=== PATIENT | female | born 1935 | race Caucasian/White ===

== ENCOUNTER 2021-03-14 15:36 | Inpatient (IN) | payer MEDICARE, OTHER, SELFPAY ==
[2021-03-14] VITALS (28 sets, daily range): BP systolic 99–114; BP diastolic 51–64; PULSE 58–72; RESP 9–19; TEMP 36–36.1; O2SAT 92–100; BMI 30.9
--- NOTE | ~2021-03-14 | XR_ITS ---
XR chest 2V DATE: 03/14/2021 16:44 INDICATION: Weakness. Cold sweats. Hyperglycemia. Abdominal pain. Nausea, diarrhea. TECHNIQUE: 2 views, AP and lateral projections COMPARISON: 01/25/2018 two-view chest FINDINGS: There is chronic mild elevation right leaf of the diaphragm. Surgical clips overlie both axillary regions and right upper quadrant of the abdomen.. No pulmonary infiltrate or consolidation, pleural effusion or pulmonary vascular congestion or pneumo thorax. Diffuse osteopenia. Degenerative spurring of the thoracic and lumbar spine. IMPRESSION: No active disease Reviewed, dictated and finalized at location A. IMPRESSION: No active disease
--- NOTE | ~2021-03-14 | CT_ITS ---
EXAMINATION: CT abdomen pelvis wo con DATE: 03/14/2021 17:25 INDICATION: Generalized abdominal pain, nausea TECHNIQUE: Computed tomography (CT) of the abdomen and pelvis was performed without intravenous contr ast. Automated exposure control and iterative reconstruction technique were employed. Exam dose: 791 .91 mGy-cm total exam DLP. COMPARISON: 01/26/2018 CT abdomen pelvis FINDINGS: Minimal discoid atelectasis or scarring at the lung bases. Normal heart size. There is coronary artery atherosclerosis. No pericardial or pleural effusion. Small sliding hiatal hernia. Status post left mastectomy. No hepatic space-occupying mass lesion. Status post cholecystectomy. The common bile duct is prominent but tapers distally, likely secondary to cholecystectomy. Normal splenic size. No pancreatic mass lesion, calcification or ductal dilatation. There is a small fatty lesion of the left adrenal gland, likely a small adrenal myelolipoma. The adre nal glands are otherwise unremarkable. There is very prominent bilateral renal cortical atrophy, greater on the left. There are bilateral re nal cysts, measuring up to 2.8 cm on the left, 4.4 cm on the right. The urinary bladder is unremarkable. There are mildly distended fluid containing small bowel segments with occasional air fluid levels; di fferential diagnosis includes enteritis, mild adynamic ileus or partial small bowel obstruction. There are numerous diverticula of the left and right colon; no CT evidence of diverticulitis. No evid ence of appendicitis. No intraperitoneal free air. There is diffuse osteopenia. There is moderate anterior wedge compression fracture of L2. There is severe biconcave burst fracture of L5. IMPRESSION: Mild small bowel dilatation and air fluid levels; differential diagnosis includes enteri tis, mild adynamic ileus, partial small bowel obstruction Small sliding hiatal hernia Diverticulosis of the colon; no evidence of diverticulitis No evidence of appendicitis Very small left adrenal myelolipoma Bilateral renal cysts Compression fracture or L2, severe burst fracture of L5 Reviewed, dictated and finalized at Location [facility]. Reviewed, dictated and finalized at location A. IMPRESSION: Mild small bowel dilatation and air fluid levels; differential amy gnosis includes enteritis, mild adynamic ileus, partial small bowel obstruction Small sliding hiatal hernia Diverticulosis of the colon; no evidence of diverticulitis No evidence of appendicitis Very small left adrenal myelolipoma Bilateral renal cysts Compression fracture or L2, severe burst fracture of L5
--- NOTE | ~2021-03-14 | US_ITS ---
EXAMINATION: US abdomen limited EXAM DATE: 03/15/2021 11:10 INDICATION: Elevated liver function tests. TECHNIQUE: Multiple grayscale and Doppler images of the abdomen right upper quadrant were obtained (b y a technologist who performed the scan) and subsequently reviewed. Comparison is made to prior exami nation from 01/22/2018. FINDINGS: The pancreatic head and body are normal in appearance. The pancreatic tail is not visualized. The l iver has normal echogenicity and contour. There are no focal liver lesions identified. There is no evidence of intrahepatic biliary duct dilation. Portal venous flow was seen in the hepatopedal, nor mal direction and has normal Doppler waveform. Common bile duct measures 5 mm, which is normal. The gallbladder fossa is unremarkable. IMPRESSION: 1. Unremarkable abdominal ultrasound exam. Reviewed, dictated and finalized at location B.
[2021-03-14 16:23] LABS: Glucose Point of Care 149 mg/dl (65-105)
--- NOTE | 2021-03-14 16:33 | ECG_ITS ---
Measurements Intervals [place] Rate: 61 P: 0 VT: 194 QRS: -72 QRSD: 174 T: 48 QT: 500 QTc: 505 Interpretive Statements SINUS RHYTHM RIGHT BUNDLE BRANCH BLOCK LEFT ANTERIOR FASCICULAR BLOCK BASELINE ARTIFACT- I, II, III, AVR, AVL, AVF, V2, V5-V6 ABNORMAL ECG Electronically Signed On 03-14-2021 19:21:34 CDT by Kunal Sierra D.O.
--- NOTE | 2021-03-14 16:33 | ED.GENADULT ---
HPI - General Adult General Chief complaint: Unspecified Stated complaint: diarrhea, blood sugar problems Time Seen by Provider: 03/14/21 16:17 Source: patient and RN notes reviewed Mode of arrival: ambulatory Limitations: no limitations History of Present Illness HPI narrative: This is an 85 year old female with history of DM, atrial fibrillation who presents for evaluation weakness with cold sweats and elevated blood sugar. Patient states starting at 1 am last night she developed feeling of coldness with diaphoresis. She reports her diaphoresis was constant for several hours. She reports having multiple episodes of diarrhea today as well. She has associated nausea and intermittent left abdominal pain pain. She denies chest pain but she reports mild sob. She denies fever. Related Data Home Medications Medication Instructions Recorded Confirmed allopurinol 100 mg PO DAILY 03/14/21 03/14/21 amiodarone 100 mg DAILY 03/14/21 03/14/21 calcitriol 0.25 mcg PO QMWF 03/14/21 03/14/21 fexofenadine 180 mg PO DAILY PRN 03/14/21 03/14/21 [id number] 1 inh INHALATION QAM 03/14/21 03/14/21 [Trelegy Ellipta] furosemide 40 mg PO DAILY PRN 03/14/21 03/14/21 insulin glargine [Lantus Solostar 15 unit SUBCUT HS 03/14/21 03/14/21 U-100 Insulin] loperamide 2 mg PO TID PRN 03/14/21 03/14/21 metoprolol succinate 25 mg PO QAM 03/14/21 03/14/21 mirabegron [Myrbetriq] 25 mg PO HS 03/14/21 03/14/21 oxycodone-acetaminophen 1 tablet PO TID PRN 03/14/21 03/14/21 pantoprazole 40 mg PO 1700 03/14/21 03/14/21 potassium chloride 10 meq PO BIDWMEAL 03/14/21 03/14/21 teriparatide [Forteo] 20 mcg SUBCUT HS 03/14/21 03/14/21 thyroid (pork) [[place] Thyroid] 120 mg PO QAM 03/14/21 03/14/21 warfarin 1.25 mg PO [id number] 03/14/21 03/14/21 warfarin 2.5 mg PO QMWF 03/14/21 03/14/21 zolpidem 6.25 mg PO HS 03/14/21 03/14/21 Allergies Allergy/AdvReac Type Severity Reaction Status Date / Time chlorhexidine Allergy Mild Unknown Verified 03/14/21 18:30 lidocaine Allergy Mild Unknown Verified 03/14/21 18:30 lisinopril Allergy Mild Unknown Verified 03/14/21 18:30 procaine Allergy Mild Unknown Verified 03/14/21 18:30 metoclopramide Allergy Unknown facial tics Verified 03/14/21 18:30 Review of Systems Review of Systems: All systems reviewed & are unremarkable except as noted in HPI and below Constitutional: Constitutional: Reports chills and Denies headache(s) PMFSH Past Medical History Medical History (Updated 03/14/21 @ 23:17 by Shena Flor MD) Anemia Bilateral breast cancer (1994) Status post left mastectomy and right lumpectomy with chemotherapy. Chronic anticoagulation On warfarin for stroke prophylaxis given atrial fibrillation. Clostridium difficile infection Congestive heart failure Insulin dependent type 2 diabetes mellitus Paroxysmal atrial fibrillation Status post cardioversion. Uterine cancer Status post total hysterectomy and brachytherapy. Surgical History Surgical History (Updated 03/14/21 @ 23:12 by Vernell Benavides PA-C) History of cataract extraction with lens replacement History of cholecystectomy History of hysterectomy for malignancy (2004) History of left mastectomy History of lumpectomy of right breast History of ventral hernia repair Family History Family History Mother Diabetes mellitus Cerebrovascular accident Grandparent Diabetes mellitus Heart disease Father Malignant neoplasm of prostate Sibling Bladder cancer Other Multiple sclerosis Stomach cancer Social History Social History (Updated 03/14/21 @ 23:13 by Vernell Benavides PA-C) Social History: Surrogate decision maker: Jonathan Valencia, son ([phone]). Code status: Full code. Smoking status: Never smoker Alcohol intake: never Substance use: never Living arrangements: alone Additional living arrangements comments: The noe
[2021-03-14 16:45] LABS: Basophils Absolute Auto 0.1 K/mm3 (0.0-0.1); Basophils Percent Auto 0.7 % (0.2-1.2); Eosinophils Absolute Auto 0.1 K/mm3 (0-0.3); Eosinophils Percent Auto 1.7 % (0-4.4); Hematocrit 37.6 % (37.0-47.0); Hemoglobin 11.8 g/dL (12.0-15.0); Immature Granulocyte Absolute 0.02 K/mm3 (0.00-0.031); Immature Granulocyte Percent A 0.3 % (0-0.5); Lymphocytes Percent Auto 16.6 % (18.3-44.2); Mean Corpuscular HGB Conc 31.4 g/dl (32-36); Mean Corpuscular Hemoglobin 27.8 pg (26-34); Mean Corpuscular Volume 88.5 fl (80-100); Mean Platelet Volume 9.7 fl (7.4-10.4); Monocytes Absolute Auto 0.6 K/mm3 (0.1-0.6); Monocytes Percent Auto 7.6 % (2.6-8.5); Neutrophils Absolute Auto 5.3 K/mm3 (1.3-6.7); Neutrophils Percent Auto 73.1 % (45.5-73.1); Platelet Count Result 248 k/mm3 (150-375); Red Blood Count 4.25 M/mm3 (4.2-5.4); Red Cell Distribution Width 14.9 % (11.5-14.5); White Blood Count 7.2 K/mm3 (4.5-10.0)
[2021-03-14 16:55] LABS: Prothrombin Time 47.8 Seconds (11.1-14.7)
[2021-03-14 17:01] LABS: Alanine Aminotransferase 65 U/L (4-35); Alkaline Phosphatase 138 U/L (38-126); Anion Gap 10 mmol/L (8-16); Aspartate Amino Transferase 183 U/L (14-36); Blood Urea Nitrogen 53 mg/dL (7-17); Calcium 8.9 mg/dL (8.4-10.2); Carbon Dioxide 23 mmol/L (22-30); Chloride 111 mmol/L (98-107); Estimated CRCL calculation 10 ml/min; Estimated Glomerular Filt Rate 13; Glucose 156 mg/dL (65-110); Lipase 588 U/L (23-300); Magnesium 1.9 mg/dL (1.6-2.3); Potassium 3.7 mmol/L (3.4-5.0); Sodium 144 mmol/L (137-145)
[2021-03-14 17:08] LABS: Troponin I < 0.012 ng/mL (0.000-0.034)
[2021-03-14 17:14] LABS: CRP 1.7 mg/dL (<1.0)
[2021-03-14 17:15] LABS: Lactic Acid Reflex 1.4 mmol/L (0.7-2.1)
[2021-03-14] MEDS: SODIUM CHLORIDE 0.9% IV 1,000 ML 999 ML IV CONT ×2 (17:26→20:16)
[2021-03-14 17:37] LABS: INR 5.5
[2021-03-14 18:49] LABS: Add Urine Microscopic? YES; Appearance Urine Cloudy (Clear); Bacteria Urine 2+ /hpf; Bilirubin Urine Negative (Negative); Blood Urine 3+ (Negative); Budding Yeast Urine Present /hpf; Color Urine Yellow (Yellow); Glucose Urine UA Negative (Negative); Ketones Urine Negative (Negative); Leukocyte Esterase Ur 3+ LEU/UL (Negative); Nitrate Urine Negative (Negative); Protein Urine 1+ mg/dL (Negative); RBC Urine >75 /hpf (0-2); Specific Grav Ur 1.013 (1.001-1.035); Squamous Epithelial Cell Urine Few /hpf (Few); WBC Urine 51-75 /hpf
--- NOTE | 2021-03-14 20:30 | PM.IMHP ---
H&P: HPI History of Present Illness Date/Time: 03/14/21 20:30 Chief Complaint: Nausea and cold sweats. Narrative: This is a very pleasant 85-year-old female with history of atrial fibrillation on long-term anticoagulation, hypothyroidism, chronic kidney disease, congestive heart failure, insulin-dependent diabetes, breast cancer, uterine cancer, and history of recurrent C diff who presented to the emergency department earlier today via private vehicle for evaluation of nausea and cold sweats. Last Monday she had an upset stomach and had 24 hours of nausea, vomiting, and diarrhea. Sounds like last night she started to feel bad again and around 01:00 she developed cold sweats and what sounds like rigors which lasted for nearly 8 hours. She took naproxen and that seemed to help her symptoms somewhat. Additionally she has had some mild left-sided abdominal discomfort as well as urinary urgency. In the emergency department today she was found to have a urinary tract infection with a CT of the abdomen and pelvis showing findings of enteritis or adynamic ileus. She is being admitted in this setting. At the time my evaluation she feels perhaps a little bit better after receiving IV fluids. She is worried about being started on antibiotics given history of C diff on 3 prior occasions. She has not had a documented fever to her knowledge. No vomiting today that she continues to have some nausea. She denies sick contacts and recent antibiotic use. No significant dysuria. She has not had cold or flu symptoms. No exposure to those positive for COVID 19. Review of Systems Review of Systems: Twelve systems were reviewed with pertinent positives and negatives as per HPI. No documented fever. She denies sinus congestion but has had some rhinorrhea and watery eyes. She has a history of gastroparesis and she shows her symptoms are similar though ?I have not had problem in years.? She has had some loose stools as above. No cough or shortness of breath. No blurry vision, polydipsia, or polyuria. Reports lymphedema in her left arm and left leg. No history of hepatitis or cirrhosis. She denies back pain, paresthesias of the legs, and saddle anesthesia. No recent falls. She has not injured her back. Except as documented, all other systems were reviewed and are negative. [facility] Past Medical History Medical History (Updated 03/14/21 @ 23:27 by Vernell Benavides PA-C) Anemia Bilateral breast cancer (1994) Status post left mastectomy and right lumpectomy with chemotherapy. Chronic anticoagulation On warfarin for stroke prophylaxis given atrial fibrillation. Chronic kidney disease, stage 3 Baseline creatinine is 2.30 per patient report. Followed by Dr. Murillo. Clostridium difficile infection Congestive heart failure Hypothyroidism Insulin dependent type 2 diabetes mellitus Osteoporosis Paroxysmal atrial fibrillation Status post cardioversion. Uterine cancer Status post total hysterectomy and brachytherapy. Surgical History Surgical History (Updated 03/14/21 @ 23:12 by Vernell Benavides PA-C) History of cataract extraction with lens replacement History of cholecystectomy History of hysterectomy for malignancy (2004) History of left mastectomy History of lumpectomy of right breast History of ventral hernia repair Family History Family History Mother Diabetes mellitus Cerebrovascular accident Grandparent Diabetes mellitus Heart disease Father Malignant neoplasm of prostate Sibling Bladder cancer Other Multiple sclerosis Stomach cancer Social History Social History (Updated 03/14/21 @ 23:13 by Vernell Benavides PA-C) Social History: Surrogate decision maker: Jonathan Valencia, son ([phone]). Code status: Full code. Smoking status: Never smoker Alcohol intake: never Substance use: never Living arrangements: alone Additional living arrangements comments: The patient jose
[2021-03-14 23:16] LABS: Glucose Point of Care 79 mg/dl (65-105)
[2021-03-14 23:45] LABS: Hemoglobin A1C 7.5 % (<5.7)
[2021-03-14] MEDS: INSULIN GLARGINE (*BKC) 100 UNITS/ML 15 UNITS SUB-Q (23:49)
[2021-03-15] VITALS (13 sets, daily range): BP systolic 105–124; BP diastolic 47–62; PULSE 51–74; RESP 15–17; TEMP 36.1–36.6; O2SAT 93–97; BMI 30.9
[2021-03-15] MEDS: VANCOMYCIN ORAL 125 MG/2.5 ML SYRUP PO ×2 (00:10→08:25)
[2021-03-15] MEDS: ZOLPIDEM TARTRATE (*CRX) 5 MG TABLET PO ×2 (00:24→23:23)
[2021-03-15] MEDS: SODIUM CHLORIDE 0.9% IV 1,000 ML 75 ML IV CONT (00:30)
[2021-03-15] MEDS: FLUTICASONE/UMECLIDIN/VILANTER 100-62.5-25 MCG ELLIPTA 1 PUFF INHALATION ×2 (00:39→21:30)
[2021-03-15 00:52] LABS: Hepatitis B Surface Antigen Negative (Negative)
[2021-03-15 00:58] LABS: HAV RESULT Negative (Negative); Hepatitis B Core IgM Result Negative (Negative)
[2021-03-15 01:10] LABS: Hepatitis C Virus Antibody Negative (Negative)
[2021-03-15 06:07] LABS: Hematocrit 32.1 % (37.0-47.0); Hemoglobin 10.4 g/dL (12.0-15.0); Mean Corpuscular HGB Conc 32.4 g/dl (32-36); Mean Corpuscular Hemoglobin 28.7 pg (26-34); Mean Corpuscular Volume 88.4 fl (80-100); Mean Platelet Volume 9.4 fl (7.4-10.4); Platelet Count Result 232 k/mm3 (150-375); Red Blood Count 3.63 M/mm3 (4.2-5.4); Red Cell Distribution Width 14.7 % (11.5-14.5); White Blood Count 5.1 K/mm3 (4.5-10.0)
[2021-03-15 06:18] LABS: Prothrombin Time 57.1 Seconds (11.1-14.7)
[2021-03-15 06:22] LABS: INR 6.9
[2021-03-15 06:27] LABS: Alanine Aminotransferase 107 U/L (4-35); Albumin Level 3.3 g/dL (3.5-5.1); Alkaline Phosphatase 178 U/L (38-126); Anion Gap 11 mmol/L (8-16); Aspartate Amino Transferase 213 U/L (14-36); Bilirubin,Total 1.3 mg/dL (0.2-1.3); Blood Urea Nitrogen 46 mg/dL (7-17); Calcium 8.1 mg/dL (8.4-10.2); Carbon Dioxide 21 mmol/L (22-30); Chloride 117 mmol/L (98-107); Creatine Kinase 54 U/L (30-135); Estimated CRCL calculation 11 ml/min; Estimated Glomerular Filt Rate 14; Glucose 75 mg/dL (65-110); Lactate Dehydrogenase 717 U/L (313-618); Lipase 1213 U/L (23-300); Magnesium 1.8 mg/dL (1.6-2.3); Potassium 3.5 mmol/L (3.4-5.0); Sodium 149 mmol/L (137-145)
[2021-03-15 07:32] LABS: Glucose Point of Care 65 mg/dl (65-105)
[2021-03-15] MEDS: POTASSIUM CHLORIDE 10 MEQ TABLET.ER PO ×2 (08:24→17:01)
[2021-03-15] MEDS: calcitrioL 0.25 MCG CAPSULE PO (08:24)
[2021-03-15] MEDS: allopurinoL 100 MG TABLET PO (08:24)
[2021-03-15] MEDS: AMIODARONE HCL 100 MG TABLET PO (08:24)
[2021-03-15] MEDS: THYROID 60 MG TABLET 120 MG PO (08:25)
[2021-03-15] MEDS: METOPROLOL SUCCINATE EXT REL 25 MG TABCR PO (08:25)
[2021-03-15] MEDS: LACTATED RINGERS 1,000 ML 75 ML IV CONT (10:40)
--- NOTE | 2021-03-15 10:47 | PC.NURSE ---
Pt off floor to ultrasound
[2021-03-15 12:03] LABS: Glucose Point of Care 79 mg/dl (65-105)
[2021-03-15 13:32] LABS: Sodium 146 mmol/L (137-145)
[2021-03-15] MEDS: PANTOPRAZOLE 40 MG TABLET PO (17:01)
[2021-03-15 17:03] LABS: Glucose Point of Care 85 mg/dl (65-105)
--- NOTE | 2021-03-15 17:14 | PC.NURSE ---
UI UX DEVELOPER in to see patient, notified UI UX DEVELOPER of patient low urine output, order noted for bladder scan.
--- NOTE | 2021-03-15 17:18 | PM.IMPN ---
Progress Note: A&P Assessment and Plan (1) Urinary tract infection: Code(s): N39.0 - Urinary tract infection, site not specified Status: Acute Assessment and Plan: UA consistent with UTI -continue ceftriaxone, await urine culture -patient has a history of C diff and prophylactic vancomycin was started (2) Acute on chronic renal failure: Code(s): N17.9 - Acute kidney failure, unspecified; N18.9 - Chronic kidney disease, unspecified Status: Acute Assessment and Plan: Improving with IV fluids -creatinine was 3.4 on admission and now 3.1. -no records here with her past medical history but it is stated that she follows Dr. Murillo in her last creatinine was 2.3 -will do postvoid bladder scan -could be due to dehydration, monitor daily labs (3) Dehydration: Code(s): E86.0 - Dehydration Status: Acute Assessment and Plan: As above (4) Supratherapeutic INR: Code(s): R79.1 - Abnormal coagulation profile Status: Acute Assessment and Plan: INR 6.9 - Warfarin has been placed on hold -no signs of bleeding, No need to reverse at this time. -continue daily INRs (5) Elevated LFTs: Code(s): R79.89 - Other specified abnormal findings of blood chemistry Status: Acute Assessment and Plan: Patient states she has no history liver disease that she knows of -AST worsening 183 on admission and 213 today. ALT 65 yesterday and 107 today -hepatitis screen negative -abdominal ultrasound shows a normal liver -patient is on amiodarone, may consider Cardiology consult if liver enzymes do not improve -lipase is also elevated but bilirubin is normal with a slightly elevated alk-phos of 178. No signs of stone on imaging. -could be due to infection -will ask GIs recommendations (6) Gastroenteritis: Code(s): K52.9 - Noninfective gastroenteritis and colitis, unspecified Status: Acute Assessment and Plan: Patient had a history of diarrhea and abdominal pain but is improving -monitor (7) Lumbar compression fracture: Code(s): S32.000A - Wedge compression fracture of unspecified lumbar vertebra, initial encounter for closed fracture Status: Acute Assessment and Plan: Compression fractures noted L2 and a severe burst fracture of L5 without symptoms -I spoke with Radiology who states the L5 burst fracture is worse. The patient states that she has seen 3 different spinal doctors and has a brace at home. I advised her to wear that and follow up with the spinal doctor as she will likely need follow-up imaging to ensure this heals correctly. 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 She takes her heart rate every morning and takes her pill about 3/7 days (10) Elevated lipase: Code(s): R74.8 - Abnormal levels of other serum enzymes Status: Acute Assessment and Plan: No pain to palpation today but lipase is a bit worse -no imaging abnormalities to support pancreatic abnormalities (11) Hypothyroidism: Code(s): E03.9 - Hypothyroidism, unspecified Status: Acute Assessment and Plan: TSH normal (12) Hypernatremia: Code(s): E87.0 - Hyperosmolality and hypernatremia Status: Acute Assessment and Plan: Her sodium was normal on admission but did incr
[2021-03-15 19:19] LABS: Sodium 144 mmol/L (137-145)
[2021-03-15 21:20] LABS: Glucose Point of Care 87 mg/dl (65-105)
[2021-03-15] MEDS: INSULIN GLARGINE (*BKC) 100 UNITS/ML 10 UNITS SUB-Q (21:30)
[2021-03-16] VITALS (11 sets, daily range): BP systolic 92–120; BP diastolic 47–84; PULSE 54–84; RESP 10–20; TEMP 36.4–36.9; O2SAT 93–97
[2021-03-16] MEDS: LACTATED RINGERS 1,000 ML 75 ML IV CONT
[2021-03-16 05:13] LABS: Hematocrit 28.8 % (37.0-47.0); Mean Corpuscular HGB Conc 31.3 g/dl (32-36); Mean Corpuscular Hemoglobin 28.5 pg (26-34); Mean Corpuscular Volume 91.1 fl (80-100); Mean Platelet Volume 9.6 fl (7.4-10.4); Platelet Count Result 204 k/mm3 (150-375); Red Blood Count 3.16 M/mm3 (4.2-5.4); Red Cell Distribution Width 15.4 % (11.5-14.5); White Blood Count 7.7 K/mm3 (4.5-10.0)
[2021-03-16 05:36] LABS: Alanine Aminotransferase 59 U/L (4-35); Albumin Level 2.7 g/dL (3.5-5.1); Alkaline Phosphatase 133 U/L (38-126); Anion Gap 8 mmol/L (8-16); Aspartate Amino Transferase 67 U/L (14-36); Bilirubin,Total 0.4 mg/dL (0.2-1.3); Blood Urea Nitrogen 42 mg/dL (7-17); Calcium 7.8 mg/dL (8.4-10.2); Carbon Dioxide 20 mmol/L (22-30); Chloride 115 mmol/L (98-107); Estimated CRCL calculation 14 ml/min; Estimated Glomerular Filt Rate 19; Glucose 53 mg/dL (65-110); Lipase 487 U/L (23-300); Magnesium 1.6 mg/dL (1.6-2.3); Potassium 3.8 mmol/L (3.4-5.0); Sodium 143 mmol/L (137-145)
[2021-03-16] MEDS: GLUCOSE ORAL GEL 15 GM OF GLUCSE IN 37.5 GM TUBE PO (05:40)
[2021-03-16 06:02] LABS: Glucose Point of Care 60 mg/dl (65-105)
[2021-03-16 06:02] LABS: Glucose Point of Care 43 mg/dl (65-105)
--- NOTE | 2021-03-16 06:05 | PC.NURSE ---
Addendum entered by Aldo Baxter RN 03/16/21 06:28: 0536- CRITICAL GLUCOSE LAB RESULT CALLED 56. PT A&OX3, SOME DIAPHORESIS NOTED, PT FEELS CLAMMY. BEDSIDE GLUCOSE CHECKED. Original Note: 0540- GLUCOSE GEL ADMINISTERED FOR GLUCOSE LEVEL OF 43. 0555- 4OZ. APPLE JUICE GIVEN TO PT FOR GLUCOSE LEVEL OF 60. 0615- BEDSIDE GLUCOSE 74, PT REQUESTS SOME SURAJ CRACKERS. WILL RECHECK IN ONE HOUR.
[2021-03-16 06:16] LABS: Glucose Point of Care 74 mg/dl (65-105)
[2021-03-16 07:57] LABS: Glucose Point of Care 126 mg/dl (65-105)
[2021-03-16] MEDS: allopurinoL 100 MG TABLET PO (08:33)
[2021-03-16] MEDS: POTASSIUM CHLORIDE 10 MEQ TABLET.ER PO ×2 (08:33→17:11)
[2021-03-16] MEDS: AMIODARONE HCL 100 MG TABLET PO (08:33)
[2021-03-16] MEDS: THYROID 60 MG TABLET 120 MG PO (08:33)
[2021-03-16] MEDS: VANCOMYCIN ORAL 125 MG/2.5 ML SYRUP PO (08:35)
[2021-03-16 08:47] LABS: Prothrombin Time 44.7 Seconds (11.1-14.7)
--- NOTE | 2021-03-16 11:00 | PM.IMPN ---
Progress Note: A&P Assessment and Plan (1) Urinary tract infection: Code(s): N39.0 - Urinary tract infection, site not specified Status: Acute Assessment and Plan: Urine culture growing greater than 100,000 Klebsiella pneumonia -continue ceftriaxone, await urine sensitivities -patient has a history of C diff and prophylactic vancomycin will be continued (2) Acute on chronic renal failure: Code(s): N17.9 - Acute kidney failure, unspecified; N18.9 - Chronic kidney disease, unspecified Status: Acute Assessment and Plan: Improving with IV fluids -creatinine was 3.4 on admission and now 2.4 -records indicate she creatinine earlier that she was 2.3 -could be due to dehydration with her diarrhea or UTI (3) Dehydration: Code(s): E86.0 - Dehydration Status: Acute Assessment and Plan: As above (4) Supratherapeutic INR: Code(s): R79.1 - Abnormal coagulation profile Status: Acute Assessment and Plan: INR 5.0 - Warfarin has been placed on hold -no signs of bleeding, No need to reverse at this time. -continue daily INRs (5) Elevated LFTs: Code(s): R79.89 - Other specified abnormal findings of blood chemistry Status: Acute Assessment and Plan: Patient states she has no history liver disease that she knows of -AST and ALT better today -hepatitis screen negative -abdominal ultrasound shows a normal liver -patient is on amiodarone, may consider Cardiology consult if liver enzymes do not improve -lipase and alk-phos also improving -could be due to infection -GI consulted (6) Gastroenteritis: Code(s): K52.9 - Noninfective gastroenteritis and colitis, unspecified Status: Acute Assessment and Plan: Patient had a history of diarrhea and abdominal pain but is improving -no signs of C diff such as leukocytosis or megacolon (7) Lumbar compression fracture: Code(s): S32.000A - Wedge compression fracture of unspecified lumbar vertebra, initial encounter for closed fracture Status: Acute Assessment and Plan: Compression fractures noted L2 and a severe burst fracture of L5 without symptoms -I spoke with Radiology who states the L5 burst fracture is worse. The patient states that she has seen 3 different spinal doctors and has a brace at home. I advised her to wear that and follow up with the spinal doctor as she will likely need follow-up imaging to ensure this heals correctly. She has no neurological deficits at this time (8) Insulin dependent type 2 diabetes mellitus: Code(s): E11.9 - Type 2 diabetes mellitus without complications; Z79.4 - shelter (current) use of insulin Status: Acute Assessment and Plan: Last glucose 126 but was much lower this morning -patient states she usually eats a snack before bed and I have asked her to do so tonight -will hold off on basal insulin at this time -A1c 7.5 (9) Paroxysmal atrial fibrillation: Code(s): I48.0 - Paroxysmal atrial fibrillation Status: Acute Assessment and Plan: She is currently in sinus rhythm -continue amiodarone for now -patient states that she takes her metoprolol on days where her heart rate is greater than 70. She takes her heart rate every morning and takes her pill about 3/7 days (10) Elevated lipase: Code(s): R74.8 - Abnormal levels of other serum enzymes Status: Acute Assessment and Plan: Lipase improved -no imaging abnormalities to support pancreatic abnormalities (11) Hypothyroidism: Code(s): E03.9 - Hypothyroidism, unspecified Status: Acute Assessment and Plan: TSH normal (12) Hypernatremia: Code(s): E87.0 - Hyperosmolality and hypernatremia Status: Acute Assessment and Plan: Resolved, will stop fluids Subjective Date/time seen: 03/16/21 11:00 Interval history: Pt is
[2021-03-16 11:58] LABS: Glucose Point of Care 139 mg/dl (65-105)
--- NOTE | 2021-03-16 13:43 | WPDGICN ---
Assessment and Plan Assessment and plan (1) Elevated lipase: Code(s): R74.8 - Abnormal levels of other serum enzymes Status: Acute Assessment and Plan: Patient has quite elevated lipase at the time of admission suggesting she may have had acute pancreatitis. The tail of the pancreas appears to correlate with the location of her pain suggesting this could be where the pancreatitis was located. If so it could easily irritate the kidney causing pyuria. There is no evidence of gallstones. LFTs briefly elevated have now begun to improve. Would recommend following this conservatively at this time. Follow-up LFTs and lipase are encourage. It is also possible elevated lipase could be related to decreased kidney function. Observation encouraged initially but MRCP may be a benefit if pain persists. We will follow with you. Agree with advancing diet as tolerated monitoring labs at this point. (2) Elevated LFTs: Code(s): R79.89 - Other specified abnormal findings of blood chemistry Status: Acute Assessment and Plan: Elevated LFTs noted at the time of admission have begun to resolve. This could be related to infection but also possibly related to what appears to have been a brief episode of pancreatitis. We will follow with you. Hepatitis ABC serologies are noted to be negative at this time. (3) Acute UTI: Code(s): N39.0 - Urinary tract infection, site not specified Status: Acute Assessment and Plan: Patient with pyuria on urinalysis suggests urinary tract infection. This may also be related to irritation of the left kidney and proximity to the tail of the pancreas. (4) Acute on chronic renal failure: Code(s): N17.9 - Acute kidney failure, unspecified; N18.9 - Chronic kidney disease, unspecified Status: Acute Assessment and Plan: Patient has baseline renal insufficiency. Her creatinine which was elevated on admission has begun to improve with rehydration. Renal insufficiency may contribute to elevation of her lipase. Which has now begun to resolve. (5) Insulin dependent type 2 diabetes mellitus: Code(s): E11.9 - Type 2 diabetes mellitus without complications; Z79.4 - detention (current) use of insulin Status: Acute (6) Paroxysmal atrial fibrillation: Code(s): I48.0 - Paroxysmal atrial fibrillation Status: Acute (7) Chronic anticoagulation: Code(s): Z79.01 - detention (current) use of 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s Status: Acute GI Consult Note Consult date/time: 03/16/21 13:43 HPI: Jhon Valencia is a 85 year old female I am asked to see because of elevated LFTs. Patient has an underlying history of diabetes mellitus. Has been treated for uterine cancer,CHF, atrial fibrillation,chronic anticoagulatiobn, chronic kidney disease, known to me from previous treatment for relapsing C difficile infection. Patient states she was in her usual state of health until Monday morning about 1:00 a.m. when she began to have some nausea vomiting and diarrhea. She developed rather diffuse cold sweats. She denies a fever. And presented to the emergency room. She developed pain predominantly on the left side of her abdomen. That has gradually improved since admission to the hospital. The nausea vomiting likewise his gradually improved. She denies a fever. She denies any jaundice. Since hospitalization she has been noted to have a gradual increase in then decline in her serum transaminases. Her serum lipase was quite elevated but he has begun to improve. Review of Systems Review of Systems: All systems reviewed & are unremarkable except as noted in HPI and below [facility] Past Medical History Medical History (Updated 03/15/21 @ 17:30 by Ellen Olmstead PA-C) Anemia Bilateral breast cancer (1994) Status post left mastectomy and right lumpectomy with chemotherapy. Chronic anticoagulation On warfarin for stroke prophylaxis given atrial fibrillation. Chr
[2021-03-16 16:38] LABS: Glucose Point of Care 146 mg/dl (65-105)
[2021-03-16] MEDS: PANTOPRAZOLE 40 MG TABLET PO (17:11)
[2021-03-16 20:54] LABS: Glucose Point of Care 142 mg/dl (65-105)
[2021-03-16] MEDS: ZOLPIDEM TARTRATE (*CRX) 5 MG TABLET PO (21:01)
[2021-03-16] MEDS: FLUTICASONE/UMECLIDIN/VILANTER 100-62.5-25 MCG ELLIPTA 1 PUFF INHALATION (21:02)
[2021-03-17] VITALS (14 sets, daily range): BP systolic 126–130; BP diastolic 47–51; PULSE 52–74; RESP 13–18; TEMP 36.7–36.9; O2SAT 95–98
[2021-03-17 06:04] LABS: Hematocrit 26.5 % (37.0-47.0); Hemoglobin 8.5 g/dL (12.0-15.0); Mean Corpuscular HGB Conc 32.1 g/dl (32-36); Mean Corpuscular Hemoglobin 28.5 pg (26-34); Mean Corpuscular Volume 88.9 fl (80-100); Mean Platelet Volume 9.4 fl (7.4-10.4); Platelet Count Result 184 k/mm3 (150-375); Red Blood Count 2.98 M/mm3 (4.2-5.4); Red Cell Distribution Width 14.9 % (11.5-14.5); White Blood Count 6.4 K/mm3 (4.5-10.0)
[2021-03-17 06:15] LABS: INR 3.5; Prothrombin Time 33.8 Seconds (11.1-14.7)
[2021-03-17 07:35] LABS: Glucose Point of Care 88 mg/dl (65-105)
[2021-03-17] MEDS: calcitrioL 0.25 MCG CAPSULE PO (08:23)
[2021-03-17] MEDS: THYROID 60 MG TABLET 120 MG PO (08:23)
[2021-03-17] MEDS: AMIODARONE HCL 100 MG TABLET PO (08:23)
[2021-03-17] MEDS: METOPROLOL SUCCINATE EXT REL 25 MG TABCR PO (08:24)
[2021-03-17] MEDS: allopurinoL 100 MG TABLET PO (08:24)
[2021-03-17] MEDS: POTASSIUM CHLORIDE 10 MEQ TABLET.ER PO ×2 (08:24→17:00)
[2021-03-17] MEDS: VANCOMYCIN ORAL 125 MG/2.5 ML SYRUP PO (08:24)
[2021-03-17 09:31] LABS: Iron 32 ug/dL (37-170)
[2021-03-17 09:32] LABS: Alanine Aminotransferase 39 U/L (4-35); Albumin Level 2.6 g/dL (3.5-5.1); Alkaline Phosphatase 119 U/L (38-126); Anion Gap 7 mmol/L (8-16); Aspartate Amino Transferase 29 U/L (14-36); Bilirubin,Total 0.4 mg/dL (0.2-1.3); Blood Urea Nitrogen 31 mg/dL (7-17); Calcium 7.8 mg/dL (8.4-10.2); Carbon Dioxide 19 mmol/L (22-30); Chloride 115 mmol/L (98-107); Estimated CRCL calculation 18 ml/min; Estimated Glomerular Filt Rate 24; Glucose 103 mg/dL (65-110); Potassium 3.9 mmol/L (3.4-5.0); Sodium 141 mmol/L (137-145)
[2021-03-17 09:41] LABS: Transferrin 124 mg/dL (206-381)
[2021-03-17 09:44] LABS: Percent Iron Saturation 15 % (20-50)
--- NOTE | 2021-03-17 10:34 | WPDGIPROGNO ---
Progress Note: A&P Assessment and Plan (1) Acute pancreatitis: Code(s): K85.90 - Acute pancreatitis without necrosis or infection, unspecified Status: Acute Assessment and Plan: Patient appeared to have a chemical pancreatitis with markedly elevated lipase. This is now improved. Suspect this likely contributes to her abdominal pain and perhaps the pyuria. Currently resolving would advance diet to low-fat diet. LFTs are improving along with clinical resolution. (2) Elevated lipase: Code(s): R74.8 - Abnormal levels of other serum enzymes Status: Acute (3) Elevated LFTs: Code(s): R79.89 - Other specified abnormal findings of blood chemistry Status: Acute Assessment and Plan: LFTs continue to improve. Likely related to either pancreatitis now resolving, or infection. Now on antibiotics for UTI. (4) Supratherapeutic INR: Code(s): R79.1 - Abnormal coagulation profile Status: Acute Assessment and Plan: INR gradually returning to her normal therapeutic value. Continue to monitor. (5) Anemia: Code(s): D64.9 - Anemia, unspecified Status: Acute Assessment and Plan: Decline on hemoglobin since admission may be related to hemodilution. But given her elevated INR I am concerned about GI blood loss. Stool Hemoccult pending. Plan to continue to monitor hemoglobin. No obvious bleeding described by patient. (6) Acute UTI: Code(s): N39.0 - Urinary tract infection, site not specified Status: Acute Assessment and Plan: Patient with significant pyuria. Appears to have had UTI. Cultures pending. Agree with antibiotics. Also possibly related to pancreatitis if it was in the tail of her pancreas. Subjective Date/time seen: 03/17/21 10:34 Patient feels much better today. Notes only mild left-sided abdominal discomfort. Tolerated diet with no incident. Bowel habits have returned to normal. No evidence for bleeding. Review of Systems Review of Systems: All systems reviewed & are unremarkable except as noted in HPI and below Exam Narrative: Physical exam reveals patient to be alert. Vital signs stable. She is anicteric. Lungs are clear. Heart without murmur. Abdomen bowel sounds present soft minimal left-sided abdominal tenderness no masses evident. Objective Data Vital Signs Vital Signs: Vital Signs - 24 hr 03/16/21 12:00 03/16/21 14:00 03/16/21 16:00 Temperature 98.5 F Pulse Rate 66 84 67 Respiratory Rate 17 Blood Pressure 114/47 L Pulse Oximetry 93 03/16/21 20:00 03/16/21 20:51 03/16/21 22:02 Temperature 98.5 F Pulse Rate 62 64 Respiratory Rate 10 L Blood Pressure 120/58 L Pulse Oximetry 95 97 03/17/21 00:00 03/17/21 04:00 03/17/21 05:58 Temperature 98.1 F Pulse Rate 57 L 54 L 60 Respiratory Rate 16 Blood Pressure 126/51 L Pulse Oximetry 97 03/17/21 06:03 03/17/21 08:00 03/17/21 08:23 Temperature Pulse Rate 59 L 72 Respiratory Rate 16 Blood Pressure Pulse Oximetry 96 98 03/17/21 08:24 Temperature Pulse Rate 74 Respiratory Rate Blood Pressure Pulse Oximetry Intake/Output Intake/Output: Intake & Output 03/14/21 03/15/21 03/16/21 03/17/21 23:59 23:59 23:59 23:59 Intake Total 2050 1000 3170 400 Output Total 400 700 200 Balance 2050 600 2470 200 Meds/Results Medications: Active Medications Generic Name Dose Route Start Last Admin Trade Name Freq PRN Reason Stop Dose Admin Allopurinol 100 mg 03/15/21 08:00 03/17/21 08:24 Allopurinol 100 Mg Tablet PO 100 mg DAILY@0800 [facility] Administration Amiodarone HCl 100 mg 03/15/21 08:00 03/17/21 08:23 Amiodarone Hcl 100 Mg Tablet PO 100 mg DAILY@0800 [facility] Administration Calcitriol 0.25 mcg 03/15/21 09:00 03/17/21 08:23 Calcitriol 0.25 Mcg Capsule PO 0.25 mcg MoWeFr@0900 [facility] Administration Dextrose 12.5 gm 03/14/21 23:26 Dextrose 50% 25 Gm/
[2021-03-17 10:35] LABS: Folic Acid 13.9 ng/mL (2.76->20); Vitamin B12 > 1000.0 pg/mL (239-931)
[2021-03-17 12:03] LABS: Glucose Point of Care 194 mg/dl (65-105)
[2021-03-17 12:08] LABS: Hematocrit 28.8 % (37.0-47.0); Hemoglobin 9.1 g/dL (12.0-15.0)
--- NOTE | 2021-03-17 16:30 | PM.IMPN ---
Progress Note: A&P Assessment and Plan (1) Anemia: Code(s): D64.9 - Anemia, unspecified Status: Acute Assessment and Plan: Hemoglobin 9.1 today but has been slowly dropping since admission when she was 11.8 -anemia studies show iron deficiency anemia -last colonoscopy was 2 years ago but she does not remember the last EGD she had -she has no symptoms of anemia -this is concerning since her INR was elevated 6.9 earlier, this has improved to 3.5 -will obtain stool occult test -no signs of bleeding (2) Urinary tract infection: Code(s): N39.0 - Urinary tract infection, site not specified Status: Acute Assessment and Plan: Urine culture growing greater than 100,000 Klebsiella pneumonia -continue ceftriaxone, sensitive to ceftriaxone -patient has a history of C diff and prophylactic vancomycin will be continued (3) Acute on chronic renal failure: Code(s): N17.9 - Acute kidney failure, unspecified; N18.9 - Chronic kidney disease, unspecified Status: Acute Assessment and Plan: Resolved. -Creatinine was 3.4 on admission and creatinine is 2.0 currently -records indicate she creatinine earlier this year that she was 2.3 (4) Dehydration: Code(s): E86.0 - Dehydration Status: Acute Assessment and Plan: As above (5) Supratherapeutic INR: Code(s): R79.1 - Abnormal coagulation profile Status: Acute Assessment and Plan: INR 3.5 - Warfarin has been placed on hold -no signs of bleeding, No need to reverse at this time. -continue daily INRs (6) Elevated LFTs: Code(s): R79.89 - Other specified abnormal findings of blood chemistry Status: Acute Assessment and Plan: Patient states she has no history liver disease that she knows of -AST and ALT essentially normal today, much improved from admission -hepatitis screen negative -abdominal ultrasound shows a normal liver -patient is on amiodarone, I do not suspect this is the cause -lipase improving -could have been due to infection -GI consulted (7) Gastroenteritis: Code(s): K52.9 - Noninfective gastroenteritis and colitis, unspecified Status: Acute Assessment and Plan: Patient had a history of diarrhea and abdominal pain but is improving -no signs of C diff such as leukocytosis or megacolon (8) Lumbar compression fracture: Code(s): S32.000A - Wedge compression fracture of unspecified lumbar vertebra, initial encounter for closed fracture Status: Acute Assessment and Plan: Compression fractures noted L2 and a severe burst fracture of L5 without symptoms -I spoke with Radiology who states the L5 burst fracture is worse. The patient states that she has seen 3 different spinal doctors and has a brace at home. I advised her to wear that and follow up with the spinal doctor as she will likely need follow-up imaging to ensure this heals correctly. She has no neurological deficits at this time (9) Insulin dependent type 2 diabetes mellitus: Code(s): E11.9 - Type 2 diabetes mellitus without complications; Z79.4 - [facility] (current) use of insulin Status: Acute Assessment and Plan: Last glucose 214 but was much lower this morning -patient states she usually eats a snack before bed and I have asked her to do so tonight -continue to hold off on basal insulin at this time -A1c 7.5 (10) Paroxysmal atrial fibrillation: Code(s): I48.0 - Paroxysmal atrial fibrillation Status: Acute Assessment and Plan: She is currently in sinus rhythm -continue amiodarone -patient states that she takes her metoprolol on days where her heart rate is greater than 70. She takes her heart rate every morning and takes her pill about 3/7 days (11) Elevated lipase: Code(s): R74.8 - Abnormal levels of other serum enzymes Status: Acute Assessment and Plan: Lip
[2021-03-17 16:46] LABS: Glucose Point of Care 214 mg/dl (65-105)
[2021-03-17] MEDS: PANTOPRAZOLE 40 MG TABLET PO (16:59)
[2021-03-17] MEDS: FLUTICASONE/UMECLIDIN/VILANTER 100-62.5-25 MCG ELLIPTA 1 PUFF INHALATION (21:26)
[2021-03-17] MEDS: ZOLPIDEM TARTRATE (*CRX) 5 MG TABLET PO (21:26)
[2021-03-17 21:31] LABS: Glucose Point of Care 213 mg/dl (65-105)
[2021-03-18] VITALS (7 sets, daily range): BP systolic 110–134; BP diastolic 43–88; PULSE 47–70; RESP 13–18; TEMP 36.7–36.8; O2SAT 97–98
[2021-03-18] MEDS: oxyCODONE/ACETAMINOPHEN (*CRX) 5-325 MG TABLET 1 TABLET PO ×2 (03:15→11:44)
[2021-03-18 06:46] LABS: Hematocrit 27.1 % (37.0-47.0); Hemoglobin 8.7 g/dL (12.0-15.0)
[2021-03-18 06:59] LABS: Anion Gap 6 mmol/L (8-16); Blood Urea Nitrogen 24 mg/dL (7-17); Calcium 8.2 mg/dL (8.4-10.2); Carbon Dioxide 19 mmol/L (22-30); Chloride 112 mmol/L (98-107); Estimated CRCL calculation 21 ml/min; Estimated Glomerular Filt Rate 29; Glucose 137 mg/dL (65-110); Potassium 4.2 mmol/L (3.4-5.0); Sodium 137 mmol/L (137-145)
[2021-03-18] MEDS: THYROID 60 MG TABLET 120 MG PO (07:39)
[2021-03-18] MEDS: POTASSIUM CHLORIDE 10 MEQ TABLET.ER PO (07:39)
[2021-03-18] MEDS: allopurinoL 100 MG TABLET PO (07:39)
[2021-03-18] MEDS: VANCOMYCIN ORAL 125 MG/2.5 ML SYRUP PO (07:39)
[2021-03-18] MEDS: AMIODARONE HCL 100 MG TABLET PO (07:39)
--- NOTE | 2021-03-18 07:55 | WPDGIPROGNO ---
Progress Note: A&P Assessment and Plan (1) Acute pancreatitis: Code(s): K85.90 - Acute pancreatitis without necrosis or infection, unspecified Status: Acute Assessment and Plan: Pancreatitis resolved clinically. Appears to be idiopathic in nature. Low-fat diet encourage long-term. (2) Anemia: Code(s): D64.9 - Anemia, unspecified Status: Acute Assessment and Plan: Anemia noted since admission the hospital. Hemoglobin 9.1 was higher yesterday afternoon. Hemoglobin 8.7 today is stable. Stool Hemoccult pending but no active bleeding noted. Anticipate discharge with follow-up CBC in a week or 2. Anemia likely related to chronic kidney disease. (3) Elevated LFTs: Code(s): R79.89 - Other specified abnormal findings of blood chemistry Status: Acute Assessment and Plan: LFTs have returned towards normal. Likely related to brief episode of pancreatitis. (4) Supratherapeutic INR: Code(s): R79.1 - Abnormal coagulation profile Status: Acute Assessment and Plan: INR quite elevated on admission. Close monitoring after discharge encourage. (5) Acute on chronic renal failure: Code(s): N17.9 - Acute kidney failure, unspecified; N18.9 - Chronic kidney disease, unspecified Status: Acute Assessment and Plan: Chronic kidney disease could contribute to elevated lipase. Now back to baseline. Follow-up electively by primary care service. (6) Urinary tract infection: Code(s): N39.0 - Urinary tract infection, site not specified Status: Acute Assessment and Plan: UTI improving on antibiotics. Infection could also have contributed elevated LFTs. This appears improving. Anticipate discharge today. Subjective Date/time seen: 03/18/21 07:55 Patient feels much better today. Abdominal pain has abated. Tolerating regular diet without difficulty. No evidence for GI bleeding. No stools for the last 24hours. Hemoglobin stable. Review of Systems Review of Systems: All systems reviewed & are unremarkable except as noted in HPI and below Exam Narrative: On physical exam patient is alert comfortable at rest. HEENT exam unremarkable. Lungs are clear. Heart without murmur. Abdomen bowel sounds present soft nontender no organomegaly. Objective Data Vital Signs Vital Signs: Vital Signs - 24 hr 03/17/21 08:00 03/17/21 08:23 03/17/21 08:24 Temperature Pulse Rate 59 L 72 74 Respiratory Rate 16 Blood Pressure Pulse Oximetry 98 03/17/21 11:11 03/17/21 13:19 03/17/21 15:57 Temperature 98.4 F Pulse Rate 52 L 52 L 52 L Respiratory Rate 18 Blood Pressure 126/51 L Pulse Oximetry 95 03/17/21 19:59 03/17/21 20:00 03/17/21 21:22 Temperature 98.1 F Pulse Rate 60 60 52 L Respiratory Rate 13 Blood Pressure 130/47 L Pulse Oximetry 96 03/17/21 23:59 03/18/21 00:00 03/18/21 04:00 Temperature Pulse Rate 52 L 55 L 47 L Respiratory Rate Blood Pressure Pulse Oximetry 96 03/18/21 06:00 03/18/21 07:24 03/18/21 07:39 Temperature 98.1 F Pulse Rate 47 L 47 L 70 Respiratory Rate 13 13 Blood Pressure 110/43 L Pulse Oximetry 97 97 Intake/Output Intake/Output: Intake & Output 03/15/21 03/16/21 03/17/21 03/18/21 23:59 23:59 23:59 23:59 Intake Total 1000 3170 800 300 Output Total 400 700 700 250 Balance 600 2470 100 50 Meds/Results Medications: Active Medications Generic Name Dose Route Start Last Admin Trade Name Tania PRN Reason Stop Dose Admin Allopurinol 100 mg 03/15/21 08:00 03/18/21 07:39 Allopurinol 100 Mg Tablet PO 100 mg DAILY@0800 [facility] Administration Amiodarone HCl 100 mg 03/15/21 08:00 03/18/21 07:39 Amiodarone Hcl 100 Mg Tablet PO 100 mg DAILY@0800 [facility] Administration Calcitriol 0.25 mcg 03/15/21 09:00 03/17/21 08:23 Calcitriol 0.25 Mcg Capsule PO 0.25 mcg MoWeFr@0900 [facility] Administration Dextrose 12.5
[2021-03-18 08:02] LABS: INR 2.3; Prothrombin Time 24.9 Seconds (11.1-14.7)
[2021-03-18 11:17] LABS: Glucose Point of Care 228 mg/dl (65-105)
--- NOTE | 2021-03-18 13:15 | PM.DS ---
DS: Admitting Diagnosis Discharge Date 03/18/21 Admitting Diagnosis enteritis, uti DS: Discharge Diagnosis Discharge Diagnosis (1) Anemia: Code(s): D64.9 - Anemia, unspecified Status: Acute Assessment and Plan: Hemoglobin 8.7 today but has been slowly dropping since admission when she was 11.8 -anemia studies show iron deficiency anemia -last colonoscopy was 2 years ago but she does not remember the last EGD she had -she has no symptoms of anemia -this is concerning since her INR was elevated 6.9 earlier, this has improved to 2.3 -pt could not produce stool sample -no signs of bleeding -GI onboard, okay for d/c. repeat h and h next week and f/u with pcp (2) Urinary tract infection: Code(s): N39.0 - Urinary tract infection, site not specified Status: Acute Assessment and Plan: Urine culture growing greater than 100,000 Klebsiella pneumonia -pt received ceftriaxone while hospitalized and sent home on augmentin. -patient has a history of C diff and prophylactic vancomycin will be continued. She has a supply at home but I did give her a Rx incase she needs more (3) Acute on chronic renal failure: Code(s): N17.9 - Acute kidney failure, unspecified; N18.9 - Chronic kidney disease, unspecified Status: Acute Assessment and Plan: Resolved. -Creatinine was 3.4 on admission and creatinine is 1.7 currently -records indicate she creatinine earlier this year that she was 2.3 (4) Dehydration: Code(s): E86.0 - Dehydration Status: Acute Assessment and Plan: As above (5) Supratherapeutic INR: Code(s): R79.1 - Abnormal coagulation profile Status: Acute Assessment and Plan: INR 2.3 but was up to 6.7 -no signs of bleeding, No need to reverse at this time. -patient has an INR machine and is very educated about this process. She plans to check her INR at home on Monday and hold her warfarin if it is high. She is also going to check in on Monday and call her doctor with results (6) Elevated LFTs: Code(s): R79.89 - Other specified abnormal findings of blood chemistry Status: Acute Assessment and Plan: Patient states she has no history liver disease that she knows of -AST and ALT essentially normal at d/c, much improved from admission -hepatitis screen negative -abdominal ultrasound shows a normal liver -patient is on amiodarone, I do not suspect this is the cause -lipase improving -could have been due to infection (7) Gastroenteritis: Code(s): K52.9 - Noninfective gastroenteritis and colitis, unspecified Status: Acute Assessment and Plan: Patient had a history of diarrhea and abdominal pain but is improving -no signs of C diff such as leukocytosis or megacolon (8) Lumbar compression fracture: Code(s): S32.000A - Wedge compression fracture of unspecified lumbar vertebra, initial encounter for closed fracture Status: Acute Assessment and Plan: Compression fractures noted L2 and a severe burst fracture of L5 without symptoms -I spoke with Radiology who states the L5 burst fracture is worse. The patient states that she has seen 3 different spinal doctors and has a brace at home. I advised her to wear that and follow up with the spinal doctor as she will likely need follow-up imaging to ensure this heals correctly. She has no neurological deficits at this time (9) Insulin dependent type 2 diabetes mellitus: Code(s): E11.9 - Type 2 diabetes mellitus without complications; Z79.4 - [employer] (current) use of insulin Status: Acute Assessment and Plan: Last glucose 228 -A1c 7.5 -continue home regimen (10) Paroxysmal atrial fibrillation: Code(s): I48.0 - Paroxysmal atrial fibrillation Status: Acute Assessment and Plan: She is currently in sinus rhythm -continue amiodarone -patient states that she takes
== END 2021-03-18 14:55 | disposition home or self-care (01) | DRG 689 ==
LOC: ANHED 21:09 → ANHCPC 21:09
PROVIDERS: Physician Assistant; Admitting Provider Internal Medicine; Emergency Provider General Practice; PCP Family Medicine; Visit Provider Internal Medicine
DX: N39.0 Urinary tract infection, site not specified (principal); K85.90 Acute pancreatitis without necrosis or infection, unspecified; S32.020A Wedge compression fracture of second lumbar vertebra, initial encounter for closed fracture; S32.051A Stable burst fracture of fifth lumbar vertebra, initial encounter for closed fracture; N17.9 Acute kidney failure, unspecified; E87.0 Hyperosmolality and hypernatremia; B96.1 Klebsiella pneumoniae [K. pneumoniae] as the cause of diseases classified elsewhere; D50.9 Iron deficiency anemia, unspecified; E86.0 Dehydration; R79.1 Abnormal coagulation profile; R79.89 Other specified abnormal findings of blood chemistry; K52.9 Noninfective gastroenteritis and colitis, unspecified; E11.22 Type 2 diabetes mellitus with diabetic chronic kidney disease; N18.30 Chronic kidney disease, stage 3 unspecified; I48.0 Paroxysmal atrial fibrillation; R74.8 Abnormal levels of other serum enzymes; E03.9 Hypothyroidism, unspecified; E11.43 Type 2 diabetes mellitus with diabetic autonomic (poly)neuropathy; K31.84 Gastroparesis; Z79.01 Long term (current) use of 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s; Z79.4 Long term (current) use of insulin; Z79.899 Other long term (current) drug therapy; Z85.3 Personal history of malignant neoplasm of breast; Z98.49 Cataract extraction status, unspecified eye; Z96.1 Presence of intraocular lens; Z86.19 Personal history of other infectious and parasitic diseases
CPT/HCPCS: 36415; 71046; 74176; 76705; 80048; 80053; 80074; 80076; 81001; 82550; 82607; 82728; 82746; 82948; 83036; 83540; 83550; 83605; 83615; 83690; 83735; 84295; 84443; 84466; 84484; 85014; 85018; 85025; 85027; 85610; 85730; 86140; 87040; 87077; 87086; 87088; 87186; 93005; 96361; 96365; 97165; 99285; A9270; G0378; J0696; J1815; J7030; J7120

== ENCOUNTER 2022-01-29 11:50 | Emergency (ER) | payer MEDICARE, OTHER, SELFPAY ==
--- NOTE | ~2022-01-29 | CT_ITS ---
EXAMINATION: CT facial & cervical spine wo DATE: 01/29/2022 13:00 INDICATION: Trauma. Swelling of left orbit and cheek TECHNIQUE: Computed tomography (CT) of the facial bones and maxillofacial region was performed withou t intravenous contrast. Automated exposure control and iterative reconstruction technique were employ ed. Exam dose: 266.16 mGy-cm total exam DLP. COMPARISON: None. FINDINGS: Trauma. Swelling of left orbit and cheek The left condyle is an open mouth position while the right mandibular condyle is in more closed mouth position. No mandibular fracture is evident. No nasal plate fracture is noted. No facial fracture is evident. The frontozygomatic sutures and zygo matic arches are intact. There is dextroscoliosis of the spine C1 and C2 are normally aligned and the odontoid process is intact. There are fractures of uncertain age involving the lateral masses of C3 and C4. No other cervical spine fracture or dislocation or locked facet is evident. There is prevertebral sof t tissue swelling of uncertain significance. There is multilevel degenerative disc disease, most prominent at C5-6. There is minimal anterolisthes is at C6-7. There is degenerative change at the apophyseal joints. There is uncovertebral joint spurring of the mid and lower cervical spine IMPRESSION: The left mandibular condyle is in open mouth position while the right mandibular condyle is in more closed mouth position. No mandibular fracture is evident. No facial fracture is detected Fractures of undetermined age involving the lateral masses of C3 and C4 Nonspecific upper cervical prevertebral soft tissue swelling Reviewed, dictated and finalized at [facility]. Reviewed, dictated and finalized at location [facility]. IMPRESSION: The left mandibular condyle is in open mouth position while the ri ght mandibular condyle is in more closed mouth position. No mandibular fracture is evident. No facial fracture is detected Fractures of undetermined age involving the lateral masses of C3 and C4 Nonspecific upper cervical prevertebral soft tissue swelling
--- NOTE | ~2022-01-29 | CT_ITS ---
EXAMINATION: CT brain wo con DATE: 01/29/2022 12:59 INDICATION: Trauma. Bruising and swelling of left orbit and cheek. Transient alteration of awareness. TECHNIQUE: Computed tomography (CT) of the head was performed without intravenous contrast. The mA wa s adjusted according to patient size. Iterative reconstruction technique was employed. Exam dose: 83 2.33 mGy-cm total exam DLP. 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 No intracranial mass lesion or hemorrhage or recent cerebrovascular accident is evident. No midline s hift or mass effect effect. No subdural or epidural hematoma. There is prominent cerebral and cerebellar volume loss. No subdural or epidural hematoma is detected. No fracture or bone destruction of the cranial vault. Included paranasal sinuses and mastoid air cell s are normally developed and aerated. IMPRESSION: No skull fracture or acute intracranial finding Old right parietal infarct Reviewed, dictated and finalized at [facility]. Reviewed, dictated and finalized at [facility].
--- NOTE | ~2022-01-29 | XR_ITS ---
XR chest 1V portable DATE: 01/29/2022 12:29 INDICATION: Trauma TECHNIQUE: Portable supine AP chest on 01/29/2022 at 1225 hours COMPARISON: 03/14/2021 AP and lateral chest FINDINGS: Moderate chronic elevation right diaphragm. Heart size is within normal range. No pulmonary infiltrate or consolidation, pleural effusion or pneu mothorax. There is mild pulmonary vascular congestion, possible minor fissure suggesting subpleural e julia. Osteopenia. Multiple surgical clips are noted overlying the right axilla, left axilla, left breast and right uppe r quadrant of the abdomen. Degenerative spurring of the thoracic spine. IMPRESSION: Mild congestive changes Reviewed, dictated and finalized at [facility]. IMPRESSION: Mild congestive changes
--- NOTE | ~2022-01-29 | CT_ITS ---
Patient Name: Patient Name MR#: Patient MRN Accession#: Accession Numbers EXAMINATION: CTA brain carotid DATE: 01/29/2022 16:19 INDICATION: slurring TECHNIQUE: Computed tomographic angiography (CTA) of the head was performed without and with 100 mL O mnipaque-350 intravenous contrast. CTA of the neck was performed with intravenous contrast. The dose- length product was 1060.09 mGy-cm. Maximum intensity projection and volume rendered 3D-reconstruction s were created by the technologist on a separate workstation. COMPARISON: CT brain, same date. FINDINGS: CTA NECK: Severely motion limited exam. Aortic arch and proximal great vessels: Atherosclerotic calcifications at the visualized aortic arch and proximal great vessels. Right common carotid, carotid bifurcation, and internal carotid artery: No significant plaque.There i s 0% stenosis of the proximal right internal carotid artery relative to normal distal artery lumen di ameter (NASCET criteria). Left common carotid, carotid bifurcation, and internal carotid artery: Calcified plaque at the bifurc ation.There is 0% stenosis of the proximal left internal carotid artery relative to normal distal art danielle lumen diameter (NASCET criteria). Vertebral arteries: No significant plaque or stenosis. Left vertebral artery is dominant. Persistent origin of the right MICROARRAY SPECIALIST. Other findings: Left maxillary mucosal thickening. Senescent changes in the lungs. Pulmonary arterial hypertension. CTA HEAD: No large vessel occlusion, aneurysm, high flow vascular malformation, nidus or extravasation. IMPRESSION: Severely motion limited examination. There are areas of the cavernous carotids, proximal left MCA, an d distal vertebral arteries where the examination is nondiagnostic. Short segment dissection or sever e stenosis cannot be excluded in these areas. Within these constraints: No large vessel occlusion. No definite severe stenosis or long segment dissection in the carotid or vertebral arteries. Reviewed, dictated and finalized at [facility]. IMPRESSION: Severely motion limited examination. There are areas of the cavernous carotids, proximal left MCA, and distal vertebral arteries where the examination is nond iagnostic. Short segment dissection or severe stenosis cannot be excluded in th micky areas. Within these constraints: No large vessel occlusion. No definite sev ere stenosis or long segment dissection in the carotid or vertebral arteries.
[2022-01-29 11:52] VITALS: BP 183/82; PULSE 115; RESP 30; O2SAT 98
[2022-01-29 11:58] LABS: Glucose Point of Care 207 mg/dl (65-105)
--- NOTE | 2022-01-29 12:15 | ECG_ITS ---
Measurements Intervals [place]ien Rate: 108 P: LA: 0 QRS: 246 QRSD: 126 T: 171 QT: 377 QTc: 506 Interpretive Statements Baseline artifact/poor ECG quality Suspect atrial fibrillation with rapid ventricular response RIGHT AXIS DEVIATION [QRS AXIS > 100] RIGHT BUNDLE BRANCH BLOCK [120+ ms QRS DURATION, UPRIGHT V1, 40+ ms S IN I/aVL/V4/V5/V6] LEFT ANTERIOR SUPERIOR HEMIBLOCK COMPARED TO ECG 03/14/2021 16:29:05 ATRIAL FIBRILLATION REPLACES SINUS RHYTHM Electronically Signed On 01-30-2022 8:16:13 CDT by Abe Brock M.D.
--- NOTE | 2022-01-29 12:21 | ED.GENADULT ---
HPI - General Adult General Chief complaint: Altered Mental Status Stated complaint: on floor, change in speech. low BG Time Seen by Provider: 01/29/22 12:14 History of Present Illness HPI narrative: 86-year-old female with past medical history of DM2, CHF, hypothyroidism, anemia, CKD and atrial fibrillation presents for evaluation after having a fall from bed in the middle of the night. Patient states that she rolled out of bed and landed on the floor. She laid on the floor for what she thinks are 3 to 4 hours until she was found by a caregiver this morning. Unknown LOC. There is evidence of facial trauma on arrival. Patient states pain in the right shoulder and the face and also complains of being very thirsty. Related Data Home Medications Medication Instructions Recorded Confirmed allopurinol 100 mg tablet 100 mg PO DAILY 03/14/21 02/22/22 amiodarone 200 mg tablet 100 mg DAILY 03/14/21 02/22/22 calcitriol 0.25 mcg capsule 0.25 mcg PO QMWF 03/14/21 02/22/22 fexofenadine 180 mg tablet 180 mg PO DAILY 03/14/21 02/22/22 fluticasone fur. 100 mcg-umeclid 1 inh inhalation QAM 03/14/21 02/22/22 62.5 mcg-vilant 25 mcg inhalat.powder (Trelegy Ellipta) loperamide 2 mg capsule 2 mg PO Q6H PRN Diarrhea 03/14/21 02/22/22 mirabegron 25 mg tablet,extended 50 mg PO HS 03/14/21 02/22/22 release 24 hr (Myrbetriq) pantoprazole 40 mg tablet,delayed 40 mg PO DAILY 03/14/21 02/23/22 release teriparatide 20 mcg/dose (620 20 mcg subcut HS 03/14/21 02/22/22 mcg/2.48 mL) subcutaneous pen injector (Forteo) thyroid (pork) 120 mg tablet 180 mg PO QAM 03/14/21 02/22/22 ([place] Thyroid) Lactobacillus acidophilus 10 mg PO DAILY 02/22/22 02/22/22 albuterol sulfate 90 mcg/actuation 2 puff inhalation Q4H PRN Wheezing 02/22/22 02/22/22 aerosol inhaler (Ventolin HFA) apixaban 2.5 mg tablet (Eliquis) 2.5 mg PO BID 02/22/22 02/22/22 ascorbic acid (vitamin C) 1,000 mg 1 g PO DAILY 02/22/22 02/22/22 tablet aspirin 81 mg tablet,delayed 81 mg PO DAILY 02/22/22 02/22/22 release (Adult Low Dose Aspirin) atorvastatin 20 mg tablet 20 mg PO DAILY 02/22/22 02/22/22 calcium carbonate 500 mg calcium 500 mg PO DAILY 02/22/22 02/22/22 (1,250 mg) tablet cholecalciferol (vitamin D3) 25 25 mcg PO DAILY 02/22/22 02/22/22 mcg (1,000 unit) tablet (Vitamin D3) cyanocobalamin (vitamin B-12) 500 500 mcg PO DAILY 02/22/22 02/22/22 mcg tablet diclofenac sodium 1 % topical gel 1 g topical DAILY PRN Pain 02/22/22 02/22/22 ergocalciferol (vitamin D2) 1,250 1,250 mcg PO WEEKLY 02/22/22 02/22/22 mcg (50,000 unit) capsule fluticasone propionate 50 2 spray intranasal DAILY 02/22/22 02/23/22 mcg/actuation nasal spray,suspension glucagon HCl 1 mg/mL solution for 1 mg IM Q30M PRN Hypoglycemia 02/22/22 02/22/22 injection magnesium oxide 400 mg PO DAILY 02/22/22 02/22/22 metoprolol succinate 25 mg 12.5 mg PO DAILY 02/22/22 02/22/22 tablet,extended release 24 hr ondansetron 8 mg disintegrating 8 mg PO Q8H PRN Nausea And Vomiting 02/22/22 02/22/22 tablet zinc sulfate 50 mg zinc (220 mg) 100 mg PO BID 02/22/22 02/22/22 capsule (Zinc-220) Allergies Allergy/AdvReac Type Severity Reaction Status Date / Time chlorhexidine Allergy Mild Unknown Verified 03/14/21 18:30 lidocaine Allergy Mild Unknown Verified 03/14/21 18:30 lisinopril Allergy Mild Unknown Verified 03/14/21 18:30 procaine Allergy Mild Unknown Verified 03/14/21 18:30 metoclopramide Allergy Unknown facial tics Verified 03/14/21 18:30 Review of Systems Review of Systems: CONSTITUTIONAL: Denies fever, chills, or sweats. EYES: Denies visual changes, redness, or discharge. ENT: Denies rhinorrhea, congestion, sore throat, or otalgia. CARDIOVASCULAR: Denies chest pain, palpitations, or edema. RESPIRATORY: Denies cough or dyspnea. GASTROINTESTINAL: Denies abdominal pain, nausea, vomiting, or diarrhea. GENITOURINARY: Denies dysuria or hematuria. SKIN: Denies rash or itching. MUSCULOSKELE
[2022-01-29] MEDS: LACTATED RINGERS 500 ML IV CONT (12:34)
[2022-01-29 12:49] LABS: Basophils Percent Auto 0.5 % (0.2-1.2); Eosinophils Percent Auto 0.1 % (0-4.4); Hemoglobin 9.9 g/dL (12.0-15.0); Immature Granulocyte Absolute 0.03 K/mm3 (0.00-0.031); Immature Granulocyte Percent A 0.3 % (0-0.5); Lymphocytes Absolute Auto 0.69 K/mm3 (0.9-3.2); Lymphocytes Percent Auto 7.8 % (18.3-44.2); Mean Corpuscular Hemoglobin 25.4 pg (26-34); Mean Corpuscular Volume 84.8 fl (80-100); Mean Platelet Volume 9.2 fl (7.4-10.4); Monocytes Absolute Auto 0.3 K/mm3 (0.1-0.6); Neutrophils Absolute Auto 7.8 K/mm3 (1.3-6.7); Neutrophils Percent Auto 88.3 % (45.5-73.1); Platelet Count Result 244 k/mm3 (150-375); Red Blood Count 3.89 M/mm3 (4.2-5.4); Red Cell Distribution Width 15.7 % (11.5-14.5); White Blood Count 8.8 K/mm3 (4.5-10.0)
[2022-01-29 13:01] LABS: INR 1.2; Prothrombin Time 14.7 Seconds (11.1-14.7)
[2022-01-29 13:02] LABS: Anion Gap 12 mmol/L (8-16); Blood Urea Nitrogen 18 mg/dL (7-17); Carbon Dioxide 21 mmol/L (22-30); Chloride 106 mmol/L (98-107); Partial Thromboplastin Time 28.2 SECONDS (22.3-36.8); Potassium 4.2 mmol/L (3.4-5.0); Sodium 139 mmol/L (137-145)
[2022-01-29 13:03] LABS: Calcium 8.4 mg/dL (8.4-10.2); Creatine Kinase 73 U/L (30-135); Estimated Glomerular Filt Rate 29; Glucose 134 mg/dL (65-110)
[2022-01-29 13:13] LABS: Free T4 Free Thyroxine 0.84 ng/mL (0.78-2.19)
[2022-01-29] MEDS: MORPHINE SULFATE (*CRX) 2 MG/ML INJ IV PUSH (13:13)
[2022-01-29 13:15] LABS: NT Pro B Type Natriuretic Pept 2320 pg/mL (5-100); Troponin I 0.019 ng/mL (0.000-0.034)
[2022-01-29 14:36] LABS: Appearance Urine Slightly Cloudy (Clear); Bilirubin Urine Negative (Negative); Blood Urine 2+ (Negative); Glucose Urine UA Trace mg/dL (Negative); Ketones Urine Negative (Negative); Leukocyte Esterase Ur 2+ LEU/UL (Negative); Nitrate Urine Positive (Negative); Protein Urine 1+ mg/dL (Negative); Urobilinogen Urine 0.2 mg/dL (<2.0); pH Urine 5.5 (5.0-9.0)
[2022-01-29 14:42] LABS: Mucus Urine Rare /lpf; RBC Urine 21-50 /hpf (0-2); WBC Clumps Urine Present /HPF; WBC Urine >75 /hpf
[2022-01-29 14:44] LABS: Add Urine Microscopic? YES; Color Urine Light Yellow (Yellow)
[2022-01-29 14:55] LABS: Amphetamine Screen Urine Negative (Negative); Barbiturate Screen Urine Negative (Negative); Benzodiazepines Screen Urine Negative (Negative); Cannabinoid Screen Urine Negative (Negative); Cocaine Screen Urine Negative (Negative); Methadone Screen Urine Negative (Negative); Opiate Screen Urine Positive (Negative); Phencyclidine Screen Urine Negative (Negative)
[2022-01-29 15:34] LABS: SARS-CoV-2 RNA PCR Negative
[2022-01-29 15:54] VITALS: BP 147/70; PULSE 107; RESP 22; O2SAT 97
--- NOTE | 2022-01-29 18:03 | PC.NURSE ---
updated patient and family about CT and labs. No new orders received at this time. awaiting Neuro consult
[2022-01-29 18:32] VITALS: BP 150/70; PULSE 108; RESP 20
[2022-01-29 19:02] LABS: Glucose Point of Care 51 mg/dl (65-105)
--- NOTE | 2022-01-29 19:03 | PC.NURSE ---
Accucheck for EMS 51. 25g of dextrose given IVP per MD orders. EMS aware and will recheck blood sugar.
== END 2022-01-29 19:05 | disposition short-term general hospital (02) ==
PROVIDERS: Emergency Provider Emergency Medicine; PCP Family Medicine
DX: S12.200A Unspecified displaced fracture of third cervical vertebra, initial encounter for closed fracture (principal); S12.300A Unspecified displaced fracture of fourth cervical vertebra, initial encounter for closed fracture; I48.0 Paroxysmal atrial fibrillation; I50.9 Heart failure, unspecified; R47.1 Dysarthria and anarthria; Z20.822 Contact with and (suspected) exposure to COVID-19; E11.22 Type 2 diabetes mellitus with diabetic chronic kidney disease; N18.30 Chronic kidney disease, stage 3 unspecified; E03.9 Hypothyroidism, unspecified; M81.0 Age-related osteoporosis without current pathological fracture; Z85.42 Personal history of malignant neoplasm of other parts of uterus; Z85.3 Personal history of malignant neoplasm of breast; Z98.49 Cataract extraction status, unspecified eye; Z96.1 Presence of intraocular lens; Z90.710 Acquired absence of both cervix and uterus; Z90.12 Acquired absence of left breast and nipple; Z79.01 Long term (current) use of 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s; Z79.82 Long term (current) use of aspirin; Z79.899 Other long term (current) drug therapy; Z79.84 Long term (current) use of oral hypoglycemic drugs; I45.10 Unspecified right bundle-branch block; W06.XXXA Fall from bed, initial encounter
CPT/HCPCS: 36415; 70450; 70486; 70496; 70498; 71045; 72125; 80048; 80307; 81001; 82550; 82948; 83880; 84439; 84443; 84484; 85025; 85610; 85730; 87077; 87086; 87186; 93005; 96361; 96374; 96375; 99285; C9803; J0696; J2270; J7120; L0140; Q9967; U0003; U0005

== ENCOUNTER 2022-02-18 14:30 | Outpatient (RCR) | payer MEDICARE, OTHER, SELFPAY ==
--- NOTE | 2022-01-07 09:26 | PTOPEVAL ---
Thank you for referring Jhon Valencia to [facility].? She is scheduled to be seen for therapy? 3 x/week for 6 weeks. Please review, sign, date and return this plan of care GRACIELA. I agree with and certify that the following plan of care is medically necessary. Referring Physician Date Attending Provider: Abe Alonso APRN Outpatient Past Medical History Past Medical History Source of Past Medical History Patient Neurological History Hx Other Neurological Disorders Yes: neuropathy in hands and feet Cardiovascular History Hx Other Cardiac Disorders Yes: on blood thinner Respiratory History Hx Chronic Obstructive Pulmonary Disease Yes (COPD) Gastrointestinal History Hx Gastroesophageal Reflux Disease Yes Genitourinary History Hx Other Genitourinary Disorders Yes: stage 3 renal disease Musculoskeletal History Hx Back Pain Yes Hx Orthopedic Surgery Yes: L tibial ORIF Hx Other Musculoskeletal Disorders Yes: L rotator cuff tear; Endocrine History Hx Diabetes Yes Hx Hypothyroidism Yes Other History Hx Other Medical Conditions Yes: c-diff Evaluation Information Problem Diagnosis B LE lymphedema Onset 2 yr ago Prior Level of Function Home Setting Home Type Apartment Living Situation Alone Support Available Hired Assistance,Local Family Support Mobility Assistive Devices (Used Last 3 None,Cane,Walker, Rollator Months) Comments Additional Prior Level of Function family assist with shopping, Comments laundry, transportation; [place]; no falls in the past year; use cane, wheeled walker or no device Pain Assessment Pain Scale Used Numeric (1 - 10) Self Report Pain Assessment Bilateral Leg(s) Reported Pain Level 4 Pain Description Aching Pain Frequency Chronic,Continuous Other Pain Description deep ache when do too much Lowest Pain Intensity 3 Greatest Pain Intensity 7 Other Pain Aggravating Factors increased activity level Interventions Used Interventions Used By Clinicians Education Bed Mobility Assessment Bed Mobility Bed Type Mat Overall Bed Mobility Ability Independent Gait Assessment Gait Assessment Ambulation Assistive Devices Walker, Rollator Ambulation Distance 150 Query Text:(Feet) Ambulation Ability Independent Cues Needed For Ambulation None Lymphedema Evaluation Lymphedema Evaluation Lymphedema History
--- NOTE | 2022-01-07 11:04 | PCPTNOTE ---
delay in start of treatment, due to not having availability of therapist schedule.
--- NOTE | 2022-01-31 08:33 | PCPTNOTE ---
Patient called & cancelled scheduled appointment this date due to falling and being in hospital.
--- NOTE | 2022-02-01 14:28 | PCPTNOTE ---
Returned Pt's Son's call. Instructed Pt's Son on wear schedule of compression garment. Instructed Pt's son to remove garment and put wrap in bag to bring when Pt returns for lymphedema therapy. Due to Pt still being in hospital they are cancelling tomorrow's appointment on 02/02/22 @ 11:00am.
--- NOTE | 2022-02-14 16:07 | PCPTNOTE ---
pt called and canceled today's appt due to issues with her port and appt for it.
--- NOTE | 2022-02-18 15:39 | PTOPEVAL ---
PHYSICAL THERAPY DISCHARGE REPORT 02-18-22 Refer to the clinical summary below, for her status today, compared to the initial evaluation. The goals were achieved. Discharge PT services. Thank you for referring Jhon Valencia to [facility].? Please review, sign, date and return this Discharge report GRACIELA. I agree with and certify that the following plan of care is medically necessary. Referring Physician Date Attending Provider: Abe Alonso APRN Pain Assessment Pain Scale Pain Scale Used Numeric (1 - 10) Self Report Pain Assessment Bilateral Leg(s) Reported Pain Level 5 Pain Description Sharp Pain Frequency Continuous Other Pain Description worse pain in feet and ankles with standing/walking 8/10 Pain Score Pain Score 5: Self Report Additional Pain Score Comments having more pain in legs and feet--walking is not as good as it was; Skin Inspection Location Left Lower Extremity Palpation Findings Non-Pitting Edema Lymphedema Stage I Skin Inspection Comment L LE: good skin color/ normal over thigh, knee, lower leg and foot; only area of minimal fibrotic tissue over medial-distal thigh to dept with velcro lower leg garment--Medi Juxtafit essential; she did not have the Solaris foot piece on due to discomfort; garment was on incorrect- velcro was adherent to the bag liner; removed garments, measured leg and reapplied with reinstructions to pt; Solaris foot piece trimmed at anterior ankle due to too tight, pt reported more comfort with trimmed garment; also discussed liner sock that does not have compression in foot/ankle; the PAC band came with the lower leg piece--instructed pt on it and trimmed it to fit her ankle/foot; the Solaris fits her better, but she has it as an option for foot;
== END 2022-02-21 08:39 | disposition home or self-care (01) ==
LOC: ANHPT 14:30
PROVIDERS: PCP Family Medicine; Referring Provider Nurse Practitioner Adult Health; Visit Provider Nurse Practitioner Adult Health
DX: I89.0 Lymphedema, not elsewhere classified (principal)
CPT/HCPCS: 29581; 97140; 97162; 97530

== ENCOUNTER 2022-02-21 21:29 | Inpatient (IN) | payer MEDICARE, OTHER, SELFPAY ==
--- NOTE | ~2022-02-21 | XR_ITS ---
EXAMINATION: XR chest 1V Exam Date/Time: 02/21/2022 22:40 CDT HISTORY: sob, COVID + Comparison: 01/19/2018 and 01/29/2022. RESULT: Exam limited by rotation Lines, tubes, and devices: Left axillary and right upper quadrant surgical clips. Lungs and pleura: Irregular right hilar and right medial basilar opacities. Right costophrenic angle blunting. Cardiomediastinal silhouette: Stable. Other: No acute osseous or upper abdominal finding. IMPRESSION: Right perihilar and medial basal atelectasis versus consolidation. Small right pleural effusion. Reviewed, dictated and finalized at [facility].
--- NOTE | ~2022-02-21 | CT_ITS ---
EXAMINATION: CT brain wo con DATE: 02/21/2022 22:48 INDICATION: AMS . TECHNIQUE: Computed tomography (CT) of the head was performed without intravenous contrast. The mA wa s adjusted according to patient size. Iterative reconstruction technique was employed. The dose-lengt h product was 832.33 mGy-cm. COMPARISON: 01/29/2022 FINDINGS: No acute intracranial hemorrhage or extra-axial fluid collection. No hydrocephalus, mass, or herniation. No acute ischemic infarct. Unremarkable dural venous sinus attenuation. No acute osseous abnormality. The aerated spaces are clear. Moderate atrophy. Atherosclerotic intracranial calcification. Bilateral lens replacements. Right kang etal encephalomalacia. IMPRESSION: No acute intracranial process. Reviewed, dictated and finalized at location [facility].
--- NOTE | ~2022-02-21 | XR_ITS ---
EXAMINATION: XR chest 1V portable DATE: 02/24/2022 06:06 INDICATION: COVID-19 pneumonia. TECHNIQUE: A single frontal view of the chest was obtained. COMPARISON: Chest single view 02/21/2022, CT abdomen and pelvis 03/14/2021, chest 2 views 03/14/2021 FINDINGS: There are airspace opacities in the lower lung zones, right worse than left. There is a sma ll right pleural effusion. No pneumothorax. The heart size is normal. There are surgical clips overly ing the lateral aspects of the chest and the right upper quadrant. IMPRESSION: 1. Stable airspace opacities in the lower lung zones, right worse than left, consistent with atelecta sis versus pneumonia. 2. Stable small right pleural effusion. Reviewed, dictated and finalized at location A. IMPRESSION: 1. Stable airspace opacities in the lower lung zones, right worse than left, co nsistent with atelectasis versus pneumonia. 2. Stable small right pleural effusion.
[2022-02-21 21:37] VITALS: BP 144/70; PULSE 98; RESP 18; TEMP 37.7; O2SAT 93
[2022-02-21 21:57] VITALS: O2SAT 96
[2022-02-21 22:00] VITALS: PULSE 100
--- NOTE | 2022-02-21 22:21 | PC.NURSE ---
this RN tried to contact the facility with no response.
--- NOTE | 2022-02-21 22:27 | ED.SOB ---
HPI - SOB/Dyspnea General Chief Complaint: Shortness of Breath/Dyspnea Stated Complaint: COVID +, SOB Time Seen by Provider: 02/21/22 22:09 Source: patient Mode of arrival: EMS Limitations: altered mental status History of Present Illness HPI Narrative: This is a 86-year-old female that presents to the ER for generalized weakness and AMS. Reportedly is currently COVID positive. Patient is not able to provide any further history due to altered mentation. Related Data Home Medications Medication Instructions Recorded Confirmed allopurinol 100 mg tablet 100 mg PO DAILY 03/14/21 03/14/21 amiodarone 200 mg tablet 100 mg DAILY 03/14/21 03/14/21 calcitriol 0.25 mcg capsule 0.25 mcg PO QMWF 03/14/21 03/14/21 fexofenadine 180 mg tablet 180 mg PO DAILY PRN Allergy 03/14/21 03/14/21 Symptoms fluticasone fur. 100 mcg-umeclid 1 inh inhalation QAM 03/14/21 03/14/21 62.5 mcg-vilant 25 mcg inhalat.powder (Trelegy Ellipta) furosemide 40 mg tablet 40 mg PO DAILY PRN Edema 03/14/21 03/14/21 insulin glargine 100 unit/mL (3 15 unit subcut HS 03/14/21 03/14/21 mL) subcutaneous pen (Lantus Solostar U-100 Insulin) loperamide 2 mg capsule 2 mg PO TID PRN Diarrhea 03/14/21 03/14/21 metoprolol succinate 25 mg 25 mg PO QAM 03/14/21 03/14/21 tablet,extended release 24 hr mirabegron 25 mg tablet,extended 25 mg PO HS 03/14/21 03/14/21 release 24 hr (Myrbetriq) oxycodone-acetaminophen 5 mg-325 1 tablet PO TID PRN Pain 03/14/21 03/14/21 mg tablet pantoprazole 40 mg tablet,delayed 40 mg PO 1700 03/14/21 03/14/21 release potassium chloride 10 mEq 10 meq PO BIDWMEAL 03/14/21 03/14/21 tablet,extended release teriparatide 20 mcg/dose (620 20 mcg subcut HS 03/14/21 03/14/21 mcg/2.48 mL) subcutaneous pen injector (Forteo) thyroid (pork) 120 mg tablet 120 mg PO QAM 03/14/21 03/14/21 ([place] Thyroid) warfarin 2.5 mg tablet 1.25 mg PO [id number] 03/14/21 03/14/21 warfarin 2.5 mg tablet 2.5 mg PO QMWF 03/14/21 03/14/21 zolpidem 6.25 mg tablet,extended 6.25 mg PO HS 03/14/21 03/14/21 release,multiphase Allergies Allergy/AdvReac Type Severity Reaction Status Date / Time chlorhexidine Allergy Mild Unknown Verified 03/14/21 18:30 lidocaine Allergy Mild Unknown Verified 03/14/21 18:30 lisinopril Allergy Mild Unknown Verified 03/14/21 18:30 procaine Allergy Mild Unknown Verified 03/14/21 18:30 metoclopramide Allergy Unknown facial tics Verified 03/14/21 18:30 Review of Systems Review of Systems: ROS unobtainable: Yes unobtainable due to mental status [facility] Past Medical History Medical History (Updated 02/22/22 @ 02:12 by Ivelisse Magdaleno PA-C) Anemia Bilateral breast cancer (1994) Status post left mastectomy and right lumpectomy with chemotherapy. Chronic anticoagulation On warfarin for stroke prophylaxis given atrial fibrillation. Chronic kidney disease, stage 3 Baseline creatinine is 2.30 per patient report. Followed by Dr. Murillo. Clostridium difficile infection Congestive heart failure Hypothyroidism Insulin dependent type 2 diabetes mellitus Osteoporosis Paroxysmal atrial fibrillation Status post cardioversion. Uterine cancer Status post total hysterectomy and brachytherapy. Surgical History Surgical History (Updated 03/14/21 @ 23:12 by Vernell Benavides PA-C) History of cataract extraction with lens replacement History of cholecystectomy History of hysterectomy for malignancy (2004) History of left mastectomy History of lumpectomy of right breast History of ventral hernia repair Family History Family History Mother Diabetes mellitus Cerebrovascular accident Grandparent Diabetes mellitus Heart disease Father Malignant neoplasm of prostate Sibling Bladder cancer Other Multiple sclerosis Stomach cancer Social History Social History (Updated 03/14/21 @ 23:13 by Vernell Benavides PA-C) Social History: Surrogate decision make
[2022-02-21 22:40] LABS: Basophils Percent Auto 0.5 % (0.2-1.2); Eosinophils Absolute Auto 0.1 K/mm3 (0-0.3); Hematocrit 28.3 % (37.0-47.0); Hemoglobin 8.7 g/dL (12.0-15.0); Immature Granulocyte Absolute 0.04 K/mm3 (0.00-0.031); Immature Granulocyte Percent A 0.7 % (0-0.5); Lymphocytes Absolute Auto 1.66 K/mm3 (0.9-3.2); Lymphocytes Percent Auto 29.6 % (18.3-44.2); Mean Corpuscular HGB Conc 30.7 g/dl (32-36); Mean Corpuscular Hemoglobin 25.1 pg (26-34); Mean Corpuscular Volume 81.8 fl (80-100); Mean Platelet Volume 9.1 fl (7.4-10.4); Monocytes Absolute Auto 0.7 K/mm3 (0.1-0.6); Neutrophils Absolute Auto 3.1 K/mm3 (1.3-6.7); Neutrophils Percent Auto 55.2 % (45.5-73.1); Platelet Count Result 233 k/mm3 (150-375); Red Blood Count 3.46 M/mm3 (4.2-5.4); Red Cell Distribution Width 15.6 % (11.5-14.5); White Blood Count 5.6 K/mm3 (4.5-10.0)
[2022-02-21 22:54] LABS: Prothrombin Time 21.6 Seconds (11.1-14.7)
[2022-02-21 22:55] LABS: Partial Thromboplastin Time 36.7 SECONDS (22.3-36.8)
[2022-02-21 22:56] LABS: Lactic Acid Reflex 0.7 mmol/L (0.7-2.0)
[2022-02-21 23:02] LABS: Alanine Aminotransferase 10 U/L (6-35); Albumin Level 3.4 g/dL (3.5-5.1); Alkaline Phosphatase 88 U/L (38-126); Anion Gap 12 mmol/L (8-16); Aspartate Amino Transferase 33 U/L (14-36); Bilirubin,Total 0.3 mg/dL (0.2-1.3); Blood Urea Nitrogen 25 mg/dL (7-17); CRP 2.3 mg/dL (<1.0); Calcium 8.5 mg/dL (8.4-10.2); Carbon Dioxide 19 mmol/L (22-30); Chloride 101 mmol/L (98-107); Estimated Glomerular Filt Rate 27; Glucose 33 mg/dL (65-110); Lactate Dehydrogenase 130 U/L (120-246); Potassium 4.5 mmol/L (3.4-5.0); Sodium 132 mmol/L (137-145)
[2022-02-21] MEDS: DEXTROSE 50% 25 GM/50 ML SYRINGE IV PUSH (23:04)
[2022-02-21 23:20] LABS: SARS-CoV-2 RNA PCR Positive
[2022-02-21 23:30] VITALS: PULSE 88; RESP 24
[2022-02-21 23:44] LABS: Glucose Point of Care 106 mg/dl (65-105)
[2022-02-21 23:45] VITALS: PULSE 93; RESP 24
[2022-02-22] VITALS (19 sets, daily range): BP systolic 91–141; BP diastolic 44–78; PULSE 75–95; RESP 16–24; TEMP 36.9–38.1; O2SAT 92–100; BMI 35.2
--- NOTE | 2022-02-22 00:18 | ECG_ITS ---
Measurements Intervals [place] Rate: 90 P: 71 ID: [id number] QRS: -71 QRSD: 133 T: -14 QT: 374 QTc: 459 Interpretive Statements SINUS RHYTHM WITH FIRST DEGREE AV BLOCK RIGHT BUNDLE BRANCH BLOCK ANTERIOR MYOCARDIAL INFARCTION , OF INDETERMINATE AGE INFERIOR MYOCARDIAL INFARCTION , OF INDETERMINATE AGE Electronically Signed On 02-22-2022 8:52:43 CDT by Luis Felipe Boyce M.D.
[2022-02-22 00:27] LABS: Appearance Urine Clear (Clear); Bilirubin Urine Negative (Negative); Color Urine Yellow (Yellow); Glucose Urine UA Trace mg/dL (Negative); Ketones Urine Negative (Negative); Leukocyte Esterase Ur Negative LEU/UL (Negative); Nitrate Urine Negative (Negative); Protein Urine 2+ mg/dL (Negative); Urobilinogen Urine 0.2 mg/dL (<2.0)
[2022-02-22 00:29] LABS: Add Urine Microscopic? YES; Blood Urine Trace (Negative)
[2022-02-22 00:30] LABS: Bacteria Urine 2+ /hpf; Mucus Urine Rare /lpf; Squamous Epithelial Cell Urine Rare /hpf (Few); WBC Urine 0-3 /hpf
[2022-02-22 02:04] LABS: Glucose Point of Care 63 mg/dl (65-105)
[2022-02-22] MEDS: GLUCAGON FOR INJ 1 MG VIAL IM (02:12)
--- NOTE | 2022-02-22 03:04 | PC.NURSE ---
This RN called the pharmacy for D10 from pharmacy. They stated they will be sending it soon
[2022-02-22 03:39] LABS: Glucose Point of Care 129 mg/dl (65-105)
[2022-02-22] MEDS: DEXTROSE 10% 1,000 ML 50 ML IV CONT (03:47)
--- NOTE | 2022-02-22 04:16 | ADMGEN ---
This patient, Jhon Valencia, was admitted to IMU Room 200-01. Patient/family oriented to hospital policies and general routines including ID bracelet, bed and alarms, visiting hours, pain management, procedures, bathroom and other care routines, personal items, smoking policy, room service/diet, and visiting hours. Information on how to activate the Rapid Response Team has been discussed. Patient/Family are encouraged to report perceived risks to care and to ask questions if they do not understand what they are told or what they should do.
[2022-02-22 04:41] LABS: Glucose Point of Care 178 mg/dl (65-105)
[2022-02-22 06:16] LABS: Glucose Point of Care 147 mg/dl (65-105)
--- NOTE | 2022-02-22 07:56 | PC.NURSE ---
Spoke with Dr. Moreno regarding patient's blood glucose in the 100's (129, 178, 147) since arrival to floor with D10 infusing at 50ml/hr. New order to decrease rate of D10 to 25ml/hr and to change accu-check frequency to q2hr from q1hr.
[2022-02-22 08:42] LABS: Glucose Point of Care 129 mg/dl (65-105)
[2022-02-22] MEDS: THYROID 60 MG TABLET 180 MG PO (09:26)
[2022-02-22] MEDS: ATORVASTATIN 20 MG TABLET PO (09:26)
[2022-02-22] MEDS: CYANOCOBALAMIN 500 MCG TABLET PO (09:26)
[2022-02-22] MEDS: LORATADINE 10 MG TABLET PO (09:26)
[2022-02-22] MEDS: CALCIUM CARBONATE (OSCAL) 500 MG TABLET PO (09:26)
[2022-02-22] MEDS: carvediloL 3.125 MG TABLET PO ×2 (09:27→17:06)
[2022-02-22] MEDS: allopurinoL 100 MG TABLET PO (09:27)
[2022-02-22] MEDS: ASPIRIN 81 MG ENTERIC TABLET PO (09:27)
[2022-02-22] MEDS: FLUTICASONE PROPIONATE 0.05% NA SPR 16 GM BTL (*BKC) 1 SPRAY NASAL (09:27)
[2022-02-22] MEDS: AMIODARONE HCL 100 MG TABLET BY MOUTH (09:27)
[2022-02-22] MEDS: LOPERAMIDE HCL 2 MG CAPSULE PO ×2 (09:32→21:32)
[2022-02-22] MEDS: FLUTICASONE/UMECLIDIN/VILANTER 100-62.5-25 MCG ELLIPTA 1 PUFF INHALATION (10:11)
[2022-02-22 10:22] LABS: Glucose Point of Care 95 mg/dl (65-105)
--- NOTE | 2022-02-22 12:16 | PM.IMHP ---
H&P: HPI History of Present Illness Date/Time: 02/22/22 12:16 Chief Complaint: This is a 86-year-old female that presents to the ER for generalized weakness and AMS. Reportedly is currently COVID positive. Patient is not able to provide any further history due to altered mentation. To note patient also had some hypoglycemia. COUNT INCLUDES THE [facility] Past Medical History Medical History Anemia Bilateral breast cancer (1994) Status post left mastectomy and right lumpectomy with chemotherapy. Chronic anticoagulation On warfarin for stroke prophylaxis given atrial fibrillation. Chronic kidney disease, stage 3 Baseline creatinine is 2.30 per patient report. Followed by Dr. Murillo. Clostridium difficile infection Congestive heart failure Hypothyroidism Insulin dependent type 2 diabetes mellitus Osteoporosis Paroxysmal atrial fibrillation Status post cardioversion. Uterine cancer Status post total hysterectomy and brachytherapy. Surgical History Surgical History History of cataract extraction with lens replacement History of cholecystectomy History of hysterectomy for malignancy (2004) History of left mastectomy History of lumpectomy of right breast History of ventral hernia repair Family History Family History Mother Diabetes mellitus Cerebrovascular accident Grandparent Diabetes mellitus Heart disease Father Malignant neoplasm of prostate Sibling Bladder cancer Other Multiple sclerosis Stomach cancer Social History Social History Social History: Surrogate decision maker: Jonathan Valencia, son ([phone]). Code status: Full code. Smoking status: Never smoker Second hand tobacco smoke exposure: No Alcohol intake: never Substance use: never Substance use type: does not use Additional living arrangements comments: The patient lives in independent living at [place]. Her of nearly 65 years in August 2020. They have 2 sons. 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 Spiritual care concerns: No Meds Home Medications and Allergies Home Medications Medication Instructions Recorded Confirmed Type allopurinol 100 mg tablet 100 mg PO DAILY 03/14/21 02/22/22 History amiodarone 200 mg tablet 100 mg DAILY 03/14/21 02/22/22 History calcitriol 0.25 mcg capsule 0.25 mcg PO QMWF 03/14/21 02/22/22 History fexofenadine 180 mg tablet 180 mg PO DAILY 03/14/21 02/22/22 History fluticasone fur. 100 mcg-umeclid 1 inh inhalation QAM 03/14/21 02/22/22 History 62.5 mcg-vilant 25 mcg inhalat.powder (Trelegy Ellipta) insulin glargine 100 unit/mL (3 5 unit subcut QAM 03/14/21 02/22/22 History mL) subcutaneous pen (Lantus Solostar U-100 Insulin) loperamide 2 mg capsule 2 mg PO Q6H PRN Diarrhea 03/14/21 02/22/22 History mirabegron 25 mg tablet,extended 50 mg PO HS 03/14/21 02/22/22 History release 24 hr (Myrbetriq) oxycodone-acetaminophen 5 mg-325 1 tablet PO Q6H PRN Pain, moderate 03/14/21 02/22/22 History mg tablet to severe pantoprazole 40 mg tablet,delayed 40 mg PO 1700 03/14/21 02/22/22 History release teriparatide 20 mcg/dose (620 20 mcg subcut HS 03/14/21 02/22/22 History mcg/2.48 mL) subcutaneous pen injector (Forteo) thyroid (pork) 120 mg tablet 180 mg PO QAM 03/14/21 02/22/22 History ([place] Thyroid) zolpidem 6.25 mg tablet,extended 6.25 mg PO HS PRN Insomnia 03/14/21 02/22/22 History release,multiphase Lactobacillus acidophilus 10 mg PO DAILY 02/22/22 02/22/22 History albuterol sulfate 90 mcg/actuation 2 puff inhalation Q4H PRN Wheezing 02/22/22 02/22/22 History aerosol inhaler (Ventolin HFA) apixaban 2.5 mg tablet (Eliquis) 2.5 mg PO BID 02/22/2201/26
[2022-02-22 12:45] LABS: Glucose Point of Care 171 mg/dl (65-105)
--- NOTE | 2022-02-22 12:50 | PC.NURSE ---
Spoke with Dr. Moreno regarding patient's BP of 94/59. Pt is to receive 12.5 MG Po of Metoprolol. MD agrees with patient receiving home dose of metoprolol.
[2022-02-22] MEDS: METOPROLOL SUCCINATE EXT REL 12.5 MG TABCR PO (13:11)
[2022-02-22] MEDS: ZINC SULFATE 220 MG CAPSULE 440 MG PO ×2 (13:11→21:13)
[2022-02-22 14:14] LABS: Glucose Point of Care 149 mg/dl (65-105)
--- NOTE | 2022-02-22 14:14 | PC.NURSE ---
SPoke with Dr. Moreno regarding patient's blood glucose. Pt has been maintaining normal blood sugars and is now eating at least half of her meals. New order to pause D10 and change accu-checks to q4hr.
[2022-02-22] MEDS: ONDANSETRON HCL ODT 4 MG TABLET 8 MG PO (14:26)
[2022-02-22] MEDS: PANTOPRAZOLE 40 MG TABLET PO (17:06)
[2022-02-22 17:23] LABS: Glucose Point of Care 117 mg/dl (65-105)
[2022-02-22 20:00] LABS: Glucose Point of Care 158 mg/dl (65-105)
[2022-02-22] MEDS: APIXABAN 2.5 MG TABLET PO (21:12)
[2022-02-22] MEDS: MIRABEGRON 50 MG ER TABLET PO (21:12)
[2022-02-22] MEDS: oxyCODONE/ACETAMINOPHEN (*CRX) 5-325 MG TABLET 1 TABLET PO (21:32)
[2022-02-22] MEDS: ZOLPIDEM TARTRATE (*CRX) 5 MG TABLET PO (21:33)
[2022-02-23] VITALS (12 sets, daily range): BP systolic 91–109; BP diastolic 40–47; PULSE 66–86; RESP 18–20; TEMP 36.7–37.7; O2SAT 92–98
[2022-02-23 00:10] LABS: Glucose Point of Care 167 mg/dl (65-105)
[2022-02-23 05:07] LABS: INR 1.7; Prothrombin Time 19.6 Seconds (11.1-14.7)
[2022-02-23 05:16] LABS: Anion Gap 4 mmol/L (8-16); Blood Urea Nitrogen 33 mg/dL (7-17); Calcium 7.2 mg/dL (8.4-10.2); Carbon Dioxide 21 mmol/L (22-30); Chloride 103 mmol/L (98-107); Estimated CRCL calculation 15 ml/min; Estimated Glomerular Filt Rate 19; Glucose 99 mg/dL (65-110); Potassium 4.3 mmol/L (3.4-5.0); Sodium 128 mmol/L (137-145)
[2022-02-23] MEDS: THYROID 60 MG TABLET 180 MG PO (06:07)
[2022-02-23 07:51] LABS: Glucose Point of Care 92 mg/dl (65-105)
[2022-02-23] MEDS: FLUTICASONE/UMECLIDIN/VILANTER 100-62.5-25 MCG ELLIPTA 1 PUFF INHALATION (08:22)
--- NOTE | 2022-02-23 08:32 | PC.NURSE ---
Notified Dr. Knott of patient's decreased BP of 93/44. Pt is to receive 100mg PO Amiodarone, 12.5mg PO Metoprolol and 3.125mg PO Carvedilol. New orders to hold Metoprolol and Carvedilol at this time. Only administer the 100mg PO Amiodarone. Continue to monitor BP
[2022-02-23] MEDS: CALCIUM CARBONATE (OSCAL) 500 MG TABLET PO (08:44)
[2022-02-23] MEDS: ASCORBIC ACID 500 MG TABLET 1000 MG PO (08:44)
[2022-02-23] MEDS: FLUTICASONE PROPIONATE 0.05% NA SPR 16 GM BTL (*BKC) 1 SPRAY NASAL (08:44)
[2022-02-23] MEDS: CHOLECALCIFEROL 1,000 UNITS TABLET 1000 UNITS PO (08:44)
[2022-02-23] MEDS: allopurinoL 100 MG TABLET PO (08:44)
[2022-02-23] MEDS: ASPIRIN 81 MG ENTERIC TABLET PO (08:44)
[2022-02-23] MEDS: AMIODARONE HCL 100 MG TABLET BY MOUTH (08:44)
[2022-02-23] MEDS: ZINC SULFATE 220 MG CAPSULE 440 MG PO ×2 (08:45→20:13)
[2022-02-23] MEDS: ATORVASTATIN 20 MG TABLET PO (08:45)
[2022-02-23] MEDS: CYANOCOBALAMIN 500 MCG TABLET PO (08:45)
[2022-02-23] MEDS: calcitrioL 0.25 MCG CAPSULE PO (08:45)
[2022-02-23] MEDS: APIXABAN 2.5 MG TABLET PO ×2 (08:45→20:13)
--- NOTE | 2022-02-23 11:43 | PM.IMPN ---
Progress Note: A&P Assessment and Plan (1) Hypoglycemia: Code(s): E16.2 - Hypoglycemia, unspecified Status: Acute Assessment and Plan: Patient's glucose was registered at 33. She is on Lantus and glimepiride at home. His medications were stopped. She was started on dextrose. Last A1c was about 1 year ago at 7.5. Dextrose weaned off. Continue sliding scale protocol. Check A1c. (2) Altered mental status: Code(s): R41.82 - Altered mental status, unspecified Status: Acute Assessment and Plan: Patient was confused on admission. CT of the brain showing no acute findings. Most likely related to the hypoglycemia. Mental status has returned to normal with correction of her glucose. Continue to follow. (3) COVID-19: Code(s): U07.1 - COVID-19 Status: Acute Assessment and Plan: Patient was COVID positive prior to admission. She did test positive for COVID here. She is up-to-date on her vaccines with her last booster in October. She remains asymptomatic. Not requiring oxygen. Continue to monitor. Repeat chest x-ray in the morning. Start PT and OT. Increase activity. (4) Hypothyroidism: Code(s): E03.9 - Hypothyroidism, unspecified Status: Acute Assessment and Plan: TSH normal. Continue thyroid medication. (5) Chronic kidney disease, stage 3: Code(s): N18.30 - Chronic kidney disease, stage 3 unspecified Status: Acute Assessment and Plan: Creatinine was 1.8 on admission but climbed to 2.4 today. Unclear this is still within her baseline on chart review or she has acute findings. She has Parker catheter in place so unlikely to be retention. No recent contrast exposure. No new medications to suggest acute interstitial nephritis. UA not suspicious for infection. Will start IV fluids. Follow. (6) Weakness: Code(s): R53.1 - Weakness Status: Acute Assessment and Plan: Patient with mild diffuse weakness most likely related to COVID. Will start PT and OT. Increase activity. Remove Parker. (7) Paroxysmal atrial fibrillation: Code(s): I48.0 - Paroxysmal atrial fibrillation Status: Acute Assessment and Plan: Patient with known paroxysmal atrial fibrillation. Patient on Coreg and metoprolol which were listed in her home medication list. Last year she was on metoprolol so will continue metoprolol and stop Coreg. Continue amiodarone. Continue Eliquis. (8) Chronic anticoagulation: Code(s): Z79.01 - [facility] long term care (current) use of 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s Status: Acute Assessment and Plan: As above Plan DVT prophylaxis: Eliquis Code status: Full Diet: Regular. 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 Assuming care. Chart reviewed. She denies chest pain or shortness of breath. Cough is much better. She does have early satiety due to her gastro paresis. She does not eat much because of this reason. No nausea or vomiting. She is up-to-date on her COVID vaccines. Exam Narrative: T-max 100.6?. 99.5 93/44 83 92-94% on room air Gen - NARD lying semi recumbent in bed Chest -distant but clear breath sounds. CV - RRR S1/S2. Tele showing no significant dysrhythmias Abd - Soft, NT/ND, Positive BS - Parker secured draining clear yellow urine Ext -left lower extremity lymphedema with compression dressing in place Psych - Nml mood and affect Skin - Warm and dry Objective Data Vital Signs Vital Signs: Vital Signs - 24 hr 02/22/22 12:00 02/22/22 13:11 02/22/22 12:00 Temperature 100.5 F H Pulse Rate 92 92 90 Respiratory Rate 18 Blood Pressure 94/59 L Pulse Oximetry 95 Oxygen Delivery 02/22/22 12:00 02/22/22 14:00 02/22/22 16:00 Temperature Pulse Rate 87 94 Respiratory Rate Blood Pressure
[2022-02-23 12:38] LABS: Glucose Point of Care 172 mg/dl (65-105)
[2022-02-23] MEDS: SODIUM CHLORIDE 0.9% IV 1,000 ML 100 ML IV CONT (12:48)
[2022-02-23 16:29] LABS: Glucose Point of Care 167 mg/dl (65-105)
[2022-02-23] MEDS: PANTOPRAZOLE 40 MG TABLET PO (17:54)
--- NOTE | 2022-02-23 18:26 | PC.NURSE ---
This patient, Jhon Valencia, was transferred to [[id number] ] on 02/23/22 at 1826. Personal belongings sent with patient. Report given to [CLEVE Abdi @ [id number] ]. Appropriate documentation sent with patient.
[2022-02-23] MEDS: MIRABEGRON 50 MG ER TABLET PO (20:13)
[2022-02-23] MEDS: ZOLPIDEM TARTRATE (*CRX) 5 MG TABLET PO (20:14)
[2022-02-23] MEDS: oxyCODONE/ACETAMINOPHEN (*CRX) 5-325 MG TABLET 1 TABLET PO (20:14)
[2022-02-24 00:01] LABS: Glucose Point of Care 118 mg/dl (65-105)
[2022-02-24] MEDS: LOPERAMIDE HCL 2 MG CAPSULE PO (03:05)
[2022-02-24 05:24] LABS: Hematocrit 26.3 % (37.0-47.0); Hemoglobin 7.9 g/dL (12.0-15.0); Mean Corpuscular Hemoglobin 25.3 pg (26-34); Mean Corpuscular Volume 84.3 fl (80-100); Mean Platelet Volume 9.1 fl (7.4-10.4); Platelet Count Result 180 k/mm3 (150-375); Red Blood Count 3.12 M/mm3 (4.2-5.4); Red Cell Distribution Width 15.7 % (11.5-14.5); White Blood Count 3.9 K/mm3 (4.5-10.0)
[2022-02-24] MEDS: THYROID 60 MG TABLET 180 MG PO (05:31)
[2022-02-24 05:36] LABS: Albumin Level 2.5 g/dL (3.5-5.1); Anion Gap 11 mmol/L (8-16); Blood Urea Nitrogen 35 mg/dL (7-17); Calcium 7.4 mg/dL (8.4-10.2); Carbon Dioxide 19 mmol/L (22-30); Chloride 107 mmol/L (98-107); Estimated CRCL calculation 15 ml/min; Estimated Glomerular Filt Rate 19; Glucose 115 mg/dL (65-110); Magnesium 1.8 mg/dL (1.6-2.3); Phosphorus 4.8 mg/dL (2.5-4.5); Sodium 137 mmol/L (137-145)
[2022-02-24 06:07] LABS: Iron 16 ug/dL (37-170)
[2022-02-24 06:16] LABS: Percent Iron Saturation 7 % (20-50)
[2022-02-24 06:36] VITALS: BP 101/47; PULSE 72; RESP 18; TEMP 36.9; O2SAT 97
[2022-02-24 08:20] VITALS: BP 103/46; PULSE 72; RESP 18; TEMP 36.7; O2SAT 97
[2022-02-24 08:51] VITALS: PULSE 80
[2022-02-24] MEDS: allopurinoL 100 MG TABLET PO (08:51)
[2022-02-24] MEDS: AMIODARONE HCL 100 MG TABLET BY MOUTH (08:51)
[2022-02-24] MEDS: ASCORBIC ACID 500 MG TABLET 1000 MG PO (08:52)
[2022-02-24] MEDS: APIXABAN 2.5 MG TABLET PO (08:52)
[2022-02-24] MEDS: ASPIRIN 81 MG ENTERIC TABLET PO (08:52)
[2022-02-24] MEDS: CHOLECALCIFEROL 1,000 UNITS TABLET 1000 UNITS PO (08:53)
[2022-02-24] MEDS: CALCIUM CARBONATE (OSCAL) 500 MG TABLET PO (08:53)
[2022-02-24] MEDS: ATORVASTATIN 20 MG TABLET PO (08:53)
[2022-02-24] MEDS: CYANOCOBALAMIN 500 MCG TABLET PO (08:53)
[2022-02-24] MEDS: LORATADINE 10 MG TABLET PO (08:54)
[2022-02-24] MEDS: FLUTICASONE PROPIONATE 0.05% NA SPR 16 GM BTL (*BKC) 1 SPRAY NASAL (08:54)
[2022-02-24 08:55] VITALS: PULSE 80
[2022-02-24] MEDS: ZINC SULFATE 220 MG CAPSULE 440 MG PO (08:55)
[2022-02-24] MEDS: METOPROLOL SUCCINATE EXT REL 12.5 MG TABCR PO (08:55)
[2022-02-24] MEDS: oxyCODONE/ACETAMINOPHEN (*CRX) 5-325 MG TABLET 1 TABLET PO (08:56)
[2022-02-24 09:08] LABS: Glucose Point of Care 99 mg/dl (65-105)
[2022-02-24] MEDS: FERROUS SULFATE 324 MG TABLET PO ×2 (10:48→17:25)
[2022-02-24] MEDS: FLUTICASONE/UMECLIDIN/VILANTER 100-62.5-25 MCG ELLIPTA 1 PUFF INHALATION (11:51)
[2022-02-24 13:05] LABS: Glucose Point of Care 204 mg/dl (65-105)
--- NOTE | 2022-02-24 16:12 | PM.DS ---
DS: Admitting Diagnosis Discharge Date 02/24/22 Admitting Diagnosis Altered Mental status DS: Discharge Diagnosis Discharge Diagnosis (1) Hypoglycemia: Code(s): E16.2 - Hypoglycemia, unspecified Status: Acute (2) Altered mental status: Code(s): R41.82 - Altered mental status, unspecified Status: Acute (3) COVID-19: Code(s): U07.1 - COVID-19 Status: Acute (4) Hypothyroidism: Code(s): E03.9 - Hypothyroidism, unspecified Status: Acute (5) Chronic kidney disease, stage 3: Code(s): N18.30 - Chronic kidney disease, stage 3 unspecified Status: Acute (6) Weakness: Code(s): R53.1 - Weakness Status: Acute (7) Paroxysmal atrial fibrillation: Code(s): I48.0 - Paroxysmal atrial fibrillation Status: Acute (8) Chronic anticoagulation: Code(s): Z79.01 - [facility] (current) use of 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s Status: Acute DS: Summary Hospital Course Reason for hospitalization: 86yo female with CKD and 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 Please see H&P for details.w Hospital Course: Patient's glucose was registered at 33.? She was on Lantus and glimepiride at home.?These medications were stopped.? She was started on dextrose.?A1c was 7.0.? Dextrose was weaned off and glucose remained stable. She was monitored with AccuChecks covering with sliding scale protocol.?Hypoglycemia protocol was started. Patient was confused on admission.? CT of the brain showing no acute findings.? Most likely related to the hypoglycemia.? Mental status returned to normal with correction of her glucose.? Patient was COVID positive prior to admission.? She did test positive for COVID here.? CXR showing right perihilar and medial basal atelectasis versus consolidation. Small right pleural effusion. She is up-to-date on her vaccines with her last booster in October.? She remained asymptomatic.? Not requiring oxygen.? Repeat chest x-ray showing no significant change. TSH was normal.? We continued her thyroid medication. Creatinine was 1.8 on admission but climbed to 2.4 today.? Unclear but felt this is still within her baseline on chart review.?No new medications to suggest acute interstitial nephritis.? UA not suspicious for infection.? She received IV fluids with no change in her renal function numbers. Voiding well. Dawson most likely chronic. Plan to repeat labs as outpatient. Patient with mild diffuse weakness most likely related to COVID.?She worked with PT/OT. Patient with anemia mostly i the 8-9 range here. Slightly lower today probably due to the IV fluids. Iron studies consistent with anemia of chronic disease felt related to her CKD. Iron supplements started due to low percent saturation. Patient with known paroxysmal atrial fibrillation.? Patient on Coreg and metoprolol which were listed in her home medication list.? Last year she was on metoprolol so we continued metoprolol and stopped Coreg.? We continued amiodarone and Eliquis. Patient worked with therapy. She clinical improvement. She overall did well to be discharged back to group home facility on 02/24/2022 Status at Discharge Cognitive/behavioral status at discharge: Stable Time Spent with Patient Time attestation: Total time spent providing and/or coordinating discharge services:35 minutes Time spent: Greater than 30 minutes Exam Narrative: AF 98.0 103/46 80 18 97% on room air Gen - NARD Chest - CTA bilaterally, nml RR CV - RRR S1/S2 Abd - Soft, NT/ND, Positive BS Ext - trace left lower extremity lymphedema Psych - Nml mood and affect Skin - Warm and dry DS: Data Data Completed and Pending Labs on day of discharge: Labs from last 24 hours 02/24/22 02/24/22 02/24/22 12:56 08:45 05:09 WBC RBC Hgb Hct MCV MCH MCHC RDW Plt Count MPV Sodium Potassium Chloride Carbon Dioxide Anion Gap BUN Creati
[2022-02-24 17:25] LABS: Glucose Point of Care 184 mg/dl (65-105)
[2022-02-24] MEDS: PANTOPRAZOLE 40 MG TABLET PO (17:25)
== END 2022-02-24 17:50 | DRG 637 ==
LOC: ANHED 02-22 02:20 → ANHIMU 02-22 02:59 → ANH2MED 02-24 16:25 → ANHIMU 02-25 12:21
PROVIDERS: Chiropractor; Physician Assistant; Admitting Provider Internal Medicine; Emergency Provider Emergency Medicine; PCP Family Medicine; Visit Provider Internal Medicine
DX: E11.649 Type 2 diabetes mellitus with hypoglycemia without coma (principal); U07.1 COVID-19; I48.0 Paroxysmal atrial fibrillation; I50.9 Heart failure, unspecified; N18.30 Chronic kidney disease, stage 3 unspecified; E11.22 Type 2 diabetes mellitus with diabetic chronic kidney disease; E03.9 Hypothyroidism, unspecified; D63.8 Anemia in other chronic diseases classified elsewhere; M81.0 Age-related osteoporosis without current pathological fracture; Z85.3 Personal history of malignant neoplasm of breast; Z85.42 Personal history of malignant neoplasm of other parts of uterus; Z79.01 Long term (current) use of 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s; Z79.4 Long term (current) use of insulin; Z90.12 Acquired absence of left breast and nipple; Z90.710 Acquired absence of both cervix and uterus; Z90.49 Acquired absence of other specified parts of digestive tract
CPT/HCPCS: 36415; 70450; 71045; 80048; 80053; 80069; 81001; 82607; 82728; 82746; 82948; 83036; 83540; 83550; 83605; 83615; 83735; 85025; 85027; 85610; 85730; 86140; 87040; 93005; 94640; 96365; 96366; 96372; 96375; 97161; 97165; 99285; A9270; C9803; G0378; J0131; J1610; J7030; U0003; U0005

== ENCOUNTER 2022-03-22 11:49 | Outpatient (CLI) | payer MEDICARE, OTHER, SELFPAY ==
[2022-03-22 12:27] LABS: Hematocrit 29.1 % (37.0-47.0); Hemoglobin 8.6 g/dL (12.0-15.0); Mean Corpuscular HGB Conc 29.6 g/dl (32-36); Mean Corpuscular Hemoglobin 26.1 pg (26-34); Mean Corpuscular Volume 88.2 fl (80-100); Mean Platelet Volume 9.5 fl (7.4-10.4); Platelet Count Result 273 k/mm3 (150-375); Red Cell Distribution Width 19.3 % (11.5-14.5); White Blood Count 7.8 K/mm3 (4.5-10.0)
== END 2022-03-22 11:50 | disposition home or self-care (01) ==
PROVIDERS: PCP Family Medicine; Visit Provider Family Medicine
DX: D64.9 Anemia, unspecified (principal)
CPT/HCPCS: 36415; 85027

== ENCOUNTER 2022-05-10 10:01 | Outpatient (RCR) | payer MEDICARE, SELFPAY | END 2022-08-01 14:38 | disposition home or self-care (01) | LOC: ANHDMC 10:01 | PROVIDERS: PCP Family Medicine; Visit Provider Nurse Practitioner Adult Health | DX: E11.649 Type 2 diabetes mellitus with hypoglycemia without coma (principal) | CPT/HCPCS: 99199 ==

== ENCOUNTER 2022-08-03 10:00 | Outpatient (RCR) | payer MEDICARE, OTHER, SELFPAY ==
--- NOTE | 2022-05-11 13:49 | PTOPEVAL1 ---
Assessment and note entered by Tiffany Chavez, PT Evaluation Information Assessment Status Evaluation Diagnosis L LE lymphedema Onset Mar 22, 2022 Subjective Information past summer, was hospitalized due to blood sugar issues- in and out of hospital and had COVID during that time too; returned to her apartment begin of Mar; have weakness now and getting PT from [facility]; Reported Pain Level Pain Score Self Report Additional Pain Score Comments no pain in L leg, but if someone presses on it, it hurts and painful /10 Assessment PT Clinical Summary Jhon has the diagnosis of lymphedema. She has been here recently, completed in January. Then she was hospitalized with blood sugar issues, then has just returned to her apartment few weeks ago. She is currently getting PT from the [facility] for her legs, strength and balance. With the evaluation, she has fibrotic tissue over L lower leg with redness of the tissue, and edema over medial knee and thigh. Her L leg is 23.3 cm larger than her R leg. Compared to her D/C in January, her L leg is slightly smaller but there is redness and fibrotic tissue. Her previous velcro compression garment does fit. Skilled PT services are indicated for lymphedema treatment: manual lymph drainage, compression to leg and education for self massage, garment for jail management of her lymphedema. She may require multilayer compression wraps, will assess how she does with the velcro garment and home pump to decrease the fibrotic tissue. Plan of Care Interventions Manual Lymph Drainage, compression wraps, Patient/Caregiver Educati PT Services Indicated Yes Treatment Frequency and 0-3x/wk for 5 weeks,due to therapist availability Duration These treatments will address the objective and functional deficits as defined above. The patient will be advanced safely and appropriately in order for the patient to progress towards his/her prior level of function. Additional exercises will be introduced and as well as a comprehensive home exercise program upon discharge, if needed, ?to ensure carryover of functional gains achieved in the clinic. This treatment plan has been reviewed and agreement upon by the patient.
--- NOTE | 2022-05-26 15:35 | PCPTNOTE ---
Patient called & cancelled scheduled appointment this date due to transportation.
--- NOTE | 2022-06-02 11:03 | PCPTNOTE ---
Patient called & cancelled scheduled appointment this date due to transportation difficulties.
--- NOTE | 2022-06-08 15:24 | PCPTNOTE ---
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 Pt called at 15:00. Cancelled Pt's appointment.
--- NOTE | 2022-06-15 13:26 | PTOPPROG ---
Assessment and note entered by Tiffany Chavez, PT, CLT Evaluation Information Assessment Status Progress Diagnosis L LE lymphedema Onset Mar 22, 2022 Subjective Information pleased with how small her leg is and how much better it looks; family and caregiver assist her with home pump and garments. Assessment PT Clinical Summary Jhon has received 5 PT sessions for L LE lymphedema. She had to call and cancel 2 appointments due to issues with transportation. Compared to the initial evaluation, L LE circumferential measurement has decreased by 12.6 cm and is within 10 cm of her other leg; With the compression wrap, her lower leg reduced and the knee and thigh increased slightly; she was not able to use her home compression pump. The velcro garment that she had previously used fits well. The goals were partially achieved. Continue PT 2x/wk for 1-2 more weeks, to further prepare for discharge and assess velcro garment for discharge. Plan of Care Interventions Intermittent Compression,Lymphedema Compression Pump ,Manual Therapy,Patient/Caregiver Education PT Services Indicated Yes Treatment Frequency and 2x/wk for 1-2 more weeks Duration These treatments will address the objective and functional deficits as defined above. The patient will be advanced safely and appropriately in order for the patient to progress towards his/her prior level of function. Additional exercises will be introduced and as well as a comprehensive home exercise program upon discharge, if needed, ?to ensure carryover of functional gains achieved in the clinic. This treatment plan has been reviewed and agreement upon by the patient.
--- NOTE | 2022-06-29 15:35 | PCPTNOTE ---
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 Spoke with Pt and rescheduled to Monday at 13:00.
--- NOTE | 2022-07-04 13:57 | PCPTNOTE ---
pt called and canceled today's appt due to delay with her dr appt, not able to get here on time.
--- NOTE | 2022-07-06 12:05 | PTOPPROG ---
Assessment and note entered by Tiffany Chavez, PT, CLT Evaluation Information Assessment Status Progress Diagnosis L LE lymphedema Onset Mar 22, 2022 Subjective Information Jhon reports: lower leg is looking good, but knee and thigh are big; want to continue therapy and wrap upper leg Assessment PT Clinical Summary Jhon has received 9 PT sessions; Compared to the last reeval on 06-15-22: circumferential measurement of her L leg has increased by 40.1 cm to 523.0 cm; lower leg increased slightly & knee and thigh increased; She has been using the velcro garment on her lower leg and fluid is increased in knee and thigh; therefore, will continue treatment, with compression wraps over knee and thigh/whole leg. She did report that she has not been using her home pump as much over the holidays, has been eating a little different and not taking her water pill as regularly over the holidays with company and a change in her routine. She has the velcro lower leg compression garment, which she reports is comfortable, but she cannot don/doff it herself and has to rely on helpers to perform. Garment has been on constantly for the past 2 days, and the straps were not adjusted or touched over that time frame. Reeducation to pt on the importance of skin check, cleanse skin, adjust straps and use of the home pump. Goals were partially achieved. Continue PT lymphedema treatments--multilayer compression wraps over entire L leg to reduce her knee and thigh, with compression garment when it is reduced. Plan of Care Interventions Intermittent Compression,Lymphedema Compression Pump ,Manual Lymph Drainage,Patient/Caregiver Education PT Services Indicated Yes Treatment Frequency and 3x/wk for 4 weeks Duration These treatments will address the objective and functional deficits as defined above. The patient will be advanced safely and appropriately in order for the patient to progress towards his/her prior level of function. Additional exercises will be introduced and as well as a comprehensive home exercise program upon discharge, if needed, ?to ensure carryover of functional gains achieved in the clinic. This treatment plan has been reviewed and agreement upon by the patient.
--- NOTE | 2022-07-20 08:51 | PCPTNOTE ---
Patient called & cancelled scheduled appointment this date due to her transportation cancelling on her this morning due to the weather.
--- NOTE | 2022-07-25 14:26 | PCPTNOTE ---
Patient called & cancelled scheduled appointment this date due to inclement weather, her transportation cancelled.
--- NOTE | 2022-07-29 08:08 | PCPTNOTE ---
Patient called & cancelled scheduled appointment this date due to being sick.
--- NOTE | 2022-08-03 10:52 | PTOPDC ---
Assessment and note entered by Tiffany Chavez, PT, CLT Evaluation Information Assessment Status Discharge Diagnosis L LE lymphedema Onset Mar 22, 2022 Subjective Information Jhon reports: does not have any pain in her leg; is wearing the velcro garment without any problems; is doing therapy exercises at the assisted living facility she lives--getting therapy there; doing self massage and rubbing over stomach and leg; agrees to discharge therapy Reported Pain Level Pain Score 0: Self Report no pain in legs Assessment PT Clinical Summary Jhon has had 17 PT sessions. The goals have been achieved; the L LE skin has improved, with decreased redness, decreased circumferential measurement from bottom of foot up to 56 cm of 456.8 cm, decreased by 66.2 cm since last reevaluation; the velcro compression garment for L leg fits appropriately and pt reports it is comfortable; she does require some assist PRN for donning/doffing it, but she knows how to instruct others to help her with it; education completed for self lymphedema care. Discharge PT services. Plan of Care PT Services Indicated No
== END 2022-08-03 12:26 | disposition home or self-care (01) ==
LOC: ANHPT 10:00
PROVIDERS: PCP Family Medicine
DX: I89.0 Lymphedema, not elsewhere classified (principal)
CPT/HCPCS: 29581; 97140; 97161

== ENCOUNTER 2024-07-10 11:01 | Emergency (ER) | payer MEDICARE, OTHER, SELFPAY ==
--- NOTE | ~2024-07-10 | CT_ITS ---
EXAMINATION: CT cervical spine wo con DATE: 07/10/2024 11:49 INDICATION: Neck injury. Fall. TECHNIQUE: Computed tomography (CT) of the cervical spine was performed without intravenous contrast. Automated exposure control and iterative reconstruction technique were employed. The dose-length pro duct was 95.17 mGy-cm. COMPARISON: CT cervical spine 01/29/2022 FINDINGS: There is 5 degrees dextrocurvature of cervical spine. Vertebral body heights are normal. Th ere is severely decreased disc height from C3-C4 through C5-C6. The following disc levels are specifi doe discussed: C2-C3: There is no uncovertebral joint osteoarthritis. There is mild right and moderate left facet sarah int osteoarthritis. There is no neural foraminal stenosis. There is no central canal stenosis. C3-C4: There is severe bilateral uncovertebral joint osteoarthritis. There is severe bilateral facet joint osteoarthritis. There is mild bilateral neural foraminal stenosis. There is mild central canal stenosis. C4-C5: There is moderate right and severe left uncovertebral joint osteoarthritis. There is mild righ t and severe left facet joint osteoarthritis. There is mild left neural foraminal stenosis. There is mild central canal stenosis. C5-C6: There is severe bilateral uncovertebral joint osteoarthritis. There is severe bilateral facet joint osteoarthritis. There is mild bilateral neural foraminal stenosis. There is mild central canal stenosis. C6-C7: There is no uncovertebral joint osteoarthritis. There is severe bilateral facet joint osteoart hritis. There is mild bilateral neural foraminal stenosis. There is no central canal stenosis. C7-T1: There is no uncovertebral joint osteoarthritis. There is severe bilateral facet joint osteoart hritis. There is mild right neural foraminal stenosis. There is no central canal stenosis. IMPRESSION: 1. No fracture. 2. Severe cervical spondylosis. Reviewed, dictated and finalized at location A. ER SUPERVISOR
--- NOTE | ~2024-07-10 | CT_ITS ---
CT brain wo con Ordering provider: Sandoval Breen MD History: 88 years Female with . fall . Comparison: None. Technique: CT of the head without contrast. Radiation reduction technique utilized. The dose-length product was 605.33 mGy-cm. FINDINGS: BRAIN PARENCHYMA AND CSF SPACES: Mild leukoaraiosis and diffuse cortical atrophy. Mild atheromatous d isease. Encephalomalacia in the right posterior frontal lobe. No midline shift, mass effect or hemorr bentley. The brain parenchyma and CSF spaces are otherwise normal. VISUALIZED PARANASAL SINUSES: Well aerated. MASTOIDS: Well aerated. BONES: The bones appear intact. SOFT TISSUES: Visualized nasopharynx is normal. Superficial soft tissues are normal. IMPRESSION: No acute intracranial findings. Reviewed, dictated and finalized at location A. EO COMPILER
[2024-07-10 11:03] VITALS: BP 103/74; PULSE 71; RESP 18; TEMP 36.6; O2SAT 96
--- NOTE | 2024-07-10 11:09 | ECG_ITS ---
Test Date: 2024-07-10 11:15:07 Measurements Intervals [place] Rate: 101 P: 0 KS: 0 QRS: -79 QRSD: 130 T: 19 QT: 360 QTc: 468 Interpretive Statements ATRIAL FIBRILLATION WITH RAPID VENTRICULAR RESPONSE RIGHT BUNDLE BRANCH BLOCK [120+ ms QRS DURATION, UPRIGHT V1, 40+ ms S IN I/aVL/V4/V5/V6] LEFT ANTERIOR FASCICULAR BLOCK [QRS AXIS <= -45, QR IN I, RS IN II] No previous ECG available for comparison Electronically Signed On 07-10-2024 14:33:31 EXPL[employer]IVES HAND[employer]ER by Elliott Christian M.D.
[2024-07-10 12:43] VITALS: BP 98/55; PULSE 71; TEMP 36.8; O2SAT 97
--- NOTE | 2024-07-10 13:02 | ED_ITS ---
HPI - Syncope General Chief Complaint: Syncope Stated Complaint: syncopal episode Time Seen by Provider: 07/10/24 12:04 Source: patient and family Mode of arrival: ambulatory Limitations: no limitations History of Present Illness HPI narrative: 88-year-old with a history of AF on Eliquis here with the complaints of having a syncopal episode this morning. Patient states that she bent down and passed out few seconds. She states that she fell backwards and hit her head. No LOC. Complains of pain in the back of her head denies any neck pain. She states that she feels fine otherwise. complaint: almost passed out Onset (ago): hour(s) (1) Prodromal symptoms: none Witnessed: Yes - by Other (facility staff) Context: standing up Injuries sustained associated with event: none Current symptoms: none Treatments prior to arrival: none Related Data Home Medications ?Medication ?Instructions ?Recorded ?Confirmed ?Last Taken ?Type allopurinol 100 mg tablet 100 mg PO DAILY 03/14/21 03/30/22 03/14/21 History amiodarone 200 mg tablet 100 mg DAILY 03/14/21 03/30/22 03/14/21 History calcitriol 0.25 mcg capsule 0.25 mcg PO QMWF 03/14/21 03/30/22 03/12/21 History fexofenadine 180 mg tablet 180 mg PO DAILY 03/14/21 03/30/22 03/13/21 History fluticasone fur. 100 mcg-umeclid 1 inh inhalation QAM 03/14/21 03/30/22 03/14/21 History 62.5 mcg-vilant 25 mcg inhalat.powder (Trelegy Ellipta) loperamide 2 mg capsule 2 mg PO Q6H PRN Diarrhea 03/14/21 03/30/22 03/13/21 History mirabegron 25 mg tablet,extended 50 mg PO HS 03/14/21 03/30/22 03/13/21 History release 24 hr (Myrbetriq) pantoprazole 40 mg tablet,delayed 40 mg PO DAILY 03/14/21 03/30/22 03/13/21 History release teriparatide 20 mcg/dose (620 20 mcg subcut HS 03/14/21 03/30/22 03/13/21 History mcg/2.48 mL) subcutaneous pen injector (Forteo) thyroid (pork) 120 mg tablet 180 mg PO QAM 03/14/21 03/30/22 03/14/21 History (Colerain Thyroid) Lactobacillus acidophilus 10 mg PO DAILY 02/22/22 03/30/22 Unknown History albuterol sulfate 90 mcg/actuation 2 puff inhalation Q4H PRN Wheezing 02/22/22 03/30/22 Unknown History aerosol inhaler (Ventolin HFA) apixaban 2.5 mg tablet (Eliquis) 2.5 mg PO BID 02/22/22 03/30/22 Unknown History aspirin 81 mg tablet,delayed 81 mg PO DAILY 02/22/22 03/30/22 Unknown History release (Adult Low Dose Aspirin) atorvastatin 20 mg tablet 20 mg PO DAILY 02/22/22 03/30/22 Unknown History cholecalciferol (vitamin D3) 25 25 mcg PO DAILY 02/22/22 03/30/22 Unknown History mcg (1,000 unit) tablet (Vitamin D3) cyanocobalamin (vitamin B-12) 500 500 mcg PO DAILY 02/22/22 03/30/22 Unknown History mcg tablet diclofenac sodium 1 % topical gel 1 g topical DAILY PRN Pain 02/22/22 03/30/22 Unknown History ergocalciferol (vitamin D2) 1,250 1,250 mcg PO WEEKLY 02/22/22 03/30/22 Unknown History mcg (50,000 unit) capsule fluticasone propionate 50 2 spray intranasal DAILY 02/22/22 03/30/22 Unknown History mcg/actuation nasal spray,suspension glucagon HCl 1 mg/mL solution for 1 mg IM Q30M PRN Hypoglycemia 02/22/22 03/30/22 Unknown History injection magnesium oxide 400 mg PO DAILY 02/22/22 03/30/22 Unknown History metoprolol succinate 25 mg 12.5 mg PO DAILY 02/22/22 03/30/22 Unknown History tablet,extended release 24 hr ondansetron 8 mg disintegrating 8 mg PO Q8H PRN Nausea And Vomiting 02/22/22 03/30/22 Unknown History tablet Allergies Allergy/AdvReac Type Severity Reaction Status Date / Time chlorhexidine Allergy Mild Unknown Verified 03/30/22 09:10 lidocaine Allergy Mild Unknown Verified 03/30/22 09:10 lisinopril Allergy Mild Unknown Verified 03/30/22 09:10 procaine Allergy Mild Unknown Verified 03/30/22 09:10 metoclopramide Allergy Unknown facial tics Verified 03/30/22 09:10 Review of Systems Review of Systems: All systems reviewed & are unremarkable except as noted in HPI and below Constitutional: Constitutional: Reports no additional constitutional complaints Eyes: Eyes: Reports no additional eye complaints ENT: Reports system reviewed and no additional complaints, except as documented Cardiovascular: Cardiovascular: Reports no additional cardiovascular complaints Respiratory: Respiratory: Reports no additional respiratory complaints Gastrointestinal: Gastrointestinal: Reports no additional gastrointestinal complaints Musculoskeletal: Musculoskeletal: Reports no additional musculoskeletal complaints Neurologic: Reports system reviewed and no additional complaints, except as documented Endocrine: Endocrine: Reports no additional endocrine complaints Hematologic/Lymphatic: Hematologic/Lymphatic: Reports no additional hematologic/lymphatic complaints [facility] Past Medical History Medical History Hypothyroidism Chronic kidney disease, stage 3 Baseline creatinine is 2.30 per patient report. Followed by Dr. Murillo. Osteoporosis Bilateral breast cancer (1994) Status post left mastectomy and right lumpectomy with chemotherapy. Uterine cancer Status post total hysterectomy and brachytherapy. Clostridium difficile infection Insulin dependent type 2 diabetes mellitus Chronic anticoagulation On warfarin for stroke prophylaxis given atrial fibrillation. Paroxysmal atrial fibrillation Status post cardioversion. Congestive heart failure Anemia Surgical History Surgical History History of cataract extraction with lens replacement History of ventral hernia repair History of cholecystectomy History of lumpectomy of right breast History of left mastectomy History of hysterectomy for malignancy (2004) Family History Family History Mother Diabetes mellitus Cerebrovascular accident Grandparent Diabetes mellitus Heart disease Father Malignant neoplasm of prostate Sibling Bladder cancer Other Multiple sclerosis Stomach cancer Social History Social History Social History: Surrogate decision maker: Jonathan Valencia, son ([phone]). Code status: Full code. Smoking status: Never smoker Second hand tobacco smoke exposure: No Alcohol intake: never Substance use: never Substance use type: does not use Living arrangements: alone Additional living arrangements comments: The patient lives in independent living at [facility]. Her of nearly 65 years in August 2020. They have 2 sons. 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 Spiritual care concerns: No Exam Narrative: GENERAL: Well-appearing, well-nourished, and in no acute distress. HEAD: Normocephalic, atraumatic. EYES: PERRLA and EOMI. ENT: Nares clear, no rhinorrhea or epistaxis. Mucous membranes moist. NECK: Supple. CHEST: Clear to auscultation. No respiratory distress. HEART: Regular rate and rhythm. No murmur heard. Normal peripheral pulses.. EXTREMITIES: Normal range of motion. No edema. SKIN: Warm, dry, no rash. NEURO: No focal deficits. Alert and oriented x3. PSYCH: Normal mood and affect. Course Course Emergency Course: Patient remained asymptomatic while she was here in the ER. She has no complaints. I did inform her about the CT of the head and neck. She does feel comfortable going home. Advised her to take Tylenol as needed for pain. Continue home medications Vital Signs Vital signs: Vital Signs Temperature 36.6 C 07/10/24 11:03 Pulse Rate 71 07/10/24 11:03 Respiratory Rate 18 07/10/24 11:03 Blood Pressure 103/74 07/10/24 11:03 Pulse Oximetry 96 07/10/24 11:03 Oxygen Delivery Room Air 07/10/24 11:03 Temperature 36.8 C 07/10/24 12:43 Pulse Rate 71 07/10/24 12:43 Respiratory Rate 18 07/10/24 11:03 Blood Pressure 98/55 L 07/10/24 12:43 Pulse Oximetry 97 07/10/24 12:43 Oxygen Delivery Room Air 07/10/24 11:03 MDM - Syncope Imaging Data Radiologist's impression: ITS Impressions Head CT 07/10/24 11:51 IMPRESSION: No acute intracranial findings. Cervical Spine CT 07/10/24 11:58 IMPRESSION: 1. No fracture. 2. Severe cervical spondylosis. ECG Data EKG #1: ECG completion date: 07/10/24 ECG completion time: 11:15 EKG Interpretation: tachycardia (101), atrial fibrillation, no ST changes and RBBB Discharge Plan Discharge Clinical Impression: Syncope, near Minor head injury Qualifiers: Encounter type: initial encounter Qualified Code(s): S09.90XA - Unspecified injury of head, initial encounter Patient Disposition: [facility] Living Condition: Stable Instructions: Syncope (ED), Head Injury (ED) Additional Instructions: continue home medications, can take Tylenol for pain , rest Patient Language: [place] Citizen Prescriptions: No Action loperamide 2 mg capsule 2 mg PO Q6H PRN (Reason: Diarrhea) amiodarone 200 mg tablet 100 mg DAILY fexofenadine 180 mg tablet 180 mg PO DAILY allopurinol 100 mg tablet 100 mg PO DAILY pantoprazole 40 mg tablet,delayed release (DR/EC) 40 mg PO DAILY calcitriol 0.25 mcg capsule 0.25 mcg PO QMWF thyroid (pork) [Colerain Thyroid] 120 mg tablet 180 mg PO QAM Myrbetriq 25 mg tablet extended release 24 hr 50 mg PO HS Trelegy Ellipta 100-62.5-25 mcg blister with device 1 inh INHALATION QAM teriparatide [Forteo] 20 mcg/dose (620mcg/2.48mL) pen injector 20 mcg SUBCUT HS atorvastatin 20 mg Tablet 20 mg PO DAILY aspirin [Adult Low Dose Aspirin] 81 mg Tablet,Delayed Release (Dr/Ec) 81 mg PO DAILY ondansetron 8 mg Tablet,Disintegrating 8 mg PO Q8H PRN (Reason: Nausea And Vomiting) cyanocobalamin (vitamin B-12) 500 mcg Tablet 500 mcg PO DAILY ergocalciferol (vitamin D2) 1,250 mcg (50,000 unit) Capsule 1,250 mcg PO WEEKLY Rx Instructions: takes on fridays Lactobacillus acidophilus Capsule 10 mg PO DAILY albuterol sulfate [Ventolin HFA] 90 mcg/actuation Hfa Aerosol Inhaler 2 puff INHALATION Q4H PRN (Reason: Wheezing) fluticasone propionate 50 mcg/actuation [place],Suspension 2 spray INTRANASAL DAILY Rx Instructions: administer into each nostril diclofenac sodium 1 % Gel 1 g TOPICAL DAILY PRN (Reason: Pain) glucagon HCl 1 mg/mL Recon Soln 1 mg IM Q30M PRN (Reason: Hypoglycemia) Rx Instructions: until target blood sugar attained magnesium oxide 400 mg magnesium Tablet 400 mg PO DAILY metoprolol succinate 25 mg tablet extended release 24 hr 12.5 mg PO DAILY cholecalciferol (vitamin D3) [Vitamin D3] 25 mcg (1,000 unit) Tablet 25 mcg PO DAILY Rx Instructions: to start on 02/22 Eliquis 2.5 mg tablet 2.5 mg PO BID oxycodone-acetaminophen 5-325 mg tablet 1 tablet PO Q6H PRN (Reason: Pain, moderate to severe) Qty: 10 0RF zolpidem 6.25 mg tablet,ext release multiphase 6.25 mg PO HS PRN (Reason: Insomnia) Qty: 1 0RF Follow-up/Referrals: Charlie Norton MD [Primary Care Provider] - Time of Disposition: 13:07
[2024-07-10 13:38] VITALS: BP 104/29; PULSE 65; RESP 16; O2SAT 98
[2024-07-10 13:51] VITALS: BP 104/30; PULSE 60; RESP 14; O2SAT 98
== END 2024-07-10 13:54 ==
PROVIDERS: Emergency Provider Family Medicine; PCP Family Medicine
DX: R55 Syncope and collapse (principal); S09.90XA Unspecified injury of head, initial encounter; W18.39XA Other fall on same level, initial encounter
CPT/HCPCS: 70450; 72125; 93005; 99284

== ENCOUNTER 2024-08-09 13:29 | Outpatient (CLI) | payer MEDICARE, OTHER, SELFPAY ==
--- OUTSIDE RECORDS SUMMARY | 2024-08-09 13:34 | XMS_ITS | Encounter Summary ---
Author Organization [facility] Address [address] [place] [address] Phone Care Team Providers Care Bottle Caser Name Role Phone Lamin Wisdom Primary Care Provider [phone] Stanley Jennings MD Unavailable Selene Alves RN Unavailable Unavailable Sanam Garcia RN Unavailable Unavailable Reason for Visit * Reason Comments Medication Refill Encounter Details Date Type Department Care Team (Late st Contact Info) Description 09/07/2022 Refill [facility] [address] [place] [address] Stanley Jennings MD [address] [facility] [address] [place] [address] Medication Refill Social History Tobacco Use Types Packs/Day Years Used Date Smoking Tobacco: Never Smokeless Tobacco: Never Alcohol Use Standard Drinks/Week Comments Yes 0 (1 standard drink = 0.6 oz pur e alcohol) Comments Unknown Sex and Gender Information Value Date Recorded Sex Assigned at Not on file Legal Sex Female 12:23 PM METAL WEIGHER Gender Identity Not on file Sexual Orientation Not on file COVID-19 Exposure Response Date Recorded In the last 10 days, have yo u been in contact with someone who was confirmed or suspected to have Coronavirus/COVID-19? No / Unsure 09/02/2022 10:11 AM METAL WEIGHER documented as of this encounter Miscellaneous Notes * Telephone Encounter - Analia West - 09/07/2022 3:39 PM CDT Please refill if appropriate. documented in this encounter Plan of Treatment Upcoming Encounters Date Type Department Care Team (Late st Contact Info) Description 08/30/2024 9:15 AM METAL WEIGHER Clinical Support [facility] [address] [phone] Nurse, [facility] 08/30/2024 10:00 AM METAL WEIGHER Ancillary Procedure [facility] [address] [phone] 09/06/2024 10:45 AM CDT Office Visit [facility] [address] [phone] Stanley Jennings MD [address] [id number] documented as of this encounter Visit Diagnoses Not on filedocumented in this encounter Additional Health Concerns Infection Onset Date Last Indicated Resolved Time C. difficile Rule-Out 05/31/2024 05/31/20242023 12:16 AM METAL WEIGHER documented as of this encounter Care Teams Bottle Caser Relationship Specialty Start Date End Date Lamin Wisdom DO [address] [place] [address] [address] [place] [address] PCP - General Internal Medicine 06/09/22 Stanley Jennings MD [address] [place] [phone] Oncology 07/21/22 Vice, Selene M, RN [place] Oncology Nurse Navigator Oncology 03/29/24 Sanam Garcia, RN [place] Oncology Nurse Navigator Oncology 05/17/24 documented as of this encounter
--- OUTSIDE RECORDS SUMMARY | 2024-08-09 13:34 | XMS_ITS | Encounter Summary ---
Author Organization [facility] Address [address] [place] [address] Care Team Providers Care Microsoft Windows Engineer Name Role Phone Bala Norman MD Primary Care Provider [phone] Patricia Mckeon MD Unavailable [phone] Bala Norman MD Primary Care Provider [phone] Agustin Alston MD Primary Care Provider [phone] Tamar Novoa MD Unavailable Stephen Thapa MD Primary Care Provider Unav ailable Gracie Vargas DO Primary Care Provider [phone] Lamin Wisdom DO Primary Care Provider [phone] Charlie Norton MD Unavailable [phone] Isael Harmon MD Unavailable [phone] Aakash Rayo MD Primary Care Provi carline Encounter Details Date Type Department Care Team (Late st Contact Info) Description 07/13/2015 Abstract [facility] AT [address] [address] Patricia Mckeon MD Three [facility]. 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 [address] [place] [address] 02/05/2025 2:00 PM CDT Office Visit [facility] [address] [place], [place] [address] Saadia Walker APRN Three [facility] [address] [place], [place] [address] documented as of this encounter Visit Diagnoses Not on filedocumented in this encounter Additional Health Concerns Infection Onset Date Last Indicated Resolved Time C. difficile 02/01/2017 02/01/2017 05/03/2022 11:5 1 AM R AND D LAB TECHNICIAN MRSA Comment:05/02/22 +MRSA Nasal 05/19/24 +MRSA Left arm 05/03/2022 05/19/2024 COVID-19 Rule Out 02/19/2024 02/19/2024 02/19/2024 9:56 PM CDT documented as of this encounter Care Teams Microsoft Windows Engineer Relationship Specialty Start Date End Date Bala Norman MD [address] [place], [place] [id number] PCP - General INTERNAL MEDICINE 12/30/15 11/23/17 Bala Norman MD [address] [place] [address] PCP - General 06/17/14 12/29/15 Agustin Alston MD Three [facility]. [address] [place], [place] [address] PCP - General INTERNAL MEDICINE 12/06/17 04/25/19 [facility] [address] [place] [address] PCP - General NEPHROLOGY 04/26/19 08/28/19 Gracie Vargas DO [address] [place] [address] PCP - General INTERNAL MEDICINE 08/29/19 03/25/22 Lamin Wisdom DO [address] [facility] [address] PCP - General INTERNAL MEDICINE 03/26/22 07/31/24 GirmaAakash reddy MD [facility] [address] [place], [place] [address] [facility] 08/[facility]24 Patricia Mckeon MD Three [facility]. [address] [address] [place] Electrician Telephone CARDIOVASCULAR DISEASE 11/25/15 Tamar Novoa MD Three [facility]. [address] [phone] [place] Electrician Telephone CLINICAL CARDIAC ELECTROPHYSIOLOGY 12/18/17 Charlie Norton MD [address] [place] [address] FAMILY PRACTICE 05/02/22 Isael Harmon MD [address] [facility], [address] [address] Referring Physician VEL 05/02/22 documented as of this encounter
--- OUTSIDE RECORDS SUMMARY | 2024-08-09 13:34 | XMS_ITS | Encounter Summary ---
Author Organization [facility] Address [address] [place] [address] Care Team Providers Care Wallpaper Installer Name Role Phone Unavailable Primary Care Provider Unavailabl e Encounter Details Date Type Department Care Team (Late st Contact Info) Description 02/05/2018 Lab Requisition [facility] [address] [place] [address] Charlie Norton MD [address] [place] [address] Bacterial infection Social History Tobacco Use Types Packs/Day Years Used Date Smoking Tobacco: Never Assessed Comments Unknown Sex and Gender Information Value Date Recorded Sex Assigned at Not on file Legal Sex Female 3:41 PM CDT Gender Identity Not on file Sexual Orientation Not on file documented as of this encounter Plan of Treatment Not on file documented as of this encounter Visit Diagnoses Diagnosis Bacterial infection Bacterial infection, unspecified, in conditions classified elsewhere and of unspecified site documented in this encounter Additional Health Concerns Infection Onset Date Last Indicated Resolved Time C Diff 02/04/2018 02/04/2018 11/09/2022 1:00 AM CDT documented as of this encounter
--- OUTSIDE RECORDS SUMMARY | 2024-08-09 13:34 | XMS_ITS | Encounter Summary ---
Author Organization [employer] [facility] Address [address] [place] [address] Care Team Providers Care Farm Adviser Name Role Phone Unavailable Primary Care Provider Unavailabl e Encounter Details Date Type Department Care Team (Late st Contact Info) Description 02/14/2018 Lab Requisition [facility] Services [facility] [address] [address] Charlie Norton MD [address] [place] [address] half-way current use of 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; Encounter for general adult medical examination without abnormal findings; Other disorders of magnesium metabolism Social History Tobacco Use Types Packs/Day Years Used Date Smoking Tobacco: Never Assessed Comments Unknown Sex and Gender Information Value Date Recorded Sex Assigned at Not on file Legal Sex Female 3:41 PM CDT Gender Identity Not on file Sexual Orientation Not on file documented as of this encounter Plan of Treatment Not on file documented as of this encounter Visit Diagnoses Diagnosis medical terminologist current use of 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 Encounter for long-term (current) use of 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s Encounter for general adult medical examination without abnormal findings Routine general medical examination at a health care facility Other disorders of magnesium metabolism documented in this encounter Additional Health Concerns Infection Onset Date Last Indicated Resolved Time C Diff 02/04/2018 02/04/2018 11/09/2022 1:00 AM CDT documented as of this encounter
--- OUTSIDE RECORDS SUMMARY | 2024-08-09 13:34 | XMS_ITS | Clinical Summary ---
Author Organization [facility] Address [address] [place] [address] Care Team Providers Care Paid Search Manager Name Role Phone Patricia Mckeon MD Unavailable [phone] Tamar Novoa MD Unavailable Charlie Norton MD Unavailable [phone] Austin Harmon MD Unavailable [phone] Aakash Rayo MD Primary Care Provi carline Allergies Active Allergy Reactions Criticality Noted Date Comments Chlorhexidine Itching 05/02/2022 Per patient and per pulmonology notes 02/16/22 in care everywhere Iberia Tar Extract Unknown 02/17/2022 Dapagliflozin Shortness of Breath High 03/20/2024 Interacts with other meds she takes - high calcium level, SOB Lisinopril Cough 01/14/2016 Losartan Shakiness 01/14/2016 Procaine Other (see comment) Unsure of this med. Knows for sure can not tolerate novacaine Metoclopramide Shakiness 12/06/2017 Facial tics, Rosiglitazone Unknown 02/17/2022 Says she recognizes the name Avandia and remembers taking it in the past, does not remember a reaction to it Lidocaine Anaphylaxis High 09/13/2017 Patient says she tolerates lidocaine and carbocaine, says the allergy is to novacaine and the reaction was when she was about age 14 Medications fluticasone propionate 50 MCG/ACT nasal spray 1 spray by Nasal route nightly. 03/15/20 17 Active Probiotic Product (AcadiaSoft) Cap Take 1 tablet by mouth nightly. 03/15/20 17 Active Tkdlac-Lqnyb-R yal Ac-Ca Fructo ([facility] Garden Mate [facility]) Tab Take 1 tablet by mouth nightly. 12/07/19 18 Active albuterol sulfate HFA 108 (90 Base) MCG/ACT inhaler Inhale 2 puffs into the lungs every 6 (six) hours as needed for Wheezing. 12/07/19 18 Active diclofenac sodium (VOLTAREN) 1 % gel Apply topically as needed. 08/31/19 19 Active oxyCODONE-acet aminophen 5-325 MG tablet Take 1 tablet by mouth every 6 (six) hours as needed. 01/29/20 19 Active allopurinol (ZYLOPRIM) 100 MG tablet Take 1 tablet (100 mg total) by mouth daily. 05/21/20 21 Active glucagon 1 MG injection 02/03/20 22 Active pantoprazole EC (PROTONIX) 40 MG tablet Take 1 tablet (40 mg total) by mouth nightly. 12/08/19 22 Active Fluticasone-Um eclidin-Vilant (TRELEGY ELLIPTA) 100-62.5-25 MCG/ACT AEROSOL POWDER, BREATH ACTIVATED Inhale 1 puff into the lungs daily. Active zolpidem CR (AMBIEN CR) 6.25 MG tablet Take 1 tablet (6.25 mg total) by mouth nightly at bedtime. 08/02/19 23 Active nystatin (MYCOSTATIN) ointment 07/22/19 23 Active folic acid (FOLVITE) 1 MG tablet Take 1 tablet (1 mg total) by mouth daily. 08/19/19 23 Active cyanocobalamin (B-12) 1000 MCG/ML injection INJECT 1 ML EVERY 28 DAYS 08/20/19 23 Active potassium chloride CR (MICRO-K) 10 MEQ CR capsule Take 1 capsule (10 mEq total) by mouth daily. Active lidocaine (LIDODERM) 5 % Apply 1 patch topically daily. 04/12/20 Active insulin glargine (LANTUS) 100 UNIT/ML injection (VIAL) Inject 5 Units into the skin every morning. 02/24/20 Active loperamide (IMODIUM) 2 MG capsule Take 1 capsule (2 mg total) by mouth as needed. Active atorvastatin (LIPITOR) 20 MG tablet Take 1 tablet (20 mg total) by mouth nightly at bedtime. 03/06/20 Active teriparatide (FORTEO) 600 MCG/2.4ML injection Inject 0.08 mLs (20 mcg total) into the skin nightly. 10/18/19 24 025 Active amiodarone (PACERONE) 200 MG tablet Take 0.5 tablets (100 mg total) by mouth daily. 45 tablet 1 03/18/20 Active calcitriol (ROCALTROL) 0.25 MCG capsule Take 1 capsule (0.25 mcg total) by mouth 3 (three) times a week. 03/18/20 Active Additional Information Patient taking differently:0.25 mcg Oral Three times weekly,Monday, Monday, Monday, Reported on 05/18/2024 vitamin D3 (CHOLECALCIFER OL) 1.25 mg capsule Take 1 capsule (1.25 mg total) by mouth once a week. Takes on Wednesdays03/18/20 Active HUMULIN R 100 UNIT/ML injection 3 (three) times daily before meals. Per sliding scale, Patient unaware of sliding scale 04/02/20 Active apixaban (ELIQUIS) 2.5 MG tablet Take 1 tablet (2.5 mg total) by mouth 2 (two) times daily. 180 tablet 1 04/25/20 Active metoprolol succinate ER (TOPROL-XL) 25 MG 24 hr tablet Take 1 tablet (25 mg total) by mouth daily. 90 tablet 1 04/25/20 Active magnesium oxide (MAG-OX) 400 MG tablet Take 1 tablet (400 mg total) by mouth 2 (two) times daily. NEW DOSE 04/25/2024 OV 180 tablet 1 04/25/20 Active thyroid (ARMOUR THYROID) 90 MG OR TABS tablet Take 1 tablet (90 mg total) by mouth daily. ARMOUR THYROID NEW DOSE 04/25/2024 90 tablet 10/31/20 24 Active furosemide (LASIX) 40 MG tablet TAKE 1 TABLET BY MOUTH TWICE DAILY. UNTIL SWELLING GOES DOWN, THEN DECREASE TO 1 TABLET ONCE DAILY 90 tablet 04/25/20 24 Active JANUVIA 25 MG Tab Take 1 tablet (25 mg total) by mouth daily. 04/30/20 24 Active fexofenadine (MYRIAM ALLERGY) 180 MG tablet Take 1 tablet (180 mg total) by mouth. 11/27/19 24 Active prochlorperazi ne (COMPAZINE) 10 MG tablet Take 1 tablet (10 mg total) by mouth every 6 (six) hours as needed. 07/22/19 25 Active mirabegron ER (MYRBETRIQ) 50 MG 24 hr tablet Take 1 tablet (50 mg total) by mouth. 07/22/19 25 Active ondansetron (ZOFRAN) 4 MG tablet Take 1 tablet (4 mg total) by mouth every 8 (eight) hours as needed for Nausea. 30 tablet 05/08/20 19 025 Discontinued(P t. elected to discontinue med) Active Problems Problem Noted Date Diagnosed Date Syncope 07/22/2024 Skin infection 05/18/2024 Atrial fibrillation and flutter ([facility] ) 03/13/2024 Hypercalcemia 03/06/2024 Bladder mass 02/20/2024 CHF (congestive heart failure) ([facility]) 02/19/2024 Pulmonary HTN ([facility]) 08/16/2023 Overview (09/19/2023): Last Assessment & Plan: I have ordered an echocardiogram due to the pulmonary hypertension noted on her PET scan. 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 ([facility]) 07/28/2022 Hyperlipidemia 07/28/2022 Insomnia 07/28/2022 Lymphedema 07/28/2022 Osteoporosis 07/28/2022 Iron deficiency anemia 07/19/2022 Vitamin B 12 deficiency 07/19/2022 Anemia in other chronic diseases classified else where 06/08/2022 Severe mitral valve regurgitation 05/04/2022 Hyperuricemia 11/24/2020 Dilated cardiomyopathy ([facility]) 021 Bradycardia 12/31/2018 Post-nasal drip 09/26/2018 Overview (11/22/2022): Last Assessment & Plan: Patient will continue with Myriam and Flonase daily. KT (obstructive sleep apnea) 09/26/2018 Overview (09/19/2023): Last Assessment & Plan: Will continue with trilogy at night while sleeping. Patient was encouraged to resume Trilogy. [employer]. Patient will continue Ambien 6.25 mg nightly. Centrilobular emphysema ([facility]) 2018 Overview (09/19/2023): Last Assessment & Plan: The patient will continue with Trelegy. The patient has an albuterol inhaler that she may use on a p.r.n. basis and up to 4 times a day as needed for symptom control. Right-sided heart failure ([facility]) 12/2018 Non-rheumatic mitral regurgitation 08/30/2018 Assessment & Plan (09/21/2022 6:34 PM CDT): She has severe mitral regurgitation. Attempted transcatheter repair was unsuccessful. I discussed future transcatheter options such as Isidro Maryellen, which we do not have or potentially enrolling in a clinical trial at [facility] or [place]. I also discussed medical therapy. She would like to pursue medical therapy for now and will think about potential clinical trial enrollment. Assessment & Plan (04/25/2022 3:12 PM CDT): I have reviewed her transesophageal echocardiogram and she has severe mitral regurgitation. I think that she would be high risk for cardiac surgery because of frailty. She will require cardiac catheterization for assessment of her coronaries prior to surgical evaluation. We will plan on doing cardiac catheterization tomorrow. I did discuss the procedure of transcatheter mitral valve repair with MitraClip to the patient. I explained the procedure in detail including transvenous access and transseptal puncture with placement of MitraClip to attach the anterior and posterior leaflets together in the model of the Ankur stitch creating two orifices. I explained that the procedure is guided by transesophageal echocardiography and performed under general anesthesia. I explained the risks and benefits that include but are not limited to: bleeding, infection, vascular complication (10%), cerebrovascular accident (3 to 5%), single leaflet device attachment (SLDA), myocardial infarction (1 to 2%), and even (1 to 2%). I did explain to the patient that if we were to proceed with transcatheter mitral valve repair we would have to proceed with the work-up that includes cardiac catheterization, transesophageal echocardiogram and surgical evaluation. On amiodarone therapy 08/07/2018 ROJO (dyspnea on exertion) 08/01/2018 Endometrial cancer ([facility]) 07/23/2018 Allergic rhinitis 01/15/2018 Hypotension due to drugs 03/15/2017 Uterine cancer ([facility]) 06/26/2005 Overview (01/18/2016): h/o Essential hypertension Stage 3 chronic kidney disease ([facility]) Assessment & Plan (04/25/2022 3:12 PM CDT): She has a history of chronic kidney disease and follows with nephrology. We will try to use as little dye as possible. Pure hypercholesterolemia Paroxysmal atrial fibrillation Assessment & Plan (04/25/2022 3:13 PM CDT): Recommend holding anticoagulation prior to cardiac catheterization. Chronic diastolic heart failure ([facility] ) Assessment & Plan (09/21/2022 6:33 PM CDT): Continue diuretics. Hypothyroidism Arthritis Cellulitis Anxiety Depression Breast cancer ([facility]) Overview (01/18/2016): h/o Neuropathy Vitamin D deficiency Overview (01/18/2016): Hypo Vitamin D deficiency Diabetes mellitus ([facility]) Resolved Problems Problem Noted Date Diagnosed Date Resolved Date PAF (paroxysmal atrial fibri llation) ([facility]) 12/30/2015 07/21/2016 Encounters Date Type Department Care Team Description 08/06/2024 12:45 PM MACHINE CERAMIC COATER Telephone [facility] [address] [place] [address] Patricia Mckeon MD Holter Monitor 08/05/2024 Telephone [facility] [address] [place] [address] Patricia Mckeon MD Information ([facility]) 08/01/2024 1:00 PM MACHINE CERAMIC COATER Office Visit [facility] [address] [place] [address] Patricia Mckeon MD Shortness Of Breath ; Hypertension; Follow Up (3 mo.) 08/01/2024 Travel 07/10/2024 Scan [facility] [address] [place] [address] Scanned, Doc Pccl 07/10/2024 Scan [facility] [address] [place] [address] Scanned, Doc Pccl 07/10/2024 Scan [facility] [address] [place] [address] Scanned, Doc Pccl 07/10/2024 Scan [facility] [address] [place] [address] Scanned, Doc Pccl 06/24/2024 Telephone [facility] [address] [place] [address] Claribel Lares RN Follow Up Call 06/21/2024 Telephone [facility] [address] [facility] [place] [address] Saadia Walker APRN Concerns 05/28/2024 Hospital Follow-up Call [facility] [place] [address] [place] [address] Jillian Hall LPN Follow Up Call ([facility] 05/18-05/26/24) 05/18/2024 2:14 PM MACHINE CERAMIC COATER - 05/26/2024 10:39 AM MACHINE CERAMIC COATER Hospital Encounter [facility] [address] [place] [address] Jr Chase MD Wagner, Roy M, Alex Rebollar, Skin Problem Discharge Disposition: Home or Self Care (Routine Discharge) 05/18/2024 Travel from Last 3 Months Immunizations Name Administration Dates Next Due Influenza (Generic) 04/30/2018, 7,03/28/2016,2014,02/24/2015,03/26/2014 Influenza Adult (Generic) 03/26/2020 PFIZER COVID-19 (ORIGINAL FORMULATION, PURPLE CAP) mRNA, LNP-S, PF, 30 MCG/0.3 ML DOSE 08/13/2020,07/23/2020 Pneumococcal (Prevnar 13) 02/24/2015 Family History Medical History Relation Comments Cancer Brother Bladder cancer Hypertension Father Prostate Cancer Father CVA Mother Diabetes Mother Diabetes Paternal Grandfather at Sister 1 at Sister 2 Relation Status Comments Brother Alive Father (Age 84) Unknown cause, s/p fall Maternal Grandfather Maternal Grandmother Mother (Age 83) Paternal Grandfather Paternal Grandmother Sister 1 Sister 2 Social History Tobacco Use Types Packs/Day Years Used Date Smoking Tobacco: Never Smokeless Tobacco: Never Tobacco Cessation:Counseling Given: Not Answered Alcohol Use Standard Drinks/Week Comments Yes 0 (1 standard drink = 0.6 oz pur e alcohol) Occasionally C Utilities Answer Date Recorded In the past 12 months has th e electric, gas, oil, or water [employer] threatened to shut off services in your home? No 05/20/2024 Humiliation, Afraid, Rape, and Kick questionnair e Answer Date Recorded Within the last year, have y ou been afraid of your partner or ex-partner? No 05/20/2024 Within the last year, have y ou been humiliated or emotionally abused in other ways by your partner or ex-partner? No Within the last year, have y ou been kicked, hit, slapped, or otherwise physically hurt by your partner or ex-partner? No 05/20/2024 Within the last year, have y ou been raped or forced to have any kind of sexual activity by your partner or ex-partner? No 05/20/2024 AUDIT-C Answer Date Recorded Q1: How often do you have a drink containing alc ohol? Monthly or less 05/20/2024 Average Number of Drinks Not on file 024 Frequency of Binge Drinking Not on file 04/27 Overall Financial Resource Strain (CARDIA) Answe r Date Recorded How hard is it for you to pa y for the very basics like food, housing, medical care, and heating? Not hard at all 05/20/2024 PHQ-2 Answer Date Recorded PHQ-2 Score - If the patient scores above 3, please move on to questions 3-9 0 12/10/2020 Hunger Vital Sign Answer Date Recorded Within the past 12 months, y ou worried that your food would run out before you got the money to buy more. Never true 05/20/20 24 Within the past 12 months, t he food you bought just didn't last and you didn't have money to get more. Never true 05/20/2024 PRAPARE - Transportation Answer Date Re corded In the past 12 months, has l ack of transportation kept you from medical appointments or from getting medications? No 04/27 In the past 12 months, has l ack of transportation kept you from meetings, work, or from getting things needed for daily living? No 05/20/2024 Housing Stability Vital Sign Answer Mckay e Recorded In the last 12 months, was t here a time when you were not able to pay the mortgage or rent on time? No 05/20/2024 In the past 12 months, how m any times have you moved where you were living? 0 05/20/2024 At any time in the past 12 m [facility], were you homeless or living in a retirement (including now)? 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 Not on file Not on file Not on file Last Filed Vital Signs Vital Sign Reading Time Taken Comments Blood Pressure 102/50 08/01/2024 1:23 PM MACHINE CERAMIC COATER Pulse 76 08/01/2024 12:53 PM MACHINE CERAMIC COATER Temperature 36.5 C (97.7 F) 05/26/2024 7:57 AM MACHINE CERAMIC COATER Respiratory Rate 18 05/26/2024 7:57 AM MACHINE CERAMIC COATER Oxygen Saturation 96% 08/01/2024 12:53 PM MACHINE CERAMIC COATER Inhaled Oxygen Concentration - - Weight 57.6 kg (127 lb) 08/01/2024 12:53 PM MACHINE CERAMIC COATER Height 152.4 cm (5') 08/01/2024 12:53 PM MACHINE CERAMIC COATER Body Mass Index 24.8 08/01/2024 12:53 PM MACHINE CERAMIC COATER Plan of Treatment Upcoming Encounters Date Type Department Care Team (Late st Contact Info) Description 08/28/2024 11:20 AM MACHINE CERAMIC COATER Telemedicine [facility] [address] [place] [address] Kaleb Baen MD [address] [facility] [address] [place] [address] 09/11/2024 1:00 PM CDT Appointment [facility] [place] [place] [address] Patricia Mckeon MD [address] [facility]. [facility] [address] [place] [address] 02/05/2025 2:00 PM CDT Office Visit [facility] [address] [place], [place] [id number] Saadia Walker APRN [address] [facility]. [address] [place], [place] [id number] Health Maintenance Due Date Last Done Comments Diabetes: Retinopathy Eye Exam 10/19/1953 Annual Medicare Wellness Visit 2002 Zoster Vaccines (2 of 3) 03/17/2009 01/20/2009 DTaP, Tdap and Td Vaccines (2 - Td or Tdap) 11/21/2021 11/22/2011, 05/07/2002 Lipid Panel 03/28/2023 03/28/2022, 07/28, 08/23/2021, Additional history exists COVID-19 Vaccine ( season) 2024 10/13/2022, 04/07/2022, 10/27/2021, Additional history exists Influenza Adult (#1) 2024 10/03/2022, 03/26/2020, 04/30/2018, Additional history exists PHQ-2 (Physician [place]) 06/26/2024 Hemoglobin A1C 08/18/2024 05/18/2024, 08/0 10/2023, 07/28/2023, Additional history exists Pneumococcal Vaccine: 65+ Years Completed 10/03/2022, 02/24/2015, 07/24/2014, Additional history exists RSV Immunization or 60+ Years Completed 06/05/2023 Meningococcal B Vaccine Aged Out No l onger eligible based on patient's age to complete this topic Meningococcal Vaccine Aged Out No maia oleg eligible based on patient's age to complete this topic RSV Immunizations Under 20 Months Aged Out No longer eligible based on patient's age to complete this topic Goals Goal Patient Goal Type Associated Problems Recent Progress Patient-Stated? Author Health - patient able to perform ADLs independently Lifestyle No Orlando Hernandez, RN Patient will return to prior living situation and remain independent in ADLs upon discharge from hospital Lifestyle No Andria Major, [employer] HOME Monitor - able to maintain pain control Lifestyle No Orlando Hernandez RN Medical Devices Implanted Type Area Sales Representative Printing Supplies Device Identifier Shelf Expiration Date Model / Serial / Lot Catheter Power Port Mri Implanted 8fr - [id number] Implanted:Qty : 1 on 03/25/2024 by Judah Jose IV, MD at [facility] [place] Port N/A: Chest [employer] [id number] 08/23/2025 [id number] / / [id number] Procedures Procedure Name Priority Date/Time Associated Diagnosis Comments CT GENERIC Routine 07/10/2024 CT GENERIC Routine 07/10/2024 ECG GENERIC (SCAN ORDER) Routine 07/10/2024 CBC W/DIFF AUTOMATED Routine 05/26/2024 5:10 AM MACHINE CERAMIC COATER BASIC METABOLIC PANEL Routine 05/26/2024 5:10 AM MACHINE CERAMIC COATER CBC W/DIFF AUTOMATED Routine 05/25/2024 5:15 AM MACHINE CERAMIC COATER BASIC METABOLIC PANEL Routine 05/25/2024 5:15 AM MACHINE CERAMIC COATER POCT GLUCOSE - PALACIO DOCKED DEVICE Routine 05/24/2024 7:38 PM MACHINE CERAMIC COATER CBC W/DIFF AUTOMATED Routine 05/24/2024 6:09 AM MACHINE CERAMIC COATER BASIC METABOLIC PANEL Routine 05/24/2024 4:16 AM MACHINE CERAMIC COATER POCT GLUCOSE - PALACIO DOCKED DEVICE Routine 05/24/2024 4:15 AM MACHINE CERAMIC COATER CBC W/DIFF AUTOMATED Routine 05/23/2024 6:00 AM MACHINE CERAMIC COATER BASIC METABOLIC PANEL Routine 05/23/2024 6:00 AM MACHINE CERAMIC COATER CBC W/DIFF AUTOMATED Routine 05/22/2024 5:15 AM MACHINE CERAMIC COATER BASIC METABOLIC PANEL Routine 05/22/2024 5:15 AM MACHINE CERAMIC COATER PATHOLOGY Routine 05/22/2024 12:00 AM MACHINE CERAMIC COATER CBC W/DIFF AUTOMATED Routine 05/21/2024 6:15 AM MACHINE CERAMIC COATER BASIC METABOLIC PANEL Routine 05/21/2024 6:15 AM MACHINE CERAMIC COATER VANCOMYCIN Routine 05/21/2024 6:15 AM MACHINE CERAMIC COATER BASIC METABOLIC PANEL Routine 05/20/2024 6:30 AM MACHINE CERAMIC COATER CBC W/DIFF AUTOMATED Routine 05/20/2024 6:30 AM MACHINE CERAMIC COATER HC BODY FLUID CULTURE Routine 05/19/2024 11:55 AM MACHINE CERAMIC COATER VANCOMYCIN Routine 05/19/2024 6:00 AM MACHINE CERAMIC COATER BASIC METABOLIC PANEL Routine 05/19/2024 6:00 AM MACHINE CERAMIC COATER CBC W/DIFF AUTOMATED Routine 05/19/2024 6:00 AM MACHINE CERAMIC COATER POCT GLUCOSE - PALACIO DOCKED DEVICE Routine 05/19/2024 5:30 AM MACHINE CERAMIC COATER LACTIC ACID Routine 05/19/2024 12:40 AM MACHINE CERAMIC COATER LACTIC ACID W REFLEX (SEPSIS) TIMED 05/18/2024 7:32 PM MACHINE CERAMIC COATER LACTIC ACID W REFLEX (SEPSIS) TIMED 05/18/2024 5:32 PM MACHINE CERAMIC COATER CULTURE, BACTERIA, BLOOD STAT 05/18/2024 4:09 PM MACHINE CERAMIC COATER LACTIC ACID W REFLEX (SEPSIS) STAT 05/18/2024 3:09 PM MACHINE CERAMIC COATER HEMOGLOBIN, GLYCOSYLATED Routine 05/18/2024 3:00 PM MACHINE CERAMIC COATER COMPREHENSIVE METABOLIC PANEL STAT 05/18/2024 3:00 PM MACHINE CERAMIC COATER CBC W/DIFF AUTOMATED STAT 05/18/2024 3:00 PM MACHINE CERAMIC COATER C-REACTIVE PROTEIN Routine 05/18/2024 6: 56 AM MACHINE CERAMIC COATER LIPID PANEL Routine 08/23/2021 from Last 3 Months or Most Recently Relevant to Health Maintenance Results * CT (07/10/2024) Only the most recent of2 resultswithin the time period is included. Anatomical Region Laterality Modality Other us Doc Pccl Scanned SCANNING Final Result * ECG (07/10/2024) us Doc Pccl Scanned SCANNING Final Result [facility] * (ABNORMAL) BASIC METABOLIC PANEL (05/26/2024 5:10 AM MACHINE CERAMIC COATER) Only the most recent of8 resultswithin the time period is included. GLUCOSE 133(H) 70 - 99 MG/DL 05/26/2024 6:14 AM MACHINE CERAMIC COATER [facility] BUN 47(H) 7 - 18 MG/DL 05/26/2024 6:14 AM [facility] CREATININE S/P/B 2.06(H) 0.55 - 1.02 MG/DL 05/26/2024 6:14 AM MACHINE CERAMIC COATER [facility] SODIUM S/P/B 142 136 - 145 MMOL/L 05/26/2024 6:14 AM MACHINE CERAMIC COATER [facility] POTASSIUM S/P/B 3.8 3.5 - 5.1 MMOL/L 05/26/2024 6:14 AM [facility] CHLORIDE S/P/B 112 97 - 115 MMOL/L 05/26/2024 6:14 AM [facility] CO2 24.2 21 - 32 MMOL/L 05/26/2024 6:14 AM [facility] CALCIUM S/P/B 7.4(L) 8.5 - 10.1 MG/DL 05/26/2024 6:14 AM [facility] ANION GAP 5.8 2 - 10 MMOL/L 05/26/2024 6:14 AM [facility] BUN CREATININE RATIO 22.8 6 - 26 05/26/2024 6:14 AM [facility] GFR ESTIMATE 23(L) >90 ML/MIN/1.7 3 M2 05/26/2024 6:14 AM [facility] Comment: NOTE: eGFR is not calculated for patients <18 years of age or gender unknown. This is an estimated GFR calculation using the new CKD EPI creatinine equation without race and so does not require a correction factor for race. This estimated GFR should not be used for calculating drug doses. 05/26/2024 5:10 AM MACHINE CERAMIC COATER us Eduardo Stevens DO LABORATORY Final Result [facility] [address] [place] [address], * (ABNORMAL) CBC W/DIFF AUTOMATED (05/26/2024 5:10 AM MACHINE CERAMIC COATER) Only the most recent of9 resultswithin the time period is included. WBC 23.38(H) 4.5 - 11.0 x10'3/uL 05/26/2024 6:11 AM [facility] RBC 2.68(L) 4.20 - 5.40 x10'6/uL 05/26/2024 6:11 AM [facility] HGB 8.5(L) 12.0 - 16.0 G/DL 05/26/2024 6:11 AM [facility] HCT 26.3(L) 38.0 - 48.0 % 05/26/2024 6:11 AM [facility] MCV 98.1 81.0 - 99.0 FL 05/26/2024 6:11 AM [facility] MCH 31.7(H) 27.0 - 31.0 PG 05/26/2024 6:11 AM [facility] MCHC 32.3 32.0 - 36.0 G/DL 05/26/2024 6:11 AM [facility] RDW 16.8(H) 11.5 - 14.5 % 05/26/2024 6:11 AM [facility] PLT 169 130 - 400 x10'3/uL 05/26/2024 6:11 AM [facility] MPV 9.6 9.3 - 12.2 FL 05/26/2024 6:11 AM [facility] DIFFERENTIAL TYPE MANUAL DIFFERENTIAL 05/26/2024 6:13 AM [facility] SEG NEUTROPHILS 87 % 6:13 AM [facility] LYMPHOCYTES 11 % 05/26/2024 6:13 AM [facility] MONOCYTES 2 % 05/26/2024 6:13 AM [facility] ABS. NEUTROPHILS 20.34(H) 1.80 - 7.70 x10'3/uL 05/26/2024 6:13 AM [facility] ABS. LYMPHOCYTES 2.57 1.00 - 4.80 x10'3/uL 05/26/2024 6:13 AM [facility] ABS. MONOCYTES 0.47 0.24 - 0.86 x10'3/uL 05/26/2024 6:13 AM [facility] RBC MORPHOLOGY SLIDE REVIEWED 2023 6:13 AM MACHINE [employer]AMIC [employer] [facility] POIKLO 1+ 05/26/2024 6:13 AM MACHINE [employer] [facility] TOXIC GRANULOCYTES 1+ 05/26/2024 6:13 AM MACHINE [employer]AMIC [employer]ATER [facility] PLT EST. ADEQUATE 05/26/2024 6:13 AM MACHINE [employer]ERAMIC [employer]ATER [facility] 05/26/2024 5:10 AM MACHINE CERAMIC COATER Eduardo Stevens DO LABORATORY Final Result [facility] [address] [place] [address], [place] [phone] * (ABNORMAL) POCT glucose (05/24/2024 7:38 PM MACHINE CERAMIC COATER) Only the most recent of3 resultswithin the time period is included. GLUCOSE POC 143(H) 70 - 99 mg/dL 05/24/2024 7:54 PM MACHINE CERAMIC COATER [facility] 05/24/2024 7:38 PM MACHINE CERAMIC COATER Alex Catalan DO POCT ORDERABLES - DE VICE Final Result [address] [address], * Pathology (05/22/2024 12:00 AM MACHINE CERAMIC COATER) PATHOLOGY [facility] Department of Laboratory Medicine [address] [place] [address] , extension [phone] Pathology Report Surgical Pathology Report Name: JHON ESPARZA Specimen #: [id number] Age: 4 1935 (Age: 88) Location: [address] Sex: F Procedure Date: 05/22/2024 Hospital #: [id number] Date Received: 05/22/2024 Date Reported: 05/24/2024 Provider: YASH MARTINS DO Source: A: Skin, left distal arm, biopsy #1 B: Skin, left distal arm, biopsy #2 Clinical History: Skin lesion. Gross Description: A. Received in formalin, labeled with a patient label and as A, is a 0.4 cm circular, granular, mottled berry-red skin specimen excised to 0.6 cm. The resected margin is inked and the specimen is bisected. The specimen is entirely submitted in cassette A1. B. Received in formalin, labeled with a patient label and as B, is a 0.4 cm circular, granular, mottled berry-red skin specimen excised to 0.4 cm. The resected margin is inked and bisected. The specimen is entirely submitted in cassette B1. Gross examination (when applicable), interpretation, and sign out were performed at [facility], [address] [place] [address]. FINAL DIAGNOSIS: A. Skin, left distal arm lesion, biopsy: -Ulceration, acute inflammation, and microabscess formation. B. Skin, left distal arm, biopsy #2: -Ulceration, acute inflammation, and microabscess formation. Diagnosis Comment: This case was reviewed in intradepartmental consultation by Dr. Teja Rojas, who concurs with the above diagnoses. Electronically Signed Out CHRIS BENITEZ MD [facility] 05/22/2024 05/22/2024 2:4 4 PM MACHINE CERAMIC COATER Comment:Skin, left distal ar m, biopsy #1&Skin, left distal arm, biopsy #2 us Yash Martins DO PATHOLOGY/CYTOLOGY ORDERABLES Fi nal Result [facility] [address] [place] [address], [id number] * Vancomycin Random Level (05/21/2024 6:15 AM MACHINE CERAMIC COATER) Only the most recent of2 resultswithin the time period is included. VANCOMYCIN RANDOM 13.0 MCG/ML 05/21/2024 6:52 AM MACHINE CERAMIC COATER [facility] Comment:NO THERAPEUTIC RANGE AVAILABLE LAST DOSE UNKNOWN LAST DOSE 05/21/2024 11:31 AM MACHINE CERAMIC COATER [facility] 05/21/2024 6:15 AM MACHINE CERAMIC COATER Yash Martins DO LABORATORY Final Result [facility] [address] [place] [address], [place] [phone] * (ABNORMAL) CULTURE, WOUND, W/GRAM STAIN (05/19/2024 11:55 AM MACHINE CERAMIC COATER) SPEC DESCRIPTION ARM,LEFT 05/19/2024 12:45 PM MACHINE CERAMIC COATER [facility] SPECIAL REQUESTS NO SPECIAL REQUEST 05/19/2024 12:45 PM MACHINE CERAMIC COATER [facility] GRAM STAIN RESULT RARE WHITE BLOOD CELLS SEEN 05/19/2024 4:17 PM MACHINE CERAMIC COATER [facility] GRAM STAIN RESULT MANY RED BLOOD CELLS SEEN 05/19/2024 4:17 PM [facility] GRAM STAIN RESULT FEW GRAM POSITIVE COCCI 05/19/2024 4:17 PM MACHINE CERAMIC COATER [facility] CULTURE RESULT LIGHT GROWTH OF METHICILLIN RESISTANT STAPHYLOCOCCUS AUREUS FOLLOW ISOLATION PROTOCOL. (AA) 05/21/2024 8:42 AM MACHINE CERAMIC COATER [facility] CULTURE RESULT MRSA CALLED TO AND REPEATED BACK BY DEBI EVANS RN, AT 0840, 05/21/24. ISAIAHW 05/21/2024 8:42 AM [facility] STRUCTURE OF LEFT UPPER LIMB / Unknown 05/19/2024 11:55 AM MACHINE CERAMIC COATER 05/19/2024 12:46 PM MACHINE CERAMIC COATER Narrative Organism Antibiotic Method Susceptibility Methicillin resistant staphylococcus aureus CLINDAMYCIN MADDIE (VITEK) <=0.25: Sensitive Methicillin resistant staphylococcus aureus ERYTHROMYCIN MADDIE (VITEK) >=8: Resistant Methicillin resistant staphylococcus aureus OXACILLIN MADDIE (VITEK) >=4: Resistant Methicillin resistant staphylococcus aureus TRIMETH-SULFAMETH. MADDIE (VITEK) <=10: Sensitive Methicillin resistant staphylococcus aureus TETRACYCLINE MADDIE (VITEK) <=1: Sensitive Methicillin resistant staphylococcus aureus VANCOMYCIN MADDIE (VITEK) 1: Sensitive Pooja Wyatt MD MICROBIOLOGY - GENERAL OR DERABLES Final Result Performing Organization Address [facility] Co de Phone Number [facility] [address] [place] [address], * LACTIC ACID - SINGLE (05/19/2024 12:40 AM MACHINE CERAMIC COATER) LACTIC ACID VENOUS 1.7 0.4 - 2.0 MMOL/L 05/19/2024 1:05 AM MACHINE CERAMIC COATER [facility] 05/19/2024 12:4 0 AM MACHINE CERAMIC COATER Yash Martins DO LABORATORY Final Result Performing Organization Address [facility] Co de Phone Number [facility] [address] [place] [address], [place] [phone] * (ABNORMAL) LACTIC ACID W REFLEX (SEPSIS) (05/18/2024 7:32 PM MACHINE CERAMIC COATER) Only the most recent of3 resultswithin the time period is included. LACTIC ACID VENOUS 3.5(H) 0.4 - 2.0 MMOL/L 05/18/2024 8:32 PM MACHINE CERAMIC COATER [facility] Comment: Critical Result(s) Called at: 20:31:18 on 05/18/2024 by: Analia [place] to and read back by:BENJI GARCIA 05/18/2024 7:32 PM MACHINE CERAMIC COATER Noy [facility] Final Resul t Performing Organization Address City/[facility]/ZIP Co de Phone Number [facility] [address] [place] [address], [place] [phone] * CULTURE, BACTERIA, BLOOD (05/18/2024 4:09 PM MACHINE CERAMIC COATER) SPEC DESCRIPTION BLOOD 05/18/2024 2:33 PM MACHINE CERAMIC COATER [facility] SPECIAL REQUESTS NO SPECIAL REQUEST 05/18/2024 2:33 PM MACHINE [employer]ERAMIC COATER [facility] CULTURE RESULT NO GROWTH 5 DAYS 05/23/2024 9:40 AM MACHINE CERAMIC COATER [facility] BLOOD SPECIMEN OBTAINED FOR BLOOD CULTURE / Unknown 05/18/2024 4:09 PM MACHINE CERAMIC COATER 05/18/2024 4:15 PM MACHINE CERAMIC COATER Jr Chase MD MICROBIOLOGY - GENERAL ORDERAB LES Final Result Performing Organization Address [facility] Co de Phone Number [facility] [address] [place] [address], * (ABNORMAL) HEMOGLOBIN, GLYCOSYLATED (05/18/2024 3:00 PM MACHINE CERAMIC COATER) HGB A1C 9.3(H) <5.7 % 05/19/2024 1:29 AM MACHINE CERAMIC COATER [facility] Comment: ADA GUIDELINES 2010 5.7 TO 6.4% INCREASED RISK OF DIABETES > OR = 6.5% CONSISTENT WITH DIABETES ESTIMATED AVG GLUCOSE 220 mg/dL 05/19/2024 1:29 AM MACHINE CERAMIC COATER [facility] 05/18/2024 3:00 PM MACHINE CERAMIC COATER Eduardo Stevens DO LABORATORY Final Result [facility] [address] [place] [address], [place] [phone] * (ABNORMAL) COMPREHENSIVE METABOLIC PANEL (05/18/2024 3:00 PM MACHINE CERAMIC COATER) [facility] GLUCOSE 254(H) 70 - 99 MG/DL 05/18/2024 3:34 PM [facility] BUN 63(H) 7 - 18 MG/DL 05/18/2024 3:34 PM [facility] CREATININE S/P/B 2.26(H) 0.55 - 1.02 MG/DL 05/18/2024 3:34 PM [facility] SODIUM S/P/B 138 136 - 145 MMOL/L 05/18/2024 3:34 PM [facility] POTASSIUM S/P/B 3.6 3.5 - 5.1 MMOL/L 05/18/2024 3:34 PM [facility] CHLORIDE S/P/B 102 97 - 115 MMOL/L 05/18/2024 3:34 PM [facility] CO2 28.6 21 - 32 MMOL/L 05/18/2024 3:34 PM [facility] CALCIUM S/P/B 8.3(L) 8.5 - 10.1 MG/DL 05/18/2024 3:34 PM [facility] BILIRUBIN TOTAL S/P/B 0.8 0.2 - 1.2 MG/DL 05/18/2024 3:34 PM [facility] Comment: THIS ASSAY IS NOT RECOMMENDED FOR PATIENTS UNDERGOING TREATMENT WITH ELTROMBOPAG DUE TO THE POTENTIAL FOR FALSELY ELEVATED RESULTS. TOTAL PROTEIN S/P/B 5.6(L) 6.4 - 8.2 G/DL 05/18/2024 3:34 PM [facility] ALBUMIN S/P/B 2.6(L) 3.4 - 5.0 G/DL 05/18/2024 3:34 PM [facility] AST 5(L) 15 - 37 U/L 05/18/2024 3:34 PM [facility] ALT 10(L) 14 - 55 U/L 05/18/2024 3:34 PM [facility] ALKALINE PHOSPHATASE S/P/B 112 50 - 136 U/L 05/18/2024 3:34 PM [facility] ANION GAP 7.4 2 - 10 MMOL/L 05/18/2024 3:34 PM [facility] BUN CREATININE RATIO 27.9(H) 6 - 26 05/18/2024 3:34 PM [facility] A/G RATIO 0.9(L) 1.0 - 2.0 RATIO 05/18/2024 3:34 PM [facility] GFR ESTIMATE 21(L) >90 ML/MIN/1.7 3 M2 05/18/2024 3:34 PM [facility] Comment: NOTE: eGFR is not calculated for patients <18 years of age or gender unknown. This is an estimated GFR calculation using the new CKD EPI creatinine equation without race and so does not require a correction factor for race. This estimated GFR should not be used for calculating drug doses. 05/18/2024 3:00 PM MACHINE CERAMIC COATER Noy [facility] Final Resul t [facility] [address] [place] [address], * (ABNORMAL) C-REACTIVE PROTEIN (05/18/2024 6:56 AM MACHINE CERAMIC COATER) C-REACTIVE PROTEIN 3.23(H) <0.29 mg/dL 05/18/2024 6:19 PM [facility] 05/18/2024 6:56 AM MACHINE CERAMIC COATER Eduardo Stevens DO LABORATORY Final Result [facility] [address] [place] [address], * LIPID PANEL (08/23/2021) CHOLESTEROL 178 HDL 39 TRIGLYCERIDES 201 NON HDL CHOLESTEROL 139 LDL (CALCULATED) 107 08/23/2021 Doc [facility] LABORATORY Final Result from Last 3 Months or Most Recently Relevant to Health Maintenance Additional Health Concerns Infection Onset Date Last Indicated MRSA Comment:05/02/22 +MRSA Nasal 05/19/24 +MRSA Left arm 05/03/2022 05/19/2024 [place] [id number] [facility] [employer] [facility] MEDICARE [facility] Advance Directives * Full Code (Latest Code Status on File) Date Activated Date Inactivated Comments 05/18/2024 6:39 PM 05/26/2024 12:40 PM * Full Code Date Activated Date Inactivated Comments 02/19/2024 9:55 PM 02/24/2024 2:50 PM * Full Code Date Activated Date Inactivated Comments 05/04/2022 2:48 PM 05/05/2022 3:22 PM * Full Code Date Activated Date Inactivated Comments 05/04/2022 10:05 AM 05/04/2022 2:48 PM * Full Code Date Activated Date Inactivated Comments 04/26/2022 2:45 PM 04/26/2022 7:38 PM Care Teams Paid Search Manager Relationship Specialty Start Date End Date Aakash Rayo MD [address] [place] [address] [facility]24 Patricia Mckeon MD Three [facility]. [address] [address] [place] Quality Management Coordinator CARDIOVASCULAR DISEASE 11/25/15 Tamar Novoa MD Three [facility]. [address] [address] [place] Quality Management Coordinator CLINICAL CARDIAC ELECTROPHYSIOLOGY 12/18/17 Charlie Norton MD [address] [place] [address] FAMILY PRACTICE 05/02/22 Austin Harmon MD [address] [facility] GYNECOLOGIC ONCOLOGY[address] [address] Referring Physician OBGYN 05/02/22
--- OUTSIDE RECORDS SUMMARY | 2024-08-09 13:34 | XMS_ITS | Encounter Summary ---
Author Organization [employer] Address [address] [place] [address] Care Team Providers Care Black Top Machine Operator Name Role Phone Unavailable Primary Care Provider Unavailabl e Encounter Details Date Type Department Care Team (Late st Contact Info) Description 01/31/2018 Lab Requisition [facility] Laboratory Services [facility] [address] [place] [address] Charlie Norton MD [address] [place] [address] [facility] current use of 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 Social History Tobacco Use Types Packs/Day Years Used Date Smoking Tobacco: Never Assessed Comments Unknown Sex and Gender Information Value Date Recorded Sex Assigned at Not on file Legal Sex Female 3:41 PM CDT Gender Identity Not on file Sexual Orientation Not on file documented as of this encounter Plan of Treatment Not on file documented as of this encounter Procedures Procedure Name Priority Date/Time Associated Diagnosis Comments PROTIME-INR Routine 01/31/2018 4:17 AM CDT 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 teacher current use of 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 documented in this encounter Results * (ABNORMAL) PROTIME-INR (01/31/2018 4:17 AM CDT) PROTIME 17.9(H) 12.7 - 15.1 Seconds 01/31/2018 9:02 AM CDT [facility] INR 1.5(H) 0.9 - 1.1 01/31/2018 9:02 AM T [facility] Blood Venipuncture / Unknown 01/31/2018 4:17 AM CDT 01/31/2018 8:11 AM CDT Narrative [facility] - 01/31/2018 9:02 AM CDT INR Therapeutic Range: Adult: 2.0 - 3.0 for pulmonary embolism or prophylaxis against venous thrombosis or systemic embolization. 2.0 - 3.0 for patients with tissue heart valves. 2.5 - 3.5 for patients with mechanical heart valves or post MA. Pediatric (12 years and under): 1.5 - 3.0 Although the target range in children is not well established, INR values of 1.5 - 3.0 are recommended for most patients. Higher values have been used in children with prosthetic cardiac valves and hereditary clotting disorders. Sophia (<3 days) therapeutic ranges have not been established. us Charlie Norton MD HEMATOLOGY ORDERABLES Final Result [facility]# [id number] [address] [place] [address] documented in this encounter Visit Diagnoses Diagnosis [facility] current use of 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 Encounter for long-term (current) use of 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s documented in this encounter Additional Health Concerns Infection Onset Date Last Indicated Resolved Time C Diff 02/04/2018 02/04/2018 11/09/2022 1:00 AM CDT documented as of this encounter
--- OUTSIDE RECORDS SUMMARY | 2024-08-09 13:34 | XMS_ITS | Encounter Summary ---
Author Organization [facility] Address [address] [place] [address] Care Team Providers Care Forming Process Worker Name Role Phone Bala Norman MD Primary Care Provider [phone] Patricia Mckeon MD Unavailable [phone] Agustin Alston MD Primary Care Provider [phone] Tamar Novoa MD Unavailable Stephen Thapa MD Primary Care Provider Unav ailable Gracie Vargas DO Primary Care Provider [phone] Lamin Wisdom DO Primary Care Provider [phone] Charlie Norton MD Unavailable [phone] Isael Harmon MD Unavailable [phone] Aakash Rayo MD Primary Care Provi carline Encounter Details Date Type Department Care Team (Late st Contact Info) Description 01/27/2016 Abstract [facility] AT [address] [address] Diane Mariscal MA Social History Tobacco Use Types Packs/Day Years Used Date Smoking Tobacco: Never Smokeless Tobacco: Never Alcohol Use Standard Drinks/Week Comments Yes 0 (1 standard drink = 0.6 oz pur e alcohol) Occasionally Comments No Sex and Gender Information Value Date Recorded Sex Assigned at Female 08/01/2024 12:47 PM ROSTER CLERK Legal Sex Female 10:09 PM CDT Gender Identity Not on file Sexual Orientation Not on file 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 [address] [place] [address] 09/11/2024 1:00 PM CDT Appointment [facility] [place] [address] Patricia Mckeon MD Three [facility]. [address] [place] [address] 02/05/2025 2:00 PM CDT Office Visit [facility] THREE [facility], [address] [place] [address] Saadia Walker APRN Three [facility]. [address] [place], [place] [address] documented as of this encounter Procedures Procedure Name Priority Date/Time Associated Diagnosis Comments CBC (OUTSIDE LAB) Routine 07/04/2016 AST/SGOT Routine 07/04/2016 BASIC METABOLIC PANEL Routine 07/04/2016 LIPID PANEL Routine 07/04/2016 ALKALINE PHOSPHATASE Routine 07/04/2016 ALT/SGPT Routine 07/04/2016 CBC (OUTSIDE LAB) Routine 12/30/2015 BASIC METABOLIC PANEL Routine 12/30/2015 VITAMIN D, 25 OH Routine 12/30/2015 documented in this encounter Results * CBC (OUTSIDE LAB) (07/04/2016) WBC 6.2 HGB 11.6 HCT 34.7 PLT 182 07/04/2016 us Doc [facility] LAB-OUTSIDE/ABSTRACTED Final Result * LIPID PANEL (07/04/2016) CHOLESTEROL 125 HDL 41 TRIGLYCERIDES 141 LDL (CALCULATED) 56 07/04/2016 us Doc [facility] Final Result * ALKALINE PHOSPHATASE (07/04/2016) ALKALINE PHOSPHATASE S/P/B 36 07/04/2016 us Doc [facility] Final Result * ALT/SGPT (07/04/2016) ALT 5 07/04/2016 us Doc [facility] Final Result * AST/SGOT (07/04/2016) AST 11 07/04/2016 us Doc [facility] Final Result * (ABNORMAL) BASIC METABOLIC PANEL (07/04/2016) SODIUM S/P/B 141 POTASSIUM S/P/B 4.2 CO2 25 CHLORIDE S/P/B 104 GLUCOSE 83 CALCIUM S/P/B 9.0 BUN 23 CREATININE S/P/B 1.3(A) 0.5 - 1.0 07/04/2016 us Doc [facility] Final Result * VITAMIN D, 25 OH (12/30/2015) VITAMIN D 25 HYDROXY S/P/B 27 12/30/2015 us Doc [facility] Final Result * BASIC METABOLIC PANEL (12/30/2015) SODIUM S/P/B 139 POTASSIUM S/P/B 4.2 CO2 24 CHLORIDE S/P/B 101 GLUCOSE 128 CALCIUM S/P/B 8.8 BUN 28 CREATININE S/P/B 1.6 PHOSPHORUS 3.8 ALBUMIN S/P/B 3.6 3.5 - 5.0 12/30/2015 Doc [facility] Edited Resul t - Final * CBC (OUTSIDE LAB) (12/30/2015) Pathologist [facility] WBC 9.0 HGB 11.1 HCT 34.1 PLT 180 12/30/2015 us Doc [facility] LAB-OUTSIDE/ABSTRACTED Final Result documented in this encounter Visit Diagnoses Not on filedocumented in this encounter Additional Health Concerns Infection Onset Date Last Indicated Resolved Time C. difficile 02/01/2017 02/01/2017 05/03/2022 11:5 1 AM ROSTER CLERK MRSA Comment:05/02/22 +MRSA Nasal 05/19/24 +MRSA Left arm 05/03/2022 05/19/2024 COVID-19 Rule Out 02/19/2024 02/19/2024 02/19/2024 9:56 PM CDT documented as of this encounter Care Teams Forming Process Worker Relationship Specialty Start Date End Date Bala Norman MD [address] [place] [address] PCP - General INTERNAL MEDICINE 12/30/15 11/23/17 Agustin Alston MD [facility]. [facility] [address] [place] [address] PCP - General INTERNAL MEDICINE 12/06/17 04/25/19 Stephen Thapa MD [facility] [address] [place] [address] PCP - General NEPHROLOGY 04/26/19 08/28/19 Gracie Vargas DO [address] [address] PCP - General INTERNAL MEDICINE 08/29/19 03/25/22 Lamin Wisdom DO [address] [place] [address] PCP - General INTERNAL MEDICINE 03/26/22 07/31/24 Aakash Rayo MD [address] [place] [address] PCP - General HOSPITALIST 08/01/24 Patricia Mckeon MD [address] [address] [place] [employer] Player CARDIOVASCULAR DISEASE 11/25/15 Tamar Novoa MD [facility] [address] [place] [address] EP Double Bass Player CLINICAL CARDIAC ELECTROPHYSIOLOGY 12/18/17 Charlie Norton MD [address] [place] [address] FAMILY PRACTICE 05/02/22 Isael Harmon MD [address] [facility] GYNECOLOGIC ONCOLOGY, [address] [address] Referring Physician VEL 05/02/22 documented as of this encounter
--- OUTSIDE RECORDS SUMMARY | 2024-08-09 13:34 | XMS_ITS | Encounter Summary ---
Author Organization [facility] Address [address] [place] [address] Phone Care Team Providers Care Tip Finisher Name Role Phone Lamin Wisdom Primary Care Provider [phone] Stanley Jennings MD Unavailable [phone] Selene Alves RN Unavailable Unavailable Sanam Garcia RN Unavailable Unavailable Reason for Visit * Reason Comments Medication Refill Encounter Details Date Type Department Care Team (Late st Contact Info) Description 07/04/2023 Refill [facility] [address] [place] [address] Stanley Jennings MD [address] [place] [address] Medication Refill Social History Tobacco Use Types Packs/Day Years Used Date Smoking Tobacco: Never Smokeless Tobacco: Never Alcohol Use Standard Drinks/Week Comments Yes 0 (1 standard drink = 0.6 oz pur e alcohol) Comments Unknown Sex and Gender Information Value Date Recorded Sex Assigned at Not on file Legal Sex Female 12:23 PM MANAGER LEARNING Gender Identity Not on file Sexual Orientation Not on file documented as of this encounter Miscellaneous Notes * Telephone Encounter - Stanley Jennings MD - 07/05/2023 7:51 AM MANAGER LEARNING Refilled. GER LEARNING * Telephone Encounter - Eliza James, RN - 07/04/2023 11:48 AM MANAGER LEARNING Please fill if appropriate. GER LEARNING documented in this encounter Plan of Treatment Upcoming Encounters Date Type Department Care Team (Late st Contact Info) Description 08/30/2024 9:15 AM MANAGER LEARNING Clinical Support [facility] [address] [phone] Nurse, Cc [facility] 08/30/2024 10:00 AM MANAGER LEARNING Ancillary Procedure [facility] [address] [phone] 09/06/2024 10:45 AM CDT Office Visit [facility] [address] [phone] Stanley Jennings MD [address] [id number] documented as of this encounter Visit Diagnoses Not on filedocumented in this encounter Additional Health Concerns Infection Onset Date Last Indicated Resolved Time C. difficile Rule-Out 05/31/2024 05/31/20242023 12:16 AM MANAGER LEARNING documented as of this encounter Care Teams Tip Finisher Relationship Specialty Start Date End Date Lamin Wisdom DO [address] [place] [address] [address] [place] [address] PCP - General Internal Medicine 06/09/22 Stanley Jennings MD [address] [place] [phone] Oncology 07/21/22 eSlene Alves, RN [place] Oncology Nurse Navigator Oncology 03/29/24 Sanam Garcia, RN [place] Oncology Nurse Navigator Oncology 05/17/24 documented as of this encounter
--- OUTSIDE RECORDS SUMMARY | 2024-08-09 13:34 | XMS_ITS | Encounter Summary ---
Author Organization [employer] [facility] Address [address] [place] [address] Care Team Providers Care Union Organiser Name Role Phone Unavailable Primary Care Provider Unavailabl e Encounter Details Date Type Department Care Team (Late st Contact Info) Description 02/19/2018 Lab Requisition [facility] [address] [place] [address] Charlie Norton MD [address] [place] [address] Heart failure (CMS/[facility]) Social History Tobacco Use Types Packs/Day Years Used Date Smoking Tobacco: Never Assessed Comments Unknown Sex and Gender Information Value Date Recorded Sex Assigned at Not on file Legal Sex Female 3:41 PM CDT Gender Identity Not on file Sexual Orientation Not on file documented as of this encounter Plan of Treatment Not on file documented as of this encounter Visit Diagnoses Diagnosis Heart failure (CMS/[facility]) Heart failure, unspecified documented in this encounter Additional Health Concerns Infection Onset Date Last Indicated Resolved Time C Diff 02/04/2018 02/04/2018 11/09/2022 1:00 AM CDT documented as of this encounter
--- OUTSIDE RECORDS SUMMARY | 2024-08-09 13:34 | XMS_ITS | Encounter Summary ---
Author Organization [facility] Address [address] [place] [phone] Phone Care Team Providers Care Fishing Gear Mechanic Name Role Phone Charlie Norton MD Primary Care Provider [phone] Reason for Visit * Reason Comments Med Refill Encounter Details Date Type Department Care Team ([facility] Contact Info) Description 12/26/2021 Refill [facility] [address] [place] [address] [phone] [place] [address] [place] [address] [phone] Hyperuricemia Social History Tobacco Use Types Packs/Day Years Used Date Smoking Tobacco: Never Smokeless Tobacco: Never Alcohol Use Standard Drinks/Week Comments No 0 (1 standard drink = 0.6 oz pur e alcohol) Sex and Gender Information Value Date Recorded Sex Assigned at Not on file Gender Identity Not on file Sexual Orientation Not on file documented as of this encounter Plan of Treatment Upcoming Encounters Date Type Department Care Team (Late Contact Info) Description 09/04/2024 12:00 PM CDT Office Visit [facility] [address] [place] [address] [phone] [place] [address] [place] [address] [phone] documented as of this encounter Visit Diagnoses Diagnosis Hyperuricemia documented in this encounter Care Teams Fishing Gear Mechanic Relationship Specialty Start Date End Date Charlie Norton MD [address] [place] [phone] PCP - General Internal Medicine 05/30/24 documented as of this encounter
--- OUTSIDE RECORDS SUMMARY | 2024-08-09 13:34 | XMS_ITS | Referral Summary ---
Author Organization [facility] Address [address] [place] [address] Care Team Providers Care Bread Pan Greaser Name Role Phone Patricia Mckeon MD Unavailable [phone] Randy Murillo MD Unavailable [phone] Arthur Whitfield MD Unavailable [phone] Russ Paiz MD Unavailable [phone] Charlie Norton MD Primary Care Provider Stanley Jennings MD Unavailable [phone] Encounters Date Type Department Care Team Description 08/07/2024 2:30 PM HYDRAULIC MECHANIC Office Visit [facility] Pulmonology [address] [place] [address] [place] [phone] Bronwyn Flor MD Chronic obstructive pulmonary disease, unspecified COPD type (HCC) (Primary Dx) from Last 3 Months Allergies Active Allergy Reactions Criticality Noted Date Comments Chlorhexidine Unknown 01/30/2019 Ward Tar-Soap Other (See comments) Low 06/30/2021 Lidocaine Hcl Unknown Lisinopril Cough Low 08/08/2018 Metoclopramide Anxiety Low 12/06/2017 Facial tics, Procaine Metoclopramide Hcl Unknown 08/08/2018 Rosiglitazone Unknown 01/30/2019 Lidocaine Anaphylaxis High 08/08/2018 Medications furosemide (LASIX) 40 mg tablet Take 1 tablet (40 mg total) by mouth every other day Active loperamide (IMODIUM) 2 mg capsule Take 1 capsule (2 mg total) by mouth 4 (four) times a day as needed 9 Active warfarin (COUMADIN) 2.5 mg tablet Active diclofenac sodium (VOLTAREN) 1 % gel Apply 1 g topically daily as needed 9 Active Lacto.acidophil usBif.animalis 31 billion cell capsule Take 1 capsule by mouth daily 7 Active amiodarone (PACERONE) 200 mg tablet Take 0.5 tablets (100 mg total) by mouth daily 9 Active oxyCODONE-aceta minophen (PERCOCET) 5-325 mg per tablet Take 1 tablet by mouth every 8 (eight) hours as needed 0 9 Active cyanocobalamin (Vitamin B-12) 500 mcg tablet Take 1 tablet (500 mcg total) by mouth daily Active Forteo 20 mcg/dose - 600 mcg/2.4 mL injection Inject 0.08 mL (20 mcg total) under the skin daily 0 Active Sure Comfort Pen Needle 31 gauge x 5/[address] needle [address] (PROTONIX) 40 mg EC tablet Take 1 tablet (40 mg total) by mouth daily 1 Active freestyle 28 gauge lancets 1 Active calcitRIOL (ROCALTROL) 0.25 mcg capsule TAKE 1 CAPSULE BY MOUTH 3 TIMES PER WEEK 1 Active allopurinoL (ZYLOPRIM) 100 mg tablet Take 1 tablet (100 mg total) by mouth daily 1 Active albuterol HFA (PROVENTIL HFA,VENTOLIN HFA,PROAIR HFA) 90 mcg/actuation inhalerIndicati ons:Centrilobul ar emphysema (HCC) Inhale 2 puffs every 4 (four) hours as needed for wheezing 1 each 3 2 Active Myrbetriq 50 mg tablet extended release 24 hr Take 1 tablet (50 mg total) by mouth daily 2 Active ondansetron (ZOFRAN) 8 mg tablet Take 1 tablet (8 mg total) by mouth every 8 (eight) hours as needed 2 Active Warren Thyroid 180 mg tablet Take 1 tablet (180 mg total) by mouth daily before breakfast 2 Active cholecalciferol (VITAMIN D-3) 5,000 unit tablet Take 1 tablet (5,000 Units total) by mouth daily Active dapagliflozin (FARXIGA) 10 mg tablet Take 1 tablet (10 mg total) by mouth daily 1 tablet 2 Active Additional Information Patient not taking.Reported on 08/07/2024 dapagliflozin (FARXIGA) 10 mg tabletIndicatio ns:type 2 diabetes mellitus and heart failure with reduced ejection fraction Take 1 tablet (10 mg total) by mouth daily 30 tablet 11 2 Active Additional Information Patient not taking.Reported on 08/07/2024 glucagon 1 mg kit Inject 1 mL (1 mg total) into the muscle as instructed every 30 (thirty) minutes as needed (blood glucose less than 70 mg/dL AND no IV access AND unable to take PO glucose/juice.) 5 kit 2 Active Additional Information Patient not taking.Reported on 08/07/2024 ergocalciferol (VITAMIN D) 50,000 unit capsule 2 Active glimepiride (AMARYL) 2 mg tablet 2 Active levothyroxine (SYNTHROID) 25 mcg tablet Take 1 tablet (25 mcg total) by mouth every morning 2 Active ferrous sulfate 325 mg (65 mg of elemental iron) tablet Take 1 tablet (325 mg total) by mouth Active FreeStyle Maddy 2 [place] misc 2 Active FreeStyle Maddy 2 Sensor kit 3 Active hydrALAZINE (APRESOLINE) 10 mg tablet Take 1 tablet (10 mg total) by mouth 2 (two) times a day 2 Active LANTUS 100 unit/mL (3 mL) pen for injection 3 Active lidocaine (LIDODERM) 5 % 2 Active metoprolol XL (TOPROL-XL) 25 mg extended release tablet Take 1 tablet (25 mg total) by mouth daily 2 Active Januvia 25 mg tablet Take 1 tablet (25 mg total) by mouth daily 2 Active folic acid (FOLVITE) 1 mg tablet Take 1 tablet (1 mg total) by mouth daily 3 Active nystatin powder 3 Active potassium chloride ER 10 mEq CR capsule Take by mouth daily 3 Active predniSONE (DELTASONE) 20 mg tablet 3 Active Eliquis 2.5 mg tablet Take 1 tablet (2.5 mg total) by mouth 3 Active cyanocobalamin (Vitamin B-12) 1,000 mcg/mL injection INJECT 1 ML UNDER SKIN EVERY MONTH 3 Active fluticasone propionate (FLONASE) 50 mcg/actuation nasal sprayIndication s:Allergic Rhinitis Administer 1 spray into each nostril daily 1 each 11 4 Active fluticasone-ume clidin-vilanter (Trelegy Ellipta) 100-62.5-25 mcg inhalerIndicati ons:Bronchospas m Prevention with COPD Inhale 1 puff daily 1 each 3 4 Active Active Problems Problem Noted Date Diagnosed Date Pulmonary HTN 08/16/2023 Assessment & Plan (05/01/2024 2:32 PM HYDRAULIC MECHANIC): She did have an echocardiogram and does have mild estimated pulmonary hypertension secondary to MR. Assessment & Plan (08/16/2023 11:25 AM HYDRAULIC MECHANIC): I have ordered an echocardiogram due to the pulmonary hypertension noted on her PET scan. 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 She will follow up with Dr. Flor in 3 months Assessment & Plan (08/16/2023 11:26 AM HYDRAULIC MECHANIC): Patient continue to use Trelegy one inhalation once a day. Patient continue with albuterol as needed up to 4 times a day for Assessment & Plan (04/12/2023 3:36 PM CDT): Patient will continue with Trelegy. She denied need for the albuterol inhaler on a consistent basis. Assessment & Plan (12/14/2022 2:35 PM CDT): The patient has stage I COPD and continues on Trelegy 1 puff daily and p.r.n. albuterol MDI Assessment & Plan (11/02/2022 2:30 PM CDT): Will continue with Trelegy. I have ordered a PFT and x-ray due to her upcoming surgical intervention on her heart Assessment & Plan (06/29/2022 2:43 PM HYDRAULIC MECHANIC): The patient will continue with Trelegy. The patient has an albuterol inhaler that she may use on a p.r.n. basis and up to 4 times a day as needed for symptom control. Assessment & Plan (02/16/2022 11:07 AM CDT): The patient will continue with Trelegy. The patient has an albuterol inhaler that she may use on a p.r.n. basis and up to 4 times a day as needed for symptom control. Assessment & Plan (06/30/2021 2:37 PM HYDRAULIC MECHANIC): The patient will continue with Trelegy 1 puff daily and rinse mouth after use. The patient also has an albuterol inhaler that she may use on a p.r.n. basis and up to 4 times a day as needed for symptom control. The patient is currently not interested in pulmonary rehab. Assessment & Plan (11/04/2020 11:12 AM CDT): The patient will continue with Trelegy 1 puff daily to treat COPD symptoms. The patient also has an albuterol that she may use p.r.n. up to 4 times a day as needed for symptom control. The patient was educated on exercises that may help build her endurance for shortness of breath with exertion. Pulmonary rehab will be considered in the future Assessment & Plan (05/06/2020 1:56 PM HYDRAULIC MECHANIC): The patient will continue with the medication regimen of Trelegy 1 puff daily. The patient also has the albuterol rescue inhaler that she may use p.r.n. up to 4 times a day as needed to control COPD symptoms, cough, wheeze, or shortness of breath. Assessment & Plan (01/29/2020 2:06 PM CDT): The patient will continue to use Trelegy 1 puff daily. The patient also has albuterol inhaler that she may use p.r.n. up to 4 times a day as needed for wheezing, cough, or shortness of breath. Assessment & Plan (06/05/2019 10:25 AM HYDRAULIC MECHANIC): The patient is considering back surgery. I will check PFTs and a chest x-ray and she will return to the office here in 1 month for a preop pulmonary opinion. She otherwise will continue with albuterol on a p.r.n. basis and Trelegy 1 puff daily. Assessment & Plan (01/30/2019 10:13 AM CDT): The patient is breathing comfortably with use of albuterol on a p.r.n. Basis and Trelegy 1 puff daily. The patient has right-sided chest pain from the rib fractures earlier this year has resolved. KT (obstructive sleep apnea) 09/26/2018 Assessment & Plan (05/01/2024 2:31 PM HYDRAULIC MECHANIC): The patient has lost a significant amount of weight and she decided to no longer is use the trilogy unit. Assessment & Plan (08/16/2023 11:26 AM HYDRAULIC MECHANIC): Patient was encouraged to use her Trilogy while sleeping. Assessment & Plan (04/12/2023 4:13 PM CDT): The patient will continue to attempt to use the trilogy while sleeping. The patient is also practicing positional therapy with head of bed elevated The patient states she is been taking Ambien at night. I do not feel comfortable recently the medication at this time due to the patient not using the trilogy at night while sleeping. Dr. Paiz and I expressed that it would be unsafe to use Ambien without treating KT. The patient will attempt to resume trilogy at night while sleeping and the patient can show on her compliance report that she is using the trilogy, we refill the medication. The patient was educated on the possibility of respiratory depression and even if using the Ambien without treating KT. Patient will lies understanding Assessment & Plan (12/14/2022 2:35 PM CDT): The patient recently got a new mask for her trilogy unit and she will try using this while sleeping and otherwise practice positional therapy. Assessment & Plan (11/02/2022 2:31 PM CDT): The patient continues with positional therapy. She has a trilogy the she was encouraged to resume. The patient was also instructed that most surgeons require the patient to bring in the Trelegy machine during recovery. Assessment & Plan (06/29/2022 2:43 PM HYDRAULIC MECHANIC): Will continue with trilogy at night while sleeping. Patient was encouraged to resume Trilogy. DME [employer]. Patient will continue Ambien 6.25 mg nightly. Assessment & Plan (02/16/2022 11:16 AM CDT): Will continue with trilogy at night while sleeping. Patient was encouraged to resume Trilogy. DME [employer]. Patient will continue Ambien 6.25 mg nightly. Assessment & Plan (06/30/2021 2:37 PM HYDRAULIC MECHANIC): The patient will continue with trilogy therapy to treat obstructive sleep apnea. The patient is also taking Ambien CR 6.25 mg p.o. at bedtime. The patient denied need for supplies. DME company [employer]. Patient is benefitting from trilogy therapy Assessment & Plan (11/04/2020 11:04 AM CDT): The patient will continue with trilogy therapy to treat obstructive sleep apnea. The patient is also on Ambien CR 12.5 mg at bedtime that is being prescribed by primary care physician. Patient denied need for supplies. The DME company is [employer]. The patient is benefitting from trilogy therapy. Assessment & Plan (05/06/2020 1:57 PM HYDRAULIC MECHANIC): The patient will continue to use trilogy therapy to treat obstructive sleep apnea. The patient denied need for supplies at this time. The DME company is [employer]. The patient is benefitting from obstructive sleep apnea therapy with trilogy. Assessment & Plan (01/29/2020 2:05 PM CDT): The patient will continue to use her trilogy vent on a nightly basis. The DME company is [employer]. She denied need for supplies at this time. The patient is benefitting from obstructive sleep apnea therapy. Assessment & Plan (06/05/2019 10:24 AM HYDRAULIC MECHANIC): The patient continues to benefit from use of her trilogy ventilator at night. She is getting new supplies as needed through [employer]. Assessment & Plan (01/30/2019 10:12 AM CDT): The patient had been doing very well with her trilogy ventilator at night and while napping. Since the sciatic pain, she has not been able to use the trilogy ventilator as much at night. She uses [employer] for her supplies. She continues to benefit from its use. Post-nasal drip 09/26/2018 Assessment & Plan (05/01/2024 2:31 PM HYDRAULIC MECHANIC): She uses Flonase for postnasal drainage on a p.r.n. basis Assessment & Plan (08/16/2023 11:26 AM HYDRAULIC MECHANIC): I have sent Flonase to the pharmacy for a refill. Assessment & Plan (04/12/2023 3:36 PM CDT): Patient will continue with her allergy medication regimen Assessment & Plan (12/14/2022 2:35 PM CDT): She continues with Myriam and Flonase which is controlling the postnasal drainage reasonably well Assessment & Plan (11/02/2022 2:30 PM CDT): Will continue with Myriam and Flonase Assessment & Plan (06/29/2022 2:43 PM HYDRAULIC MECHANIC): Patient will continue with Myriam and Flonase daily. Assessment & Plan (02/16/2022 11:06 AM CDT): Patient will continue with Myriam and Flonase daily Assessment & Plan (06/30/2021 2:36 PM HYDRAULIC MECHANIC): The patient will continue with Myriam and Flonase to treat postnasal drip Assessment & Plan (11/04/2020 11:05 AM CDT): The patient will continue with Myriam daily and Flonase daily to treat postnasal drip. Assessment & Plan (05/06/2020 1:57 PM HYDRAULIC MECHANIC): The patient will continue to use Flonase 1 spray in each nostril daily. Due to the Myriam losing its effectiveness, I have changed the patient's allergy medication to the Zyrtec daily. Assessment & Plan (01/29/2020 2:06 PM CDT): The patient will continue to use Flonase and Myriam to the manage her postnasal drip. Assessment & Plan (06/05/2019 10:25 AM HYDRAULIC MECHANIC): The patient is getting relief from her postnasal drainage from the Flonase and Myriam. Assessment & Plan (01/30/2019 10:12 AM CDT): The patient is postnasal drainage is controlled with Flonase and Myriam. Fall as cause of accidental injury at home as place of occurrence 09/26/2018 Endometrial cancer (CMS/HCC) 07/23/2018 Chronic kidney disease, stage 4 (severe) 017 Abdominal hernia 07/08/2015 Kidney disorder 07/08/2015 Overview (10/05/2017): Description: stage 3 Malignant neoplasm of breast 09/21/2010 Arthritis 09/21/2010 Immunizations Name Administration Dates Next Due Influenza, Trivalent, IM (MDV) 8,03/28/2016,03/26/2015,03/26 Influenza, Trivalent, Preser vative Free, Intramuscular 04/12/2017,02/24/2015 Pneumococcal Conjugate PCV 13 02/24/2015 Social History Tobacco Use Types Packs/Day Years Used Date Smoking Tobacco: Never Smokeless Tobacco: Never Tobacco Cessation:Counseling Given: Not Answered Alcohol Use Standard Drinks/Week Comments Yes 1 (1 standard drink = 0.6 oz pur e alcohol) Social Connection and Isolat ion Panel [NHANES] Answer Date Recorded In a typical week, how many times do you talk on the phone with family, friends, or neighbors? More than three times a week 01/31/2022 How often do you get togethe r with friends or relatives? More than three times a week 01/31/2022 How often do you attend chur or amish services? 1 to 4 times per year 01/31/2022 Do you belong to any clubs o r organizations such as mormonism groups, unions, fraternal or athletic groups, or school groups? Yes 01/31/2022 How often do you attend meet ings of the clubs or organizations you belong to? 1 to 4 times per year 01/31/2022 Are you , , di vorced, , never , or living with a partner? 01/31/2022 AUDIT-C Answer Date Recorded Q1: How often do you have a drink containing alc ohol? Monthly or less 06/30/2021 Average Number of Drinks Not on file 022 Frequency of Binge Drinking Not on file 10/2021 Overall Financial Resource Strain (CARDIA) Answe r Date Recorded How hard is it for you to pa y for the very basics like food, housing, medical care, and heating? Not hard at all 01/31/2022 PHQ-2 Answer Date Recorded PHQ-2 Total Score (If total score is 3 or more points, staff should administer the PHQ-9) 0 01/31/2022 Hunger Vital Sign Answer Date Recorded Within the past 12 months, y ou worried that your food would run out before you got the money to buy more. Never true 02/01/20 22 Within the past 12 months, t he food you bought just didn't last and you didn't have money to get more. Never true 01/31/2022 PRAPARE - Transportation Answer Date Re corded In the past 12 months, has l ack of transportation kept you from medical appointments or from getting medications? No 01/2022 In the past 12 months, has l ack of transportation kept you from meetings, work, or from getting things needed for daily living? No 01/31/2022 Housing Stability Vital Sign Answer Mckay e Recorded In the last 12 months, was t here a time when you were not able to pay the mortgage or rent on time? No 01/31/2022 In the last 12 months, how many places have you lived? 1 01/31/2022 In the last 12 months, was t here a time when you did not have a steady place to sleep or slept in a prison (including now)? No 01/31/2022 Comments No Sex and Gender Information Value Date Recorded Sex Assigned at Not on file Legal Sex Female 3:37 AM HYDRAULIC MECHANIC Gender Identity Not on file Sexual Orientation Not on file Last Filed Vital Signs Vital Sign Reading Time Taken Comments Blood Pressure 96/58 08/07/2024 2:36 PM HYDRAULIC MECHANIC Pulse 95 08/07/2024 2:36 PM HYDRAULIC MECHANIC Temperature 35.8 C (96.4 F) 08/07/2024 2:36 PM HYDRAULIC MECHANIC Respiratory Rate 18 08/07/2024 2:36 PM HYDRAULIC MECHANIC Oxygen Saturation 98% 05/01/2024 1:42 PM HYDRAULIC MECHANIC Inhaled Oxygen Concentration - - Weight 58.1 kg (128 lb) 08/07/2024 2:36 PM HYDRAULIC MECHANIC Height 152.4 cm (5') 08/07/2024 2:36 PM HYDRAULIC MECHANIC Body Mass Index 25 08/07/2024 2:36 PM HYDRAULIC MECHANIC Plan of Treatment Not on file Procedures Procedure Name Priority Date/Time Associated Diagnosis Comments EGFR Routine 02/01/2022 9:57 PM CDT HEMOGLOBIN A1C Routine 01/30/2022 10:05 PM CDT LIPID PANEL STAT 01/29/2022 7:41 PM CDT from Last 3 Months or Most Recently Relevant to Health Maintenance Results * (ABNORMAL) eGFR (02/01/2022 9:57 PM CDT) eGFR 30(L) 90 - 130 mL/min/1. 73 m2 [facility] Comment: Interpretive Data Reference Interval Normal >/= 90 mL/min/1.73m2 Mildly decreased* 60 - 89 mL/min/1.73m2 Mildly to moderately decreased 45 - 59 mL/min/1.73m2 Moderately to severely decreased 30 - 44 mL/min/1.73m2 Severely decreased 15 - 29 mL/min/1.73m2 Kidney Failure < 15 mL/min/1.73m2 *Relative to young adult level Estimated glomerular filtration rate is determined by the 2020 CKD-EPI equation recommended by the National Kidney Foundation (A Unifying Approach to GFR Estimation: Recommendations of the NKF-ASK Task Force on Reassessing the Inclusion of Race in Diagnosing Kidney Disease, JASN 202). The CKD-EPI equation should not be used for patients with unstable renal function and has not been validated in children and those over 70. Current interpretive data was last reviewed 2021. Blood 02/01/2022 9:57 PM CDT 02/01/2022 10:17 PM CDT us Rosy Olsen MD LAB BLOOD ORDERABLES Final Re sult [facility] Department [place] [address] * (ABNORMAL) Hemoglobin A1c (01/30/2022 10:05 PM CDT) Hgb A1C 6.5(H) 4.0 - 5.6 % [facility] Estimated Average Glucose 140 mg/dL [facility] Comment: The ADA recommends reporting an estimated Average Glucose (eAG) with all Hemoglobin A1c results using the equation derived from a study of 507 normal and diabetic adults. Minority populations were underrepresented and children were not included. (Diabetes Care 2020; 43(S1): S66-S76). The eAG is not equivalent to a fasting glucose. Blood 01/30/2022 10:0 5 PM CDT 01/30/2022 10:54 PM CDT us Rosy Olsen MD LAB BLOOD ORDERABLES Final Re sult [facility] Department [place] [address] * Lipid panel (01/29/2022 7:41 PM CDT) Cholesterol 144 30 - 199 mg/dL [facility] Comment: Interpretive Data Ages < or = 19 years Acceptable: <170 mg/dL Borderline high: 170-199 mg/dL High: >or= 200 mg/dL Ages > or = 20 years Desirable: <200 mg/dL Borderline high: 200-239 mg/dL High: >or= 240 mg/dL Literature References: 1. Expert Panel on Integrated Guidelines for Cardiovascular Health and Risk Reduction in Children and Adolescents. Pediatrics 2011;128:S213 2. NCEP Expert Panel. Circulation 2004;110:227 Current Interpretive Data was last revised on 2018. Triglycerides 77 <=149 mg/dL [facility] Comment: Interpretive Data Ages < or = 9 years Acceptable: <75 mg/dL Borderline high: 75-99 mg/dL High: >or= 100 mg/dL Ages 10 to 20 years Acceptable: <90 mg/dL Borderline high: 90-129 mg/dL High: >or= 130 mg/dL Ages > or = 20 years Desirable: <150 mg/dL Borderline high: 150-199 mg/dL High: 200-499 mg/dL Very high: >or= 499 mg/dL Literature References: 1. Expert Panel on Integrated Guidelines for Cardiovascular Health and Risk Reduction in Children and Adolescents. Pediatrics 2011;128:S213 2. NCEP Expert Panel. Circulation 2004;110:227 Current Interpretive Data was last revised on 2018. HDL 43 >=40 mg/dL [facility] Comment: Interpretive Data Ages < or = 19 years Acceptable: >45 mg/dL Borderline low: 40-45 mg/dL Low: <40 mg/dL Ages > or = 20 years Desirable: >or= 60 mg/dL Low: <40 mg/dL Literature References: 1. Expert Panel on Integrated Guidelines for Cardiovascular Health and Risk Reduction in Children and Adolescents. Pediatrics 2011;128:S213 2. NCEP Expert Panel. Circulation 2004;110:227 Current Interpretive Data was last revised on 2018. LDL, calculated 86 <=129 mg/dL [facility] Comment: Interpretive Data Ages < or = 19 years Acceptable: <110 mg/dL Borderline high: 110-129 mg/dL High: >or= 130 mg/dL Ages > or = 20 years Optimal: <100 mg/dL Near optimal: 100-129 mg/dL Borderline high: 130-159 mg/dL High: >160 mg/dL Literature References: 1. Expert Panel on Integrated Guidelines for Cardiovascular Health and Risk Reduction in Children and Adolescents. Pediatrics 2011;128:S213 2. NCEP Expert Panel. Circulation 2004;110:227 Current Interpretive Data was last revised on 2018. Non-HDL Cholesterol 101 mg/dL [facility] Comment: Interpretive Data Ages < or = 19 years Acceptable: <120 mg/dL Borderline high: 120-144 mg/dL High: >145 mg/dL Ages > or = 20 years When triglycerides are >200 mg/dL, Non-HDL cholesterol is a secondary target of therapy with treatment goals that are 30 mg/dL greater than the LDL cholesterol target. Literature References: 1. Expert Panel on Integrated Guidelines for Cardiovascular Health and Risk Reduction in Children and Adolescents. Pediatrics 2011;128:S213 2. NCEP Expert Panel. Circulation 2004;110:227 Current Interpretive Data was last revised on 2018. Chol/HDL ratio 3 [facility] Blood 01/29/2022 7:41 PM CDT 01/29/2022 7:49 PM CDT us Rosy Olsen MD LAB BLOOD ORDERABLES Final Re sult [facility] Department [place] [address] from Last 3 Months or Most Recently Relevant to Health Maintenance Insurance MEDICARE [employer] [facility] MEDICARE [employer] [facility] MEDICARE FOR LIFE [facility] MEDICARE SUPPLEMENT Advance Directives For more information, please contact: [phone] Documents on File Type Date Recorded Patient Shelf Filler Expl anation [employer] DIRECTIVE 05/13/2018 12:00 AM DNR ADVANCE DIRECTIVE 08/19/2015 12:00 AM JUNO R OF R PROGRAMMER FINANCIAL/MEDICAL * Full Code (Latest Code Status on File) Date Activated Date Inactivated Comments 01/30/2022 8:45 AM 02/02/2022 9:53 PM Care Teams Bread Pan Greaser Relationship Specialty Start Date End Date Charlie Norton MD [address] [place] [address] PCP - General Family Medicine 01/31/22 Patricia Mckeon MD Referring Physician Cardiology 06/20/19 Randy Murillo MD Referring Physician Nephrology 06/20/19 Arthur Whitfield MD Referring Physician Rheumatology 06/20/19 Russ Paiz MD [address] [place] [address] Consulting Physician Pulmonary Disease 06/20/19 Stanley Jennings MD [address] [facility] [address] [address] [place] [address] Referring Physician Hematology and Oncology 05/06/24
--- OUTSIDE RECORDS SUMMARY | 2024-08-09 13:34 | XMS_ITS | Encounter Summary ---
Author Organization [facility] Address [address] [place] [address] Care Team Providers Care Manager Utilities Name Role Phone Bala Norman MD Primary Care Provider [phone] Patricia Mckeon MD Unavailable [phone] Agustin Alston MD Primary Care Provider [phone] Tamar Novoa MD Unavailable Stephen Thapa MD Primary Care Provider Unav ailable Gracie Vargas DO Primary Care Provider [phone] Lamin Wisdom DO Primary Care Provider [phone] Charlie Norton MD Unavailable [phone] Isael Harmon MD Unavailable [phone] Aakash Rayo MD Primary Care Provi carline Encounter Details Date Type Department Care Team (Late st Contact Info) Description 09/15/2017 [facility] [address] [address] Dinae Mariscal MA Social History Tobacco Use Types Packs/Day Years Used Date Smoking Tobacco: Never Smokeless Tobacco: Never Alcohol Use Standard Drinks/Week Comments Yes 0 (1 standard drink = 0.6 oz pur e alcohol) Occasionally Comments No Sex and Gender Information Value Date Recorded Sex Assigned at Female 08/01/2024 12:47 PM SAFETY GLASS INSTALLER Legal Sex Female 10:09 PM CDT Gender Identity Not on file Sexual Orientation Not on file 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 [address] [place] [address] 02/05/2025 2:00 PM CDT Office Visit [facility] THREE [facility], [address] [place], [place] [address] Saadia Walker APRN Three [facility] [address] [place], [place] [address] documented as of this encounter Procedures Procedure Name Priority Date/Time Associated Diagnosis Comments CBC (OUTSIDE LAB) Routine 11/19/2017 COMPREHENSIVE METABOLIC PANEL Routine 11/19/2017 MAGNESIUM Routine 11/19/2017 CBC (OUTSIDE LAB) Routine 07/26/2017 BASIC METABOLIC PANEL Routine 07/26/2017 PHOSPHORUS, INORGANIC PHOSPHATE Routine 07/26/2017 BASIC METABOLIC PANEL Routine 07/21/2017 HEMOGLOBIN, GLYCOSYLATED Routine 07/21/2017 LIPID PANEL Routine 02/24/2017 HEMOGLOBIN, GLYCOSYLATED Routine 02/24/2017 THYROXINE, FREE (FT4) Routine 02/24/2017 THYROID STIM HORMONE TSH Routine 02/24/2017 THYROID STIM HORMONE TSH Routine 11/08/2016 THYROXINE, FREE (FT4) Routine 09/16/2016 documented in this encounter Results * MAGNESIUM (11/19/2017) MAGNESIUM 1.0 11/19/2017 us Doc [facility] Abstract LABORATORY Final Result * (ABNORMAL) COMPREHENSIVE METABOLIC PANEL (11/19/2017) SODIUM S/P/B 144 POTASSIUM S/P/B 3.5 CO2 21 CHLORIDE S/P/B 106 GLUCOSE 196 mg/dL CALCIUM S/P/B 8.5 BUN 18 CREATININE S/P/B 1.40(A) 0.5 - 1.0 EGFR AFR. AMER. 44 <=90 EGFR NON-AFR. AMER. 36 <=90 ALKALINE PHOSPHATASE S/P/B 73 ALT 17 AST 12 BILIRUBIN TOTAL S/P/B 0.3 ALBUMIN S/P/B 3.5 3.5 - 5.0 TOTAL PROTEIN S/P/B 6.4 11/19/2017 [facility] Abstract LABORATORY Final Result * CBC (OUTSIDE LAB) (11/19/2017) WBC 6.86 HGB 11.0 HCT 33.5 PLT 213 11/19/2017 [facility] Abstract LAB-OUTSIDE/ABSTRACTED Final Result * CBC (OUTSIDE LAB) (07/26/2017) WBC 7.8 HGB 11.1 HCT 33.4 PLT 198 07/26/2017 [facility] Abstract LAB-OUTSIDE/ABSTRACTED Final Result * PHOSPHORUS, INORGANIC PHOSPHATE (07/26/2017) PHOSPHORUS 3.6 07/26/2017 [facility] Abstract LABORATORY Final Result * (ABNORMAL) BASIC METABOLIC PANEL (07/26/2017) SODIUM S/P/B 142 POTASSIUM S/P/B 4.5 CO2 23 CHLORIDE S/P/B 106 GLUCOSE 124 mg/dL CALCIUM S/P/B 9.0 BUN 22 CREATININE S/P/B 1.3(A) 0.5 - 1.0 EGFR NON-AFR. AMER. 42 <=90 07/26/2017 [facility] Abstract LABORATORY Final Result * HEMOGLOBIN, GLYCOSYLATED (07/21/2017) HGB A1C 6.7 07/21/2017 [facility] Abstract LABORATORY Final Result * (ABNORMAL) BASIC METABOLIC PANEL (07/21/2017) SODIUM S/P/B 142 POTASSIUM S/P/B 4.2 CO2 21 CHLORIDE S/P/B 113 GLUCOSE 155 mg/dL CALCIUM S/P/B 8.7 BUN 19 CREATININE S/P/B 1.16(A) 0.5 - 1.0 EGFR AFR. AMER. 52 <=90 EGFR NON-AFR. AMER. 45 <=90 07/21/2017 us Doc [facility] Abstract LABORATORY Final Result * HEMOGLOBIN, GLYCOSYLATED (02/24/2017) HGB A1C 7.0 02/24/2017 us Doc [facility] Abstract LABORATORY Final Result * THYROXINE, FREE (FT4) (02/24/2017) FREE T4 0.89 02/24/2017 us [facility] Abstract LABORATORY Edited Resul t - Final * THYROID STIM HORMONE, TSH (02/24/2017) TSH 0.08 02/24/2017 us [facility] Abstract LABORATORY Final Result * LIPID PANEL (02/24/2017) CHOLESTEROL 110 HDL 35 TRIGLYCERIDES 119 LDL (CALCULATED) 58 02/24/2017 us [facility] Abstract LABORATORY Final Result * THYROID STIM HORMONE, TSH (11/08/2016) TSH 1.86 11/08/2016 us [facility] Abstract LABORATORY Edited Resul t - Final * THYROXINE, FREE (FT4) (09/16/2016) FREE T4 0.84 09/16/2016 us [facility] Abstract LABORATORY Edited Resul t - Final documented in this encounter Visit Diagnoses Not on filedocumented in this encounter Additional Health Concerns Infection Onset Date Last Indicated Resolved Time C. difficile 02/01/2017 02/01/2017 05/03/2022 11:5 1 AM SAFETY GLASS INSTALLER MRSA Comment:05/02/22 +MRSA Nasal 05/19/24 +MRSA Left arm 05/03/2022 05/19/2024 COVID-19 Rule Out 02/19/2024 02/19/2024 02/19/2024 9:56 PM CDT documented as of this encounter Care Teams Manager Utilities Relationship Specialty Start Date End Date Bala Norman MD [address] [place], [place] [address] PCP - General INTERNAL MEDICINE 12/30/15 11/23/17 Agustin Alston MD [address] [place] [id number] [place], [place] [address] PCP - General INTERNAL MEDICINE 12/06/17 04/25/19 Stephen Thapa MD [address] [facility] [address] [place] [address] PCP - General NEPHROLOGY 04/26/19 08/28/19 Gracie Vargas DO [address], [place] [address] PCP - General INTERNAL MEDICINE 08/29/19 03/25/22 Lamin Wisdom DO [address] [facility] [address] PCP - General INTERNAL MEDICINE 03/26/22 07/31/24 Aakash Rayo MD [address] [facility] [place] [address] PCP - General HOSPITALIST 08/01/24 Patricia Mckeon MD Three [facility]. [address] [address] [place] Collections Assistant CARDIOVASCULAR DISEASE 11/25/15 Tamar Novoa MD [facility] [address] [address] EP Collections Assistant CLINICAL CARDIAC ELECTROPHYSIOLOGY 12/18/17 Charlie Norton MD [id number] [place] [address] FAMILY PRACTICE 05/02/22 Isael Harmon MD [address] [facility] OBGYN GYNECOLOGIC ONCOLOGY, [address] [address] Referring Physician VEL 05/02/22 documented as of this encounter
--- OUTSIDE RECORDS SUMMARY | 2024-08-09 13:34 | XMS_ITS | Clinical Summary ---
Author Organization [facility] Address [address] [place] [phone] Phone Care Team Providers Care Garbage Truck Dispatcher Name Role Phone Charlie Norton MD Primary Care Provider [phone] Allergies Active Allergy Reactions Criticality Noted Date Comments Rosiglitazone Fosinopril Procaine Medications Medication Sig Dispensed Refills Start Date End Date Status fluticasone (FLONASE ALLERGY RELIEF) 50 MCG/ACT nasal spray one spray each nostril daily 0 08/02/2016 Active zolpidem CR (AMBIEN CR) 6.25 MG CR tablet one tab daily at bedtime 0 08/03/2016 Active TRELEGY ELLIPTA 100-62.5-25 MCG/INH aerosol powder INL 1 PUFF PO QD 6 01/17/2019 Active albuterol HFA (PROVENTIL HFA;VENTOLIN HFA) 108 (90 Base) MCG/ACT inhaler Inhale 2 puffs every 6 (six) hours if needed for wheezing Active cyancobalamin (VITAMIN B-12) 500 MCG tablet Take 1,000 mcg by mouth 1 (one) time each day Active diclofenac (VOLTAREN) 1 % topical gel Apply topically 2 (two) times a day Active metoprolol succinate XL (TOPROL-XL) 25 MG 24 hr tablet Take 25 mg by mouth 1 (one) time each day Active teriparatide (FORTEO) 600 MCG/2.4ML injection Inject 20 mcg under the skin 1 (one) time each day Active oxyCODONE-acetaminophen (PERCOCET) 5-325 MG per tablet Take 1 tablet by mouth every 8 (eight) hours if needed for moderate pain Active potassium chloride (MICRO-K) 10 MEQ CR capsule Take 10 mEq by mouth 1 (one) time each day Do not crush or chew. Active insulin glargine (LANTUS) 100 UNIT/ML injection Inject 8 Units under the skin if needed Active Apixaban (Eliquis) 2.5 MG tablet Take 2.5 mg by mouth in the morning and 2.5 mg in the evening. Active atorvastatin (LIPITOR) 20 MG tablet Take 20 mg by mouth 1 (one) time each day Active folic acid (FOLVITE) 1 MG tablet Take 1 mg by mouth 1 (one) time each day Active furosemide (LASIX) 40 MG tablet Take 40 mg by mouth in the morning and 40 mg in the evening. Active Mirabegron ER (Myrbetriq) 50 MG tablet sustained-release 24 hour Take 50 mg by mouth 1 (one) time each day Active pantoprazole (PROTONIX) 40 MG EC tablet Take 40 mg by mouth 1 (one) time each day before breakfast Active calcitriol (ROCALTROL) 0.25 MCG capsuleIndications:Mckenna raya hyperparathyroidism ([facility]) TAKE 1 CAPSULE BY MOUTH 3 TIMES A WEEK 45 capsule 10/10/2023 Active allopurinol (ZYLOPRIM) 100 MG tablet Take 100 mg by mouth 1 (one) time each day Active amiodarone (PACERONE) 200 MG tablet Take 100 mg by mouth 1 (one) time each day Active thyroid (ARMOUR) 180 MG tablet Take 180 mg by mouth 1 (one) time each day Active fexofenadine (MIMI) 180 MG tablet Take 180 mg by mouth 1 (one) time each day Active nystatin (MYCOSTATIN) ointment Apply topically if needed Active ondansetron (ZOFRAN) 4 MG tablet Take 4 mg by mouth if needed for nausea or vomiting Active Cholecalciferol (Vitamin D) 125 MCG (5000 UT) capsule Take 5,000 Units by mouth 1 (one) time each day Active magnesium oxide (MAG-OX) 400 mg tablet 400 mg 1 (one) time each day Active predniSONE (DELTASONE) 50 MG tablet Take 2 tablets by mouth 1 (one) time each day Active prochlorperazine (COMPAZINE) 10 MG tablet Take 10 mg by mouth every 6 (six) hours if needed for nausea or vomiting Active SITagliptin (JANUVIA) 25 MG tablet Take 25 mg by mouth 1 (one) time each day Active Active Problems Problem Noted Date Diagnosed Date Hyperuricemia 11/24/2020 Secondary hyperparathyroidism 11/08/2018 Chronic kidney disease, stage 4 (severe) 017 Diabetes mellitus with renal manifestations, type II or unspecified type, uncontrolled 08/02/2016 Resolved Problems Problem Noted Date Diagnosed Date Resolved Date Iron deficiency anemia 02/22/202211/27 Vitamin D deficiency 11/25/2019 020 Clostridium difficile infection 11/08/2018 01/23/2019 Anemia 02/14/2018 11/08/2018 Other disorder of plasma-protein metabolism 01/25/2017 11/08/2018 Essential (primary) hypertension 08/02/2016 11/25/2021 Encounters Date Type Department Care Team Description 06/05/2024 1:00 PM EDUCATION SUPERVISOR Office Visit [facility] [address] [place] [address] 1 [place] [address] Randy Murillo MD Chronic kidney disease, stage 4 (severe) (CMS-HCC) (Primary Dx); Diabetes mellitus with renal manifestations, type II or unspecified type, uncontrolled (CMS-HCC); Secondary hyperparathyroidism (CMS-HCC); Hyperuricemia from Last 3 Months Immunizations Name Administration Dates Next Due Influenza TIV (IM) 04/30/2018,03/28/2016, 015 Family History Medical History Relation Comments Heart disease Father Diabetes mellitus Mother Kidney disease Neg Hx Relation Status Comments Father Mother Social History Tobacco Use Types Packs/Day Years Used Date Smoking Tobacco: Never Smokeless Tobacco: Never Tobacco Cessation:Counseling Given: Not Answered Alcohol Use Standard Drinks/Week Comments No 0 (1 standard drink = 0.6 oz pur e alcohol) Sex and Gender Information Value Date Recorded Sex Assigned at Not on file Gender Identity Not on file Sexual Orientation Not on file Last Filed Vital Signs Vital Sign Reading Time Taken Comments Blood Pressure 132/68 06/05/2024 1:13 PM EDUCATION SUPERVISOR Pulse 58 11/29/2023 1:25 PM CDT Temperature 36.6 C (97.9 F) 06/01/2021 12:09 PM EDUCATION SUPERVISOR Respiratory Rate - - Oxygen Saturation - - Inhaled Oxygen Concentration - - Weight 61.2 kg (135 lb) 06/05/2024 1:13 PM EDUCATION SUPERVISOR Height 152.4 cm (5') 06/05/2024 1:13 PM EDUCATION SUPERVISOR Body Mass Index 26.37 06/05/2024 1:13 PM EDUCATION SUPERVISOR Plan of Treatment Upcoming Encounters Date Type Department Care Team (Late st Contact Info) Description 09/04/2024 12:00 PM CDT Office Visit [facility] [address] [facility] [place] [address] Randy Murillo MD [address] [facility] 1 [place] [address] Health Maintenance Due Date Last Done Comments Diabetic Foot Exam 10/19/1945 Ophthalmology Exam 10/19/1945 Pneumococcal PPSV23/PCV13 65 + Years / High and Highest Risk (2 of 4 - PPSV23 or PCV20) 04/21/2015 02/24/2015, 07/24/2014 COVID-19 Vaccine (2022-2 4 season) 2024 04/07/2022, 10/27/2021, 08/13/2020, Additional history exists Influenza Vaccine (#1) 2024 , 03/26/2020, 04/30/2018, Additional history exists Care Teams Garbage Truck Dispatcher Relationship Specialty Start Date End Date Charlie Norton MD [address] [place] [phone] PCP - General Internal Medicine 05/30/24
--- OUTSIDE RECORDS SUMMARY | 2024-08-09 13:34 | XMS_ITS | Encounter Summary ---
Author Organization [email or web address] [facility] Address [address] [place] [address] Care Team Providers Care Manager Crisis Name Role Phone Unavailable Primary Care Provider Unavailabl e Encounter Details Date Type Department Care Team (Late st Contact Info) Description 02/07/2018 Lab Requisition [facility] Laboratory Services S [facility] [address] [place] [address] Charlie Norton MD [address] [place] [address] Magnesium deficiency; Encounter for general adult medical examination without abnormal findings Social History Tobacco Use Types Packs/Day Years [...] Name Priority Date/Time Associated Diagnosis Comments CBC WITH DIFFERENTIAL Routine 02/07/2018 3:56 AM CDT Encounter for general adult medical examination without abnormal findings Magnesium deficiency MAGNESIUM LEVEL Routine 02/07/2018 3:56 AM CDT Encounter for general adult medical examination without abnormal findings Magnesium deficiency BASIC METABOLIC PANEL Routine 02/07/2018 3:56 AM CDT Encounter for general adult medical examination without abnormal findings Magnesium deficiency documented in this encounter Results * (ABNORMAL) MAGNESIUM LEVEL (02/07/2018 3:56 AM CDT) MAGNESIUM 1.4(L) 1.6 - 2.4 mg/dL 02/07/2018 9:33 AM [facility] [employer] [facility] Blood Venipuncture / Unknown 02/07/2018 3:56 AM CDT 02/07/2018 8:32 AM CDT Charlie Norton MD CHEMISTRY ORDERABLES Final R esult [facility] [employer] [facility] CLIA# [id number] [address] [facility] [address] [place] [address] * (ABNORMAL) BASIC METABOLIC PANEL (02/07/2018 3:56 AM CDT) Pathologist [facility] SODIUM 139 136 - 145 mmol/L 02/07/2018 9:33 AM [facility] [employer] [facility] POTASSIUM 3.8 3.5 - 5.0 mmol/L 02/07/2018 9:33 AM [facility] [employer] [facility] CHLORIDE 102 98 - 107 mmol/L 02/07/2018 9:33 AM [facility] [employer] [facility] CO2 25 22 - 29 mmol/L 02/07/2018 9:33 AM [facility] [employer] [facility] CALCIUM 8.2(L) 8.6 - 10.2 mg/dL 02/07/2018 9:33 AM [facility] [employer] [facility] BUN 15 8 - 23 mg/dL 02/07/2018 9:33 AM [facility] CREATININE 1.70(H) 0.51 - 0.95 mg/dL 02/07/2018 9:33 AM [facility] Comment: The GFR result is not clinically significant on patients <18 or >70 years of age. GLUCOSE 96 74 - 99 mg/dL 02/07/2018 9:33 AM [facility] [employer] [facility] GFR 29 mL/min/1.7 3 sq meter 02/07/2018 9:33 AM [facility] [employer] [facility] Comment: eGFR has not been validated for use in the elderly (> 70 years of age), women, patients with serious co-morbid conditions, or persons with extremes of body size or muscle mass and should also be interpreted with caution in patients with acute kidney failure, dialysis dependent patients, patients reporting exceptional dietary intake (e.g. vegetarian diet, high protein diets, creatine supplementation), and patients with severe liver disease. Based on National Kidney Disease Education Program If patient is , please refer to the GFR result. GFR, 35 mL/min/1.7 3 sq meter 02/07/2018 9:33 AM CDT [email or web address] [facility] ANION GAP 12 8 - 16 mmol/L 02/07/2018 9:33 AM CDT [email or web address] [facility] Blood Venipuncture / Unknown 02/07/2018 3:56 AM CDT 02/07/2018 8:32 AM CDT Charlie Norton MD CHEMISTRY ORDERABLES Final R esult [facility] [employer] SERVICES [facility]# [id number] [address] [facility] [address] * (ABNORMAL) CBC WITH DIFFERENTIAL (02/07/2018 3:56 AM CDT) WBC 7.0 4.0 - 9.8 K/uL 02/07/2018 9:08 AM T [email or web address] [facility] RBC 3.08(L) 3.90 - 4.90 M/uL 02/07/2018 9:08 AM T [email or web address] [facility] HEMOGLOBIN 8.7(L) 11.8 - 14.8 g/dL 02/07/2018 9:08 AM T [employer] [facility] HEMATOCRIT 28.8(L) 35.5 - 44.0 % 02/07/2018 9:08 AM T [employer] [facility] MCV 93.5 82.0 - 99.0 fL 02/07/2018 9:08 AM T [email or web address] LABORATORY [facility] MCH 28.2 27.2 - 32.6 pg 02/07/2018 9:08 AM T [email or web address] LABORATORY SERVICES - [facility] MCHC 30.2(L) 31.5 - 35.5 g/dL 02/07/2018 9:08 AM [employer] LABORATORY SERVICES - [facility] RDW 15.5(H) 11.5 - 14.5 % 02/07/2018 9:08 AM [employer] LABORATORY SERVICES - . [facility] RDW-STDEV 50.6(H) 37.1 - 48.7 fL 02/07/2018 9:08 AM [employer] LABORATORY SERVICES - . [facility] PLATELETS 217 140 - 350 K/uL 02/07/2018 9:08 AM [employer] LABORATORY SERVICES - . [facility] MPV 9.4 9.3 - 12.4 fL 02/07/2018 9:08 AM [employer] LABORATORY SERVICES - [facility] NEUTROPHILS 57 % 02/07/2018 9:08 AM [employer] LABORATORY SERVICES - . [facility] LYMPHOCYTES 31 % 02/07/2018 9:08 AM [employer] LABORATORY SERVICES - . [place] MONOCYTES 6 % 02/07/2018 9:08 AM [employer] LABORATORY SERVICES - . [place] EOSINOPHILS 4 % 02/07/2018 9:08 AM [employer] LABORATORY SERVICES - . [place] BASOPHILS 1 % 02/07/2018 9:08 AM [employer] LABORATORY SERVICES - . [facility] IMMATURE GRANULOCYTES 1 % 02/07/2018 9:08 AM [employer] LABORATORY SERVICES - . [facility] Comment:IG (Immature Granulo cyte) count includes Metamyelocytes, Myelocytes, and Promyelocytes NEUTROPHIL ABSOLUTE 4.01 1.90 - 7.00 K/uL 02/07/2018 9:08 AM [employer] LABORATORY SERVICES - . [facility] LYMPHOCYTE ABSOLUTE 2.19 0.70 - 4.50 K/uL 02/07/2018 9:08 AM [employer] LABORATORY SERVICES - [facility] MONOCYTE ABSOLUTE 0.43 0.10 - 1.30 K/uL 02/07/2018 9:08 AM [employer] LAB[facility]ATORY SERVICES - [facility] EOSINOPHIL ABSOLUTE 0.30 0.00 - 0.70 K/uL 02/07/2018 9:08 AM [employer] [facility]ATORY SERVICES - [facility] BASOPHILS ABSOLUTE 0.04 0.00 - 0.20 K/uL 02/07/2018 9:08 AM [employer] LABORATORY SERVICES - . [facility] IMMATURE GRANULOCYTES ABSOLUTE 0.04(H) 0.00 - 0.03 K/uL 02/07/2018 9:08 AM CDT [facility] Blood Venipuncture / Unknown 02/07/2018 3:56 AM CDT 02/07/2018 8:25 AM CDT us Charlie Norton MD HEMATOLOGY ORDERABLES Final Result Performing Organization Address City/State/[facility] Co de Phone Number [facility] CLIA# [id number] [address] [facility] [place] [address] documented in this encounter Visit Diagnoses Diagnosis Magnesium deficiency Disorders of magnesium metabolism Encounter for general adult medical examination without abnormal findings Routine general medical examination at a health care facility documented in this encounter Additional Health Concerns Infection Onset Date Last Indicated Resolved Time C Diff 02/04/2018 02/04/2018 11/09/2022 1:00 AM CDT documented as of this encounter
--- OUTSIDE RECORDS SUMMARY | 2024-08-09 13:34 | XMS_ITS | Encounter Summary ---
Author Organization [facility] Address [address] [place] [address] Phone Care Team Providers Care Airplane Dispatch Clerk Name Role Phone Lamin Wisdom Primary Care Provider [phone] Stanley Jennings MD Unavailable Selene Alves RN Unavailable Unavailable Sanam Garcia RN Unavailable Unavailable Reason for Visit * Reason Comments Medication Refill Encounter Details Date Type Department Care Team (Late st Contact Info) Description 09/16/2022 Refill [facility] [address] [place] [address] Stanley Jennings MD [address] [facility] [address] [place] [address] Medication Refill Social History Tobacco Use Types Packs/Day Years Used Date Smoking Tobacco: Never Smokeless Tobacco: Never Alcohol Use Standard Drinks/Week Comments Yes 0 (1 standard drink = 0.6 oz pur e alcohol) Comments Unknown Sex and Gender Information Value Date Recorded Sex Assigned at Not on file Legal Sex Female 12:23 PM SWEET PICKLED [employer]ER Gender Identity Not on file Sexual Orientation Not on file COVID-19 Exposure Response Date Recorded In the last 10 days, have yo u been in contact with someone who was confirmed or suspected to have Coronavirus/COVID-19? No / Unsure 09/02/2022 10:11 AM SWEET P[employer]KER documented as of this encounter Miscellaneous Notes * Telephone Encounter - Stanley Jennings MD - 09/18/2022 6:49 PM CDT Refilled. * Telephone Encounter - Analia West - 09/16/2022 11:17 AM CDT Please refill if appropriate. documented in this encounter Plan of Treatment Upcoming Encounters Date Type Department Care Team (Late st Contact Info) Description 08/30/2024 9:15 AM SWE[employer] MAKER Clinical Support [facility] [address] [address] Nurse, Cc [facility] 08/30/2024 10:00 AM SWE[employer] MAKER Ancillary Procedure [facility] [address] [address] 09/06/2024 10:45 AM CDT Office Visit [facility] [address] [address] Stanley Jennings MD [address] [facility] [address] [address] documented as of this encounter Visit Diagnoses Not on filedocumented in this encounter Additional Health Concerns Infection Onset Date Last Indicated Resolved Time C. difficile Rule-Out 05/31/2024 05/31/20242023 12:16 AM SWEET P[employer]LED FR[employer] MAKER documented as of this encounter Care Teams Airplane Dispatch Clerk Relationship Specialty Start Date End Date Lamin Wisdom DO [address] [place] [address] [address] [place] [address] PCP - General Internal Medicine 06/09/22 Stanley Jennings MD [address] [phone] Oncology 07/21/22 Selene Alves, RN [place] Oncology Nurse Navigator Oncology 03/29/24 Sanam Garcia, RN [place] Oncology Nurse Navigator Oncology 05/17/24 documented as of this encounter
--- OUTSIDE RECORDS SUMMARY | 2024-08-09 13:34 | XMS_ITS | Encounter Summary ---
Author Organization [facility] Address [address] [place] [address] Care Team Providers Care Community Center Worker Name Role Phone Patricia Mckeon MD Unavailable [phone] Agustin Alston MD Primary Care Provider [phone] Tamar Novoa MD Unavailable Stephen Thapa MD Primary Care Provider Unav stephanieable Gracie Vargas DO Primary Care Provider [phone] Lamin Wisdom DO Primary Care Provider [phone] Charlie Norton MD Unavailable [phone] Isael Harmon MD Unavailable [phone] Aakash Rayo MD Primary Care Provi carline Encounter Details Date Type Department Care Team (Late st Contact Info) Description 12/25/2017 Abstract [facility], [facility] [address] [place], [place] [phone] Diane Mariscal MA Social History Tobacco Use Types Packs/Day Years Used Date Smoking Tobacco: Never Smokeless Tobacco: Never Alcohol Use Standard Drinks/Week Comments Yes 0 (1 standard drink = 0.6 oz pur e alcohol) Occasionally Comments No Sex and Gender Information Value Date Recorded Sex Assigned at Female 08/01/2024 12:47 PM LABORATORY IMMUNOLOGIST Legal Sex Female 10:09 PM CDT Gender Identity Not on file Sexual Orientation Not on file 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 [facility] [address] [place] [address] 02/05/2025 2:00 PM CDT Office Visit [facility] THREE [facility], [facility] [address] [place] [address] Saadia Walker APRN Three [facility] [address] [place], [place] [address] documented as of this encounter Procedures Procedure Name Priority Date/Time Associated Diagnosis Comments CBC (OUTSIDE LAB) Routine 08/14/2019 COMPREHENSIVE METABOLIC PANEL Routine 08/14/2019 HEMOGLOBIN, GLYCOSYLATED Routine 08/14/2019 THYROID STIM HORMONE TSH Routine 08/14/2019 PHOSPHORUS, INORGANIC PHOSPHATE Routine 08/14/2019 URIC ACID BLOOD Routine 08/14/2019 BASIC METABOLIC PANEL Routine 12/24/2018 PHOSPHORUS, INORGANIC PHOSPHATE Routine 12/24/2018 VITAMIN D, 25 OH Routine 08/14/2018 CBC (OUTSIDE LAB) Routine 05/01/2018 BASIC METABOLIC PANEL Routine 05/01/2018 CBC (OUTSIDE LAB) Routine 02/07/2018 BASIC METABOLIC PANEL Routine 02/07/2018 HEPATIC FUNCTION PANEL Routine 01/31/2018 COMPREHENSIVE METABOLIC PANEL Routine 12/22/2017 THYROID STIM HORMONE TSH Routine 12/22/2017 MAGNESIUM Routine 12/22/2017 documented in this encounter Results * THYROID STIM HORMONE, TSH (08/14/2019) TSH 4.070 0.27 - 4.20 08/14/2019 us Doc [facility] Final Result * CBC (OUTSIDE LAB) (08/14/2019) WBC 6.6 3.8 - 9.9 HGB 10.5 11.9 - 15.5 HCT 32.9 35.6 - 45.5 PLT 216 150 - 400 08/14/2019 us Doc [facility] LAB-OUTSIDE/ABSTRACTED Final Result * (ABNORMAL) COMPREHENSIVE METABOLIC PANEL (08/14/2019) SODIUM S/P/B 141 135 - 145 POTASSIUM S/P/B 4.2 3.3 - 5.1 CO2 23 22 - 32 CHLORIDE S/P/B 108 96 - 108 GLUCOSE 156 70 - 100 mg/dL CALCIUM S/P/B 8.3 8.6 - 10.3 BUN 30 8 - 25 CREATININE S/P/B 1.9(A) 0.5 - 1.0 EGFR NON-AFR. AMER. 27 <=90 ALKALINE PHOSPHATASE S/P/B 86 35 - 104 ALT 5 0.33 AST 12 0 - 32 BILIRUBIN TOTAL S/P/B 0.3 0.0 - 1.2 ALBUMIN S/P/B 3.4(A) 3.5 - 5.0 TOTAL PROTEIN S/P/B 7.1 6.4 - 8.3 GLOBULIN 3.4 2.3 - 3.5 08/14/2019 [facility] Final Result * HEMOGLOBIN, GLYCOSYLATED (08/14/2019) HGB A1C 6.7 4.0 - 5.6 08/14/2019 Result [facility] Final Result * PHOSPHORUS, INORGANIC PHOSPHATE (08/14/2019) PHOSPHORUS 3.5 2.3 - 4.5 08/14/2019 [facility] Final Result * URIC ACID BLOOD (08/14/2019) URIC ACID 6.5 2.5 - 7.0 08/14/2019 [facility] Edited Resul t - Final * PHOSPHORUS, INORGANIC PHOSPHATE (12/24/2018) PHOSPHORUS 2.9 12/24/2018 us Doc [facility] Final Result * (ABNORMAL) BASIC METABOLIC PANEL (12/24/2018) SODIUM S/P/B 141 POTASSIUM S/P/B 4.3 CO2 22 CHLORIDE S/P/B 110 GLUCOSE 174 mg/dL CALCIUM S/P/B 8.3 BUN 21 CREATININE S/P/B 1.5(A) 0.5 - 1.0 EGFR NON-AFR. AMER. 35 <=90 ALBUMIN S/P/B 3.0(A) 3.5 - 5.0 12/24/2018 Doc [facility] Final Result * VITAMIN D, 25 OH (08/14/2018) VITAMIN D 25 HYDROXY S/P/B 23 30 - 100 08/14/2018 Doc [facility] Final Result * (ABNORMAL) BASIC METABOLIC PANEL (05/01/2018) SODIUM S/P/B 143 POTASSIUM S/P/B 4.3 CO2 24 CHLORIDE S/P/B 105 GLUCOSE 127 mg/dL CALCIUM S/P/B 8.5 BUN 25 CREATININE S/P/B 2.0(A) 0.5 - 1.0 05/01/2018 Doc [facility] Final Result * CBC (OUTSIDE LAB) (05/01/2018) WBC 9.3 HGB 9.7 HCT 30.6 PLT 206 05/01/2018 Doc [facility] LAB-OUTSIDE/ABSTRACTED Final Result * CBC (OUTSIDE LAB) (02/07/2018) WBC 7.0 HGB 8.7 HCT 28.8 PLT 217 02/07/2018 Doc [facility] LAB-OUTSIDE/ABSTRACTED Final Result * (ABNORMAL) BASIC METABOLIC PANEL (02/07/2018) SODIUM S/P/B 139 POTASSIUM S/P/B 3.8 CO2 25 CHLORIDE S/P/B 102 GLUCOSE 96 mg/dL CALCIUM S/P/B 8.2 BUN 15 CREATININE S/P/B 1.70(A) 0.5 - 1.0 EGFR AFR. AMER. 35 <=90 EGFR NON-AFR. AMER. 29 <=90 02/07/2018 Doc [facility] Final Result * (ABNORMAL) HEPATIC FUNCTION PANEL (01/31/2018) Pathologist [facility] ALBUMIN S/P/B 2.1(A) 3.5 - 5.0 ALKALINE PHOSPHATASE S/P/B 67 ALT <5 AST 11 BILIRUBIN TOTAL S/P/B 0.3 TOTAL PROTEIN S/P/B 5.3 01/31/2018 Doc [facility] Final Result * THYROID STIM HORMONE, TSH (12/22/2017) TSH 0.92 12/22/2017 Doc [facility]OR[facility] Edited Resul t - Final * MAGNESIUM (12/22/2017) MAGNESIUM 1.9 12/22/2017 [employer] Doc [facility] Final Result * (ABNORMAL) COMPREHENSIVE METABOLIC PANEL (12/22/2017) SODIUM S/P/B 139 POTASSIUM S/P/B 4.4 CO2 23 CHLORIDE S/P/B 104 GLUCOSE 243 mg/dL CALCIUM S/P/B 9.2 BUN 25 CREATININE S/P/B 1.6(A) 0.5 - 1.0 EGFR NON-AFR. AMER. 33 <=90 ALKALINE PHOSPHATASE S/P/B 96 ALT 7 AST 13 BILIRUBIN TOTAL S/P/B 0.8 ALBUMIN S/P/B 3.8 3.5 - 5.0 TOTAL PROTEIN S/P/B 7.5 GLOBULIN 3.7 12/22/2017 us Doc [facility]OR[facility] Edited Resul t - Final documented in this encounter Visit Diagnoses Not on filedocumented in this encounter Additional Health Concerns Infection Onset Date Last Indicated Resolved Time C. difficile 02/01/2017 02/01/2017 05/03/2022 11:5 1 AM LABORATORY IMMUNOLOGIST MRSA Comment:05/02/22 +MRSA Nasal 05/19/24 +MRSA Left arm 05/03/2022 05/19/2024 COVID-19 Rule Out 02/19/2024 02/19/2024 02/19/2024 9:56 PM CDT documented as of this encounter Care Teams Community Center Worker Relationship Specialty Start Date End Date Agustin Alston MD [address] [facility] [address] [place] [address] PCP - General INTERNAL MEDICINE 12/06/17 04/25/19 Stephen Thapa MD [address] [facility] [address] [place] [address] PCP - General NEPHROLOGY 04/26/19 08/28/19 Gracie Vargas DO [address] [place] [address] PCP - General INTERNAL MEDICINE 08/29/19 03/25/22 Lamin Wisdom DO [address] [place] [address] PCP - General INTERNAL MEDICINE 03/26/22 07/31/24 Aakash Rayo MD [facility] [address] [place], [place] [phone] [facility] 08/[facility] Patricia Mckeon MD Three [facility]. [address] [address] [employer] CARDIOVASCULAR DISEASE 11/25/15 Tamar Novoa MD Three [facility]. [facility] [address] [place], [place] [id number] [employer] Quality Engineer CLINICAL CARDIAC ELECTROPHYSIOLOGY 12/18/17 Charlie Norton MD [address] [place] [address] FAMILY PRACTICE 05/02/22 Isael Harmon MD [facility] [facility] [address] Referring Physician VEL 05/02/22 documented as of this encounter
--- OUTSIDE RECORDS SUMMARY | 2024-08-09 13:34 | XMS_ITS | Clinical Summary ---
Author Organization [facility] Address [address] [place] [address] Care Team Providers Care Reed Dipper Name Role Phone Patricia Mckeon MD Unavailable [phone] Randy Murillo MD Unavailable [phone] Arthur Whitfield MD Unavailable [phone] Russ Paiz MD Unavailable [phone] Charlie Norton MD Primary Care Provider Stanley Jennings MD Unavailable [phone] Allergies Active Allergy Reactions Criticality Noted Date Comments Chlorhexidine Unknown 01/30/2019 [place] Tar-Soap Other (See comments) Low 06/30/2021 Lidocaine [...] topically daily as needed 9 Active Lacto.acidophil us-Bif.animalis 31 billion cell capsule Take 1 capsule [...] 8 (eight) hours as needed 2 Active [place] Thyroid 180 mg tablet Take 1 tablet [...] total) by mouth Active FreeStyle Maddy 2 [place] misc 2 Active FreeStyle Maddy 2 Sensor [...] 08/16/2023 Assessment & Plan (05/01/2024 2:32 PM TOLL MECHANIC): She did have an echocardiogram and does have mild estimated pulmonary hypertension secondary to MR. Assessment & Plan (08/16/2023 11:25 AM TOLL MECHANIC): I have ordered an echocardiogram due to the pulmonary hypertension noted on her PET scan. 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 She will follow up with Dr. Flor in 3 months Assessment & Plan (08/16/2023 11:26 AM TOLL MECHANIC): Patient continue to use Trelegy one [...] heart Assessment & Plan (06/29/2022 2:43 PM TOLL MECHANIC): The patient will continue with Trelegy. [...] control. Assessment & Plan (06/30/2021 2:37 PM TOLL MECHANIC): The patient will continue with Trelegy [...] future Assessment & Plan (05/06/2020 1:56 PM TOLL MECHANIC): The patient will continue with the [...] breath. Assessment & Plan (06/05/2019 10:25 AM TOLL MECHANIC): The patient is considering back surgery. [...] 09/26/2018 Assessment & Plan (05/01/2024 2:31 PM TOLL MECHANIC): The patient has lost a significant amount of weight and she decided to no longer is use the trilogy unit. Assessment & Plan (08/16/2023 11:26 AM TOLL MECHANIC): Patient was encouraged to use her [...] recovery. Assessment & Plan (06/29/2022 2:43 PM TOLL MECHANIC): Will continue with trilogy at night while sleeping. Patient was encouraged to resume Trilogy. [employer]. Patient will continue Ambien 6.25 mg nightly. Assessment & Plan (02/16/2022 11:16 AM CDT): Will continue with trilogy at night while sleeping. Patient was encouraged to resume Trilogy. [employer]. Patient will continue Ambien 6.25 mg nightly. Assessment & Plan (06/30/2021 2:37 PM TOLL MECHANIC): The patient will continue with trilogy therapy to treat obstructive sleep apnea. The patient is also taking Ambien CR 6.25 mg p.o. at bedtime. The patient denied need for supplies. [employer]. Patient is benefitting from trilogy therapy Assessment & Plan (11/04/2020 11:04 AM CDT): The patient will continue with trilogy therapy to treat obstructive sleep apnea. The patient is also on Ambien CR 12.5 mg at bedtime that is being prescribed by primary care physician. Patient denied need for supplies. The DME company is [email or web address]. The patient is benefitting from trilogy therapy. Assessment & Plan (05/06/2020 1:57 PM TOLL MECHANIC): The patient will continue to use trilogy therapy to treat obstructive sleep apnea. The patient denied need for supplies at this time. The DME company is [employer]. The patient is benefitting from obstructive sleep apnea therapy with trilogy. Assessment & Plan (01/29/2020 2:05 PM CDT): The patient will continue to use her trilogy vent on a nightly basis. The DME company is [email or web address]. She denied need for supplies at this time. The patient is benefitting from obstructive sleep apnea therapy. Assessment & Plan (06/05/2019 10:24 AM TOLL MECHANIC): The patient continues to benefit from [...] 09/26/2018 Assessment & Plan (05/01/2024 2:31 PM TOLL MECHANIC): She uses Flonase for postnasal drainage on a p.r.n. basis Assessment & Plan (08/16/2023 11:26 AM TOLL MECHANIC): I have sent Flonase to the [...] Flonase Assessment & Plan (06/29/2022 2:43 PM TOLL MECHANIC): Patient will continue with Myriam and Flonase daily. Assessment & Plan (02/16/2022 11:06 AM CDT): Patient will continue with Myriam and Flonase daily Assessment & Plan (06/30/2021 2:36 PM TOLL MECHANIC): The patient will continue with Myriam and Flonase to treat postnasal drip Assessment & Plan (11/04/2020 11:05 AM CDT): The patient will continue with Myriam daily and Flonase daily to treat postnasal drip. Assessment & Plan (05/06/2020 1:57 PM TOLL MECHANIC): The patient will continue to use Flonase 1 spray in each nostril daily. Due to the Myriam losing its effectiveness, I have changed the patient's allergy medication to the Zyrtec daily. Assessment & Plan (01/29/2020 2:06 PM CDT): The patient will continue to use Flonase and Myriam to the manage her postnasal drip. Assessment & Plan (06/05/2019 10:25 AM TOLL MECHANIC): The patient is getting relief from [...] Malignant neoplasm of breast 09/21/2010 Arthritis 09/21/2010 Encounters Date Type Department Care Team Description 08/07/2024 2:30 PM TOLL MECHANIC Office Visit [facility] Pulmonology [address] [place] [phone] Bronwyn Flor MD Chronic obstructive pulmonary disease, unspecified COPD type (HCC) (Primary Dx) from Last 3 Months Immunizations Name Administration Dates Next Due Influenza, Trivalent, IM (MDV) 8,03/28/2016,03/26/2015,03/26 Influenza, Trivalent, Preser vative Free, Intramuscular 04/12/2017,02/24/2015 Pneumococcal Conjugate PCV 13 02/24/2015 Surgical History Surgery Date Site/Laterality Comments COLONOSCOPY Complete Colonoscopy - (Added by TW Conv) TX EXC CYST/ABERRANT BREAST TISSUE OPEN 1/> LESION Breast Surgery Lumpectomy - (Added by TW Conv) MASTECTOMY Breast Surgery Mastectomy - (Added by TW Conv) GALLBLADDER SURGERY Gallbladder Surgery - (Added by TW Conv) FOOT SURGERY Foot Surgery - (Added by TW Conv) TX TOTAL ABDOMINAL HYSTERECT W/WO RMVL TUBE OVARY Hysterectomy - (Added by TW Conv) HERNIA REPAIR HERNIA REPAIR ORAL SURGERY 06/26/2016 - 06/25/2017 Medical History Medical History Date Comments Personal history of arthritis Ar thritis - (Added by TW Conv) Personal history of other di seases of the circulatory system History of hypertension - (A dded by TW Conv) Other abnormal and inconclus clara findings on diagnostic imaging of breast Mammogram abnormal - ( Added by TW Conv) Personal history of other en docrine, nutritional and metabolic disease History of diabetes mellitus - (Added by TW Conv) Personal history of other en docrine, nutritional and metabolic disease History of thyroid d isease - (Added by TW Conv) History of hernia surgery Arthritis Heart murmur Cancer (CMS/HCC) (HCC) Peripheral neuropathy Sleep apnea Hiatal hernia Family History Medical History Relation Name Comments Bladder Cancer Brother 1 Bladder Cance r - (Added by TW Conv) Kidney cancer Brother 2 Kidney Cancer - (Added by TW Conv) Hypertension Father Family history of hypertension - (Added by TW Conv) Prostate cancer Father Prostate Can cer - (Added by TW Conv) Arthritis Mother Family history of arthritis - (Added by TW Conv) Diabetes Mother Family history of diabetes mellitus - (Added by TW Conv) Stroke Mother Stroke Syndrome - (Added by TW Conv) Relation Name Status Comments Brother 1 Brother 2 Father Mother Social History Tobacco Use Types [...] 01/31/2022 How often do you attend chur ch or buddhism services? 1 to 4 times per year 01/31/2022 Do you belong to any clubs o r organizations such as jainism groups, unions, fraternal or athletic groups, or [...] the money to buy more. Never true 08/08/20 22 Within the past 12 months, t [...] place to sleep or slept in a group home (including now)? No 01/31/2022 Comments No Sex and Gender Information Value Date Recorded Sex Assigned at Not on file Legal Sex Female 3:37 AM TOLL MECHANIC Gender Identity Not on file Sexual Orientation Not on file Obstetrics History Para Term AB IAB SAB Ectopic Multiple Livin g Live Births 2 2 2 2 2 Date Outcome GA Total Labor Labor/2nd/3rd Weight Sex Type Anes PTL Lisa A1 A5 Name Clin Term Term Last Filed Vital Signs Vital Sign Reading Time Taken Comments Blood Pressure 96/58 08/07/2024 2:36 PM TOLL MECHANIC Pulse 95 08/07/2024 2:36 PM TOLL MECHANIC Temperature 35.8 C (96.4 F) 08/07/2024 2:36 PM TOLL MECHANIC Respiratory Rate 18 08/07/2024 2:36 PM TOLL MECHANIC Oxygen Saturation 98% 05/01/2024 1:42 PM TOLL MECHANIC Inhaled Oxygen Concentration - - Weight 58.1 kg (128 lb) 08/07/2024 2:36 PM TOLL MECHANIC Height 152.4 cm (5') 08/07/2024 2:36 PM TOLL MECHANIC Body Mass Index 25 08/07/2024 2:36 PM TOLL MECHANIC Plan of Treatment Health Maintenance Due Date Last Done Comments Albumin Creatinine Ratio, Urine 1937 Dilated Eye Exam 1935 Foot Exam 1935 Hepatitis B Screening 10[birth year]19/1953 Well Visit 65+ 2002 Zoster Vaccine (1 of 2) 03/17/2009 01/20/2009 DTaP/Tdap/Td Vaccine (2 - Td or Tdap) 11/21/2021 11/22/2011, 05/07/2002 Hemoglobin A1C 08/02/2022 01/30/2022, 08/0 11/2021, 05/25/2021, Additional history exists Depression Screening 01/29/2023 01/29/2022 eGFR 02/01/2023 02/01/2022, 080 01/2022, 01/30/2022, Additional history exists Fall Risk Assessment 02/02/2023 02/02/2022 Lipid Panel 03/28/2023 03/28/2022, 080 11/2021, 08/23/2021, Additional history exists Covid-19 Vaccine (2023-07 5 season) 2024 04/07/2022, 10/27/2021, 08/13/2020, Additional history exists Influenza Vaccine (#1) 2024 3, 03/26/2020, 04/30/2018, Additional history exists Pneumococcal vaccine 65+ Completed 023, 02/24/2015, 07/24/2014, Additional history exists Procedures Procedure Name Priority Date/Time Associated Diagnosis Comments EGFR Routine 02/01/2022 9:57 PM CDT HEMOGLOBIN A1C Routine 01/30/2022 10:05 PM CDT LIPID PANEL STAT 01/29/2022 7:41 PM CDT from Last 3 Months or Most Recently Relevant to Health Maintenance Results * (ABNORMAL) eGFR (02/01/2022 9:57 PM CDT) Pathologist [facility] eGFR 30(L) 90 - 130 mL/min/1. 73 m2 [facility] Comment: Interpretive Data Reference Interval Normal >/= [...] 9:57 PM CDT 02/01/2022 10:17 PM CDT Rosy Olsen MD LAB BLOOD ORDERABLES Final Re sult Performing Organization Address [facility] de Phone Number [facility] [place] [address] * (ABNORMAL) Hemoglobin A1c (01/30/2022 10:05 PM CDT) Hgb A1C 6.5(H) 4.0 - 5.6 % [facility] Estimated Average Glucose 140 mg/dL [facility] Comment: The ADA recommends reporting an estimated Average Glucose (eAG) with all Hemoglobin A1c results using the equation derived from a study of 507 normal and diabetic adults. Minority populations were underrepresented and children were not included. (Diabetes Care 2020; 43(S1): S66-S76). The eAG is not equivalent to a fasting glucose. Blood 01/30/2022 10:0 5 PM CDT 01/30/2022 10:54 PM CDT Rosy Olsen MD LAB BLOOD ORDERABLES Final Re sult Performing Organization Address [facility] Co de Phone Number [facility] [place] [address] * Lipid panel (01/29/2022 7:41 PM CDT) Cholesterol 144 30 - 199 mg/dL [facility] Comment: Interpretive Data Ages < or [...] revised on 2018. Triglycerides 77 <=149 mg/dL [facility] Comment: Interpretive Data Ages < or [...] revised on 2018. HDL 43 >=40 mg/dL [facility] Comment: Interpretive Data Ages < or [...] on 2018. LDL, calculated 86 <=129 mg/dL [facility] Comment: Interpretive Data Ages < or [...] revised on 2018. Non-HDL Cholesterol 101 mg/dL [facility] Comment: Interpretive Data Ages < or = [...] last revised on 2018. Chol/HDL ratio 3 [facility] Blood 01/29/2022 7:41 PM CDT 01/29/2022 7:49 PM CDT Rosy Olsen MD LAB BLOOD ORDERABLES Final Re sult [facility] [address] [facility] [place] [address] from Last 3 Months or Most Recently Relevant to Health Maintenance Insurance MEDICARE FOR LIFE [facility] MEDICARE FOR LIFE [facility] MEDICARE FOR LIFE BLUE CROSS MEDICARE SUPPLEMENT Member Subscriber Plan / Payer (Ef fective 2014-Present) Name:Jhon Esparza Relation to Subscriber:Self Name:Jhon Esparza Payer ID:[id number] Type:COMMERCIAL Address: [facility] [id number] [place] [id number] Advance Directives For more information, please contact: [phone] Documents on File Type Date Recorded Patient Spa Director Expl anation ADVANCE DIRECTIVE 05/13/2018 12:00 AM DNR ADVANCE DIRECTIVE 08/19/2015 12:00 AM JUNO R OF [employer] FINANCIAL/MEDICAL * Full Code (Latest Code Status on File) Date Activated Date Inactivated Comments 01/30/2022 8:45 AM 02/02/2022 9:53 PM Care Teams Reed Dipper Relationship Specialty Start Date End Date Charlie Norton MD [address] [facility] [address] [place] [address] PCP - General Family Medicine 01/31/22 Patricia Mckeon MD Referring Physician Cardiology 06/20/19 Randy uMrillo MD Referring Physician Nephrology 06/20/19 Arthur Whitfield MD Referring Physician Rheumatology 06/20/19 Russ Paiz MD [address] [facility] [address] [place] [address] Consulting Physician Pulmonary Disease 06/20/19 Stanley Jennings MD [address] [id number] Referring Physician Hematology and Oncology 05/06/24
--- OUTSIDE RECORDS SUMMARY | 2024-08-09 13:34 | XMS_ITS | Encounter Summary ---
Author Organization [facility] Address [address] [place] [address] Care Team Providers Care Brimmer Blocker Name Role Phone Patricia Mckeon MD Unavailable [phone] Tamar Novoa MD Unavailable Lamin Wisdom DO Primary Care Provider [phone] Charlie Norton MD Unavailable [phone] Isael Harmon MD Unavailable [phone] Aakash Rayo MD Primary Care Provi carline Encounter Details Date Type Department Care Team (Late st Contact Info) Description 12/21/2022 [employer] Message Enc [facility] [address] [place] [address] Awa, [facility] Provider Air Quality Message Social History Tobacco Use Types Packs/Day Years Used Date Smoking Tobacco: Never Smokeless Tobacco: Never Alcohol Use Standard Drinks/Week Comments Yes 0 (1 standard drink = 0.6 oz pur e alcohol) Occasionally AUDIT-C Answer Date Recorded Frequency of Alcohol Consumption Monthly or less 05/08/2019 Average Number of Drinks 1 or 2 11/13/2 019 Frequency of Binge Drinking Not on file 11/1 08/2018 PHQ-2 Answer Date Recorded PHQ-2 Score - If the patient scores above 3, please move on to questions 3-9 0 12/10/2020 Comments No Sex and Gender Information Value Date Recorded Sex Assigned at Female 08/01/2024 12:47 PM FORENSIC ACCOUNTANT Legal Sex Female 10:09 PM CDT Gender Identity Not on file Sexual Orientation Not on file 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 No / Unsure 11/30/2022 10:56 AM CDT documented as of this encounter Functional Status * RETIRED Are you deaf or do you have serious difficulty hearing Answer Date of Assessment Author Status No 05/04/2022 4:21 PM FORENSIC ACCOUNTANT Activ e * RETIRED Are you blind or do you have serious difficulty seeing, even when wearing glasses? Answer Date of Assessment Author Status No 05/04/2022 4:21 PM FORENSIC ACCOUNTANT Activ e * Do you have serious difficulty walking or climbing stairs? Answer Date of Assessment Author Status No 05/04/2022 4:21 PM FORENSIC ACCOUNTANT Lori Clinton RN Active * Do you have difficulty dressing or bathing? Answer Date of Assessment Author Status No 05/04/2022 4:21 PM FORENSIC ACCOUNTANT Lori Clinton RN Active * Because of a physical, mental, or emotional condition, do you have difficulty doing errands alone such as visiting a doctor's office or shopping? Answer Date of Assessment Author Status No 05/04/2022 4:21 PM FORENSIC ACCOUNTANT Lori Clinton RN Active documented as of this encounter Mental Status * Because of a physical, mental, or emotional condition, do you have serious difficulty concentrating, remembering, or making decisions? Answer Entry Date Author Status No 05/04/2022 4:21 PM Lori Gómez RN Active documented in this encounter Plan of Treatment Upcoming Encounters Date Type Department Care Team (Late st Contact Info) Description 08/28/2024 11:20 AM FORENSIC ACCOUNTANT Telemedicine [facility] [address] [place] [address] Kaleb Bean MD [address] [facility] [address] [place] [address] 09/11/2024 1:00 PM CDT Appointment [facility] [address] [place] [address] Patricia Mckeon MD [facility] [address] [place] [address] 02/05/2025 2:00 PM CDT Office Visit [facility] [address], [address] [place] [address] Saadia Walker APRN Three [facility]. [address] [place], [place] [address] documented as of this encounter Goals Goal Patient Goal Type Associated Problems Recent Progress Patient-Stated? Author Health - patient able to perform ADLs independently Lifestyle No Orlando Hernandez, RN documented as of this encounter Visit Diagnoses Not on filedocumented in this encounter Additional Health Concerns Infection Onset Date Last Indicated Resolved Time MRSA Comment:05/02/22 +MRSA Nasal 05/19/24 +MRSA Left arm 05/03/2022 05/19/2024 COVID-19 Rule Out 02/19/2024 02/19/2024 02/19/2024 9:56 PM CDT Assessment Noted Time PHQ-9 Depression Total Score: 2 12/11/19 21 4:41 PM CDT documented as of this encounter Care Teams Brimmer Blocker Relationship Specialty Start Date End Date Lamin Wisdom DO [address] [place] [address] PCP - General INTERNAL MEDICINE 03/26/22 07/31/24 [place] [address] [facility] Patricia Mckeon MD Three [facility]. [facility] [address] [place] [address] [place] Change Manager CARDIOVASCULAR DISEASE 11/25/15 Tamar Novoa MD Three [facility]. [facility] [address] [place], [place] [id number] EP Change Manager CLINICAL CARDIAC ELECTROPHYSIOLOGY 12/18/17 Charlie Norton MD [address] [place], [place] [phone] FAMILY PRACTICE 05/02/22 Isael Harmon MD [address] [facility] OBGYN GYNECOLOGIC ONCOLOGY, [address] [address] Referring Physician OBGYN 05/02/22 documented as of this encounter
--- OUTSIDE RECORDS SUMMARY | 2024-08-09 13:34 | XMS_ITS | Encounter Summary ---
Author Organization [facility] Address [address] [place] [address] Phone Care Team Providers Care Hospice Physician Name Role Phone Lamin Wisdom Primary Care Provider [phone] Stanley Jennings MD Unavailable Selene Alves RN Unavailable Unavailable Sanam Garcia RN Unavailable Unavailable Reason for Visit * Reason Comments Medication Refill Encounter Details Date Type Department Care Team (Late st Contact Info) Description 04/22/2023 Refill [facility] [address] [place] [address] Stanley Jennings MD [address] [address] Medication Refill Social History Tobacco Use Types Packs/Day Years Used Date Smoking Tobacco: Never Smokeless Tobacco: Never Alcohol Use Standard Drinks/Week Comments Yes 0 (1 standard drink = 0.6 oz pur e alcohol) Comments Unknown Sex and Gender Information Value Date Recorded Sex Assigned at Not on file Legal Sex Female 12:23 PM FIRE EXTINGUISHER MECHANIC Gender Identity Not on file Sexual Orientation Not on file documented as of this encounter Miscellaneous Notes * Telephone Encounter - Stanley Jennings MD - 04/24/2023 6:06 PM CDT Refilled. * Telephone Encounter - Uma Chan RN - 04/24/2023 8:51 AM CDT Please refill if appropriate. documented in this encounter Plan of Treatment Upcoming Encounters Date Type Department Care Team (Late st Contact Info) Description 08/30/2024 9:15 AM FIRE EXTINGUISHER MECHANIC Clinical Support [facility] [address] [phone] Nurse, Cc [facility] 08/30/2024 10:00 AM FIRE EXTINGUISHER MECHANIC Ancillary Procedure [facility] [address] [phone] 09/06/2024 10:45 AM CDT Office Visit [facility] [address] [phone] Stanley Jennings MD [address] [phone] documented as of this encounter Visit Diagnoses Not on filedocumented in this encounter Additional Health Concerns Infection Onset Date Last Indicated Resolved Time C. difficile Rule-Out 05/31/2024 05/31/20242023 12:16 AM FIRE EXTINGUISHER MECHANIC documented as of this encounter Care Teams Hospice Physician Relationship Specialty Start Date End Date Lamin Wisdom DO [address] [place] [address] [address] [place] [address] PCP - General Internal Medicine 06/09/22 Stanley Jennings MD [address] [place] [phone] Oncology 07/21/22 Selene Alves, RN [place] Oncology Nurse Navigator Oncology 03/29/24 Sanam Garcia, RN [place] Oncology Nurse Navigator Oncology 05/17/24 documented as of this encounter
--- OUTSIDE RECORDS SUMMARY | 2024-08-09 13:34 | XMS_ITS | Clinical Summary ---
Author Organization [facility] Address [address], [facility] [place] [address] Phone Care Team Providers Care Chief Contract Officer Name Role Phone Lamin Wisdom DO Primary Care Provider [phone] Stanley Jennings MD Unavailable [phone] Selene Alves RN Unavailable Unavailable Sanam Garcia RN Unavailable Unavailable Allergies Active Allergy Reactions Criticality Noted Date Comments Chlorhexidine Itching,Unknown 01/30/2019 Per patient and per pulmonology notes 02/16/22 in care everywhere Fosinopril Unknown 07/15/2022 Lisinopril Other (see Comments) Low 01/14/2016 Losartan Other (see Comments) 01/14/2016 shakiness Metoclopramide Anxiety,Other (see Comments) Low 12/06/2017 Facial tics, Facial tics, Metoclopramide Hcl Unknown 08/08/2018 shakiness Procaine Unknown 07/15/2022 Rosiglitazone Unknown 01/30/2019 Says she recognizes the name Avxaviia and remembers taking it in the past, does not remember a reaction to it Medications allopurinol (ZYLOPRIM) 100 MG Tablet 1 Active amiodarone (CORDARONE) 200 MG Tablet 25 mg daily. 9 Active calcitRIOL (ROCALTROL) 0.25 MCG Capsule 1 Active Diclofenac Sodium (VOLTAREN) 1 % Gel Apply 1 g. 9 Active fexofenadine (MIMI) 180 MG Tablet fexofenadine 180 mg tablet 7 Active fluticasone (FLONASE) 50 MCG/ACT Suspension fluticasone propionate 50 mcg/actuation nasal spray,suspension SHAKE LIQUID AND USE 1 SPRAY IN EACH NOSTRIL TWICE DAILY 7 Active insulin glargine (LANTUS) 100 UNIT/ML Solution 8 Units by Subcutaneous route. Active metoprolol Succinate (TOPROL-XL) 25 MG TABLET SR 24 HR 2 Active Mirabegron ER (Myrbetriq) 50 MG TABLET SR 24 HR 2 Active oxyCODONE-acet aminophen (PERCOCET) 5-325 MG Tablet 9 Active pantoprazole (PROTONIX) 40 MG Tablet Delayed Response 1 Active Teriparatide, Recombinant, (Forteo) 600 MCG/2.4ML Solution Pen-injector Forteo 20 mcg/dose (600 mcg/2.4 mL) subcutaneous pen injector 0 Active zolpidem (AMBIEN CR) 6.25 MG Tablet Controlled Release 3 Active potassium chloride (MICRO-K) 10 MEQ Capsule CR TAKE 2 CAPSULES BY MOUTH DAILY 180 Capsule 3 Active Fluticasone-Um eclidin-Vilant (Trelegy Ellipta) 100-62.5-25 MCG/ACT AEROSOL POWDER, BREATH ACTIVATED take 1 Puff by inhalation. 2 Active cyanocobalamin (VITAMIN B-12) 1000 MCG/ML Solution 1 mL by Subcutaneous route every 28 days. 10 mL 1 3 Active folic acid (FOLVITE) 1 MG Tablet TAKE 1 TABLET BY MOUTH DAILY 30 Tablet 1 4 Active albuterol 108 (90 Base) MCG/ACT Aerosol Solution take 2 Puffs by inhalation every 4 hours as needed. 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 40 Tablet 3 4 Active Cholecalcifero l (Vitamin D3) 51251 UNIT Capsule Take 1.25 mg by mouth once a week. 4 Active furosemide (LASIX) 40 MG Tablet Take 40 mg by mouth. 4 Active lidocaine-pril ocaine 2.5-2.5 % Cream Application Site: Apply to port 1 hour prior to access (Description and Location) 30 g 2 4 Active apixaban (ELIQUIS) 2.5 MG Tablet Take 2.5 mg by mouth. 4 Active magnesium oxide (MAG-OX) 400 MG Tablet Take 1 Tablet by mouth 2 times daily. 60 Tablet 4 Active [place] Thyroid 90 MG Tablet 4 Active Januvia 25 MG Tablet Take 25 mg by mouth daily. 4 Active insulin regular (HumuLIN R) 100 UNIT/ML SolutionIndica tions:Type 2 diabetes mellitus with diabetic nephropathy, without long-term current use of insulin (HCC) Use as directed 10 mL 1 4 Active loperamide (IMODIUM) 2 MG Capsule Take 2 mg by mouth daily. Active atorvastatin (LIPITOR) 20 MG Tablet Take 20 mg by mouth. 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 Use as directed. 10 Tablet 5 07/24/19 25 Active Problems Patient Care Coordination No te Formatting of this note migh t be different from the original. PCM CONSENT DATE: 03/29/2024 CONSENT PRESENT AND CURRENT IN CHART OF: 03/29/2024 CARE PLAN LAST UPDATED: 08/07/24 CARE PLAN LAST DELIVERED: 04-19-24 For additional billing time breakdown, see [facility] auditing report. 08/07/2024 WELLNESS F/U & CAREPLAN REVIEW-20 Minutes PCM DROPS: TOTAL PCM TIME: 32 MINUTES PCM DROP: 30 MINUTES TOTAL PCM TIME: 41 MINUTES PCM DROP: 30 MINUTES TOTAL PCM TIME: 58 MINUTES PCM DROP: 30 MINUTES TOTAL PCM TIME: 86 MINUTES PCM DROP: 60 MINUTES Problem Noted Date Diagnosed Date Diffuse large B-cell lymphom a of extranodal site excluding spleen and other solid organs 03/15/2024 Anxiety 07/28/2022 Chronic pain 07/28/2022 Disorder associated with type 2 diabetes mellitu s 07/28/2022 Hyperlipidemia 07/28/2022 Essential hypertension 07/28/2022 Insomnia 07/28/2022 Lymphedema 07/28/2022 Osteoporosis 07/28/2022 Iron deficiency anemia 07/19/2022 Vitamin B 12 deficiency 07/19/2022 Severe mitral valve regurgitation 05/04/2022 Paroxysmal atrial fibrillation 02/02/2022 Overview (07/28/2022): Last Assessment & Plan: Recommend holding anticoagulation prior to cardiac catheterization. Hypothyroidism 01/31/2022 Overview (07/28/2022): 01/31 Reports taking Armor thyroid 180 after breakfast, coached on importance taking before Osteoarthritis of knee 08/27/2021 Dilated cardiomyopathy 09/16/2020 Chronic diastolic heart failure 07/03/2019 Secondary hyperparathyroidism 11/08/2018 Centrilobular emphysema 09/26/2018 Overview (07/28/2022): Last Assessment & Plan: The patient will continue with Trelegy. The patient has an albuterol inhaler that she may use on a p.r.n. basis and up to 4 times a day as needed for symptom control. KT (obstructive sleep apnea) 09/26/2018 Overview (07/28/2022): Last Assessment & Plan: Will continue with trilogy at night while sleeping. Patient was encouraged to resume Trilogy. [email or web address]. Patient will continue Ambien 6.25 mg nightly. 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 Chronic kidney disease, stage 4 (severe) 017 DM (diabetes mellitus) Encounters Date Type Department Care Team Description 08/07/2024 9:45 AM INTERNAL AUDIT DIRECTOR Care Management [facility] [address] [address] Navigator, [facility] Care [facility] (WELLNESS F/U & CAREPLAN REVIEW) 07/29/2024 3:15 PM INTERNAL AUDIT DIRECTOR Clinical Support [facility] [address] [address] Navigator, Mirella [facility] 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 (Primary Dx) 07/26/2024 10:30 AM INTERNAL AUDIT DIRECTOR Office Visit [facility] [address] [address] Stanley Jennings MD 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 (Primary Dx); Bladder mass; Acute systolic congestive heart failure (HCC); Stage 3a chronic kidney disease (HCC) 07/26/2024 Travel 07/22/2024 9:00 AM INTERNAL AUDIT DIRECTOR Clinical Support [facility] [address] [address] Nurse, Mirella [facility] 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 (Primary Dx) 07/22/2024 Telephone [facility] [address] [address] Stanley Jennings MD 07/19/2024 10:15 AM INTERNAL AUDIT DIRECTOR Office Visit [facility] [address] [address] Kevin Lyle MD 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 (Primary Dx) 07/19/2024 10:00 AM INTERNAL AUDIT DIRECTOR Clinical Support [facility] [address] [address] 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 (Primary Dx); Acute systolic congestive heart failure (HCC); Stage 3a chronic kidney disease (HCC); Hypomagnesemia; Diarrhea, unspecified type 07/19/2024 Travel 07/12/2024 9:30 AM INTERNAL AUDIT DIRECTOR Care Management [facility] [address] [address] Navigator, [facility] Care [facility] (WELLNESS F/U & CAREPLAN REVIEW) 07/12/2024 Telephone [facility] [address] [address] Stanley Jennings MD 07/03/2024 8:15 AM INTERNAL AUDIT DIRECTOR Care Management [facility] [address] [address] Navigator, [facility] (WELLNESS F/U & CAREPLAN REVIEW) 07/02/2024 10:00 AM INTERNAL AUDIT DIRECTOR Clinical Support [facility] [address] [address] Nurse, [facility] 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 (Primary Dx) 07/02/2024 Travel 06/28/2024 10:00 AM INTERNAL AUDIT DIRECTOR Office Visit [facility] [address] [address] Sulma Alvarado, HIGH PRESSURE BOILER OPERATOR, GLOBAL CLIMATE CHANGE RESEARCHER 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 (Primary Dx); Acute systolic congestive heart failure (HCC); Stage 3a chronic kidney disease (HCC); Hypomagnesemia; Diarrhea, unspecified type 06/28/2024 9:45 AM INTERNAL AUDIT DIRECTOR Clinical Support [facility] [address] [address] 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 (Primary Dx); Acute systolic congestive heart failure (HCC); Stage 3a chronic kidney disease (HCC) 06/28/2024 Travel 06/27/2024 1:55 PM INTERNAL AUDIT DIRECTOR Clinical Support [facility] [address] [address] Navigator, Mirella Leiva Nurse 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 (Primary Dx) 06/21/2024 9:00 AM INTERNAL AUDIT DIRECTOR Office Visit [facility] [address] [address] Stanley Jennings MD 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 (Primary Dx); Acute systolic congestive heart failure (HCC); Stage 3a chronic kidney disease (HCC); Type 2 diabetes mellitus with diabetic nephropathy, without long-term current use of insulin (HCC) 06/21/2024 8:45 AM INTERNAL AUDIT DIRECTOR Clinical Support [facility] [address] [address] 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 (Primary Dx); Stage 3a chronic kidney disease (HCC); Type 2 diabetes mellitus with diabetic nephropathy, without long-term current use of insulin (HCC); Hypomagnesemia; Acute systolic congestive heart failure (HCC) 06/21/2024 Results Follow-Up [facility] [address] [address] Stanley Jennings MD 06/21/2024 Travel 06/06/2024 10:00 AM INTERNAL AUDIT DIRECTOR Care Management [facility] [address] [address] Navigator, Mirella Leiva Nurse Care Management (WELLNESS F/U & CAREPLAN REVIEW) 06/03/2024 8:30 AM INTERNAL AUDIT DIRECTOR Clinical Support [facility] [address] [address] Nurse, Mirella Leiva 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 (Primary Dx) 06/03/2024 Travel 05/31/2024 10:30 AM INTERNAL AUDIT DIRECTOR Office Visit [facility] [address] [address] Stanley Jennings MD 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 (Primary Dx); Stage 3a chronic kidney disease (HCC); Type 2 diabetes mellitus with diabetic nephropathy, without long-term current use of insulin (HCC); Hypomagnesemia; Diarrhea, unspecified type 05/31/2024 8:45 AM INTERNAL AUDIT DIRECTOR Clinical Support [facility] [address] [address] 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 (Primary Dx) 05/31/2024 Refill [facility] [address] [address] Stanley Jennings MD 05/28/2024 11:00 AM INTERNAL AUDIT DIRECTOR Lab [facility] [address] [address] Nurse, Cc [facility] 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; Stage 3a chronic kidney disease (HCC); Type 2 diabetes mellitus with diabetic nephropathy, without long-term current use of insulin (HCC); Hormone receptor positive breast cancer, unspecified laterality (HCC) 05/28/2024 Travel 05/27/2024 2:30 PM INTERNAL AUDIT DIRECTOR Clinical Support [facility] [address] [address] Navigator, Cc [place] Nurse 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 (Primary Dx) 05/27/2024 9:00 AM INTERNAL AUDIT DIRECTOR Care Management [facility] [address] [address] Navigator, Cc [place] Nurse Care Management (WELLNESS F/U) 05/20/2024 Telephone [facility] [address] [address] Stanley Jennings MD 05/17/2024 9:00 AM INTERNAL AUDIT DIRECTOR Care Management [facility] [address] [phone] Navigator, Mirella Leiva Nurse Care Management (WELLNESS F/U & CAREPLAN REVIEW) 05/17/2024 Telephone [facility] [address] [phone] Stanley Jennings MD [facility] call 05/13/2024 8:45 AM INTERNAL AUDIT DIRECTOR Clinical Support [facility] [address] [phone] Nurse, Mirella Leiva 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 (Primary Dx) 05/10/2024 11:00 AM INTERNAL AUDIT DIRECTOR Clinical Support [facility] [address] [phone] 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 (Primary Dx); Iron deficiency anemia, unspecified iron deficiency anemia type; Vitamin B12 deficiency; Stage 3a chronic kidney disease (HCC); Folic acid deficiency 05/10/2024 10:45 AM INTERNAL AUDIT DIRECTOR Office Visit [facility] [address] [phone] Stanley Jennings MD 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 (Primary Dx); Stage 3a chronic kidney disease (HCC); Type 2 diabetes mellitus with diabetic nephropathy, without long-term current use of insulin (HCC); Hormone receptor positive breast cancer, unspecified laterality (HCC); Endometrial cancer (HCC) 05/10/2024 Travel from Last 3 Months Immunizations Immunization Administration Dates Next Due Covid-19, Mrna, Lnp-s, Pf, 3 0 Mcg/0.3 Ml Dose ([employer]) 08/13/2020,07/23/2020 Influenza Vaccine 04/12/2017 Influenza Vaccine,unspecifie d Formulation 10/03/2022,03/26/2020 Influenza Virus Vaccine, Whole Virus 05/26/2003, 05/07/2002,05/08/2001 Influenza, Quadrivalent, Adjuvanted 04/14/2023 Influenza, Seasonal, Injecta ble, Undefined 04/30/2018,03/26/2015,03/26/2014,04/12 Pneumococcal Vaccine - 13 Valent 07/24/2014 Pneumococcal Vaccine Adult - 23 Valent 0 Pneumococcal conjugate PCV20 , polysaccharide CNV081 conjugate, adjuvant, PF 10/03/2022 RSV, Recombinant, Protein Velázquez bunit Rsvpref, Adjuvant Recon (Arexvy) 06/05/2023 TD VACCINE 05/07/2002 TDAP Vaccine 11/22/2011 Typhoid Vaccine 12/07/2004 Zoster Vaccine, live 01/20/2009 Family History Medical History Relation Name Comments Bladder cancer Brother Myopathy Brother Cancer Father Prostate Stroke Mother Relation Name Status Comments Brother Father Mother Social History Tobacco Use Types Packs/Day Years Used Date Smoking Tobacco: Never Smokeless Tobacco: Never Tobacco Cessation:Counseling Given: Not Answered Alcohol Use Standard Drinks/Week Comments Yes 0 (1 standard drink = 0.6 oz pur e alcohol) Comments Unknown Sex and Gender Information Value Date Recorded Sex Assigned at Not on file Legal Sex Female 12:23 PM INTERNAL AUDIT DIRECTOR Gender Identity Not on file Sexual Orientation Not on file Last Filed Vital Signs Vital Sign Reading Time Taken Comments Blood Pressure 110/62 07/26/2024 10:38 AM INTERNAL AUDIT DIRECTOR Pulse 86 07/26/2024 10:38 AM INTERNAL AUDIT DIRECTOR Temperature 37.1 C (98.8 F) 07/26/2024 10:38 AM INTERNAL AUDIT DIRECTOR Respiratory Rate 18 07/26/2024 10:38 AM INTERNAL AUDIT DIRECTOR Oxygen Saturation 96% 07/26/2024 10:38 AM INTERNAL AUDIT DIRECTOR Inhaled Oxygen Concentration - - Weight 58.5 kg (129 lb) 07/26/2024 10:38 AM INTERNAL AUDIT DIRECTOR Height 152.4 cm (5') 07/26/2024 10:38 AM INTERNAL AUDIT DIRECTOR Body Mass Index 25.19 07/26/2024 10:38 AM INTERNAL AUDIT DIRECTOR Plan of Treatment Upcoming Encounters Date Type Department Care Team (Late st Contact Info) Description 08/30/2024 9:15 AM INTERNAL AUDIT DIRECTOR Clinical Support [facility] [address] [address] Nurse, Mirella [facility] 08/30/2024 10:00 AM INTERNAL AUDIT DIRECTOR Ancillary Procedure [facility] [address] [phone] 09/06/2024 10:45 AM CDT Office Visit [facility] [address] [place] [phone] Stanley Jennings MD [address] [place] [address] Health Maintenance Due Date Last Done Comments Diabetes: Eye Exam 1935 Diabetes: Foot Exam 1935 Hepatitis C Virus (HCV) Screening 1935 Zoster Immunization (1 of 2) 03/17/2009 01/20/2009 Mammogram Unilateral 08/08/2019 08/08/2018 Td Immunization Every 10 Years (Adults With 1 Tdap) 11/21/2021 11/22/2011, 05/07/2002 Influenza Immunization (#1) 02/25/202403/27, 10/03/2022, 03/26/2020, Additional history exists SARS-COV-2 Immunization ( season) 2024 10/13/2022, 04/07/2022, 10/27/2021, Additional history exists Diabetes: Hemoglobin A1c 11/15/2024 024, 01/29/2024, 01/29/2024, Additional history exists Diabetes: Nephropathy Screening 07/19/2025 07/19/2024, 06/28/2024, 06/21/2024, Additional history exists DEXA Bone Density 10/09/2025 10/10/2023, , 06/10/2016 DTaP/Tdap/Td Immunization Discontinued 11/22/2011, 05/2002 Pneumococcal Immunization (50+ years) Completed 10/03/2022, 07/24/2014, 11/02/1999 Respiratory Syncytial Virus (RSV) Immunization (Adult) Completed 06/05/2023 Hepatitis B Immunization Aged Out No longer eligible based on patient's age to complete this topic Meningococcal Immunization (ACWY) Aged Out No longer eligible based on patient's age to complete this topic Rotavirus Immunization Aged Out No lo nger eligible based on patient's age to complete this topic Procedures Procedure Name Priority Date/Time Associated Diagnosis Comments CBC WITH AUTO DIFF OH Routine 07/19/2024 8:37 AM INTERNAL AUDIT DIRECTOR 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 CMP (COMPREHENSIVE METABOLIC PANEL) Routine 07/19/2024 8:37 AM INTERNAL AUDIT DIRECTOR 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 Acute systolic congestive heart failure (HCC) Stage 3a chronic kidney disease (HCC) Hypomagnesemia Diarrhea, unspecified type LACTATE DEHYDROGENASE (LD) Routine 07/19/2024 8:37 AM INTERNAL AUDIT DIRECTOR 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 Acute systolic congestive heart failure (HCC) Stage 3a chronic kidney disease (HCC) Hypomagnesemia Diarrhea, unspecified type MAGNESIUM (MG) Routine 07/19/2024 8:37 AM INTERNAL AUDIT DIRECTOR 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 Acute systolic congestive heart failure (HCC) Stage 3a chronic kidney disease (HCC) Hypomagnesemia Diarrhea, unspecified type CBC WITH AUTO DIFF OH Routine 06/28/2024 9:00 AM INTERNAL AUDIT DIRECTOR 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 Acute systolic congestive heart failure (HCC) Stage 3a chronic kidney disease (HCC) CMP (COMPREHENSIVE METABOLIC PANEL) Routine 06/28/2024 9:00 AM INTERNAL AUDIT DIRECTOR 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 Acute systolic congestive heart failure (HCC) Stage 3a chronic kidney disease (HCC) LACTATE DEHYDROGENASE (LD) Routine 06/28/2024 9:00 AM INTERNAL AUDIT DIRECTOR 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 Acute systolic congestive heart failure (HCC) Stage 3a chronic kidney disease (HCC) MAGNESIUM (MG) Routine 06/28/2024 9:00 AM INTERNAL AUDIT DIRECTOR 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 Acute systolic congestive heart failure (HCC) Stage 3a chronic kidney disease (HCC) B-TYPE NATRIURETIC PEPTIDE (BNP) Routine 06/28/2024 9:00 AM INTERNAL AUDIT DIRECTOR 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 Acute systolic congestive heart failure (HCC) Stage 3a chronic kidney disease (HCC) B-TYPE NATRIURETIC PEPTIDE (BNP) Routine 06/21/2024 8:52 AM INTERNAL AUDIT DIRECTOR 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 Acute systolic congestive heart failure (HCC) CBC WITH AUTO DIFF OH Routine 06/21/2024 8:52 AM INTERNAL AUDIT DIRECTOR 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 CMP (COMPREHENSIVE METABOLIC PANEL) Routine 06/21/2024 8:52 AM INTERNAL AUDIT DIRECTOR 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 Stage 3a chronic kidney disease (HCC) Type 2 diabetes mellitus with diabetic nephropathy, without long-term current use of insulin (HCC) Hypomagnesemia LACTATE DEHYDROGENASE (LD) Routine 06/21/2024 8:52 AM INTERNAL AUDIT DIRECTOR 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 Stage 3a chronic kidney disease (HCC) Type 2 diabetes mellitus with diabetic nephropathy, without long-term current use of insulin (HCC) Hypomagnesemia MAGNESIUM (MG) Routine 06/21/2024 8:52 AM INTERNAL AUDIT DIRECTOR 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 Stage 3a chronic kidney disease (HCC) Type 2 diabetes mellitus with diabetic nephropathy, without long-term current use of insulin (HCC) Hypomagnesemia COMPLETE BLOOD COUNT (CBC) WITH DIFF Routine 05/28/2024 12:24 PM INTERNAL AUDIT DIRECTOR 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 Stage 3a chronic kidney disease (HCC) Type 2 diabetes mellitus with diabetic nephropathy, 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, unspecified laterality (HCC) CMP (COMPREHENSIVE METABOLIC PANEL) Routine 05/28/2024 12:24 PM INTERNAL AUDIT DIRECTOR 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 Stage 3a chronic kidney disease (HCC) Type 2 diabetes mellitus with diabetic nephropathy, 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, unspecified laterality (HCC) LACTATE DEHYDROGENASE (LD) Routine 05/28/2024 12:24 PM INTERNAL AUDIT DIRECTOR 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 Stage 3a chronic kidney disease (HCC) Type 2 diabetes mellitus with diabetic nephropathy, 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, unspecified laterality (HCC) MAGNESIUM (MG) Routine 05/28/2024 12:24 PM INTERNAL AUDIT DIRECTOR 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 Stage 3a chronic kidney disease (HCC) Type 2 diabetes mellitus with diabetic nephropathy, 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, unspecified laterality (HCC) MAGNESIUM (MG) Routine 05/10/2024 10:19 AM INTERNAL AUDIT DIRECTOR 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 COMPLETE BLOOD COUNT (CBC) WITH DIFF Routine 05/10/2024 10:19 AM INTERNAL AUDIT DIRECTOR Iron deficiency anemia, unspecified iron deficiency anemia type Vitamin B12 deficiency Stage 3a chronic kidney disease (HCC) Folic acid deficiency CMP (COMPREHENSIVE METABOLIC PANEL) Routine 05/10/2024 10:19 AM INTERNAL AUDIT DIRECTOR Iron deficiency anemia, unspecified iron deficiency anemia type Vitamin B12 deficiency Stage 3a chronic kidney disease (HCC) Folic acid deficiency LACTATE DEHYDROGENASE (LD) Routine 05/10/2024 10:19 AM INTERNAL AUDIT DIRECTOR Iron deficiency anemia, unspecified iron deficiency anemia type Vitamin B12 deficiency Stage 3a chronic kidney disease (HCC) Folic acid deficiency HEMOGLOBIN A1C [place] 1453 Routine 1:19 PM CDT Type 2 diabetes mellitus with diabetic nephropathy, without long-term current use of insulin (HCC) from Last 3 Months or Most Recently Relevant to Health Maintenance Results * (ABNORMAL) CBC WITH AUTO DIFF [place] (07/19/2024 8:37 AM INTERNAL AUDIT DIRECTOR) Only the most recent of3 resultswithin the time period is included. WBC 16.5(H) 4.0 - 10.0 10*3/uL [facility] HGB 10.0(L) 11.2 - 15.7 g/dL [facility] HCT 30.6(L) 34.1 - 44.9 % [facility] PLT 192 163 - 369 10*3/uL [facility] MPV 8.9(L) 9.4 - 12.4 fL [facility] RBC 3.07(L) 3.93 - 5.22 10*6/uL [facility] MCV 100(H) 79 - 95 fL [facility] MCH 32.6(H) 25.6 - 32.2 pg [facility] MCHC 32.7 32.2 - 36.5 g/dL [facility] RDW 14.7(H) 11.6 - 14.4 % [facility] Neutrophils % 85.7(H) 36.0 - 66.0 % [facility] Lymphocytes % 7.0(L) 19.0 - 40.0 % [facility] Monocytes % 4.5 4.1 - 12.1 % [facility] Eosinophils % 1.0 0.0 - 3.5 % [facility] Basophils % 0.5 0.0 - 1.0 % [facility] Absolute Neutrophils 14.2(H) 1.4 - 6.6 10*3/uL [facility] Absolute Lymphocytes 1.2 0.8 - 4.0 10*3/uL [facility] Absolute Monocytes 0.8 0.2 - 1.2 10*3/uL [facility] Absolute Eosinophils 0.2 0.0 - 0.4 10*3/uL [facility] Absolute Basophils 0.1 0.0 - 0.1 10*3/uL [facility] 07/19/2024 8:37 AM INTERNAL AUDIT DIRECTOR Sulma Alvarado APRN, GLOBAL CLIMATE CHANGE RESEARCHER LAB SEND OUTS F inal Result Performing Organization Address [facility] [place]/[facility] Co de Phone Number [facility] [place] [address], * (ABNORMAL) MAGNESIUM (MG) (07/19/2024 8:37 AM INTERNAL AUDIT DIRECTOR) Only the most recent of5 resultswithin the time period is included. Magnesium 1.7(L) 1.9 - 2.7 mg/dL [facility] Blood 07/19/2024 8:37 AM INTERNAL AUDIT DIRECTOR Narrative [facility] - 07/19/2024 9:24 AM INTERNAL AUDIT DIRECTOR Release to patient->Immediate Sulma Alvarado HIGH PRESSURE BOILER OPERATOR, GLOBAL CLIMATE CHANGE RESEARCHER CHEMISTRY ORDERAB LES Final Result Performing Organization Address [facility] de Phone Number [facility] [place] [address], [place] [phone] * (ABNORMAL) LACTATE DEHYDROGENASE (LD) (07/19/2024 8:37 AM INTERNAL AUDIT DIRECTOR) Only the most recent of5 resultswithin the time period is included. LDH 116(L) 140 - 271 U/L [facility] Blood 07/19/2024 8:37 AM INTERNAL AUDIT DIRECTOR Narrative [facility] - 07/19/2024 9:24 AM INTERNAL AUDIT DIRECTOR Release to patient->Immediate Sulma Alvarado HIGH PRESSURE BOILER OPERATOR, GLOBAL CLIMATE CHANGE RESEARCHER CHEMISTRY ORDERAB LES Final Result Performing Organization Address [facility] [place]/[facility] Co de Phone Number [facility] [address] [place] [address], * (ABNORMAL) CMP (COMPREHENSIVE METABOLIC PANEL) (07/19/2024 8:37 AM INTERNAL AUDIT DIRECTOR) Only the most recent of5 resultswithin the time period is included. Glucose 217(H) 70 - 105 mg/dL [facility] Blood Urea Nitrogen 31(H) 7 - 25 mg/dL [facility] Creatinine 2.2(H) 0.6 - 1.2 mg/dL [facility] Sodium 142 136 - 145 mEq/L [facility] Potassium 4.3 3.5 - 5.1 mEq/L [facility] Chloride 100 98 - 107 mEq/L [facility] Bicarbonate 27 21 - 31 mEq/L [facility] Total Bilirubin 0.6 0.3 - 1.0 mg/dL [facility] Alk. Phosphatase 90 34 - 104 U/L [facility] Aspartate Aminotransferase 9(L) 13 - 39 U/L [facility] Alanine Aminotransferase 5(L) 7 - 52 U/L [facility] Total Protein 5.9(L) 6.4 - 8.9 g/dL [facility] Albumin 3.3(L) 3.5 - 5.7 g/dL [facility] Calcium 8.6 8.6 - 10.3 mg/dL [facility] Anion Gap 19.3(H) 7.0 - 15.0 mEq/L [facility] Globulin 2.6 2.0 - 3.5 g/dL [facility] EGFR 21(L) >60 ml/min/1. 73m2 [facility] Comment: This eGFR is calculated using 2020 CKD-EPI Creatinine equation without race modifier based on the NKF-ASN task force recommendations Blood 07/19/2024 8:37 AM INTERNAL AUDIT DIRECTOR Narrative [facility] - 07/19/2024 9:24 AM INTERNAL AUDIT DIRECTOR Release to patient->Immediate IS THE PATIENT REQUIRED TO BE FASTING FOR 8 HOURS?->No Sulma Alvarado APRN, GLOBAL CLIMATE CHANGE RESEARCHER CHEMISTRY ORDERAB LES Final Result Performing Organization Address City/[facility]/ZIP Co de Phone Number [facility] [place] [address], * (ABNORMAL) B-TYPE NATRIURETIC PEPTIDE (BNP) (06/28/2024 9:00 AM INTERNAL AUDIT DIRECTOR) Only the most recent of2 resultswithin the time period is included. B-TYPE NATRIURETIC PEPTIDE 224.3(H) 0.0 - 100.0 PG/ML [facility] Comment:[employer] XP METHODOLOGY Blood 06/28/2024 9:00 AM INTERNAL AUDIT DIRECTOR Narrative [facility] - 06/29/2024 7:08 AM INTERNAL AUDIT DIRECTOR TESTING PERFORMED AT: [] [facility], [address] [place] [address], [place], [address], PHONE: [phone], MOVIE THEATER MANAGER: VERO FIELDS, PHD Release to patient->Immediate Stanley Jennings MD CHEMISTRY ORDERABLES Sharon l Result Performing Organization Address [facility] [place]/[facility] Co de Phone Number [facility] [place] [address], [place] [phone] * (ABNORMAL) COMPLETE BLOOD COUNT (CBC) WITH DIFF (05/28/2024 12:24 PM INTERNAL AUDIT DIRECTOR) Only the most recent of2 resultswithin the time period is included. WBC 25.7(H) 4.0 - 10.0 10*3/uL [facility] HGB 9.0(L) 11.2 - 15.7 g/dL [facility] HCT 27.9(L) 34.1 - 44.9 % [facility] PLT 186 163 - 369 10*3/uL [facility] MPV 9.1(L) 9.4 - 12.4 fL [facility] RBC 2.87(L) 3.93 - 5.22 10*6/uL [facility] MCV 97(H) 79 - 95 fL [facility] MCH 31.4 25.6 - 32.2 pg [facility] MCHC 32.3 32.2 - 36.5 g/dL [facility] RDW 16.4(H) 11.6 - 14.4 % [facility] Absolute Neutrophil Count 23,644 cells/uL [facility] Absolute Seg Count 23,644(H) 1,440 - 6,600 cells/uL [facility] Absolute Lymph Count 1,542 760 - 4,000 cells/uL [facility] Absolute [place] Count 257 160 - 1,200 cells/uL [facility] Absolute Eos Count 257 0 - 300 cells/uL [facility] Segmented Neutrophils 92(H) 36 - 66 % [facility] Lymphocytes 6(L) 19 - 40 % [facility] Monocytes 1(L) 4 - 12 % [facility] Eosinophils 1 0 - 3 % [facility] WBC Estimate High [facility] Platelet Estimate Normal [facility] RBC Morphology Abnormal [facility] Macrocytosis 1+ [facility] Anisocytosis 1+ [facility] Toxic Granulation Present [facility] Dle Bodies Present [facility] Blood 05/28/2024 12:2 4 PM INTERNAL AUDIT DIRECTOR Narrative [facility] - 05/28/2024 2:30 PM INTERNAL AUDIT DIRECTOR Release to patient->Immediate us Stanley Jennings MD HEMATOLOGY ORDERABLES Fin al Result [facility] [place] [address], * (ABNORMAL) HEMOGLOBIN A1C [place] 1453 (01/29/2024 1:19 PM CDT) HEMOGLOBIN A1C 6.9(H) 4.8 - 5.6 % [facility] Comment: PREDIABETES: 5.7 - 6.4 DIABETES: >6.4 GLYCEMIC CONTROL FOR ADULTS WITH DIABETES: <7.0 01/29/2024 1:19 PM CDT Narrative [facility] - 01/30/2024 5:08 AM CDT TESTING PERFORMED AT: [] [facility], [address] [place] [address], [place], [address], PHONE: [phone], MOVIE THEATER MANAGER: VERO FIELDS, PHD Release to patient->Immediate us Stanley Jennings MD LAB SEND OUTS Final Res ult [facility] [place] [address], from Last 3 Months or Most Recently Relevant to Health Maintenance Insurance MEDICARE [employer] [facility] Care Teams Chief Contract Officer Relationship Specialty Start Date End Date Lamin Wisdom DO [address] [place] [address] [address] [place] [address] PCP - General Internal Medicine 06/09/22 Stanley Jennings MD [address] [place] [phone] Oncology 07/21/22 Selene Alves, RN [place] Oncology Nurse Navigator Oncology 03/29/24 Sanam Garcia, CLEVE [place] Oncology Nurse Navigator Oncology 05/17/24
--- OUTSIDE RECORDS SUMMARY | 2024-08-09 13:34 | XMS_ITS | Clinical Summary ---
Author Organization [facility] Address [address] [place] [address] Phone Care Team Providers Care Drapery Estimator Name Role Phone Unavailable Primary Care Provider Unavailabl e Social History Tobacco Use Types Packs/Day Years Used Date Smoking Tobacco: Never Assessed Comments Unknown Sex and Gender Information Value Date Recorded Sex Assigned at Not on file Legal Sex Female 3:41 PM CDT Gender Identity Not on file Sexual Orientation Not on file Plan of Treatment Health Maintenance Due Date Last Done Comments DTAP/TDAP/TD VACCINES (1 - Tdap) 1954 PNEUMOCOCCAL VACCINE 65+ YEARS (1 of 1 - PCV) 10/18/18 88 ZOSTER VACCINE (1 of 2) 10/19/1987 OSTEOPOROSIS SCREENING 2002 RSV VACCINE (60+ or ) (1 - 1-dose 75+ series) 2012 INFLUENZA VACCINE (#1) 2024 Insurance MEDICARE PART A AND B [employer]
--- OUTSIDE RECORDS SUMMARY | 2024-08-09 13:34 | XMS_ITS ---
Author Organization [facility] Address [address], [facility] [address] [place] [address] Phone Care Team Providers Care Rn Paralegal Name Role Phone Lamin Wisdom DO Primary Care Provider [phone] Stanley Jennings MD Unavailable [phone] Selene Alves RN Unavailable Unavailable Sanam Garcia RN Unavailable Unavailable Active Problems Patient Care Coordination No te [...] sleeping. Patient was encouraged to resume Trilogy. [facility]. Patient will continue Ambien 6.25 mg nightly. 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 Other Current Plans [facility]SCI: Support Injectafer* Plan Start Date:07/25/2022 Plan Provider:Stanley Jennings MD Linked Problems Iron deficiency anemia, unsp ecified iron deficiency anemia type Treatment Medications No medications scheduled. SUPPORT - VITAMIN B12 - [facility]* Plan Start Date:07/21/2022 Plan Provider:Stanley Jennings MD Linked Problems Vitamin B 12 deficiency Treatment Medications Current Day (Day 2 , Cycle 1- Daily - Planned for 07/22/2022) Next Day (Day 3, Cycle 1- Daily - Planned for 07/23/2022) No medications scheduled. No medications schedul ed. No medications scheduled. Past Treatment and Therapy Plans No past plan information found. Lifetime Dose Tracking * Chemical Lifetime Dose Automatic Entry Manual Entr y Cyclophosphamide 2,430.51 mg/m2 (3,840 mg) 2,430.51 mg /m2 (3,840 mg) 0 mg/m2 (0 mg)
--- OUTSIDE RECORDS SUMMARY | 2024-08-09 13:34 | XMS_ITS | Encounter Summary ---
Author Organization [facility] Address [address] [place] [address] Phone Care Team Providers Care Retina Subspecialist Name Role Phone Lamin Wisdom Primary Care Provider [phone] Stanley Jennings MD Unavailable [phone] Selene Alves RN Unavailable Unavailable Sanam Garcia RN Unavailable Unavailable Encounter Details Date Type Department Care Team (Late st Contact Info) Description 04/19/2024 Telephone [facility] [address] [phone] Stanley Jennings MD [address] [address] Social History Tobacco Use Types Packs/Day Years Used Date Smoking Tobacco: Never Smokeless Tobacco: Never Alcohol Use Standard Drinks/Week Comments Yes 0 (1 standard drink = 0.6 oz pur e alcohol) Comments Unknown Sex and Gender Information Value Date Recorded Sex Assigned at Not on file Legal Sex Female 12:23 PM CLINICAL RADIOLOGIST Gender Identity Not on file Sexual Orientation Not on file documented as of this encounter Functional Status * Question Answer Date of Assessment Author Little interest or pleasure in doing things Not at all 04/19/2024 9:18 AM CDT Tre Esquivel CMA Feeling down, depressed, or hopeless Not at all 04/19/2024 9:18 AM CDT Hesham Esquivel CMA * Over the past 2 weeks, how often have you been bothered by any of the following problems? Question Answer Date of Assessment Author Patient Health Questionnaire-2 Score 0 04/19/2024 9:18 AM CDT Cher Esquivel CMA documented as of this encounter Miscellaneous Notes * Telephone Encounter - Osiris Ingram CMA - 04/19/2024 11:39 AM CDT Images from the original note were not included. Stanley Jennings MD You5 minutes ago (11:33 AM) GM Was this Endo at [facility]? Can we check with Endo at [place]? Otherwise, we can reach out to PCP to see who they suggest. * Telephone Encounter - Stanley Jennings MD - 04/19/2024 11:32 AM CDT Was this Endo at [facility]? Can we check with Endo at [place]? Otherwise, we can reach out to PCP to see who they suggest. * Telephone Encounter - Osiris Ingram CMA - 04/19/2024 10:56 AM CDT PT can not get appt with endo until jun. Pts daughter in law is wanting to know if we can send the referral to a different physician who can get PT in sooner. Please advise on how you would like to proceed. documented in this encounter Plan of Treatment Upcoming Encounters Date Type Department Care Team (Late st Contact Info) Description 08/30/2024 9:15 AM CLINICAL RADIOLOGIST Clinical Support [facility] [address] [phone] Nurse, Cc [facility] 08/30/2024 10:00 AM CLINICAL RADIOLOGIST Ancillary Procedure [facility] [address] [phone] 09/06/2024 10:45 AM CDT Office Visit [facility] [address] [phone] Stanley Jennings MD [address] [id number] documented as of this encounter Visit Diagnoses Not on filedocumented in this encounter Additional Health Concerns Infection Onset Date Last Indicated Resolved Time C. difficile Rule-Out 05/31/2024 05/31/20242023 12:16 AM CLINICAL RADIOLOGIST documented as of this encounter Care Teams Retina Subspecialist Relationship Specialty Start Date End Date Lamin Wisdom DO [address] [place] [address] [address] [place], [place] [address] PCP - General Internal Medicine 06/09/22 Stanley Jennings MD [address] [place] [phone] Oncology 07/21/22 Selene Alves, RN [place] Oncology Nurse Navigator Oncology 03/29/24 Sanam Garcia, CLEVE [place] Oncology Nurse Navigator Oncology 05/17/24 documented as of this encounter
--- OUTSIDE RECORDS SUMMARY | 2024-08-09 13:34 | XMS_ITS ---
Author Organization [facility] Address [address] [place] [address] Care Team Providers Care Workers Compensation Claims Examiner Name Role Phone Patricia Mckeon MD Unavailable [phone] Randy Murillo MD Unavailable [phone] Arthur Whitfield MD Unavailable [phone] Russ Paiz MD Unavailable [phone] Charlie Norton MD Primary Care Provider [phone] Stanley Jennings MD Unavailable [phone] Active Problems Problem Noted Date Diagnosed Date Pulmonary HTN 08/16/2023 Assessment & Plan (05/01/2024 2:32 PM HEALTH SERVICES RN): She did have an echocardiogram and does have mild estimated pulmonary hypertension secondary to MR. Assessment & Plan (08/16/2023 11:25 AM HEALTH SERVICES RN): I have ordered an echocardiogram due to the pulmonary hypertension noted on her PET scan. Hypothyroidism 01/31/2022 Overview (01/31/2022): 01/31 Reports taking Armor thyroid 180 after breakfast, coached on importance taking before Hypoglycemia 01/31/2022 Dysarthria 01/31/2022 Type 2 diabetes mellitus with diabetic nephropat hy 05/06/2020 Sleep-related hypoxia 05/06/2020 Centrilobular emphysema (CMS/HCC) 09/26/2018 Assessment & Plan (05/01/2024 2:30 PM HEALTH SERVICES RN): The patient's breathing has been doing well with Trelegy 1 puff daily. She will follow up with Dr. Flor in 3 months Assessment & Plan (08/16/2023 11:26 AM HEALTH SERVICES RN): Patient continue to use Trelegy one inhalation [...] heart Assessment & Plan (06/29/2022 2:43 PM HEALTH SERVICES RN): The patient will continue with Trelegy. The [...] control. Assessment & Plan (06/30/2021 2:37 PM HEALTH SERVICES RN): The patient will continue with Trelegy 1 [...] future Assessment & Plan (05/06/2020 1:56 PM HEALTH SERVICES RN): The patient will continue with the medication [...] breath. Assessment & Plan (06/05/2019 10:25 AM HEALTH SERVICES RN): The patient is considering back surgery. I [...] 09/26/2018 Assessment & Plan (05/01/2024 2:31 PM HEALTH SERVICES RN): The patient has lost a significant amount of weight and she decided to no longer is use the trilogy unit. Assessment & Plan (08/16/2023 11:26 AM HEALTH SERVICES RN): Patient was encouraged to use her Trilogy [...] recovery. Assessment & Plan (06/29/2022 2:43 PM HEALTH SERVICES RN): Will continue with trilogy at night while sleeping. Patient was encouraged to resume Trilogy. [facility]qu[facility] [place]. Patient will continue Ambien 6.25 mg nightly. Assessment & Plan (02/16/2022 11:16 AM CDT): Will continue with trilogy at night while sleeping. Patient was encouraged to resume Trilogy. DME company [employer]. Patient will continue Ambien 6.25 mg nightly. Assessment & Plan (06/30/2021 2:37 PM HEALTH SERVICES RN): The patient will continue with trilogy therapy to treat obstructive sleep apnea. The patient is also taking Ambien CR 6.25 mg p.o. at bedtime. The patient denied need for supplies. DME company [employer]. Patient is benefitting from trilogy therapy Assessment & Plan (11/04/2020 11:04 AM CDT): The patient will continue with trilogy therapy to treat obstructive sleep apnea. The patient is also on Ambien CR 12.5 mg at bedtime that is being prescribed by primary care physician. Patient denied need for supplies. The DME company is [employer]. The patient is benefitting from trilogy therapy. Assessment & Plan (05/06/2020 1:57 PM HEALTH SERVICES RN): The patient will continue to use trilogy therapy to treat obstructive sleep apnea. The patient denied need for supplies at this time. The DME company is [employer]. The patient is benefitting from obstructive sleep apnea therapy with trilogy. Assessment & Plan (01/29/2020 2:05 PM CDT): The patient will continue to use her trilogy vent on a nightly basis. The DME company is [employer]. She denied need for supplies at this time. The patient is benefitting from obstructive sleep apnea therapy. Assessment & Plan (06/05/2019 10:24 AM HEALTH SERVICES RN): The patient continues to benefit from use [...] ventilator as much at night. She uses [employer] for her supplies. She continues to benefit from its use. Post-nasal drip 09/26/2018 Assessment & Plan (05/01/2024 2:31 PM HEALTH SERVICES RN): She uses Flonase for postnasal drainage on a p.r.n. basis Assessment & Plan (08/16/2023 11:26 AM HEALTH SERVICES RN): I have sent Flonase to the pharmacy [...] Flonase Assessment & Plan (06/29/2022 2:43 PM HEALTH SERVICES RN): Patient will continue with Myriam and Flonase daily. Assessment & Plan (02/16/2022 11:06 AM CDT): Patient will continue with Myriam and Flonase daily Assessment & Plan (06/30/2021 2:36 PM HEALTH SERVICES RN): The patient will continue with Myriam and Flonase to treat postnasal drip Assessment & Plan (11/04/2020 11:05 AM CDT): The patient will continue with Myriam daily and Flonase daily to treat postnasal drip. Assessment & Plan (05/06/2020 1:57 PM HEALTH SERVICES RN): The patient will continue to use Flonase 1 spray in each nostril daily. Due to the Myriam losing its effectiveness, I have changed the patient's allergy medication to the Zyrtec daily. Assessment & Plan (01/29/2020 2:06 PM CDT): The patient will continue to use Flonase and Myriam to the manage her postnasal drip. Assessment & Plan (06/05/2019 10:25 AM HEALTH SERVICES RN): The patient is getting relief from her [...] Malignant neoplasm of breast 09/21/2010 Arthritis 09/21/2010 Current Oncology Plans No current plan information found. Past Plans No past plan information found. Radiation Treatments * No radiation treatments are documented for this patient in [facility]. Treatments may have been administered in another system. Lifetime Dose Tracking * Chemical Lifetime Dose Automatic Entry Manual Entr y DLP 4,884 mGycm 4,884 mGycm 0 mGycm
--- OUTSIDE RECORDS SUMMARY | 2024-08-09 13:34 | XMS_ITS | Encounter Summary ---
Author Organization [facility] Address [address] [place] [id number] Phone Care Team Providers Care Custom Framing Specialist Name Role Phone Charlie Norton MD Primary Care Provider [phone] Reason for Visit * Reason Comments Med Refill Encounter Details Date Type Department Care Team (Late Contact Info) Description 10/05/2021 Refill [facility] [address] [place] [address] [phone] [place] [address] [place] [address] [phone] Hyperuricemia Social History Tobacco Use Types Packs/Day [...] Description 09/04/2024 12:00 PM CDT Office Visit [facility] [address] [place] [address] [phone] [place] [address] [place] [address] [phone] documented as of this encounter Visit Diagnoses Diagnosis Hyperuricemia documented in this encounter Care Teams Custom Framing Specialist Relationship Specialty Start Date End Date Charlie Norton MD [address] [place] [phone] PCP - General Internal Medicine 05/30/24 documented as of this encounter
--- OUTSIDE RECORDS SUMMARY | 2024-08-09 13:35 | XMS_ITS | Encounter Summary ---
Author Organization [facility] Address [address] [place] [address] Care Team Providers Care Lining Inserter Name Role Phone Patricia Mckeon MD Unavailable [phone] Tamar Novoa MD Unavailable Gracie Vargas DO Primary Care Provider [phone] Lamin Wisdom DO Primary Care Provider [phone] Charlie Norton MD Unavailable [phone] Isael Harmon MD Unavailable [phone] Aakash Rayo MD Primary Care Provi carline Encounter Details Date Type Department Care Team (Late st Contact Info) Description 09/22/2020 Abstract [facility], [address] [address] Diane Mariscal MA Social History Tobacco Use Types Packs/Day Years Used Date Smoking Tobacco: Never Smokeless Tobacco: Never Alcohol Use Standard Drinks/Week Comments Yes 0 (1 standard drink = 0.6 oz pur e alcohol) Occasionally AUDIT-C Answer Date Recorded Frequency of Alcohol Consumption Monthly or less 05/08/2019 Average Number of Drinks 1 or 2 019 Frequency of Binge Drinking Not on file 04/26 Comments No Sex and Gender Information Value Date Recorded Sex Assigned at Female 08/01/2024 12:47 PM BOILER COVERER HELPER Legal Sex Female 10:09 PM CDT Gender Identity Not on file Sexual Orientation Not on file 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 No / Unsure 09/16/2020 1:42 PM CDT documented as of this encounter Plan of Treatment Upcoming Encounters Date Type Department Care Team (Late st Contact Info) Description 08/28/2024 11:20 AM BOILER COVERER HELPER Telemedicine [facility] [address] [place] [address] Kaleb Bean MD 3 [facility] [address] [place] [address] 09/11/2024 1:00 PM CDT Appointment [facility] [place] [address] Patricia Mckeon MD [facility]. [facility] [address] [place] [address] 02/05/2025 2:00 PM CDT Office Visit [facility], [facility] [address] [place], [place] [address] Saadia Walker APRN [facility] [address] [place], [place] [address] documented as of this encounter Procedures Procedure Name Priority Date/Time Associated Diagnosis Comments TRIIODOTHYRONINE TOTAL , TT-3 Routine 08/23/2021 TRIIODOTHYRONINE TOTAL , TT-3 Routine 08/23/2021 COMPREHENSIVE METABOLIC PANEL Routine 08/23/2021 COMPREHENSIVE METABOLIC PANEL Routine 08/23/2021 LIPID PANEL Routine 08/23/2021 LIPID PANEL Routine 08/23/2021 HEMOGLOBIN, GLYCOSYLATED Routine 08/23/2021 HEMOGLOBIN, GLYCOSYLATED Routine 08/23/2021 THYROXINE, FREE (FT4) Routine 08/23/2021 THYROXINE, FREE (FT4) Routine 08/23/2021 THYROID STIM HORMONE TSH Routine 08/23/2021 THYROID STIM HORMONE TSH Routine 08/23/2021 VITAMIN D, 25 OH Routine 08/23/2021 BASIC METABOLIC PANEL Routine 03/18/2021 CBC (OUTSIDE LAB) Routine 03/17/2021 HEPATIC FUNCTION PANEL Routine 03/16/2021 MAGNESIUM Routine 03/15/2021 PROTIME (OUTSIDE LAB) Routine 03/14/2021 HEMOGLOBIN, GLYCOSYLATED Routine 03/14/2021 C-REACTIVE PROTEIN Routine 03/14/2021 THYROID STIM HORMONE TSH Routine 03/14/2021 CBC (OUTSIDE LAB) Routine 09/08/2020 VITAMIN B-12 Routine 09/08/2020 LIPID PANEL Routine 09/08/2020 URIC ACID BLOOD Routine 09/08/2020 CBC (OUTSIDE LAB) Routine 08/23/2020 CBC (OUTSIDE LAB) Routine 08/23/2020 VITAMIN D, 25 OH Routine 08/23/2020 documented in this encounter Results * TRIIODOTHYRONINE TOTAL , TT-3 (08/23/2021) Pathologist [facility] T3 TOTAL 61 76 - 181 08/23/2021 us Doc [facility] Final Result * HEMOGLOBIN, GLYCOSYLATED (08/23/2021) Pathologist [facility] HGB A1C 8.6 % 08/23/2021 us Doc [facility] Final Result * (ABNORMAL) COMPREHENSIVE METABOLIC PANEL (08/23/2021) Pathologist [facility] SODIUM S/P/B 139 POTASSIUM S/P/B 4.5 CO2 20 CHLORIDE S/P/B 110 GLUCOSE 246 mg/dL CALCIUM S/P/B 8.3 BUN 25 CREATININE S/P/B 1.83(A) 0.5 - 1.0 EGFR AFR. AMER. 29 <=90 EGFR NON-AFR. AMER. 25 <=90 ALKALINE PHOSPHATASE S/P/B 60 ALT 6 AST 9 BILIRUBIN TOTAL S/P/B 0.4 ALBUMIN S/P/B 3.5 3.5 - 5.0 TOTAL PROTEIN S/P/B 6.5 GLOBULIN 3.0 08/23/2021 us Doc [facility] Final Result * LIPID PANEL (08/23/2021) CHOLESTEROL 178 HDL 39 TRIGLYCERIDES 201 NON HDL CHOLESTEROL 139 LDL (CALCULATED) 107 08/23/2021 us [employer] [facility] Edited Resul t - Final * THYROXINE, FREE (FT4) (08/23/2021) Pathologist [facility] FREE T4 0.7 08/23/2021 us Doc [facility] Edited Resul t - Final * THYROID STIM HORMONE, TSH (08/23/2021) Pathologist [facility] TSH 17.08 08/23/2021 [facility] Final Result * VITAMIN D, 25 OH (08/23/2021) Pathologist [facility] VITAMIN D 25 HYDROXY S/P/B 39 08/23/2021 us [employer] [facility] Final Result * TRIIODOTHYRONINE TOTAL , TT-3 (08/23/2021) T3 TOTAL 61 76 - 181 08/23/2021 us [employer] [facility] Final Result * HEMOGLOBIN, GLYCOSYLATED (08/23/2021) HGB A1C 8.6 % 08/23/2021 [facility] Final Result * (ABNORMAL) COMPREHENSIVE METABOLIC PANEL (08/23/2021) Pathologist [facility] SODIUM S/P/B 139 POTASSIUM S/P/B 4.5 CO2 20 CHLORIDE S/P/B 110 GLUCOSE 246 mg/dL CALCIUM S/P/B 8.3 BUN 25 CREATININE S/P/B 1.83(A) 0.5 - 1.0 EGFR AFR. AMER. 29 <=90 EGFR NON-AFR. AMER. 25 <=90 ALKALINE PHOSPHATASE S/P/B 60 ALT 6 AST 9 BILIRUBIN TOTAL S/P/B 0.4 ALBUMIN S/P/B 3.5 3.5 - 5.0 TOTAL PROTEIN S/P/B 6.5 GLOBULIN 3.0 08/23/2021 us Doc [facility] Final Result * LIPID PANEL (08/23/2021) Pathologist [facility] CHOLESTEROL 178 HDL 39 TRIGLYCERIDES 201 NON HDL CHOLESTEROL 139 LDL (CALCULATED) 107 08/23/2021 us Doc [facility] Final Result * THYROXINE, FREE (FT4) (08/23/2021) Pathologist [facility] FREE T4 0.7 08/23/2021 us Doc [facility] Final Result * THYROID STIM HORMONE, TSH (08/23/2021) Pathologist [facility] TSH 17.08 0.4 - 4.5 08/23/2021 us Doc [facility] Final Result * (ABNORMAL) BASIC METABOLIC PANEL (03/18/2021) Pathologist [facility] SODIUM S/P/B 137 POTASSIUM S/P/B 4.2 CO2 19 CHLORIDE S/P/B 112 GLUCOSE 137 mg/dL CALCIUM S/P/B 8.2 BUN 24 CREATININE S/P/B 1.70(A) 0.5 - 1.0 EGFR NON-AFR. AMER. 29 <=90 03/18/2021 us Doc [facility] Final Result * CBC (OUTSIDE LAB) (03/17/2021) [facility] WBC 6.4 HGB 8.5 HCT 26.5 PLT 184 03/17/2021 us Doc [facility] LAB-OUTSIDE/ABSTRACTED Final Result * (ABNORMAL) HEPATIC FUNCTION PANEL (03/16/2021) [facility] ALBUMIN S/P/B 2.6(A) 3.5 - 5.0 ALKALINE PHOSPHATASE S/P/B 119 ALT 39 AST 29 BILIRUBIN DIRECT S/P/B 0.4 BILIRUBIN TOTAL S/P/B 0.4 TOTAL PROTEIN S/P/B 6.0 03/16/2021 us Doc [facility] Final Result * MAGNESIUM (03/15/2021) [facility] MAGNESIUM 1.8 03/15/2021 us Doc [facility] Edited Resul t - Final * C-REACTIVE PROTEIN (03/14/2021) [facility] CRP 1.7 03/14/2021 us Doc [facility] Final Result * HEMOGLOBIN, GLYCOSYLATED (03/14/2021) [facility] HGB A1C 7.5 % 03/14/2021 us Doc [facility] Final Result * THYROID STIM HORMONE, TSH (03/14/2021) [facility] TSH 1.570 03/14/2021 us Doc [facility] Edited Resul t - Final * PROTIME (OUTSIDE LAB) (03/14/2021) PROTIME 47.8 INR 5.5 03/14/2021 us Doc [facility]-OUTSIDE/ABSTRACTED Final Result * CBC (OUTSIDE LAB) (09/08/2020) WBC 7.9 HGB 11.1 HCT 33.5 PLT 241 09/08/2020 us Doc [facility]-OUTSIDE/ABSTRACTED Edite d Result - Final * URIC ACID BLOOD (09/08/2020) URIC ACID 10.6 09/08/2020 us Doc [facility] Final Result * VITAMIN B-12 (09/08/2020) VITAMIN B12 S/P/B >2,000 09/08/2020 us Doc [facility] Final Result * LIPID PANEL (09/08/2020) Pathologist [facility] CHOLESTEROL 184 HDL 36 TRIGLYCERIDES 294 NON HDL CHOLESTEROL 148 LDL (CALCULATED) 109 09/08/2020 us Doc [facility] Final Result * VITAMIN D, 25 OH (08/23/2020) VITAMIN D 25 HYDROXY S/P/B 39 08/23/2020 us Doc [facility] Final Result * CBC (OUTSIDE LAB) (08/23/2020) WBC 5.7 HGB 10.5 HCT 32.9 PLT 214 08/23/2020 us Doc [facility]-OUTSIDE/ABSTRACTED Final Result * CBC (OUTSIDE LAB) (08/23/2020) WBC 5.7 HGB 10.5 HCT 32.9 PLT 214 08/23/2020 us Doc [facility]-OUTSIDE/ABSTRACTED Final Result documented in this encounter Visit Diagnoses Not on filedocumented in this encounter Additional Health Concerns Infection Onset Date Last Indicated Resolved Time C. difficile 02/01/2017 02/01/2017 05/03/2022 11:5 1 AM BOILER COVERER HELPER MRSA Comment:05/02/22 +MRSA Nasal 05/19/24 +MRSA Left arm 05/03/2022 05/19/2024 COVID-19 Rule Out 02/19/2024 02/19/2024 02/19/2024 9:56 PM CDT documented as of this encounter Care Teams Lining Inserter Relationship Specialty Start Date End Date Gracie Vargas DO [address] [place], [place] [address] PCP - General INTERNAL MEDICINE 08/29/19 03/25/22 Lamin Wisdom DO [address] [place], [place] [address] PCP - General INTERNAL MEDICINE 03/26/22 07/31/24 Aakash Rayo MD [address] [place], [place] [address] PCP - General HOSPITALIST 08/01/24 Patricia Mckeon MD [address] [place] [address] [facility] [address] [place] [address] [employer] Lead CARDIOVASCULAR DISEASE 11/25/15 Tamar oNvoa MD Three [facility]. [place] [id number] [place] [address] [employer] Lead CLINICAL CARDIAC ELECTROPHYSIOLOGY 12/18/17 Charlie Norton MD [address] [place] [address] FAMILY PRACTICE 05/02/22 Isael Harmon MD [address] [facility] OBGYN GYNECOLOGIC ONCOLOGY, [address] [address] Referring Physician VEL 05/02/22 documented as of this encounter
--- OUTSIDE RECORDS SUMMARY | 2024-08-09 13:35 | XMS_ITS | Patient Health Summary ---
Author Organization [facility] Address [address] [place] [address] Care Team Providers Care Telephone Station Installer Name Role Phone Asa Dale MD Unavailable [phone] Charlie Norton MD Primary Care Provider Note from [facility],non-owned Affiliates and Associated Physician Practices is amultiple site organization consisting of ambulatory clinics and hospital sitesin [place], [place], [place] and [place]. This disclosure is being madepursuant to the Care Everywhere program and may not contain all information available regarding this patient. Last updated 18.[facility] Allergies * Chlorhexidine(Itching,Unknown) * Catahoula Tar Extract(Unknown) * Fosinopril(Unknown) * Lidocaine(Anaphylaxis,Unknown) -High Criticality * Lisinopril(Cough,Other) -Low Criticality * Losartan(Other) * Metoclopramide(Other,Unknown) -Low Criticality * Procaine(Other,Unknown) * Rosiglitazone(Unknown) Medications * Be aware that medications may not be up to date on this document. Alwaysverify current medications with the patient. * albuterol HFA (Proventil; Ventolin; Proair) 108 (90 Base) MCG/ACT inhaler (Started 06/30/2021) Inhale 2 (two) puffs by mouth every 4 hours as needed * allopurinol (Zyloprim) 100 MG tablet(Started 05/21/2021) Take 1 (one) tablet by mouth as needed * amiodarone (Cordarone) 200 MG tablet(Started 05/25/2022) Take 0.5 (one-half) tablet by mouth once daily * apixaban (Eliquis) 2.5 MG tablet(Started 02/17/2022) Take 1 (one) tablet by mouth 2 times daily * calcitriol (Rocaltrol) 0.25 MCG capsule(Started 05/23/2021) TAKE 1 CAPSULE BY MOUTH 3 TIMES PER WEEK * cyanocobalamin (Vitamin B-12) injection(Started 08/20/2022) Inject 1,000 (one thousand) mcg subcutaneously * Voltaren 1 % gel(Started 12/07/2021) APPLY 1 GRAM TO THE AFFECTED AREA EVERY DAY * ergocalciferol (Drisdol) 1.25 MG (72038 UT) capsule(Started 02/04/2022) Take by mouth every Monday, Monday & Monday * fexofenadine (Myriam) 180 MG tablet(Started 12/09/2021) Take 1 (one) tablet by mouth once daily * fluticasone propionate (Flonase) 50 MCG/ACT nasal spray(Started 07/01/2022) as needed * Kgzcmlawlfb-Rgiafdisp-Yenxqr (Trelegy Ellipta) 100-62.5-25 MCG/ACT(Started 11/19/2021) Inhale 1 (one) puff by mouth once daily * folic acid (Folvite) 1 MG tablet(Started 09/18/2022) Take 1 (one) tablet by mouth once daily * furosemide (Lasix) 40 MG tablet(Started 10/06/2021) Take 1 (one) tablet by mouth once daily * insulin glargine (Lantus/Semglee) 100 units/ml injection Inject 20 (twenty) Units subcutaneously at bedtime * metoprolol succinate XL 24hr (Toprol XL) 25 MG tablet(Started 02/17/2022) Take 1 (one) tablet by mouth once daily * Myrbetriq 50 MG tablet(Started 09/08/2022) Take 1 (one) tablet by mouth once daily * oxyCODONE-acetaminophen (Percocet) 5-325 MG tablet(Started 08/02/2021) every 8 hours as needed * pantoprazole EC (Protonix) 40 MG tablet(Started 05/25/2022) Take 1 (one) tablet by mouth once daily * potassium chloride ER (Micro-K) 10 MEQ capsule Take 1 (one) capsule by mouth 2 times daily * Syringe/Needle, Disp, (SYRINGE 3CC/25GX5/8 ) 25G X 5/8 3 ML MISC(Started 07/21/2022) Use 12 syringes SEE ADMIN INSTRUCTIONS * Forteo 600 MCG/2.4ML injection(Started 08/31/2022) Inject 20 (twenty) mcg subcutaneously at bedtime * [place] Thyroid 180 MG tablet(Started 06/28/2022) Take 1 (one) tablet by mouth once daily * zolpidem CR (Ambien Cr) 6.25 MG tablet(Started 08/02/2022) Take 1 (one) tablet by mouth at bedtime * dapagliflozin propanediol (Farxiga) 10 MG tablet(Started 10/26/2023) Take 1 (one) tablet by mouth every morning 3 refills by 10/25/2024 Active Problems Problem Noted Date Diagnosed Date Mitral regurgitation 09/24/2022 A-fib 09/24/2022 CVA (cerebral vascular accident) 09/24/2022 Dyslipidemia 09/24/2022 Diabetes mellitus 09/24/2022 Hypertension 09/24/2022 HFrEF (heart failure with reduced ejection fract ion) 09/24/2022 Nonischemic cardiomyopathy 09/24/2022 Resolved Problems Problem Noted Date Diagnosed Date Resolved Date (HFpEF) heart failure with p reserved ejection fraction 09/24/2022 09/24/2022 Immunizations * INFLUENZA VACCINE, TRIV. (AFLURIA, FLUZONE TRIVALENT; 6MO+) (IIV3)(Given 04/30/2018, 03/28/2016, 03/26/2015, 03/26/2014, 04/12/2011) * Covid Flapshare primary monovalent 12+ yr 0.3mL Purple cap(Given 04/07/2022, 10/27/2021, 08/13/2020, 07/23/2020) * FLU VACCINE TRI IIV3 SPLIT PF IM (FLUVIRIN)(Given 04/12/2017, 02/24/2015) * HEP A VACCINE, ADULT(Given 11/22/2011, 12/07/2004) * INFLUENZA VACCINE(Given 03/26/2020) * INFLUENZA VACCINE, QUADR. (AFLURIA, FLUZONE QUADRIVALENT; 6MO+) (IIV4)(Given 03/19/2010, 04/20/2009, 06/10/2008, 05/04/2007, 05/16/2005, 06/08/2004) * INFLUENZA VACCINE, QUADR. (FLUZONE; FLULAVAL; FLUARIX; AFLURIA QUADRIVALENT; 6MO+), 0.5 ML (IIV4)(Given 04/08/2016) * PNEUMOCOCCAL PPSV23(Given 11/02/1999) * Pneumococcal Pcv13 Conj(Given 02/24/2015, 07/24/2014) * TDAP (7yrs+)(Given 11/22/2011) * TYPHOID VACCINE H-P(Given 12/07/2004) * Td (Adult), 2 Lf Tetanus Toxoid, Adsorbed, Pf(Given 05/07/2002) * ZOSTER VACCINE, LIVE(Given 01/20/2009) Social History Tobacco Use Types Packs/Day Years Used Date Smoking Tobacco: Never Smokeless Tobacco: Never Alcohol Use Standard Drinks/Week Comments Yes 1 (1 standard drink = 0.6 oz pur e alcohol) social AUDIT-C Answer Date Recorded Q1: How often do you have a drink containing alcohol? Never 2022 Q2: How many drinks containi ng alcohol do you have on a typical day when you are drinking? Patient does not drink Q3: How often do you have si x or more drinks on one occasion? Never 2022 Sex and Gender Information Value Date Recorded Sex Assigned at Not on file Gender Identity Not on file Sexual Orientation Not on file Last Filed Vital Signs Vital Sign Reading Time Taken Comments Blood Pressure 122/78 10/20/2023 1:00 PM CDT Pulse 76 10/20/2023 1:00 PM CDT Temperature 36.6 C (97.8 F) 2022 3:42 PM CDT Respiratory Rate 10 2022 4:30 PM CDT Oxygen Saturation 98% 10/20/2023 1:00 PM CDT Inhaled Oxygen Concentration - - Weight 57.2 kg (126 lb) 10/20/2023 1:00 PM CDT Height 152.4 cm (5') 10/20/2023 1:00 PM CDT Body Mass Index 24.61 10/20/2023 1:00 PM CDT Procedures * ECHO OUTSIDE STUDY(Performed 08/23/2023) Performed for Nonrheumatic mitral valve regurgitation * GLUCOSE - POINT OF CARE(Performed 2022) * ECHO DELVIS TRANSESOPHAGEAL(Performed 2022) Performed for Nonrheumatic mitral valve regurgitation * GLUCOSE - POINT OF CARE(Performed 2022) Results * ECHO OUTSIDE STUDY (08/23/2023 12:00 AM SLEEVE TAILOR) Narrative [facility] CV FUJI PACS - 09/28/2023 3:53 PM CDT This is a study from an outside facility that has been uploaded into PACS. Eri Phillips MD ECHO CUPID [facility] CV FUJI PACS * GLUCOSE - POINT OF CARE (2022 3:51 PM CDT) Only the most recent of2 resultswithin the time period is included. Glucose WB/POC 83 70 - 115 mg/dL 2022 3:54 PM CDT [facility] Specimen Type Cap Fingerstick 2022 3:54 PM CDT [facility] Blood BLOOD SPECIMEN / Unknown 2022 3:51 PM CDT 2022 3:54 PM CDT Eri Phillips MD LAB - POINT OF CARE ORDERABLES [address] [address], [place] [phone] * ECHO DELVIS TRANSESOPHAGEAL (2022 3:31 PM CDT) Anatomical Region Laterality Modality Chest Ultrasound 2022 2:01 PM CDT Narrative Procedure Note Pantera Lozaon MD - 10/26/2022 Eri Phillips MD ECHOCARDIOGRAPHY RA DIANT Care Teams Telephone Station Installer Relationship Specialty Start Date End Date Charlie Norton MD [address] [place], [place] [id number] PCP - General 09/23/22 Asa Dale MD [id number] [place] [address] Cardiology 09/14/22
--- OUTSIDE RECORDS SUMMARY | 2024-08-09 13:35 | XMS_ITS | Encounter Summary ---
Author Organization [employer] Address [address] [place] [address] Care Team Providers Care Certified Orthotist Name Role Phone Unavailable Primary Care Provider Unavailabl e Encounter Details Date Type Department Care Team (Late st Contact Info) Description 01/17/2018 Lab Requisition [facility] Laboratory Services [address] [address] [place] [address] Charlie Norton MD [address] [place] [address] Heart failure (CMS/HCC); Vitamin D deficiency; MCC current use of 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 Social History Tobacco [...] Associated Diagnosis Comments CBC WITH DIFFERENTIAL Routine 01/17/2018 6:43 AM CDT 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 VITAMIN D 25 HYDROXY Routine 01/17/2018 6:43 AM CDT 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 Vitamin D deficiency PROTIME-INR Routine 01/17/2018 6:43 AM CDT 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 URIC ACID Routine 01/17/2018 6:43 AM CDT 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 T3 FREE Routine 01/17/2018 6:43 AM CDT Heart failure [facility] current use of 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 TSH Routine 01/17/2018 6:43 AM CDT 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 T4 FREE Routine 01/17/2018 6:43 AM CDT 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 BRAIN NATRIURETIC PEPTIDE, BNP OR PROBNP Routine 01/17/2018 6:43 AM CDT Heart failure [facility] current use of 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 MAGNESIUM LEVEL Routine 01/17/2018 6:43 AM CDT Heart failure MCC current use of 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 LIPID PANEL Routine 01/17/2018 6:43 AM CDT Heart failure [facility] current use of 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 COMPREHENSIVE METABOLIC PANEL Routine 01/17/2018 6:43 AM CDT Heart failure MCC current use of 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 documented in this encounter Results * TSH (01/17/2018 6:43 AM CDT) TSH 3.21 0.27 - 4.20 uIU/mL 01/17/2018 10:41 AM CDT [facility] LABORATORY [facility] Blood Venipuncture / Unknown 01/17/2018 6:43 AM CDT 01/17/2018 9:15 AM CDT us Charlie Norton MD CHEMISTRY ORDERABLES Final R esult [facility] [employer] [facility] CLIA# [id number] [address] [place] [address] * T3 FREE (01/17/2018 6:43 AM CDT) T3 FREE 2.6 2.0 - 4.4 pg/mL 01/17/2018 10:41 AM CDT [facility] LABORATORY [facility] Blood Venipuncture / Unknown 01/17/2018 6:43 AM CDT 01/17/2018 9:15 AM CDT Charlie Norton MD CHEMISTRY ORDERABLES Final R esult [facility] CLIA# [id number] [address] [place] [address] * T4 FREE (01/17/2018 6:43 AM CDT) T4 FREE 0.95 0.90 - 1.70 ng/dL 01/17/2018 10:41 AM CDT [facility] [employer] [facility] Blood Venipuncture / Unknown 01/17/2018 6:43 AM CDT 01/17/2018 9:15 AM CDT Charlie Norton MD CHEMISTRY ORDERABLES Final R esult Performing Organization Address City/[facility] Co de Phone Number [facility] [employer] [facility]# [id number] [address] [place] [address] * (ABNORMAL) PROTIME-INR (01/17/2018 6:43 AM CDT) PROTIME 23.1(H) 12.7 - 15.1 Seconds 01/17/2018 10:27 AM CDT [facility] LABORATORY [facility] INR 2.1(H) 0.9 - 1.1 01/17/2018 10:27 AM CDT [facility] Blood Venipuncture / Unknown 01/17/2018 6:43 AM CDT 01/17/2018 9:15 AM CDT Narrative [facility] LABORATORY [facility] - 01/17/2018 10:27 AM CDT INR Therapeutic Range: Adult: 2.0 - 3.0 for pulmonary embolism or prophylaxis against venous thrombosis or systemic embolization. 2.0 - 3.0 for patients with tissue heart valves. 2.5 - 3.5 for patients with mechanical heart valves or post ND. Pediatric (12 years and under): 1.5 - 3.0 Although the target range in children is not well established, INR values of 1.5 - 3.0 are recommended for most patients. Higher values have been used in children with prosthetic cardiac valves and hereditary clotting disorders. (<3 days) therapeutic ranges have not been established. Charlie Norton MD HEMATOLOGY ORDERABLES Final Result Performing Organization Address [facility] Co de Phone Number [facility] CLIA# [id number] [address] [place] [address] * MAGNESIUM LEVEL (01/17/2018 6:43 AM CDT) [facility] MAGNESIUM 2.2 1.6 - 2.4 mg/dL 01/17/2018 10:39 AM CDT [facility] Blood Venipuncture / Unknown 01/17/2018 6:43 AM CDT 01/17/2018 9:15 AM CDT Charlie Norton MD CHEMISTRY ORDERABLES Final R esult Performing Organization Address [facility] de Phone Number [facility] [employer] [facility]# [id number] [address] [place] [address] [place] [address] * (ABNORMAL) CBC WITH DIFFERENTIAL (01/17/2018 6:43 AM CDT) [facility] WBC 7.9 4.0 - 9.8 K/uL 01/17/2018 10:27 AM CDT [employer] LABORATORY SERVICES [facility] RBC 2.72(L) 3.90 - 4.90 M/uL 01/17/2018 10:27 AM CDT [employer] LABORATORY SERVICES [facility] HEMOGLOBIN 7.9(L) 11.8 - 14.8 g/dL 01/17/2018 10:27 AM CDT [employer] LABORATORY SERVICES [facility] HEMATOCRIT 26.0(L) 35.5 - 44.0 % 01/17/2018 10:27 AM CDT [employer] LABORATORY SERVICES [facility] MCV 95.6 82.0 - 99.0 fL 01/17/2018 10:27 AM [employer] LABORATORY SERVICES - [facility] MCH 29.0 27.2 - 32.6 pg 01/17/2018 10:27 AM [employer] LABORATORY SERVICES - [facility] MCHC 30.4(L) 31.5 - 35.5 g/dL 01/17/2018 10:27 AM [employer] LABORATORY SERVICES - . [facility] RDW 14.8(H) 11.5 - 14.5 % 01/17/2018 10:27 AM [employer] LABORATORY SERVICES - . [facility] RDW-STDEV 51.2(H) 37.1 - 48.7 fL 01/17/2018 10:27 AM [employer] LABORATORY SERVICES - . [place] PLATELETS 326 140 - 350 K/uL 01/17/2018 10:27 AM [employer] LABORATORY SERVICES - . [place] MPV 9.8 9.3 - 12.4 fL 01/17/2018 10:27 AM [employer] LABORATORY SERVICES - . [place] NEUTROPHILS 62 % 01/17/2018 10:27 AM [employer] LABORATORY SERVICES - . [place] LYMPHOCYTES 26 % 01/17/2018 10:27 AM [employer] LAB[facility]ATORY SERVICES - [facility] MONOCYTES 7 % 01/17/2018 10:27 AM [employer] LABORATORY SERVICES - [facility] EOSINOPHILS 3 % 01/17/2018 10:27 AM [employer] LAB[facility]ATORY SERVICES - [facility] BASOPHILS 1 % 01/17/2018 10:27 AM [employer] LABORATORY SERVICES - . [place] IMMATURE GRANULOCYTES 1 % 01/17/2018 10:27 AM [employer] [facility] Comment:IG (Immature Granulo cyte) count includes Metamyelocytes, Myelocytes, and Promyelocytes NEUTROPHIL ABSOLUTE 4.89 1.90 - 7.00 K/uL 01/17/2018 10:27 AM [employer] LABORATORY SERVICES - [facility] LYMPHOCYTE ABSOLUTE 2.04 0.70 - 4.50 K/uL 01/17/2018 10:27 AM [employer] LABORATORY SERVICES - [facility] MONOCYTE ABSOLUTE 0.56 0.10 - 1.30 K/uL 01/17/2018 10:27 AM [employer] LAB[facility]ATORY SERVICES - [facility] EOSINOPHIL ABSOLUTE 0.27 0.00 - 0.70 K/uL 01/17/2018 10:27 AM CDT [facility] LABORATORY [facility] BASOPHILS ABSOLUTE 0.06 0.00 - 0.20 K/uL 01/17/2018 10:27 AM CDT [employer] LABORATORY SERVICES - [facility] IMMATURE GRANULOCYTES ABSOLUTE 0.04(H) 0.00 - 0.03 K/uL 01/17/2018 10:27 AM CDT [facility] LABORATORY [facility] Blood Venipuncture / Unknown 01/17/2018 6:43 AM CDT 01/17/2018 9:15 AM CDT us Charlie Norton MD HEMATOLOGY ORDERABLES Final Result Performing Organization Address City/[facility]/ZIP Co de Phone Number [facility] [employer] [facility] [id number] [address] [place] [address] * (ABNORMAL) BRAIN NATRIURETIC PEPTIDE, BNP OR PROBNP (01/17/2018 6:43 AM CDT) PROBNP, N TERMINAL 18,474(H) <449 pg/mL 01/17/2018 10:41 AM CDT [facility] [employer] [facility] Comment: Reference values for screening purposes based on personal injury specialist's recommendation: Patients less than 75 years: <125 pg/mL Patients 75 years and older: <450 pg/mL Reference values for determination of acute congestive heart failure in dyspneic patients based on PRIDE study (Am J Cardiol 2005;95:948): Patients less than 50 years: <450 pg/mL (Negative predictive value= 99%) Patients 50 years and older: <900 pg/mL (Negative predictive value= 92%) Rule out cutpoint, all ages: <300 pg/mL (Negative predictive value= 99%) Blood Venipuncture / Unknown 01/17/2018 6:43 AM CDT 01/17/2018 9:15 AM CDT us Charlie Norton MD CHEMISTRY ORDERABLES Final R esult [facility] [employer] [facility] CLIA# [id number] [address] [place] [address] * (ABNORMAL) LIPID PANEL (01/17/2018 6:43 AM CDT) Pathologist [facility] CHOLESTEROL 75 <200 mg/dL 01/17/2018 10:39 AM T [facility] [employer] [facility] TRIGLYCERIDE 72 <150 mg/dL 01/17/2018 10:39 AM T [facility] [employer] [facility] HDL 35(L) 40 - 59 mg/dL 01/17/2018 10:39 AM T [facility] [employer] [facility] LDL CALCULATED 26 <100 mg/dL 01/17/2018 10:39 AM [facility] Staples [facility] NON-HDL CHOLESTEROL 40 <130 mg/dL 01/17/2018 10:39 AM [facility] [employer] [facility] Blood Venipuncture / Unknown 01/17/2018 6:43 AM CDT 01/17/2018 9:15 AM CDT [facility] [employer] [facility] - 01/17/2018 10:39 AM CDT TOTAL CHOLESTEROL mg/dL Desirable <200 Borderline high 200-239 High >=240 TRIGLYCERIDES mg/dL Normal <150 Borderline high 150-199 High 200-499 Very high >=500 HDL CHOLESTEROL mg/dL Low <40 Normal 40-59 Desirable >=60 NON HDL CHOLESTEROL mg/dL Optimal <130 Near Optimal 130-159 Borderline High 160-189 Very High >=190 Calculated LDL mg/dL Optimal <100 Near Optimal 100-129 Borderline High 130-159 High 160-189 Very High >=190 ATPIII Guidelines Reference Ranges for Lipid Panels (NCEP/AMA) us Charlie Norton MD CHEMISTRY ORDERABLES Final R esult [facility] [employer] [facility]# [id number] [address] [place] [address] * VITAMIN D 25 HYDROXY (01/17/2018 6:43 AM CDT) VITAMIN D TOTAL (25OH) 31 30 - 100 ng/mL 01/17/2018 10:45 AM CDT [facility] [employer] [facility] Blood Venipuncture / Unknown 01/17/2018 6:43 AM CDT 01/17/2018 9:15 AM CDT Narrative [facility] LABORATORY [facility] - 01/17/2018 10:45 AM CDT Interpretive Data Chart: Deficient: 0 - 20 ng/mL Insufficient: 21 - 29 ng/mL Sufficient: 30 - 100 ng/mL Increased Risk of Hypercalciuria: >100 ng/mL Toxic: >150 ng/mL Charlie Norton MD CHEMISTRY ORDERABLES Final R esult [facility] CLIA# [id number] [address] [place] [address] * URIC ACID (01/17/2018 6:43 AM CDT) URIC ACID 3.1 2.4 - 5.7 mg/dL 01/17/2018 10:39 AM T [facility] [employer] [facility] Blood Venipuncture / Unknown 01/17/2018 6:43 AM CDT 01/17/2018 9:15 AM CDT Charlie Norton MD CHEMISTRY ORDERABLES Final R esult Performing Organization Address City/[facility]/ZIP Co de Phone Number [facility] CLIA# [id number] [address] [place] [address] * (ABNORMAL) COMPREHENSIVE METABOLIC PANEL (01/17/2018 6:43 AM CDT) SODIUM 140 136 - 145 mmol/L 01/17/2018 10:51 AM CDT [facility] [employer] [facility] POTASSIUM 4.3 3.5 - 5.0 mmol/L 01/17/2018 10:51 AM CDT [facility] CHLORIDE 104 98 - 107 mmol/L 01/17/2018 10:51 AM T [employer] [facility] CO2 23 22 - 29 mmol/L 01/17/2018 10:51 AM [facility] [employer] [facility] CALCIUM 8.1(L) 8.6 - 10.2 mg/dL 01/17/2018 10:51 AM [facility] [employer] [facility] BUN 23 8 - 23 mg/dL 01/17/2018 10:51 AM [facility] [employer] [facility] CREATININE 1.60(H) 0.51 - 0.95 mg/dL 01/17/2018 10:51 AM [facility] [employer] [facility] Comment: The GFR result is not clinically significant on patients <18 or >70 years of age. GLUCOSE 65(L) 74 - 99 mg/dL 01/17/2018 10:51 AM [email or web address] [facility] TOTAL PROTEIN 6.1(L) 6.7 - 8.6 g/dL 01/17/2018 10:51 AM [email or web address] [facility] ALBUMIN 2.5(L) 3.5 - 5.2 g/dL 01/17/2018 10:51 AM [email or web address] [facility] BILIRUBIN TOTAL 0.2 0.2 - 1.1 mg/dL 01/17/2018 10:51 AM [email or web address] [facility] ALKALINE PHOSPHATASE 99 35 - 104 U/L 01/17/2018 10:51 AM [email or web address] [facility] AST 16 <33 U/L 01/17/2018 10:51 AM [email or web address] [facility] ALT <5 <34 U/L 01/17/2018 10:51 AM [email or web address] [facility] GFR 31 mL/min/1.7 3 sq meter 01/17/2018 10:51 AM [employer] [facility] Comment: eGFR has not been validated [...] please refer to the GFR result. GFR, 38 mL/min/1.7 3 sq meter 01/17/2018 10:51 AM CDT [facility] LABORATORY [facility] ANION GAP 13 8 - 16 mmol/L 01/17/2018 10:51 AM CDT [facility] LABORATORY [facility] Blood Venipuncture / Unknown 01/17/2018 6:43 AM CDT 01/17/2018 9:15 AM CDT Narrative [facility] LABORATORY [facility] - 01/17/2018 10:51 AM CDT Samples containing indocyanine green cause interferences on Total and/or Direct Bilirubin and must not be measured. us Charlie Norton MD CHEMISTRY ORDERABLES Final R esult [facility] LABORATORY [facility]# [id number] [address] [place] [address] documented in this encounter Visit Diagnoses Diagnosis Heart failure (CMS/[facility]) Heart failure, unspecified Vitamin D deficiency Unspecified vitamin D deficiency MCC current use of 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 Encounter for long-term (current) use of 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s documented in this encounter Additional Health Concerns Infection Onset Date Last Indicated Resolved Time C Diff 02/04/2018 02/04/2018 11/09/2022 1:00 AM CDT documented as of this encounter
--- OUTSIDE RECORDS SUMMARY | 2024-08-09 13:35 | XMS_ITS | Encounter Summary ---
Author Organization [facility] Address [address] [place] [address] Care Team Providers Care Seat Builder Name Role Phone Unavailable Primary Care Provider Unavailabl e Encounter Details Date Type Department Care Team (Late st Contact Info) Description 01/25/2018 Lab Requisition [facility] Laboratory Services S [facility] [address] [place] [address] Charlie Norton MD [address] [place] [address] Acute pulmonary edema (CMS/HCC) Social History Tobacco Use Types Packs/Day Years Used Date Smoking Tobacco: Never Assessed Comments Unknown Sex and Gender Information Value Date Recorded Sex Assigned at Not on file Legal Sex Female 3:41 PM CDT Gender Identity Not on file Sexual Orientation Not on file documented as of this encounter Plan of Treatment Not on file documented as of this encounter Visit Diagnoses Diagnosis Acute pulmonary edema (CMS/HCC) Acute edema of lung, unspecified documented in this encounter Additional Health Concerns Infection Onset Date Last Indicated Resolved Time C Diff 02/04/2018 02/04/2018 11/09/2022 1:00 AM CDT documented as of this encounter
--- OUTSIDE RECORDS SUMMARY | 2024-08-09 13:35 | XMS_ITS | Referral Summary ---
Author Organization [facility] Address [address] [facility] [address] [facility] [place] [address] Care Team Providers Care Crop Supervisor Name Role Phone Asa Dale MD Unavailable [phone] Charlie Norton MD Primary Care Provider [phone] Source Comments [facility],non-owned Affiliates and Associated Physician Practices is amultiple site organization consisting of ambulatory clinics and hospital sitesin [place], [place], [place] and [place]. This disclosure is being madepursuant to the Care Everywhere program and may not contain all information available regarding this patient. 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 Patient says she tolerates lidocaine and carbocaine, says the allergy is to novacaine and the reaction was when she was about age 14 Patient says she tolerates lidocaine and carbocaine, says the allergy is to novacaine and the reaction was when she was about age 14 Lisinopril Cough,Other Low 01/14/2016 Losartan Other 01/14/2016 shakiness Metoclopramide Other,Unknown Low 12/06/2017 Facial tics, Facial tics, Facial tics, Facial tics, shakiness Procaine Other,Unknown 07/15/2022 Rosiglitazone Unknown 01/30/2019 Says she recognizes the name Avandia and remembers taking it in the past, does not remember a reaction to it Says she recognizes the name Avandia and remembers taking it in the past, does not remember a reaction to it Medications * Be aware that medications may not be up to date on this document. Alwaysverify current medications with the patient. Medication Sig Dispensed Refills Start Date End Date Status albuterol HFA (Proventil; Ventolin; Proair) 108 (90 Base) MCG/ACT inhaler Inhale 2 (two) puffs by mouth every 4 hours as needed 06/30/2021 Active allopurinol (Zyloprim) 100 MG tablet Take 1 (one) tablet by mouth as needed 05/21/2021 Active amiodarone (Cordarone) 200 MG tablet Take 0.5 (one-half) tablet by mouth once daily 05/25/2022 Active apixaban (Eliquis) 2.5 MG tablet Take 1 (one) tablet by mouth 2 times daily 02/17/2022 Active calcitriol (Rocaltrol) 0.25 MCG capsule TAKE 1 CAPSULE BY MOUTH 3 TIMES PER WEEK 05/23/2021 Active cyanocobalamin (Vitamin B-12) injection Inject 1,000 (one thousand) mcg subcutaneously 08/20/2022 Active Voltaren 1 % gel APPLY 1 GRAM TO THE AFFECTED AREA EVERY DAY 12/07/2021 Active ergocalciferol (Drisdol) 1.25 MG (86272 UT) capsule Take by mouth every Monday, Monday & Monday02/04/2022 Active fexofenadine (Myriam) 180 MG tablet Take 1 (one) tablet by mouth once daily 12/09/2021 Active fluticasone propionate (Flonase) 50 MCG/ACT nasal spray as needed 07/01/2022 Active Fluticasone-Umecli din-Vilant (Trelegy Ellipta) 100-62.5-25 MCG/ACT Inhale 1 (one) puff by mouth once daily 11/19/2021 Active folic acid (Folvite) 1 MG tablet Take 1 (one) tablet by mouth once daily 09/18/2022 Active furosemide (Lasix) 40 MG tablet Take 1 (one) tablet by mouth once daily 10/06/2021 Active insulin glargine (Lantus/Semglee) 100 units/ml injection Inject 20 (twenty) Units subcutaneously at bedtime Active metoprolol succinate XL 24hr (Toprol XL) 25 MG tablet Take 1 (one) tablet by mouth once daily 02/17/2022 Active Myrbetriq 50 MG tablet Take 1 (one) tablet by mouth once daily 09/08/2022 Active oxyCODONE-acetamin ophen (Percocet) 5-325 MG tablet every 8 hours as needed 08/02/2021 Active pantoprazole EC (Protonix) 40 MG tablet Take 1 (one) tablet by mouth once daily 05/25/2022 Active potassium chloride ER (Micro-K) 10 MEQ capsule Take 1 (one) capsule by mouth 2 times daily Active Syringe/Needle, Disp, (SYRINGE 3CC/25GX5/8 ) 25G X 5/8 3 ML MISC Use 12 syringes SEE ADMIN INSTRUCTIONS 07/21/2022 Active Forteo 600 MCG/2.4ML injection Inject 20 (twenty) mcg subcutaneously at bedtime 08/31/2022 Active Kincaid Thyroid 180 MG tablet Take 1 (one) tablet by mouth once daily 06/28/2022 Active zolpidem CR (Ambien Cr) 6.25 MG tablet Take 1 (one) tablet by mouth at bedtime 08/02/2022 Active dapagliflozin propanediol (Farxiga) 10 MG tablet Take 1 (one) tablet by mouth every morning 90 tablet 3 10/26/2023 Active Active Problems Problem Noted Date Diagnosed Date Mitral regurgitation 09/24/2022 A-fib 09/24/2022 CVA (cerebral vascular accident) 09/24/2022 Dyslipidemia 09/24/2022 Diabetes mellitus 09/24/2022 Hypertension 09/24/2022 HFrEF (heart failure with reduced ejection fract ion) 09/24/2022 Nonischemic cardiomyopathy 09/24/2022 Resolved Problems Problem Noted Date Diagnosed Date Resolved Date (HFpEF) heart failure with p reserved ejection fraction 09/24/2022 09/24/2022 Immunizations Name Administration Dates Next Due INFLUENZA VACCINE, TRIV. (AF LURIA, FLUZONE TRIVALENT; 6MO+) (IIV3) 04/30/2018,03/28/2016,03/26/2015,2013,04/12/2011 Covid [employer] primary monoval ent 12+ yr 0.3mL Purple cap 04/07/2022,10/27/2021,08/13/2020,2020 FLU VACCINE TRI IIV3 SPLIT P F IM (FLUVIRIN) 04/12/2017,02/24/2015 HEP A VACCINE, ADULT 11/22/2011,12/07/2004 INFLUENZA VACCINE 03/26/2020 INFLUENZA VACCINE, QUADR. (A FLURIA, FLUZONE QUADRIVALENT; 6MO+) (IIV4) 03/19/2010,04/20/2009,06/10/2008,2006,05/16/2005,06/08/2004 INFLUENZA VACCINE, QUADR. (F LUZONE; FLULAVAL; FLUARIX; AFLURIA QUADRIVALENT; 6MO+), 0.5 ML (IIV4) 04/08/2016 PNEUMOCOCCAL PPSV23 11/02/1999 Pneumococcal Pcv13 Conj 02/24/2015,07/24/2014 TDAP (7yrs+) 11/22/2011 TYPHOID VACCINE H-P 12/07/2004 Td (Adult), 2 Lf Tetanus Tox oid, Adsorbed, Pf 05/07/2002 ZOSTER VACCINE, LIVE 01/20/2009 Social History Tobacco Use Types Packs/Day Years [...] Mass Index 24.61 10/20/2023 1:00 PM CDT Functional Status Functional Status Response Date of Assess ment Is person deaf or have serious hearing difficult y? No 2022 Is person blind or have serious difficulty seein g? No 2022 Does person have serious dif ficulty walking/climbing stairs? Yes 2022 Does person have difficulty dressing/bathing? Ye s 2022 Does person have difficulty doing errands alone? Yes 2022 Cognitive Status Response Date of Assessm ent Does person have difficulty concentrating/remembering/making decisions? No 2022 Plan of Treatment Not on file Administered Medications Care Teams Crop Supervisor Relationship Specialty Start Date End Date Charlie Norton MD [address] [place] [address] PCP - General 09/23/22 Asa Dale MD [address] [address] Cardiology 09/14/22
--- OUTSIDE RECORDS SUMMARY | 2024-08-09 13:35 | XMS_ITS | Encounter Summary ---
Author Organization [employer] Address [address] [place] [address] Care Team Providers Care Company Truck Driver Name Role Phone Unavailable Primary Care Provider Unavailabl e Encounter Details Date Type Department Care Team (Late st Contact Info) Description 01/30/2018 Lab Requisition [facility] Laboratory Services S [facility] [address] [place] [address] Charlie Norton MD [address] [place] [address] Anemia Social History Tobacco Use Types Packs/Day Years [...] Associated Diagnosis Comments CBC WITH DIFFERENTIAL Routine 01/30/2018 4:21 AM CDT Anemia documented in this encounter Results * (ABNORMAL) CBC WITH DIFFERENTIAL (01/30/2018 4:21 AM CDT) WBC 8.2 4.0 - 9.8 K/uL 01/30/2018 8:19 AM CDT [facility] LABOR[facility] SERVICES [facility] RBC 3.06(L) 3.90 - 4.90 M/uL 01/30/2018 8:19 AM CDT [facility] LABORATORY [facility] HEMOGLOBIN 8.7(L) 11.8 - 14.8 g/dL 01/30/2018 8:19 AM CDT [facility] HEMATOCRIT 28.4(L) 35.5 - 44.0 % 01/30/2018 8:19 AM CDT [facility] MCV 92.8 82.0 - 99.0 fL 01/30/2018 8:19 AM CDT [facility] MCH 28.4 27.2 - 32.6 pg 01/30/2018 8:19 AM CDT [facility] MCHC 30.6(L) 31.5 - 35.5 g/dL 01/30/2018 8:19 AM CDT [facility] RDW 14.9(H) 11.5 - 14.5 % 01/30/2018 8:19 AM CDT [facility] RDW-STDEV 50.2(H) 37.1 - 48.7 fL 01/30/2018 8:19 AM [facility] - [facility] [place] PLATELETS 190 140 - 350 K/uL 01/30/2018 8:19 AM [facility] [place] MPV 9.8 9.3 - 12.4 fL 01/30/2018 8:19 AM [facility] NEUTROPHILS 65 % 01/30/2018 8:19 AM CDT [facility] LYMPHOCYTES 21 % 01/30/2018 8:19 AM [facility] MONOCYTES 10 % 01/30/2018 8:19 AM [facility] EOSINOPHILS 2 % 01/30/2018 8:19 AM CDT [facility] BASOPHILS 0 % 01/30/2018 8:19 AM CDT [facility] IMMATURE GRANULOCYTES 2 % 01/30/2018 8:19 AM [facility] Comment:IG (Immature Granulo cyte) count includes Metamyelocytes, Myelocytes, and Promyelocytes NEUTROPHIL ABSOLUTE 5.35 1.90 - 7.00 K/uL 01/30/2018 8:19 AM CDT [facility] LYMPHOCYTE ABSOLUTE 1.68 0.70 - 4.50 K/uL 01/30/2018 8:19 AM CDT [facility] MONOCYTE ABSOLUTE 0.79 0.10 - 1.30 K/uL 01/30/2018 8:19 AM CDT [facility] EOSINOPHIL ABSOLUTE 0.19 0.00 - 0.70 K/uL 01/30/2018 8:19 AM CDT [facility] BASOPHILS ABSOLUTE 0.01 0.00 - 0.20 K/uL 01/30/2018 8:19 AM CDT [facility] IMMATURE GRANULOCYTES ABSOLUTE 0.18(H) 0.00 - 0.03 K/uL 01/30/2018 8:19 AM CDT [facility] - [facility] Blood Venipuncture / Unknown 01/30/2018 4:21 AM CDT 01/30/2018 7:29 AM CDT us Charlie Norton MD HEMATOLOGY ORDERABLES Final Result [facility] - [facility]# [id number] [address] [place] [address] documented in this encounter Visit Diagnoses Diagnosis Anemia Anemia, unspecified documented in this encounter Additional Health Concerns Infection Onset Date Last Indicated Resolved Time C Diff 02/04/2018 02/04/2018 11/09/2022 1:00 AM CDT documented as of this encounter
--- OUTSIDE RECORDS SUMMARY | 2024-08-09 13:35 | XMS_ITS | Encounter Summary ---
Author Organization [email or web address] [facility] Address [address] [place] [address] Care Team Providers Care Supply Planner Name Role Phone Unavailable Primary Care Provider Unavailabl e Encounter Details Date Type Department Care Team (Late st Contact Info) Description 01/24/2018 Lab Requisition [facility] Laboratory Services S [facility] [address] [place] [address] Charlie Norton MD [address] [place] [address] Encounter for general adult medical examination without [...] as of this encounter Visit Diagnoses Diagnosis Encounter for general adult medical examination without abnormal findings Routine general medical examination at a health care facility documented in this encounter Additional Health Concerns Infection Onset Date Last Indicated Resolved Time C Diff 02/04/2018 02/04/2018 11/09/2022 1:00 AM CDT documented as of this encounter
--- OUTSIDE RECORDS SUMMARY | 2024-08-09 13:35 | XMS_ITS | Encounter Summary ---
Author Organization [employer] Address [address] [place] [address] Care Team Providers Care Behavioral Instructor Name Role Phone Unavailable Primary Care Provider Unavailabl e Encounter Details Date Type Department Care Team (Late st Contact Info) Description 02/01/2018 Lab Requisition [facility] [employer] [facility] S [facility] [address] [place] [address] Charlie Norton MD [address] [place] [address] Diarrhea Social History Tobacco Use Types Packs/Day Years [...] Procedure Name Priority Date/Time Associated Diagnosis Comments C. DIFFICILE DETECTION Routine 02/04/2018 12:00 PM CDT Diarrhea documented in this encounter Results * (ABNORMAL) C. DIFFICILE DETECTION (02/04/2018 12:00 PM CDT) TOXIGENIC C DIFFICILE Detected( A) Not Detected 02/04/2018 3:09 PM CDT [facility] [employer] [facility] Stool STOOL SPECIMEN / Unknown Collection / Unknown 02/04/2018 12:00 PM CDT 02/04/2018 1:58 PM CDT Narrative [facility] [employer] [facility] - 02/04/2018 3:09 PM CDT This assay is used to detect Toxigenic C. difficile target(B gene) DNA sequences in unformed stool specimens. If toxigenic C. difficile is not detected, but clinical suspicion is high please consult ID for consultation and potential repeat testing. This test should not be used as a test of cure. us Charlie Norton MD MICROBIOLOGY - GENERAL ORDER SHAWNA Final Result Performing Organization Address City/State/RUST Co de Phone Number [facility] LABORATORY SERVICES [facility]# [id number] [address] [place] [address] documented in this encounter Visit Diagnoses Diagnosis Diarrhea documented in this encounter Additional Health Concerns Infection Onset Date Last Indicated Resolved Time C Diff 02/04/2018 02/04/2018 11/09/2022 1:00 AM CDT documented as of this encounter
--- OUTSIDE RECORDS SUMMARY | 2024-08-09 13:35 | XMS_ITS | Encounter Summary ---
Author Organization [employer] [facility] Address [address] [place] [address] Care Team Providers Care Scientific Software Developer Name Role Phone Unavailable Primary Care Provider Unavailabl e Encounter Details Date Type Department Care Team (Late st Contact Info) Description 01/31/2018 Lab Requisition [facility] Laboratory Services S [facility] [address] [address] [place] [address] Charlie Norton MD [address] [place] [address] Magnesium deficiency; Heart failure (CMS/HCC); snf current use of 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 Social History Tobacco [...] Associated Diagnosis Comments CBC WITH DIFFERENTIAL Routine 01/31/2018 4:17 AM CDT 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 Magnesium deficiency BRAIN NATRIURETIC PEPTIDE, BNP OR PROBNP Routine 01/31/2018 4:17 AM CDT Heart failure snf current use of 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 Magnesium deficiency MAGNESIUM LEVEL Routine 01/31/2018 4:17 AM CDT 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 Magnesium deficiency COMPREHENSIVE METABOLIC PANEL Routine 01/31/2018 4:17 AM CDT Heart failure snf current use of 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 Magnesium deficiency documented in this encounter Results * MAGNESIUM LEVEL (01/31/2018 4:17 AM CDT) MAGNESIUM 1.7 1.6 - 2.4 mg/dL 01/31/2018 9:14 AM CDT [facility] [employer] [facility] Blood Venipuncture / Unknown 01/31/2018 4:17 AM CDT 01/31/2018 8:17 AM CDT Charlie Norton MD CHEMISTRY ORDERABLES Final R esult [facility] [employer] [facility] CLIA# [id number] [address] [place] [address] * (ABNORMAL) BRAIN NATRIURETIC PEPTIDE, BNP OR PROBNP (01/31/2018 4:17 AM CDT) PROBNP, N TERMINAL 8,787(H) <449 pg/mL 01/31/2018 9:14 AM CDT [facility] [employer] [facility] Comment: Reference values for screening purposes based on research professor of biostatistics's recommendation: Patients less than 75 years: <125 [...] predictive value= 99%) Blood Venipuncture / Unknown 01/31/2018 4:17 AM CDT 01/31/2018 8:17 AM CDT Charlie Norton MD CHEMISTRY ORDERABLES Final R esult [facility] [employer] [facility] CLIA# [id number] [address] [address] * (ABNORMAL) COMPREHENSIVE METABOLIC PANEL (01/31/2018 4:17 AM CDT) [facility] SODIUM 139 136 - 145 mmol/L 01/31/2018 9:26 AM T [employer] [facility]ATORY SERVICES - [facility] POTASSIUM 3.8 3.5 - 5.0 mmol/L 01/31/2018 9:26 AM T [employer] [facility] CHLORIDE 101 98 - 107 mmol/L 01/31/2018 9:26 AM T [employer] [facility] CO2 27 22 - 29 mmol/L 01/31/2018 9:26 AM T [employer] [facility]ATORY SERVICES - . [facility] CALCIUM 7.5(L) 8.6 - 10.2 mg/dL 01/31/2018 9:26 AM T [employer] [facility]OR[facility]ORY SERVICES - . [facility] BUN 15 8 - 23 mg/dL 01/31/2018 9:26 AM [employer] LABORATORY SERVICES - . [facility] CREATININE 1.48(H) 0.51 - 0.95 mg/dL 01/31/2018 9:26 AM [facility] [employer] [facility] - [facility] Comment: The GFR result is not clinically significant on patients <18 or >70 years of age. GLUCOSE 130(H) 74 - 99 mg/dL 01/31/2018 9:26 AM T [employer] LABORATORY SERVICES [facility] TOTAL PROTEIN 5.3(L) 6.7 - 8.6 g/dL 01/31/2018 9:26 AM [employer] LABORATORY SERVICES - . [facility] ALBUMIN 2.1(L) 3.5 - 5.2 g/dL 01/31/2018 9:26 AM [employer] [facility]ATORY SERVICES - [facility] BILIRUBIN TOTAL 0.3 0.2 - 1.1 mg/dL 01/31/2018 9:26 AM [employer] [facility] SERVICES - . [facility] ALKALINE PHOSPHATASE 67 35 - 104 U/L 01/31/2018 9:26 AM [employer] LABORATORY SERVICES - . [facility] AST 11 <33 U/L 01/31/2018 9:26 AM [employer] LABORATORY SERVICES - . [facility] ALT <5 <34 U/L 01/31/2018 9:26 AM [employer] LABORATORY SERVICES - . [facility] GFR 34 mL/min/1.7 3 sq meter 01/31/2018 9:26 AM T [facility] [employer] [facility] Comment: eGFR has not been validated [...] please refer to the GFR result. GFR, 41 mL/min/1.7 3 sq meter 01/31/2018 9:26 AM T [facility] [employer] [facility] ANION GAP 11 8 - 16 mmol/L 01/31/2018 9:26 AM [facility] [employer] [facility] Blood Venipuncture / Unknown 01/31/2018 4:17 AM CDT 01/31/2018 8:17 AM CDT Narrative [facility] [employer] [facility] - 01/31/2018 9:26 AM CDT Samples containing indocyanine green cause interferences on Total and/or Direct Bilirubin and must not be measured. Charlie Norton MD CHEMISTRY ORDERABLES Final R esult [facility] [employer] [facility]# [id number] [address] [facility] [place] [address] * (ABNORMAL) CBC WITH DIFFERENTIAL (01/31/2018 4:17 AM CDT) [facility] WBC 8.6 4.0 - 9.8 K/uL 01/31/2018 8:55 AM T [facility] [employer] [facility] RBC 2.96(L) 3.90 - 4.90 M/uL 01/31/2018 8:55 AM T [facility] [employer] [facility] HEMOGLOBIN 8.6(L) 11.8 - 14.8 g/dL 01/31/2018 8:55 AM T [facility] HEMATOCRIT 27.6(L) 35.5 - 44.0 % 01/31/2018 8:55 AM CDT [employer] [facility] MCV 93.2 82.0 - 99.0 fL 01/31/2018 8:55 AM CDT [employer] [facility] MCH 29.1 27.2 - 32.6 pg 01/31/2018 8:55 AM CDT [employer] [facility] - [facility] MCHC 31.2(L) 31.5 - 35.5 g/dL 01/31/2018 8:55 AM CDT [employer] [facility] RDW 15.2(H) 11.5 - 14.5 % 01/31/2018 8:55 AM CDT [employer] [facility] - . [facility] RDW-STDEV 50.0(H) 37.1 - 48.7 fL 01/31/2018 8:55 AM CDT [employer] [facility] SERVICES - . [facility] PLATELETS 193 140 - 350 K/uL 01/31/2018 8:55 AM CDT [employer] [facility] - . [facility] MPV 9.9 9.3 - 12.4 fL 01/31/2018 8:55 AM CDT [employer] [facility] NEUTROPHILS 73 % 01/31/2018 8:55 AM CDT [employer] [facility] LYMPHOCYTES 16 % 01/31/2018 8:55 AM CDT [facility] MONOCYTES 8 % 01/31/2018 8:55 AM CDT [facility] EOSINOPHILS 3 % 01/31/2018 8:55 AM CDT [employer] BASOPHILS 0 % 01/31/2018 8:55 AM CDT [employer] [facility] IMMATURE GRANULOCYTES 2 % 01/31/2018 8:55 AM CDT [employer] [facility] Comment:IG (Immature Granulo cyte) count includes Metamyelocytes, Myelocytes, and Promyelocytes NEUTROPHIL ABSOLUTE 6.23 1.90 - 7.00 K/uL 01/31/2018 8:55 AM CDT [employer] [facility] LYMPHOCYTE ABSOLUTE 1.34 0.70 - 4.50 K/uL 01/31/2018 8:55 AM CDT [employer] [facility] MONOCYTE ABSOLUTE 0.65 0.10 - 1.30 K/uL 01/31/2018 8:55 AM CDT [facility] - [facility] [place] EOSINOPHIL ABSOLUTE 0.22 0.00 - 0.70 K/uL 01/31/2018 8:55 AM CDT [facility] BASOPHILS ABSOLUTE 0.01 0.00 - 0.20 K/uL 01/31/2018 8:55 AM CDT [facility] - . [facility] IMMATURE GRANULOCYTES ABSOLUTE 0.14(H) 0.00 - 0.03 K/uL 01/31/2018 8:55 AM CDT [facility] - . [facility] Blood Venipuncture / Unknown 01/31/2018 4:17 AM CDT 01/31/2018 8:11 AM CDT Charlie Norton MD HEMATOLOGY ORDERABLES Final Result [facility] - [facility]# [id number] [address] [place] [address] documented in this encounter Visit Diagnoses Diagnosis Magnesium deficiency Disorders of magnesium metabolism Heart failure (CMS/[facility]) Heart failure, unspecified snf current use of 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 Encounter for long-term (current) use of 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s documented in this encounter Additional Health Concerns Infection Onset Date Last Indicated Resolved Time C Diff 02/04/2018 02/04/2018 11/09/2022 1:00 AM CDT documented as of this encounter
--- OUTSIDE RECORDS SUMMARY | 2024-08-09 13:35 | XMS_ITS | Clinical Summary ---
Author Organization [facility] [employer] Address [address] [place] [place] [address] Care Team Providers Care Special Education Paraeducator Name Role Phone Asa Dale MD Unavailable [phone] Charlie Norton MD Primary Care Provider [phone] Source Comments [facility],non-owned Affiliates and Associated Physician Practices is amultiple site organization consisting of ambulatory clinics and hospital sitesin [place], [place], [place] and [place]. This disclosure is being madepursuant to the Care Everywhere program and may not contain all information available regarding this patient. Last updated 18.[facility] [employer] Allergies Active Allergy Reactions Criticality Noted Date Comments Chlorhexidine Itching,Unknown 01/30/2019 Per patient and per pulmonology notes 02/16/22 in care everywhere Per patient and per pulmonology notes 02/16/22 in care everywhere Merrick Tar Extract Unknown 02/17/2022 Fosinopril Unknown 07/15/2022 [...] DAY 12/07/2021 Active ergocalciferol (Drisdol) 1.25 MG (05524 UT) capsule Take by mouth every Monday, [...] (twenty) mcg subcutaneously at bedtime 08/31/2022 Active [place] Thyroid 180 MG tablet Take 1 (one) [...] LURIA, FLUZONE TRIVALENT; 6MO+) (IIV3) 04/30/2018,03/28/2016,03/26/2015,2013,04/12/2011 Covid adhoclabs primary monoval ent 12+ yr 0.3mL Purple [...] Mass Index 24.61 10/20/2023 1:00 PM CDT Plan of Treatment Health Maintenance Due Date Last Done Comments MEDICARE AWV 12 MONTHS 1937 ZOSTER VACCINE (2 of 3) 03/17/2009 01/20/2009 Respiratory Syncytial Virus (RSV) Vaccine Pt: or over 60 yrs (1 - 1-dose 75+ series) 2012 PNEUMOCOCCAL VACCINE 50+ (3 of 3 - PCV20 or PCV21) 02/25/2020 02/24/2015, 07/24/2014, 11/02/1999 DTAP/TDAP/TD VACCINES (2 - Td or Tdap) 11/21/2021 11/22/2011, 05/07/2002 DIABETES RETINOPATHY SCREENING 09/24/2022 DIABETES-FOOT EXAM WITH MONOFILAMENT 09/24/2022 DIABETES-HGB A1C 01/26/2024 07/28/2023, 08/2021, 01/30/2022, Additional history exists COVID-19 VACCINE ( season) 2024 04/07/2022, 10/27/2021, 08/13/2020, Additional history exists INFLUENZA VACCINE (#1) 2024 , 04/30/2018, 04/12/2017, Additional history exists DEPRESSION SCREENING 06/26/2024 BONE DENSITY TESTING Completed 10/10/2023, 03/14/2019, 06/10/2016 HEPATITIS B VACCINE Aged Out No longe r eligible based on patient's age to complete this topic HIB VACCINE Aged Out No longer eligi ble based on patient's age to complete this topic HPV VACCINE Aged Out No longer eligi ble based on patient's age to complete this topic MENINGOCOCCAL (Group B) VACCINE Aged Out No longer eligible based on patient's age to complete this topic MENINGOCOCCAL VACCINE Aged Out No maia oleg eligible based on patient's age to complete this topic Care Teams Special Education Paraeducator Relationship Specialty Start Date End Date Charlie Norton MD [address] [place] [address] PCP - General 09/23/22 Asa Dale MD [facility] [address] [place] [address] Cardiology 09/14/22
--- OUTSIDE RECORDS SUMMARY | 2024-08-09 13:35 | XMS_ITS | Encounter Summary ---
Author Organization [employer] Address [address] [place] [address] Care Team Providers Care Hydrogenation Still Operator Name Role Phone Unavailable Primary Care Provider Unavailabl e Encounter Details Date Type Department Care Team (Late st Contact Info) Description 01/19/[address] 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 Consistent w Count 01/19/2018 10:10 AM CDT [facility] ANISOCYTOSIS 1+ /hpf 01/19/2018 10:10 AM CDT [facility] HYPOCHROMIA 1+ /hpf 01/19/2018 10:10 AM T [facility] CLUMPED PLATELETS Present 01/19/2018 10:10 AM [facility] Comment:Platelet clumps are present on smear review. Platelet count may be higher than indicated. Blood Venipuncture / Unknown 01/19/2018 6:00 AM CDT 01/19/2018 8:30 AM CDT Charlie Norton MD HEMATOLOGY ORDERABLES COM Fi nal Result [facility] [employer] [facility] CLIA# [id number] [address] [place] [address] * (ABNORMAL) CBC WITH DIFFERENTIAL (01/19/2018 6:00 AM CDT) WBC 7.8 4.0 - 9.8 K/uL 01/19/2018 9:27 AM [facility] RBC 2.46(L) 3.90 - 4.90 M/uL 01/19/2018 9:27 AM [facility] HEMOGLOBIN 7.1(L) 11.8 - 14.8 g/dL 01/19/2018 9:27 AM [facility] HEMATOCRIT 23.4(L) 35.5 - 44.0 % 01/19/2018 9:27 AM [facility] MCV 95.1 82.0 - 99.0 fL 01/19/2018 9:27 AM [facility] MCH 28.9 27.2 - 32.6 pg 01/19/2018 9:27 AM [facility] MCHC 30.3(L) 31.5 - 35.5 g/dL 01/19/2018 9:27 AM [facility] RDW 14.8(H) 11.5 - 14.5 % 01/19/2018 9:27 AM [facility] RDW-STDEV 50.6(H) 37.1 - 48.7 fL 01/19/2018 9:27 AM [facility] - [facility] PLATELETS 316 140 - 350 K/uL 01/19/2018 9:27 AM [facility] MPV 9.7 9.3 - 12.4 fL 01/19/2018 9:27 AM [facility] NEUTROPHILS 61 % 01/19/2018 9:27 AM [facility] LYMPHOCYTES 28 % 01/19/2018 9:27 AM [facility] MONOCYTES 8 % 01/19/2018 9:27 AM [facility] EOSINOPHILS 2 % 01/19/2018 9:27 AM [facility] BASOPHILS 1 % 01/19/2018 9:27 AM [facility] IMMATURE GRANULOCYTES 1 % 01/19/2018 9:27 AM [facility] Comment:IG (Immature Granulo cyte) count includes Metamyelocytes, Myelocytes, and Promyelocytes NEUTROPHIL ABSOLUTE 4.74 1.90 - 7.00 K/uL 01/19/2018 9:27 AM [facility] LYMPHOCYTE ABSOLUTE 2.20 0.70 - 4.50 K/uL 01/19/2018 9:27 AM [facility] MONOCYTE ABSOLUTE 0.60 0.10 - 1.30 K/uL 01/19/2018 9:27 AM [facility] EOSINOPHIL ABSOLUTE 0.16 0.00 - 0.70 K/uL 01/19/2018 9:27 AM [facility] BASOPHILS ABSOLUTE 0.05 0.00 - 0.20 K/uL 01/19/2018 9:27 AM [facility] - . [facility] IMMATURE GRANULOCYTES ABSOLUTE 0.04(H) 0.00 - 0.03 K/uL 01/19/2018 9:27 AM [facility] [employer] SERVICES - 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
--- OUTSIDE RECORDS SUMMARY | 2024-08-09 13:35 | XMS_ITS | Encounter Summary ---
Author Organization [facility] Address [address] [place] [address] Care Team Providers Care Vineyard Supervisor Name Role Phone Patricia Mckeon MD Unavailable [phone] Tamar Novoa MD Unavailable Stephen Thapa MD Primary Care Provider Unav Gracie Hampton DO Primary Care Provider Lamin Wisdom DO Primary Care Provider [phone] Charlie Norton MD Unavailable [phone] Isael Harmon MD Unavailable [phone] Aakash Rayo MD Primary Care Provi carline Encounter Details Date Type Department Care Team (Late st Contact Info) Description 06/24/2019 [employer] Message Enc [facility] DEPARTMENT [address] [place] [address] [facility], [facility] Provider surgical clearance Social History Tobacco Use Types Packs/Day Years [...] Sex Assigned at Female 08/01/2024 12:47 PM WIRE SPRING RELAY ADJUSTER Legal Sex Female 10:09 PM CDT Gender Identity Not on file Sexual Orientation Not on file 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 Medical Group Pul[facility] [address] [place] [address] Kaleb Bean MD [address] [facility] [address] [place] [address] 09/11/2024 1:00 PM CDT Appointment [facility] [place] [address] Patricia Mckeon MD [facility]. [address] [place] [address] 02/05/2025 2:00 PM CDT Office Visit [facility] [address] [place] [address] Saadia Walker APRN Three [facility]. [address] [place], [place] [address] documented as of this encounter Visit Diagnoses Not on filedocumented in this encounter Additional Health Concerns Infection Onset Date Last Indicated Resolved Time C. difficile 02/01/2017 02/01/2017 05/03/2022 11:5 1 AM WIRE SPRING RELAY ADJUSTER MRSA Comment:05/02/22 +MRSA Nasal 05/19/24 +MRSA Left arm 05/03/2022 05/19/2024 COVID-19 Rule Out 02/19/2024 02/19/2024 02/19/2024 9:56 PM CDT documented as of this encounter Care Teams Vineyard Supervisor Relationship Specialty Start Date End Date Stephen Thapa MD [facility]. [facility] [address] [place] [address] PCP - General NEPHROLOGY 04/26/19 08/28/19 Gracie Vargas DO [address] [place] [address] PCP - General INTERNAL MEDICINE 08/29/19 03/25/22 Lamin Wisdom DO [address] [place], [place] [address] PCP - General INTERNAL MEDICINE 03/26/22 07/31/24 Aakash Rayo MD [address] [facility] [place] [address] PCP - General HOSPITALIST 08/01/24 Patricia Mckeon MD [facility]. [facility] [address] [place], [place] [address] [place] [employer] CARDIOVASCULAR DISEASE 11/25/15 Tamar Novoa MD [facility]. [facility] [address] [place], [place] [address] EP Shoe Cleaner CLINICAL CARDIAC ELECTROPHYSIOLOGY 12/18/17 Charlie Norton MD [address] [place], [place] [id number] FAMILY PRACTICE 05/02/22 Isael Harmon MD [address] [facility] OBGYN GYNECOLOGIC ONCOLOGY, [address] [address] Referring Physician OBGYN 05/02/22 documented as of this encounter
--- NOTE | 2024-08-09 16:55 | P.PCNPFT_ITS ---
PFT Procedure Performed PFT Procedure Performed Plethysmography (Lung Vol) Diffusing Cap (DLCO) Flow Vol Loop Spirometry w/o Bronchodil PFT Interpretation This is a pulmonary function test with spirometry, plethysmography and diffusing capacity. The test was performed and results interpreted in accordance with the 2019 and 2005 ATS/ERS Task Force guidelines respectively using the Global Lung Function Initiative-2012 reference equations. Patient demonstrated good effort and cooperation. Reproducibility criteria were met. The quality of the spirometry maneuver was Grade A. Findings: Spirometry: There is decreased maximal expiratory airflow at low lung volumes with concave expiratory flow tracing. The contour the inspiratory flow tracing is normal. The FVC is 1.78 L, 94% predicted. The FEV1 is 1.19 L, 83% predicted. The FEV1: FVC ratio 67%. Plethysmography: The total lung capacity is 3.38 L, 82% predicted. The functional residual capacity is 1.86 L, 78% predicted. The residual volume is 1.41 L, 68% predicted. Diffusing capacity: The diffusing capacity unadjusted for hemoglobin and carboxyhemoglobin is 6.0, 37% predicted. The diffusing capacity adjusted for alveolar volume is 2.20, 51% predicted. Impression: The spirometry is normal without evidence of an obstructive abno rmality. The lung volumes are normal. The diffusing capacity unadjusted for hemoglobin and carboxyhemoglobin is severely decreased and remains moderately decreased when adjusted for alveolar volume. There are no prior studies for comparison
== END 2024-08-09 13:30 | disposition home or self-care (01) ==
LOC: ANHPFT 13:31
PROVIDERS: PCP Family Medicine
DX: Z79.899 Other long term (current) drug therapy (principal)
CPT/HCPCS: 94375; 94726; 94729

== ENCOUNTER 2024-11-12 10:13 | Outpatient (CLI) | payer MEDICARE, OTHER, SELFPAY ==
--- OUTSIDE RECORDS SUMMARY | 2024-11-12 10:26 | XMS_ITS | Encounter Summary ---
Author Organization [facility] Address [address] [place] [address] Care Team Providers Care Nuclear Scientist Name Role Phone Patricia Mckeon MD Unavailable [phone] Tamar Novoa MD Unavailable Lamin Wisdom DO Primary Care Provider [phone] Chralie Norton MD Unavailable [phone] Isael Harmon MD Unavailable [phone] Aakash Rayo MD Primary Care Provi carline Stanley Jennings MD Unavailable [phone] Encounter Details Date Type Department Care Team (Late st Contact Info) Description 12/21/2022 MyChart Message Enc [facility] [address] [place] [address] [facility] Provider Air Quality Message Social History Tobacco [...] of Binge Drinking Not on file 04/26 PHQ-2 Answer Date Recorded PHQ-2 Score - If the patient scores above 3, please move on to questions 3-9 0 12/10/2020 Comments No Sex and Gender Information Value Date Recorded Sex Assigned at Female 08/01/2024 12:47 PM COCONUT BOILER Legal Sex Female 10:09 PM CDT Gender Identity Not on file Sexual Orientation Not on file 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 Answer Date of Assessment Author Status No 05/04/2022 4:21 PM COCONUT BOILER Activ e * Do you have serious difficulty walking or climbing stairs? Answer Date of Assessment Author Status No 05/04/2022 4:21 PM COCONUT BOILER Lori Clinton RN Active * Do you have difficulty dressing or bathing? Answer Date of Assessment Author Status No 05/04/2022 4:21 PM Lori Gómez RN Active * Because of a physical, mental, or emotional condition, do you have difficulty doing errands alone such as visiting a doctor's office or shopping? Answer Date of Assessment Author Status No 05/04/2022 4:21 PM Lori Gómez RN Active documented as of this encounter Mental Status * Because of a physical, mental, or emotional condition, do you have serious difficulty concentrating, remembering, or making decisions? Answer Entry Date Author Status No 05/04/2022 4:21 PM Lori Gómez RN Active documented in this encounter Plan of Treatment Upcoming Encounters Date Type Department Care Team (Latest Contact Info) Description 11/26/2024 Prep for Procedure [facility] [place] [address] Jeff Preciado MD [facility] [address] [place] [address] 11/26/2024 11:15 AM CDT Hospital Encounter [facility] [place] [address] Jeff Preciado MD [address] [facility] [address] [place] [address] 11/26/2024 11:15 AM CDT Anesthesia [place] [address] Uma Antonio, PULMONARY FUNCTION TECHNICIAN [address] [place] [address] 11/26/2024 11:15 AM CDT - 11/26/2024 12:09 PM CDT Surgery [place] [address] Jeff Preciado MD [address] [facility] [address] [place] [address] CYSTOSCOPY WITH BLADDER BIOPSY AND FULGURATION 01/03/2025 9:40 AM CDT Office Visit [facility] Group [facility] [address] [facility], [address] [place] [address] aKleb Bean MD 3 [facility] [address] [place] [address] 02/05/2025 2:00 PM CDT Office Visit [facility] THREE [facility], [address] [place] [address] Saadia Walker APRN Three [facility]. [address] [place], [place] [address] Scheduled Procedures Name Priority Associated Diagnoses Date/Ti me CYSTOSCOPY BIOPSY BLADDER BLADDER WALL THICKENING N32.89 11/26/2024 11:15 AM CDT documented as of this encounter Goals Goal Patient Goal Type Associated Problems Recent Progress Patient-Stated? Author Health - patient able to perform ADLs independently Lifestyle Orlando Hernandez RN documented as of this encounter Visit Diagnoses Not on filedocumented in this encounter Additional Health Concerns Infection Onset Date Last Indicated Resolved Time MRSA Comment:05/02/22 +MRSA Nasal 05/19/24 +MRSA Left arm 05/03/2022 05/19/2024 COVID-19 Rule Out 02/19/2024 02/19/2024 02/19/2024 9:56 PM CDT Assessment Noted Time PHQ-9 Depression Total Score: 2 12/11/19 21 4:41 PM CDT documented as of this encounter Care Teams Nuclear Scientist Relationship Specialty Start Date End Date Lamin Wisdom DO [address] [place] [address] PCP - General INTERNAL MEDICINE 03/26/22 07/31/24 Aakash Rayo MD [address] [place], [place] [address] PCP - General HOSPITALIST 08/01/24 09/20/24 Patricia Mckeon MD [facility] [address] [place] [address] [place] Director Digital Analytics CARDIOVASCULAR DISEASE 11/25/15 Tamar Novoa MD [address] [place] [address] [place] [address] EP Director Digital Analytics CLINICAL CARDIAC ELECTROPHYSIOLOGY 12/18/17 Charlie Norton MD [address] [place] [address] FAMILY PRACTICE 05/02/22 Isael Harmon MD [address] [address] Referring Physician OBGYN 05/02/22 Stanley Jennings MD [address] [place] [address] HEMATOLOGY/ONCOLOGY 10/29/24 documented as of this encounter
--- OUTSIDE RECORDS SUMMARY | 2024-11-12 10:26 | XMS_ITS | Encounter Summary ---
Author Organization [facility] Address [address] [place] [address] Phone Care Team Providers Care Director Mortgage Name Role Phone Charlie Norton MD Primary Care Provider [phone] Reason for Visit * Reason Comments Med Refill Encounter Details Date Type Department Care Team ([facility] Contact Info) Description 12/26/2021 Refill [facility] [address] [place] [address] Randy Murillo MD [address] [place] [address] Hyperuricemia Social History Tobacco Use Types Packs/Day Years Used Date Smoking Tobacco: Never Smokeless Tobacco: Never Alcohol Use Standard Drinks/Week Comments No 0 (1 standard drink = 0.6 oz pur e alcohol) Comments Unknown Sex and Gender Information Value Date Recorded Sex Assigned at Not on file Legal Sex Female 7:27 AM [facility] Gender Identity Not on file Sexual Orientation Not on file documented as of this encounter Plan of Treatment Upcoming Encounters Date Type Department Care Team (Late Contact Info) Description 03/12/2025 12:40 PM CDT Office Visit [facility] [address] [place] [address] Randy Murillo MD [address] [place] [address] documented as of this encounter Visit Diagnoses Diagnosis Hyperuricemia documented in this encounter Care Teams Director Mortgage Relationship Specialty Start Date End Date Charlie Norton MD [facility] Cari Garcia [address] [place] [phone] PCP - General Internal Medicine 05/30/24 documented as of this encounter
--- OUTSIDE RECORDS SUMMARY | 2024-11-12 10:26 | XMS_ITS | Encounter Summary ---
Author Organization [facility] Address [address] [place] [address] Care Team Providers Care Doughnut Machine Operator Helper Name Role Phone Bala Norman MD Primary Care Provider [phone] Patricia Mckeon MD Unavailable [phone] Agustin Alston MD Primary Care Provider [phone] Tamar Novoa MD Unavailable Stephen Thapa MD Primary Care Provider Unav ailable Gracie Vargas DO Primary Care Provider [phone] Lamin Wisdom DO Primary Care Provider [phone] Charlie Norton MD Unavailable [phone] Isael Harmon MD Unavailable [phone] Aakash Rayo MD Primary Care Provi carline Stanley Jennings MD Unavailable [phone] Encounter Details Date Type Department Care Team (Late st Contact Info) Description 09/15/2017 Abstract [facility] at [facility], [address] [address] Diane Mariscal MA Social History Tobacco Use Types Packs/Day Years Used Date Smoking Tobacco: Never Smokeless Tobacco: Never Alcohol Use Standard Drinks/Week Comments Yes 0 (1 standard drink = 0.6 oz pur e alcohol) Occasionally Comments No Sex and Gender Information Value Date Recorded Sex Assigned at Female 08/01/2024 12:47 PM FOOTBALL SCOUT Legal Sex Female 10:09 PM CDT Gender Identity Not on file Sexual Orientation Not on file 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 [place] [address] Jeff Preciado MD 3 [facility] [address] [place] [address] 11/26/2024 11:15 AM CDT Hospital Encounter [facility] [place] [address] Jeff Preciado MD [address] [address] 11/26/2024 11:15 AM CDT [place]esthesia [place] [address] Uma Antonio, TRUCK SPOTTER [address] [place] [address] 11/26/2024 11:15 AM CDT - 11/26/2024 12:09 PM CDT [place] [address] Jeff Preciado MD 3 [facility] [address] [place] [address] CYSTOSCOPY WITH BLADDER BIOPSY AND FULGURATION 01/03/2025 9:40 AM CDT Office Visit [facility] - [facility] [address] [facility] [address] [place] [address] Kaleb Bean MD [address] [facility] [address] [place] [address] 02/05/2025 2:00 PM CDT [facility], [address] [place] [address] Saadia Walker APRN [facility]. [address] [place] [address] Scheduled Procedures Name Priority Associated Diagnoses Date/Ti me CYSTOSCOPY BIOPSY BLADDER BLADDER WALL THICKENING N32.89 11/26/2024 11:15 AM CDT documented as of this encounter Procedures Procedure [...] in this encounter Results * MAGNESIUM (11/19/2017) Pathologist [facility] MAGNESIUM 1.0 11/19/2017 [facility] Abstract [...] - 5.0 TOTAL PROTEIN S/P/B 6.4 11/19/2017 [facility] Abstract LABORATORY Final Result * CBC (OUTSIDE LAB) (11/19/2017) WBC 6.86 HGB 11.0 HCT 33.5 PLT 213 11/19/2017 us [facility] Abstract LAB-OUTSIDE/ABSTRACTED Final Result * CBC (OUTSIDE LAB) (07/26/2017) WBC 7.8 HGB 11.1 HCT 33.4 PLT 198 07/26/2017 Doc [facility] Abstract LAB-OUTSIDE/ABSTRACTED Final Result * PHOSPHORUS, INORGANIC PHOSPHATE (07/26/2017) PHOSPHORUS 3.6 07/26/2017 us Doc [facility] Abstract LABORATORY Final Result * (ABNORMAL) BASIC METABOLIC PANEL (07/26/2017) SODIUM S/P/B 142 POTASSIUM S/P/B 4.5 CO2 23 CHLORIDE S/P/B 106 GLUCOSE 124 mg/dL CALCIUM S/P/B 9.0 BUN 22 CREATININE S/P/B 1.3(A) 0.5 - 1.0 EGFR NON-AFR. AMER. 42 <=90 07/26/2017 us Doc [facility] Abstract LABORATORY Final Result * HEMOGLOBIN, GLYCOSYLATED (07/21/2017) HGB A1C 6.7 07/21/2017 us Doc [facility] Abstract LABORATORY Final [...] (FT4) (02/24/2017) FREE T4 0.89 02/24/2017 us Doc [facility] Abstract LABORATORY Edited Resul t - Final * THYROID STIM HORMONE, TSH (02/24/2017) TSH 0.08 02/24/2017 us Doc [facility] Abstract LABORATORY Final Result * LIPID PANEL (02/24/2017) CHOLESTEROL 110 HDL 35 TRIGLYCERIDES 119 LDL (CALCULATED) 58 02/24/2017 us Doc [facility] Abstract LABORATORY Final Result * THYROID STIM HORMONE, TSH (11/08/2016) TSH 1.86 11/08/2016 us Doc [facility] LABORATORY Edited Resul t - Final * THYROXINE, FREE (FT4) (09/16/2016) FREE T4 0.84 09/16/2016 us Doc [facility] Abstract LABORATORY Edited Resul t - Final documented in this encounter Visit Diagnoses Not on filedocumented in this encounter Additional Health Concerns Infection Onset Date Last Indicated Resolved Time C. difficile 02/01/2017 02/01/2017 05/03/2022 11:5 1 AM FOOTBALL SCOUT MRSA Comment:05/02/22 +MRSA Nasal 05/19/24 +MRSA Left arm 05/03/2022 05/19/2024 COVID-19 Rule Out 02/19/2024 02/19/2024 02/19/2024 9:56 PM CDT documented as of this encounter Care Teams Doughnut Machine Operator Helper Relationship Specialty Start Date End Date Bala Norman MD [address] [place], [place] [address] PCP - General INTERNAL MEDICINE 12/30/15 11/23/17 Agustin Alston MD [address] [address] PCP - General INTERNAL MEDICINE 12/06/17 04/25/19 Stephen Thapa MD [address] [address] PCP - General NEPHROLOGY 04/26/19 08/28/19 Gracie Vargas DO [address] [address] PCP - General INTERNAL MEDICINE 08/29/19 03/25/22 [place] [address] PCP - General INTERNAL MEDICINE 03/26/22 07/31/24 [place] [address] PCP - General HOSPITALIST 08/01/24 09/20/24 Patricia Mckeon MD [address] [address] [place] Roll Machine Operator CARDIOVASCULAR DISEASE 11/25/15 Tamar Novoa MD Three [facility]. [facility] [address] [place] [address] EP Roll Machine Operator CLINICAL CARDIAC ELECTROPHYSIOLOGY 12/18/17 Charlie Norton MD [address] [place] [address] FAMILY PRACTICE 05/02/22 Isael Harmon MD [address] [address] Referring Physician OBGYN 05/02/22 Stanley Jennings MD [address] [place] [address] HEMATOLOGY/ONCOLOGY 10/29/24 documented as of this encounter
--- OUTSIDE RECORDS SUMMARY | 2024-11-12 10:26 | XMS_ITS | Encounter Summary ---
Author Organization [facility] Address [address] [place] [address] Phone Care Team Providers Care Compressor House Operator Name Role Phone Lamin Wisdom Primary Care Provider [phone] Stanley Jennings MD Unavailable Selene Alves RN Unavailable Unavailable Sanam Garcia RN Unavailable Unavailable Jeff Preciado MD Unavailable Reason for Visit * Reason Comments Medication Refill Encounter Details Date Type Department Care Team (Late st Contact Info) Description 09/07/2022 Refill [facility] [address] [address] Stanley Jennings MD [address] [place] [address] Medication Refill Social History Tobacco Use Types Packs/Day Years Used Date Smoking Tobacco: Never Smokeless Tobacco: Never Alcohol Use Standard Drinks/Week Comments Yes 0 (1 standard drink = 0.6 oz pur e alcohol) Comments Unknown Sex and Gender Information Value Date Recorded Sex Assigned at Not on file Legal Sex Female 12:23 PM WEB APPLICATION TESTER Gender Identity Not on file Sexual Orientation Not on file COVID-19 Exposure Response Date Recorded In the last 10 days, have candelaria u been in contact with someone who was confirmed or suspected to have Coronavirus/COVID-19? No / Unsure 09/02/2022 10:11 AM WEB APPLICATION TESTER documented as of this encounter Miscellaneous Notes * Telephone Encounter - Analia West - 09/07/2022 3:39 PM CDT Please refill if appropriate. documented in this encounter Plan of Treatment Upcoming Encounters Date Type Department Care Team (Late st Contact Info) Description 12/02/2024 10:30 AM CDT Lab [facility] [address] [address] Lab, [facility] 12/06/2024 10:45 AM CDT Office Visit [facility] [address] [address] Stanley Jennings MD [address] [id number] documented as of this encounter Visit Diagnoses Not on filedocumented in this encounter Additional Health Concerns Infection Onset Date Last Indicated Resolved Time C. difficile Rule-Out 05/31/2024 05/31/20242023 12:16 AM WEB APPLICATION TESTER documented as of this encounter Care Teams Compressor House Operator Relationship Specialty Start Date End Date Lamin Wisdom DO [address] [place] [address] PCP - General Internal Medicine 06/09/22 Stanley Jennings MD [address] [place] [phone] Oncology 07/21/22 Selene Alves, RN [place] Oncology Nurse Navigator Oncology 03/29/24 Sanam Garcia RN [place] Oncology Nurse Navigator Oncology 05/17/24 Jeff Preciado MD #[address] [facility], [address] [address] Consulting Physician Urology 09/23/24 documented as of this encounter
--- OUTSIDE RECORDS SUMMARY | 2024-11-12 10:26 | XMS_ITS | Encounter Summary ---
Author Organization [facility] Address [address] [place] [address] Phone Care Team Providers Care Pigment Weigher Name Role Phone Charlie Norton MD Primary Care Provider [phone] Reason for Visit * Reason Comments Med Refill Encounter Details Date Type Department Care Team ([facility] Contact Info) Description 10/05/2021 Refill [facility] [address] [place] [address] Randy Murillo MD [address] [place] [address] Hyperuricemia Social History Tobacco Use Types Packs/Day Years Used Date Smoking Tobacco: Never Smokeless Tobacco: Never Alcohol Use Standard Drinks/Week Comments No 0 (1 standard drink = 0.6 oz pur e alcohol) Comments Unknown Sex and Gender Information Value Date Recorded Sex Assigned at Not on file Legal Sex Female 7:27 AM [facility] Gender Identity Not on file Sexual Orientation Not on file documented as of this encounter Plan of Treatment Upcoming Encounters Date Type Department Care Team (Late Contact Info) Description 03/12/2025 12:40 PM CDT Office Visit [facility] [address] [place] [address] Randy Murillo MD [address] [place] [address] documented as of this encounter Visit Diagnoses Diagnosis Hyperuricemia documented in this encounter Care Teams Pigment Weigher Relationship Specialty Start Date End Date Charlie Norton MD [facility] Crai Garcia [address] [place] [phone] PCP - General Internal Medicine 05/30/24 documented as of this encounter
--- OUTSIDE RECORDS SUMMARY | 2024-11-12 10:26 | XMS_ITS | Clinical Summary ---
Author Organization [facility] Address [address], [facility] [place] [address] Phone Care Team Providers Care Manager Intensive Care Name Role Phone Lamin Wisdom DO Primary Care Provider [phone] Stanley Jennings MD Unavailable [phone] Selene Alves RN Unavailable Unavailable Sanam Garcia RN Unavailable Unavailable Jeff Preciado MD Unavailable Allergies Active Allergy Reactions Criticality Noted [...] it Medications allopurinol (ZYLOPRIM) 100 MG Tablet 05/21/20 21 Active amiodarone (CORDARONE) 200 MG Tablet 25 mg daily. 08/31/19 19 Active calcitRIOL (ROCALTROL) 0.25 MCG Capsule 11/26/19 21 Active Diclofenac Sodium (VOLTAREN) 1 % Gel Apply 1 g. 08/31/19 19 Active fexofenadine (MIMI) 180 MG Tablet fexofenadine 180 mg tablet 01/26/20 17 Active fluticasone (FLONASE) 50 MCG/ACT Suspension fluticasone propionate 50 mcg/actuation nasal spray,suspensio n SHAKE LIQUID AND USE 1 SPRAY IN EACH NOSTRIL TWICE DAILY 08/02/19 17 Active insulin glargine (LANTUS) 100 UNIT/ML Solution 8 Units by Subcutaneous route. Active metoprolol Succinate (TOPROL-XL) 25 MG TABLET SR 24 HR 02/18/20 22 Active Mirabegron ER (Myrbetriq) 50 MG TABLET SR 24 HR 08/02/19 22 Active oxyCODONE-acet aminophen (PERCOCET) 5-325 MG Tablet 01/29/20 19 Active pantoprazole (PROTONIX) 40 MG Tablet Delayed Response 05/22/20 21 Active Teriparatide, Recombinant, (Forteo) 600 MCG/2.4ML Solution Pen-injector Forteo 20 mcg/dose (600 mcg/2.4 mL) subcutaneous pen injector 01/13/20 20 Active zolpidem (AMBIEN CR) 6.25 MG Tablet Controlled Release 08/02/19 23 Active potassium chloride (MICRO-K) 10 MEQ Capsule CR TAKE 2 CAPSULES BY MOUTH DAILY 180 Capsule 09/09/19 23 Active Fluticasone-Um eclidin-Vilant (Trelegy Ellipta) 100-62.5-25 MCG/ACT AEROSOL POWDER, BREATH ACTIVATED take 1 Puff by inhalation. 11/20/19 22 Active folic acid (FOLVITE) 1 MG Tablet TAKE 1 TABLET BY MOUTH DAILY 30 Tablet 1 07/05/19 24 Active albuterol 108 (90 Base) MCG/ACT Aerosol Solution take 2 Puffs by inhalation every 4 hours as needed. 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 40 Tablet 3 03/29/20 24 Active Additional Information Patient not taking.Reported on 11/01/2024 Cholecalcifero l (Vitamin D3) 15267 UNIT Capsule Take 1.25 mg by mouth once a week. 03/18/20 24 Active furosemide (LASIX) 40 MG Tablet Take 40 mg by mouth. 03/18/20 24 Active lidocaine-pril ocaine 2.5-2.5 % Cream Application Site: Apply to port 1 hour prior to access (Description and Location) 30 g 2 03/29/20 24 Active Additional Information Patient not taking.Reported on 11/01/2024 apixaban (ELIQUIS) 2.5 MG Tablet Take 2.5 mg by mouth. 04/25/20 Active magnesium oxide (MAG-OX) 400 MG Tablet Take 1 Tablet by mouth 2 times daily. 60 Tablet 04/29/20 Active Januvia 25 MG Tablet Take 25 mg by mouth daily. 04/30/20 24 Active insulin regular (HumuLIN R) 100 UNIT/ML SolutionIndica tions:Type 2 diabetes mellitus with diabetic nephropathy, without long-term current use of insulin (HCC) Use as directed 10 mL 1 05/31/20 24 Active loperamide (IMODIUM) 2 MG Capsule Take 2 mg by mouth daily. Active atorvastatin (LIPITOR) 20 MG Tablet Take 20 mg by mouth. 03/06/20 24 Active cyanocobalamin (VITAMIN B-12) 1000 MCG/ML Solution 1 mL by Subcutaneous route every 28 days. 10 mL 1 09/12/19 25 Active [place] Thyroid 120 MG TabletIndicati ons:Hypothyroi dism, unspecified type TAKE 1 TABLET BY MOUTH DAILY 30 Tablet 10/19/19 25 Active nystatin 473854 UNIT/GM Powder Apply. 10/16/19 25 026 Active B-D ULTRAFINE III SHORT PEN 31G X 8 MM Misc USE DIRECTED FOUR TIMES DAILY Active Insulin Lispro, 1 Unit Dial, 100 UNIT/ML Solution Pen-injector ADMINISTER 1 TO 8 UNITS UNDER THE SKIN THREE TIMES DAILY WITH MEALS Active thyroid ([place] Thyroid) 120 MG TabletIndicati ons:Hypothyroi dism, unspecified type Take 1 Tablet by mouth daily. 30 Tablet 09/07/19 25 025 Discontinued Active Problems Patient Care Coordination No te Formatting of this note migh t be different from the original. PCM CONSENT DATE: 03/29/2024 CONSENT PRESENT AND CURRENT IN CHART OF: 03/29/2024 CARE PLAN LAST UPDATED: 10/04/2024 CARE PLAN LAST DELIVERED: 11/01/2024 For additional billing time breakdown, see [facility] auditing report. 11/01/2024 TX POC DELIVERY-8 MINUTES PCM DROPS: .2024 TOTAL PCM TIME: 19 MINUTES PCM DROP: 0 MINUTES TOTAL PCM TIME: 40 MINUTES PCM DROP: 30 MINUTES TOTAL PCM TIME: 20 MINUTES PCM DROP: 0 MINUTES TOTAL PCM TIME: 32 MINUTES PCM DROP: 30 MINUTES TOTAL PCM TIME: 41 MINUTES PCM DROP: 30 MINUTES TOTAL PCM TIME: 58 MINUTES PCM DROP: 30 MINUTES TOTAL PCM TIME: 86 MINUTES PCM DROP: 60 MINUTES Problem Noted Date Diagnosed Date Anemia, chronic renal failure, stage 4 (severe) 09/06/2024 Diffuse large B-cell lymphom a of extranodal [...] was encouraged to resume [employer]. DME company [employer]. Patient will continue Ambien 6.25 mg nightly. 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 Chronic kidney disease, stage 4 (severe) 017 DM (diabetes mellitus) Encounters Date Type Department Care Team Description 11/06/2024 Telephone [facility] [address] [phone] Stanley Jennings MD [facility] Call / Surgery&biopsy 11/01/2024 10:45 AM CDT Clinical Support [facility] [address] [phone] Nurse, [facility]c [facility] 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 (Primary Dx) 11/01/2024 10:30 AM CDT Office Visit [facility] [address] [address] Stanley Jennings MD 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 (Primary Dx); Stage 3a chronic kidney disease (HCC); Iron deficiency anemia, unspecified iron deficiency anemia type; Hypothyroidism, unspecified type 11/01/2024 9:15 AM CDT Care Management [facility] [address] [phone] Navigator, Mirella Leiva Nurse Care Management (TX POC DELIVERY) 11/01/2024 Travel 10/31/2024 Telephone [facility] [address] [phone] Stanley Jennings MD 10/28/2024 12:50 PM CDT Clinical Support [facility] [address] [address] NurseMirella Stage 3a chronic kidney disease (HCC); 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; Iron deficiency anemia, unspecified iron deficiency anemia type; Anemia, unspecified type 10/28/2024 Travel 10/24/2024 2:15 PM CDT Clinical Support [facility] [address] [phone] Navigator, Mirella Leiva Nurse 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 (Primary Dx) 10/15/2024 Refill [facility] [address] [phone] Stanley Jennings MD Medication Refill 10/10/2024 Refill [facility] [address] [phone] Kevin Lyle MD Medication Refill 10/04/2024 10:45 AM CDT Clinical Support [facility] [address] [phone] NurseMirella Anemia, chronic renal failure, stage 4 (severe) (HCC) (Primary Dx) 10/04/2024 10:30 AM CDT Office Visit [facility] [address] [address] Stanley Jennings MD Stage 3a chronic kidney disease (HCC) (Primary Dx); 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; Iron deficiency anemia, unspecified iron deficiency anemia type; Anemia, unspecified type 10/04/2024 9:15 AM CDT Care Management [facility] [address] [phone] Navigator, Mirella Leiva Nurse Care Management (WELLNESS F/U & CAREPLAN REVIEW) 10/04/2024 Travel 09/27/2024 10:15 AM CDT Lab [facility] [address] [phone] Nurse, Mirella Leiva Anemia, unspecified type; 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; Hypothyroidism, unspecified type; Stage 3a chronic kidney disease (HCC) 09/27/2024 Travel 09/24/2024 3:45 PM CDT Clinical Support [facility] [address] [phone] Stanley Jennings MD Navigator, Mirella Leiva Nurse 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 (Primary Dx) 09/23/2024 Telephone [facility] [address] [phone] Stanley Jennings MD 09/13/2024 10:00 AM CDT Clinical Support [facility] [address] [phone] Nurse, Mirella Leiva Iron deficiency anemia, unspecified iron deficiency anemia type (Primary Dx); 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; Hypothyroidism, unspecified type; Stage 3a chronic kidney disease (HCC); Anemia, unspecified type 09/13/2024 Travel 09/11/2024 11:15 AM CDT Care Management [facility] [address] [phone] Navigator, Mirella Leiva Nurse Care Management (EDUCATION PREP) 09/11/2024 Refill [facility] [address] [phone] Stanley Jennings MD Medication Refill 09/11/2024 Telephone [facility] [address] [phone] Stanley Jennings MD 09/09/2024 10:30 AM CDT Care Management [facility] [address] [phone] Navigator, Mirella Leiva Nurse Care Management (WELLNESS F/U & CAREPLAN REVIEW) 09/06/2024 11:30 AM CDT Lab [facility] [address] [phone] NurseMirella Stage 3a chronic kidney disease (HCC); Anemia, unspecified type 09/06/2024 10:45 AM CDT Office Visit [facility] [address] [phone] Stanley Jennings MD 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 (Primary Dx); Hypothyroidism, unspecified type; Stage 3a chronic kidney disease (HCC); Anemia, unspecified type 09/06/2024 Results Follow-Up [facility] [address] [phone] Stanley Jennings MD RETICULOCYTE COUNT (RETIC), IRON W/ IRON BINDING CAPACITY [place], CMP (COMPREHENSIVE METABOLIC PANEL) 09/06/2024 Travel 09/03/2024 10:00 AM CDT Ancillary Procedure [facility] [address] [phone] Stanley Jennings MD 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; Bladder mass; Stage 3a chronic kidney disease (HCC) 09/02/2024 9:15 AM CDT Clinical Support [facility] [address] [phone] NurseMirella 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 (Primary Dx) 09/02/2024 Travel 08/26/2024 2:45 PM INDUSTRIAL SALES REPRESENTATIVE Clinical Support [facility] [address] [phone] Navigator, [facility] Nurse 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 (Primary Dx) 08/26/2024 1:45 PM INDUSTRIAL SALES REPRESENTATIVE Lab [facility] [address] [phone] Nurse, [facility] 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; Stage 3a chronic kidney disease (HCC) 08/26/2024 Travel from Last 3 Months Immunizations Immunization Administration Dates Next Due Covid-19, Mrna, Lnp-s, Pf, 3 0 Mcg/0.3 Ml Dose (TriNovus) 08/13/2020,07/23/2020 Influenza Vaccine 04/12/2017 Influenza Vaccine,unspecifie d Formulation 10/03/2022,03/26/2020 Influenza Virus Vaccine, Whole Virus 05/26/2003, 05/07/2002,05/08/2001 Influenza, Quadrivalent, Adjuvanted 04/14/2023 Influenza, Seasonal, Injecta ble, Undefined 04/30/2018,03/26/2015,03/26/2014,04/12 Pneumococcal Vaccine - 13 Valent 07/24/2014 Pneumococcal Vaccine Adult - 23 Valent 0 Pneumococcal conjugate PCV20 , polysaccharide [id number] conjugate, adjuvant, PF 10/03/2022 RSV, Recombinant, Protein [...] on file Legal Sex Female 12:23 PM INDUSTRIAL SALES REPRESENTATIVE Gender Identity Not on file Sexual Orientation Not on file Last Filed Vital Signs Vital Sign Reading Time Taken Comments Blood Pressure 100/60 11/01/2024 10:28 AM CDT Pulse 88 11/01/2024 10:28 AM CDT Temperature 36.5 C (97.7 F) 11/01/2024 10:28 AM CDT Respiratory Rate 16 11/01/2024 10:28 AM CDT Oxygen Saturation 97% 11/01/2024 10:28 AM CDT Inhaled Oxygen Concentration - - Weight 64 kg (141 lb) 11/01/2024 10:28 AM CDT Height 149.9 cm (4' 11 ) 11/01/2024 10:28 AM CDT Body Mass Index 28.48 11/01/2024 10:28 AM CDT Plan of Treatment Upcoming Encounters Date Type Department Care Team (Late st Contact Info) Description 12/02/2024 10:30 AM CDT Lab [facility] [address] [phone] Lab, [facility] 12/06/2024 10:45 AM CDT Office Visit [facility] [address] [phone] Stanley Jennings MD [address] [employer] [address] [place] [phone] Health Maintenance Due Date Last Done Comments Diabetes: Eye Exam 1935 Diabetes: Foot Exam 1935 Hepatitis C Virus (HCV) Screening 1935 Zoster Immunization (1 of 2) 03/17/2009 01/20/2009 Mammogram Unilateral 08/08/2019 08/08/2018 Td Immunization Every 10 Years (Adults With 1 Tdap) 11/21/2021 11/22/2011, 05/07/2002 SARS-COV-2 Immunization ( season) 2024 10/13/2022, 04/07/2022, 10/27/2021, Additional history exists Influenza Immunization (Season Ended) 2025 04/14/2023, 10/03/2022, 03/26/2020, Additional history exists Diabetes: Hemoglobin A1c 04/15/2025 025, 05/18/2024, 01/29/2024, Additional history exists DEXA Bone Density 10/09/2025 10/10/2023, , 06/10/2016 Diabetes: Nephropathy Screening 11/01/2025 11/01/2024, 10/28/2024, 09/27/2024, Additional history exists DTaP/Tdap/Td Immunization Discontinued 11/22/2011, 05/2002 Pneumococcal Immunization (50+ years) Completed 10/03/2022, 07/24/2014, 11/02/1999 Respiratory Syncytial Virus (RSV) Immunization (Adult) Completed 06/05/2023 Hepatitis B Immunization Aged Out No longer eligible based on patient's age to complete this topic Human Papillomavirus (HPV) Immunization Aged Out No longer eligible based on patient's age to complete this topic Meningococcal Immunization (ACWY) Aged Out No longer eligible based on patient's age to complete this topic Rotavirus Immunization Aged Out No lo nger eligible based on patient's age to complete this topic Procedures Procedure Name Priority Date/Time Associated Diagnosis Comments URIC ACID (BLOOD ASSAY) Routine 11/02/19 25 10:30 AM CDT THYROID STIMULATING HORMONE (TSH) Routine 11/01/2024 10:30 AM CDT THYROXINE (T4) FREE Routine 11/01/2024 1 0:30 AM CDT LIPID PANEL Routine 11/01/2024 10:30 AM CDT CBC WITH AUTO DIFF OH Routine 11/01/2024 10:30 AM CDT URINALYSIS WITH MICROSCOPIC OH Routine 11/01/2024 10:30 AM CDT APTT (PTT) Routine 11/01/2024 10:30 AM CDT PROTHROMBIN TIME (PT) [id number] OH Routine 11/01/2024 10:30 AM CDT TRIIODOTHYRININE (T3) TOTAL Routine 11/01/2024 10:30 AM CDT CMP (COMPREHENSIVE METABOLIC PANEL) Routine 11/01/2024 10:30 AM CDT CULTURE, URINE Routine 11/01/2024 10:30 AM CDT THYROXINE (T4) FREE Routine 10/28/2024 1 :05 PM CDT THYROID STIMULATING HORMONE (TSH) Routine 10/28/2024 1:05 PM CDT TRIIODOTHYRININE (T3) FREE Routine 10/28/2024 1:05 PM CDT 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 CBC WITH AUTO DIFF OH Routine 10/28/2024 12:51 PM CDT 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 FERRITIN Routine 10/28/2024 12:51 PM CDT Stage 3a chronic kidney disease (HCC) 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 Iron deficiency anemia, unspecified iron deficiency anemia type Anemia, unspecified type IRON W/ IRON BINDING CAPACITY OH Routine 10/28/2024 12:51 PM CDT Stage 3a chronic kidney disease (HCC) 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 Iron deficiency anemia, unspecified iron deficiency anemia type Anemia, unspecified type LACTATE DEHYDROGENASE (LD) Routine 10/28/2024 12:51 PM CDT Stage 3a chronic kidney disease (HCC) 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 Iron deficiency anemia, unspecified iron deficiency anemia type Anemia, unspecified type CMP (COMPREHENSIVE METABOLIC PANEL) Routine 10/28/2024 12:51 PM CDT Stage 3a chronic kidney disease (HCC) 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 Iron deficiency anemia, unspecified iron deficiency anemia type Anemia, unspecified type LACTATE DEHYDROGENASE (LD) Routine 09/27/2024 1:00 PM CDT 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 Hypothyroidism, unspecified type Stage 3a chronic kidney disease (HCC) Anemia, unspecified type CMP (COMPREHENSIVE METABOLIC PANEL) Routine 09/27/2024 1:00 PM CDT 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 Hypothyroidism, unspecified type Stage 3a chronic kidney disease (HCC) Anemia, unspecified type COMPLETE BLOOD COUNT (CBC) WITH DIFF Routine 09/27/2024 1:00 PM CDT 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 Hypothyroidism, unspecified type Stage 3a chronic kidney disease (HCC) Anemia, unspecified type IRON W/ IRON BINDING CAPACITY OH Routine 09/27/2024 1:00 PM CDT Anemia, unspecified type FERRITIN Routine 09/27/2024 1:00 PM CDT Anemia, unspecified type SOLUBLE TRANSFERRIN RECEPTOR [place] [id number] Routine 09/06/2024 11:10 AM CDT Anemia, unspecified type Stage 3a chronic kidney disease (HCC) 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 Endometrial cancer (HCC) COMPLETE BLOOD COUNT (CBC) WITH DIFF Routine 09/06/2024 11:10 AM CDT Stage 3a chronic kidney disease (HCC) Anemia, unspecified type CMP (COMPREHENSIVE METABOLIC PANEL) Routine 09/06/2024 11:10 AM CDT Stage 3a chronic kidney disease (HCC) Anemia, unspecified type ERYTHROPOIETIN (EPO) OH Routine 09/07/19 11:10 AM CDT Stage 3a chronic kidney disease (HCC) Anemia, unspecified type VITAMIN B12 Routine 09/06/2024 11:10 AM CDT Stage 3a chronic kidney disease (HCC) Anemia, unspecified type FOLIC ACID (FOLATE) Routine 09/06/2024 1 1:10 AM CDT Stage 3a chronic kidney disease (HCC) Anemia, unspecified type IRON W/ IRON BINDING CAPACITY OH Routine 09/06/2024 11:10 AM CDT Stage 3a chronic kidney disease (HCC) Anemia, unspecified type FERRITIN Routine 09/06/2024 11:10 AM CDT Stage 3a chronic kidney disease (HCC) Anemia, unspecified type RETICULOCYTE COUNT (RETIC) Routine 09/06/2024 11:10 AM CDT Stage 3a chronic kidney disease (HCC) Anemia, unspecified type PET CT TUMOR IMAGING SKULL BASE TO MID THIGH Routine 09/03/2024 11:52 AM CDT 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 Bladder mass Stage 3a chronic kidney disease (HCC) PARATHYROID HORMONE PTH INTACT Routine 09/02/2024 9:53 AM CDT URINALYSIS WITH MICROSCOPIC, C/S IF INDICATED OH Routine 09/02/2024 9:49 AM CDT CULTURE, URINE Routine 09/02/2024 9:49 AM CDT LIPID PANEL Routine 09/02/2024 9:43 AM CDT THYROID STIMULATING HORMONE (TSH) Routine 08/26/2024 2:18 PM INDUSTRIAL SALES REPRESENTATIVE RENAL FUNCTION PANEL (RFP) Routine 08/26/2024 2:18 PM INDUSTRIAL SALES REPRESENTATIVE URIC ACID (BLOOD ASSAY) Routine 08/27/19 25 2:18 PM INDUSTRIAL SALES REPRESENTATIVE PARATHYROID HORMONE PTH INTACT Routine 08/26/2024 2:18 PM INDUSTRIAL SALES REPRESENTATIVE COMPLETE BLOOD COUNT (CBC) WITH DIFF Routine 08/26/2024 2:03 PM INDUSTRIAL SALES REPRESENTATIVE 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 Stage 3a chronic kidney disease (HCC) CMP (COMPREHENSIVE METABOLIC PANEL) Routine 08/26/2024 2:03 PM INDUSTRIAL SALES REPRESENTATIVE 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 Stage 3a chronic kidney disease (HCC) LACTATE DEHYDROGENASE (LD) Routine 08/26/2024 2:03 PM INDUSTRIAL SALES REPRESENTATIVE 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 Stage 3a chronic kidney disease (HCC) MAGNESIUM (MG) Routine 08/26/2024 2:03 PM INDUSTRIAL SALES REPRESENTATIVE 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 SUGGESTED INR THERAPEUTIC RANGE FOR VITAMIN K ANTAGONIST THERAPY: STANDARD DOSE (MODERATE INTENSITY THERAPEUTIC RANGE): 2.0 - 3.0 HIGHER INTENSITY THERAPEUTIC RANGE 2.5 - 3.5 PROTHROMBIN TIME 13.2(H) 9.1 - 12.0 [facility] 11/01/2024 10:3 0 AM CDT [facility] - 11/02/2024 7:07 AM CDT TESTING PERFORMED AT: [[facility] [address] [facility], [place], [address], PHONE: [phone], JOCKEY AGENT: [employer], PHD Jeff Preciado MD LAB SEND OUTS Final Res ult [facility] [place] [address], * (ABNORMAL) CBC WITH AUTO DIFF [place] (11/01/2024 10:30 AM CDT) Only the most recent of2 resultswithin the time period is included. WBC 5.7 4.0 - 10.0 10*3/uL [facility] HGB 11.2 11.2 - 15.7 g/dL [facility] HCT 34.0(L) 34.1 - 44.9 % [facility] PLT 116(L) 163 - 369 10*3/uL [facility] MPV 10.2 9.4 - 12.4 fL [facility] RBC 3.56(L) 3.93 - 5.22 10*6/uL [facility] MCV 96(H) 79 - 95 fL [facility] MCH 31.5 25.6 - 32.2 pg [facility] MCHC 32.9 32.2 - 36.5 g/dL [facility] RDW 15.3(H) 11.6 - 14.4 % [facility] Neutrophils % 64.5 36.0 - 66.0 % [facility] Lymphocytes % 22.6 19.0 - 40.0 % [facility] Monocytes % 7.0 4.1 - 12.1 % [facility] Eosinophils % 3.1 0.0 - 3.5 % [facility] Basophils % 1.2(H) 0.0 - 1.0 % [facility] Absolute Neutrophils 3.7 1.4 - 6.6 10*3/uL [facility] Absolute Lymphocytes 1.3 0.8 - 4.0 10*3/uL [facility] Absolute Monocytes 0.4 0.2 - 1.2 10*3/uL [facility] Absolute Eosinophils 0.2 0.0 - 0.4 10*3/uL [facility] Absolute Basophils 0.1 0.0 - 0.1 10*3/uL [facility] 11/01/2024 10:3 0 AM CDT us Not On File Provider LAB SEND OUTS Final Resul t Performing Organization Address City/[facility] Co de Phone Number [facility] * (ABNORMAL) URINALYSIS WITH MICROSCOPIC [place] (11/01/2024 10:30 AM CDT) Urine Color Yellow Straw-Yel low [facility] Urine Clarity Turbid(A) Clear [facility] Urine Glucose NEG NEG mg/dL [facility] Urine Bilirubin NEG NEG mg/dL [facility] Urine Ketones NEG NEG mg/dL [facility] Urine Specific [place] 1.020 1.015 - 1.020 [facility] Urine Blood 2+(A) NEG mg/L [facility] Urine pH 5.5 5.0 - 8.0 [pH] [facility] Urine Protein 1+(A) NEG mg/dL [facility] Urine Urobilinogen 0.2 0.2 - 1.0 mg/dL [facility] [facility] Urine Nitrite NEG NEG [facility] Urine Leukocytes 3+(A) NEG [facility]PLAY [facility] Urine Epithelial Cells None None,Rare ,Few /LPF [facility]PLAY [facility] Urine Mucus None None /LPF [facility] C [facility] Urine Cast None None /LPF [facility] CE [facility] Urine Bacteria Moderate(A ) None /HPF [facility] DISPLAY [facility] Urine Crystal None None /LPF [facility] DISPLAY [facility] Urine White Blood Cells 100-200(A) 0 - 4 /HPF [facility]PLAY [facility] Urine Red Blood Cells 0-2 0 - 2 /HPF [facility]PLAY [facility] 11/01/2024 10:3 0 AM CDT us Jeff Preciado MD LAB SEND OUTS Final Res ult Performing Organization Address City/[facility] Co de Phone Number [facility] Cancer [address] [address], * URIC ACID (BLOOD ASSAY) (11/01/2024 10:30 AM CDT) Only the most recent of2 resultswithin the time period is included. Uric Acid 6.6 2.3 - 7.6 mg/dL [facility] Comment: O-rlcrvw-i-benzoquinone imine (metabolite of Acetamenophen) will generate erroneously low results in samples for patients that have taken toxic doses of acetaminophen 11/01/2024 10:3 0 AM CDT us Not On File Provider CHEMISTRY ORDERABLES Final Result Performing Organization Address [facility] de Phone Number [facility] [place] [place] [address], [place] [phone] * THYROXINE (T4) FREE (11/01/2024 10:30 AM CDT) Only the most recent of2 resultswithin the time period is included. THYROXINE (T4), FREE, 0.74 0.61 - 1.12 ng/dL [facility] Comment: Specimens that contain high levels of Biotin >10 ng/mL may cause false high results for this method. Interpret results in light of the total clinical presentation of the patient. To minimize the interference of high levels of Biotin, it is recommended that patients discontinue taking Biotin 72 hours prior to testing. 11/01/2024 10:3 0 AM CDT Narrative [facility] - 11/04/2024 3:35 PM CDT Is the patient taking Biotin supplement? Not sure us Not On File Provider CHEMISTRY ORDERABLES Final Result Performing Organization Address [facility] de Phone Number [facility] [place] [address], * (ABNORMAL) THYROID STIMULATING HORMONE (TSH) (11/01/2024 10:30 AM CDT) Only the most recent of3 resultswithin the time period is included. TSH 12.93(H) 0.45 - 5.33 uIU/mL [facility] 11/01/2024 10:3 0 AM CDT us Not On File Provider CHEMISTRY ORDERABLES Final Result Performing Organization Address [facility] Co de Phone Number [facility] [address] [address], * (ABNORMAL) TRIIODOTHYRININE (T3) TOTAL (11/01/2024 10:30 AM CDT) TRIIODOTHYRONINE (T3) 203(H) 71 - 180 NG/DL [facility] 11/01/2024 10:3 0 AM CDT Narrative [facility] - 11/02/2024 10:08 AM CDT TESTING PERFORMED AT: [] [address], [address], PHONE: [phone], JOCKEY AGENT: VERO FIELDS, PHD Is the patient taking Biotin supplement? Not sure us Not On File Provider CHEMISTRY ORDERABLES Final Result Performing Organization Address [facility] Co de Phone Number [facility] Cancer Care [address] [place] [address], * (ABNORMAL) APTT (PTT) (11/01/2024 10:30 AM CDT) APTT 51(H) 24 - 33 SEC [facility] Comment: THIS TEST HAS NOT BEEN VALIDATED FOR MONITORING UNFRACTIONATED HEPARIN THERAPY. APTT-BASED THERAPEUTIC RANGES FOR UNFRACTIONATED HEPARIN THERAPY HAVE NOT BEEN ESTABLISHED. FOR GENERAL GUIDELINES ON HEPARIN MONITORING, REFER TO THE [facility] DIRECTORY OF SERVICES. 11/01/2024 10:3 0 AM CDT [facility] - 11/02/2024 7:07 AM CDT TESTING PERFORMED AT: [] [address], [place], [address], PHONE: [phone], JOCKEY AGENT: VERO FIELDS, PHD us Jeff Preciado MD HEMATOLOGY ORDERABLES Fin al Result Performing Organization Address [facility] Co de Phone Number [facility] Cancer Care [address] [address], [place] [phone] * LIPID PANEL (11/01/2024 10:30 AM CDT) Only the most recent of2 resultswithin the time period is included. Cholesterol 105 0 - 200 mg/dL [facility] Triglyceride 86 0 - 150 mg/dL [facility] HDL 41 23 - 92 mg/dL [facility] LDL 47 0 - 130 mg/dL [facility] Comment:Equation: (CHOL-HDL) -(TRIG/5) Cholesterol /HDL Ratio 2.56 0.00 - 4.44 [facility] 11/01/2024 10:3 0 AM CDT [facility] - 11/04/2024 3:43 PM CDT Is the patient fasting? 12 hours us Not On File Provider CHEMISTRY ORDERABLES Final Result Performing Organization Address [facility] Co de Phone Number [facility] Cancer Care [address] [address], * (ABNORMAL) CULTURE, URINE (11/01/2024 10:30 AM CDT) Only the most recent of2 resultswithin the time period is included. URINE CULTURE, ROUTINE FINAL REPORT(A) [facility] RESULT 1 ESCHERICHIA COLI(A) CANCER DISPLAY MANAGER [facility] Comment: CEFAZOLIN WITH AN MADDIE <=16 PREDICTS SUSCEPTIBILITY TO THE ORAL AGENTS CEFACLOR, CEFDINIR, CEFPODOXIME, CEFPROZIL, CEFUROXIME, CEPHALEXIN, AND LORACARBEF WHEN USED FOR THERAPY OF UNCOMPLICATED URINARY TRACT INFECTIONS DUE TO E. COLI, KLEBSIELLA PNEUMONIAE, AND PROTEUS MIRABILIS. GREATER THAN 100,000 COLONY FORMING UNITS PER ML ANTIMICROBIAL SUSCEPTIBILITY COMMENT CANCER DISPLAY MANAGER [facility] Comment: S = SUSCEPTIBLE; I = INTERMEDIATE; R = RESISTANT P = POSITIVE; N = NEGATIVE MICS ARE EXPRESSED IN MICROGRAMS PER ML ANTIBIOTIC RSLT#1 RSLT#2 RSLT#3 RSLT#4 AMOXICILLIN/CLAVULANIC ACID S AMPICILLIN S CEFAZOLIN S CEFEPIME S CEFOXITIN S CEFPODOXIME S CEFTRIAXONE S CIPROFLOXACIN S ERTAPENEM S GENTAMICIN S LEVOFLOXACIN S MEROPENEM S NITROFURANTOIN S PIPERACILLIN/TAZOBACTAM S TETRACYCLINE S TOBRAMYCIN S TRIMETHOPRIM/SULFA S 11/01/2024 10:3 0 AM CDT Narrative [facility] - 11/05/2024 1:08 PM CDT TESTING PERFORMED AT: [] [facility], [address] [place] [address], [place], [address], PHONE: [phone], JOCKEY AGENT: VERO FIELDS, PHD Jeff Preciado MD MICROBIOLOGY - GENERAL OR DERABLES Final Result Performing Organization Address City/State/[facility] Co de Phone Number CANCER DISPLAY MANAGER [facility] [address] [place] [address], * (ABNORMAL) CMP (COMPREHENSIVE METABOLIC PANEL) (11/01/2024 10:30 AM CDT) Only the most recent of5 resultswithin the time period is included. Glucose 139(H) 70 - 105 mg/dL [facility] Blood Urea Nitrogen 39(H) 7 - 25 mg/dL [facility] Creatinine 2.2(H) 0.6 - 1.2 mg/dL [facility] Sodium 136 136 - 145 mEq/L [facility] Potassium 4.0 3.5 - 5.1 mEq/L [facility] Chloride 102 98 - 107 mEq/L [facility] Bicarbonate 26 21 - 31 mEq/L [facility] Total Bilirubin 0.6 0.3 - 1.0 mg/dL [facility] Alk. Phosphatase 59 34 - 104 U/L [facility] Aspartate Aminotransferase 12(L) 13 - 39 U/L [facility] Alanine Aminotransferase 5(L) 7 - 52 U/L [facility] Total Protein 6.9 6.4 - 8.9 g/dL [facility] Albumin 3.5 3.5 - 5.7 g/dL [facility] Calcium 8.4(L) 8.6 - 10.3 mg/dL [facility] Anion Gap 12.0 7.0 - 15.0 mEq/L [facility] Globulin 3.4 2.0 - 3.5 g/dL [facility] EGFR 21(L) >60 ml/min/1. 73m2 [facility] Comment: This eGFR is calculated using 2020 CKD-EPI Creatinine equation without race modifier based on the NKF-ASN task force recommendations Equation: hFYW=638*min(SCr/k,1)a*max(SCr/k,1)-1.200*0.9938Age*1.012 (if female), where SCr is serum creatinine, k is 0.7 for females and 0.9 for males, and a is -0.241 for females and -0.302 for males 11/01/2024 10:3 0 AM CDT us Not On File Provider CHEMISTRY ORDERABLES Final Result CANCER DISPLAY MANAGER [facility] [place] [address], * TRIIODOTHYRININE (T3) FREE (10/28/2024 1:05 PM CDT) TRIIODOTHYRONI NE,FREE,SERUM 3.7 2.0 - 4.4 PG/ML CANCER DISPLAY MANAGER [facility] 10/28/2024 1:05 PM CDT Narrative CANCER DISPLAY MANAGER [facility] - 10/29/2024 8:08 AM CDT TESTING PERFORMED AT: [] [facility], [address] [place] [address], [place], [address], PHONE: [phone], JOCKEY AGENT: VERO FIELDS, PHD Is the patient taking Biotin supplement? Not sure us Not On File Provider CHEMISTRY ORDERABLES Final Result CANCER DISPLAY MANAGER [facility] [place] [address], [place] [phone] * (ABNORMAL) IRON W/ IRON BINDING CAPACITY [place] (10/28/2024 12:51 PM CDT) Only the most recent of3 resultswithin the time period is included. IRON 46(L) 50 - 212 ug/dL CANCER DISPLAY MANAGER [facility] UIBC 191 155 - 355 ug/dL CANCER DISPLAY MANAGER [facility] TIBC 237(L) 261 - 478 ug/dl CANCER DISPLAY MANAGER [facility] % Saturation 19(L) 20 - 50 % CANCER DISPLAY MANAGER [facility] Blood 10/28/2024 12:[address] [facility] - 10/28/2024 1:37 PM CDT Release to patient->Immediate us Stanley Jennings MD LAB SEND OUTS Final Res ult CANCER DISPLAY MANAGER [facility] [address] [place] [address], [place] [phone] * (ABNORMAL) LACTATE DEHYDROGENASE (LD) (10/28/2024 12:51 PM CDT) Only the most recent of3 resultswithin the time period is included. LDH 122(L) 140 - 271 U/L CANCER DISPLAY MANAGER [facility] Blood 10/28/2024 12:5 1 PM CDT Narrative [facility] - 10/28/2024 1:37 PM CDT Release to patient->Immediate Stanley Jennings MD CHEMISTRY ORDERABLES Sharon l Result Performing Organization Address City/[facility]/ZIP Co de Phone Number CANCER DISPLAY MANAGER [facility] [place] [address], [place] [phone] * FERRITIN (10/28/2024 12:51 PM CDT) Only the most recent of3 resultswithin the time period is included. Ferritin 98 11 - 307 ng/mL [facility] Blood 10/28/2024 12:5 1 PM CDT Narrative [facility] - 10/29/2024 4:28 PM CDT Release to patient->Immediate Stanley Jennings MD CHEMISTRY ORDERABLES Sharon l Result Performing Organization Address City/[facility] Co de Phone Number [facility] [place] [place] [address], [place] [phone] * (ABNORMAL) COMPLETE BLOOD COUNT (CBC) WITH DIFF (09/27/2024 1:00 PM CDT) Only the most recent of3 resultswithin the time period is included. WBC 4.4 4.0 - 10.0 10*3/uL CANCER DISPLAY MANAGER [facility] HGB 9.3(L) 11.2 - 15.7 g/dL CANCER DISPLAY MANAGER [facility] HCT 29.8(L) 34.1 - 44.9 % CANCER DISPLAY MANAGER [facility] PLT 92(L) 163 - 369 10*3/uL CANCER DISPLAY MANAGER [facility] MPV 9.9 9.4 - 12.4 fL CANCER DISPLAY MANAGER [facility] RBC 3.04(L) 3.93 - 5.22 10*6/uL CANCER DISPLAY MANAGER [facility] MCV 98(H) 79 - 95 fL CANCER DISPLAY MANAGER [facility] MCH 30.6 25.6 - 32.2 pg CANCER DISPLAY MANAGER [facility] MCHC 31.2(L) 32.2 - 36.5 g/dL CANCER DISPLAY MANAGER [facility] RDW 17.0(H) 11.6 - 14.4 % CANCER DISPLAY MANAGER [facility] Absolute Neutrophil Count 2,381 cells/uL [facility] Absolute Seg Count 2,381 1,440 - 6,600 cells/uL CANCER DISPLAY MANAGER [facility] Absolute Lymph Count 1,147 760 - 4,000 cells/uL CANCER DISPLAY MANAGER [facility] Absolute [place] Count 485 160 - 1,200 cells/uL CANCER DISPLAY MANAGER [facility] Absolute Eos Count 176 0 - 300 cells/uL CANCER DISPLAY MANAGER [facility] Segmented Neutrophils 54 36 - 66 % CANCER DISPLAY MANAGER [facility] Lymphocytes 26 19 - 40 % [facility]CER C ENTER [facility] Monocytes 11 4 - 12 % CANCER DION TER [facility] Eosinophils 4(H) 0 - 3 % CANCER C ENTER [facility] Myelocytes 3(H) 0 - 2 % CANCER CE NTER SPECIALISTS [facility] Promyelocytes 2(H) 0 - 1 % CANCER DISPLAY MANAGER [facility] WBC Estimate Normal CANCER DISPLAY MANAGER [facility] Platelet Estimate Low CA NCER DISPLAY MANAGER [facility] RBC Morphology Abnormal CANCE R DISPLAY MANAGER [facility] Macrocytosis 1+ CANCER DISPLAY MANAGER [facility] Anisocytosis 1+ CANCER DISPLAY MANAGER [facility] Blood 09/27/2024 1:00 PM CDT Narrative CANCER DISPLAY MANAGER [facility] - 09/27/2024 3:41 PM CDT Release to patient->Immediate us Stanley Jennings MD HEMATOLOGY ORDERABLES Fin al Result CANCER DISPLAY MANAGER [facility] [place] [address], * (ABNORMAL) ERYTHROPOIETIN (EPO) [place] (09/06/2024 11:10 AM CDT) Erythropoietin 72.6(H) 2.6 - 18.5 mIU/mL CANCER DISPLAY MANAGER [facility] 09/06/2024 11:1 0 AM CDT Narrative CANCER DISPLAY MANAGER [facility] - 09/10/2024 2:26 PM CDT Release to patient->Immediate us Stanley Jennings MD LAB SEND OUTS Final Res ult Performing Organization Address [facility]/ZIP Co de Phone Number CANCER DISPLAY MANAGER [facility] [address] [place] [address], * (ABNORMAL) SOLUBLE TRANSFERRIN RE[place] [id number] (09/06/2024 11:10 AM CDT) SOLUBLE TRANSFERRIN RECEPTOR 27.4(H) 12.2 - 27.3 NMOL/L [facility] 09/06/2024 11:1 0 AM CDT Narrative [facility] - 09/10/2024 8:18 PM CDT TESTING PERFORMED AT: [] [facility], [address], PHONE: [phone], JOCKEY AGENT: SABA BREWSTER MD Release to patient->Immediate us Stanley Jennings MD LAB SEND OUTS Final Res ult Performing Organization Address [facility] Co de Phone Number CANCER DISPLAY MANAGER [facility] [address] [place] [address], * (ABNORMAL) VITAMIN B12 (09/06/2024 11:10 AM CDT) Vitamin B12 1,385(H) 180 - 914 pg/mL [facility] Blood 09/06/2024 11:1 0 AM CDT [facility] - 09/09/2024 3:44 PM CDT Release to patient->Immediate us Stanley Jennings MD CHEMISTRY ORDERABLES Sharon l Result CANCER DISPLAY MANAGER [facility] [place] [address], * (ABNORMAL) RETICULOCYTE COUNT (RETIC) (09/06/2024 11:10 AM CDT) Reticulocyte count 1.09 0.50 - 1.70 % CANCER DISPLAY MANAGER [facility] RET-He 27.80(L) 28.20 - 36.60 pg CANCER DISPLAY MANAGER [facility] Comment: RET-He is a direct assessment of incorporation of iron into erythrocyte hemoglobin. It provides an indirect measure of the iron available for new erythropoiesis over past 2-4 days. Blood 09/06/2024 11:1 0 AM CDT [facility] - 09/06/2024 11:32 AM CDT Release to patient->Immediate Stanley Jennings MD HEMATOLOGY ORDERABLES Fin al Result Performing Organization Address [facility] de Phone Number [facility] [place] [address], * FOLIC ACID (FOLATE) (09/06/2024 11:10 AM CDT) Folate >20.00 >=5.90 ng/mL [facility] Blood 09/06/2024 11:1 0 AM CDT [facility] - 09/09/2024 3:44 PM CDT Release to patient->Immediate IS THE PATIENT REQUIRED TO BE FASTING FOR 12 HOURS?->No Stanley Jennings MD CHEMISTRY ORDERABLES Sharon l Result Performing Organization Address [facility] Co de Phone Number [facility] [place] [address], * PET CT TUMOR IMAGING SKULL BASE TO MID THIGH (09/03/2024 11:52 AM CDT) Anatomical Region Laterality Modality BODY N/A Computed Tomogra phy Narrative 09/03/2024 4:27 PM CDT EXAMINATION: PET CT TUMOR IMAGING SKULL BASE TO MID THIGH 09/03/2024 INDICATIONS: 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 Diffuse large B-cell lymphoma. Patient also has a remote history of breast and uterine carcinoma. Subsequent treatment strategy. COMPARISON: 05/03/2024 TECHNIQUE: Following the administration of 12.58 millicuries F 18 FDG, CT PET images were performed from the skull base through the mid thighs. Fused CT PET images were reviewed at the workstation. Glucose 171. A dose lowering technique was used for this procedure, which may include, but is not limited to, dose reduction technique(s), automated exposure control technique(s), use of iterative reconstruction technique(s), and ALARA (as low as reasonably achievable) or ALARA/IMAGE Gently technique(s). FINDINGS: Head neck: No mass or abnormal activity is identified within the brain parenchyma. No enlarged or hypermetabolic lymph nodes are identified within the neck. The thyroid is small Cardiovascular: Atherosclerotic disease is seen within the thoracic aorta without aneurysmal dilatation. Significant three-vessel coronary artery calcification is seen heart size is enlarged. Lungs: Scarring is present within the lung apices. No suspicious pulmonary nodules are seen. Atelectatic changes are present. Hepatobiliary: Postop changes are seen from prior cholecystectomy. There is intra and extrahepatic biliary ductal dilatation extending down to the ampulla. Correlate with LFTs. No other discrete liver lesions are appreciated. Pancreas is somewhat atrophic Lymphatics: The spleen is not enlarged. Less than 1 cm lymph nodes are seen within the chest. Postprocedural changes are seen within the left axilla. Postoperative changes are seen along the iliac chains. There is less than 1 cm iliac chain and inguinal lymph nodes present. No other enlarged or hypermetabolic lymph nodes are identified in the abdomen or pelvis : The adrenal glands are normal configuration. The kidneys demonstrate symmetric enhancement without significant collecting system dilatation. Cortical thinning is seen worse on the left compared to the right. Renal cysts are present. Uterus is absent. No adnexal mass appreciated. The bladder is not well distended GI: Rectal wall thickening is seen. There is some adjacent perirectal and presacral edema and induration. This is uncertain in its etiology but was present previously. Correlate with any prior treatment in this region. Proctitis can not be entirely excluded. Correlate with symptoms. No other focal bowel abnormality seen Musculoskeletal: Muscular activity is likely physiologic. There is apparent postprocedural changes within the anterior abdomen. No discrete osseous lesions are appreciated. IMPRESSION 1. No significant hypermetabolic adenopathy is seen to suggest residual/recurrent lymphoma. Deauville score 1. 2. Postop changes within the left axilla and previous left mastectomy again seen. Additional postop changes of the right axilla and right breast are seen. No adenopathy or hypermetabolic activity is seen to suggest residual/recurrent disease. 3. Postop changes cholecystectomy. Intra and extrahepatic biliary ductal dilatation is again seen. Correlate with LFTs 4. Cortical thinning of the kidneys left worse than right. Renal cysts are present. 5. Question thickening of the rectum with mild perirectal and presacral induration again seen. This is not significantly hypermetabolic. Correlate with any prior treatment in this region. Proctitis not excluded. Recommend clinical correlation. 6. Cardiomegaly with coronary artery disease. Enlargement of the main pulmonary artery suggest pulmonary hypertension. 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 Patient also has a remote history ofbreast and uterine carcinoma. Subsequent treatment strategy. COMPARISON: 05/03/2024 TECHNIQUE: Following the administration of 12.58 millicuries F 18 FDG, CT PET imageswere performed from the skull base through the mid thighs. Fused CT PETimages were reviewed at the workstation. Glucose 171. A dose lowering technique was used for this procedure, which may include,but is not limited to, dose reduction technique(s), automated exposurecontrol technique(s), use of iterative reconstruction technique(s), andALARA (as low as reasonably achievable) or ALARA/IMAGE Gentlytechnique(s). FINDINGS: Head neck: No mass or abnormal activity is identified within the brainparenchyma. No enlarged or hypermetabolic lymph nodes are identifiedwithin the neck. The thyroid is small Cardiovascular: Atherosclerotic disease is seen within the thoracic aortawithout aneurysmal dilatation. Significant three-vessel coronary arterycalcification is seen heart size is enlarged. Lungs: Scarring is present within the lung apices. No suspiciouspulmonary nodules are seen. Atelectatic changes are present. Hepatobiliary: Postop changes are seen from prior cholecystectomy. Thereis intra and extrahepatic biliary ductal dilatation extending down to theampulla. Correlate with LFTs. No other discrete liver lesions areappreciated. Pancreas is somewhat atrophic Lymphatics: The spleen is not enlarged. Less than 1 cm lymph nodes areseen within the chest. Postprocedural changes are seen within the leftaxilla. Postoperative changes are seen along the iliac chains. There isless than 1 cm iliac chain and inguinal lymph nodes present. No otherenlarged or hypermetabolic lymph nodes are identified in the abdomen orpelvis : The adrenal glands are normal configuration. The kidneys demonstratesymmetric enhancement without significant collecting system dilatation.Cortical thinning is seen worse on the left compared to the right. Renalcysts are present. Uterus is absent. No adnexal mass appreciated. Thebladder is not well distended GI: Rectal wall thickening is seen. There is some adjacent perirectal andpresacral edema and induration. This is uncertain in its etiology but waspresent previously. Correlate with any prior treatment in this region.Proctitis can not be entirely excluded. Correlate with symptoms. Noother focal bowel abnormality seen Musculoskeletal: Muscular activity is likely physiologic. There isapparent postprocedural changes within the anterior abdomen. No discreteosseous lesions are appreciated. IMPRESSION 1. No significant hypermetabolic adenopathy is seen to suggestresidual/recurrent lymphoma. Deauville score 1. 2. Postop changes within the left axilla and previous left mastectomyagain seen. Additional postop changes of the right axilla and rightbreast are seen. No adenopathy or hypermetabolic activity is seen tosuggest residual/recurrent disease. 3. Postop changes cholecystectomy. Intra and extrahepatic biliary ductaldilatation is again seen. Correlate with LFTs 4. Cortical thinning of the kidneys left worse than right. Renal cystsare present. 5. Question thickening of the rectum with mild perirectal and presacralinduration again seen. This is not significantly hypermetabolic.Correlate with any prior treatment in this region. Proctitis notexcluded. Recommend clinical correlation. 6. Cardiomegaly with coronary artery disease. Enlargement of the mainpulmonary artery suggest pulmonary hypertension. Electronically signed by: THANIA ABREU MD, Staff Radiologist Date of Signature: 09/03/2024 16:27:14 us Stanley Jennings MD IMG PET Final Res ult * (ABNORMAL) PARATHYROID HORMONE PTH INTACT (09/02/2024 9:53 AM CDT) Only the most recent of2 resultswithin the time period is included. PTH, INTACT 245(H) 15 - 65 PG/ML [facility] 09/02/2024 9:53 AM CDT Narrative [facility] - 09/03/2024 1:08 PM CDT TESTING PERFORMED AT: [] [facility], [address] [place] [address], [place], [address], PHONE: [phone], JOCKEY AGENT: VERO FIELDS, PHD us Not On File Provider CHEMISTRY ORDERABLES Final Result [facility] [address] [place] [address], * (ABNORMAL) URINALYSIS WITH MICROSCOPIC, C/S IF INDICATED [place] (09/02/2024 9:49 AM CDT) Urine Color Yellow Straw-Yel low [facility]PLAY [facility] Urine Clarity Clear Clear [facility]PLAY [facility] Urine Glucose NEG NEG mg/dL [facility] DISPLAY MANA[facility] Urine Bilirubin NEG NEG mg/dL CAN[facility] ER DISPLAY MANA[facility] Urine Ketones NEG NEG mg/dL [facility] DISPLAY MANA[facility] Urine Specific [place] 1.020 1.015 - 1.020 [facility] DISPLAY MANA[facility] Urine Blood NEG NEG mg/L [facility] Urine pH 5.5 5.0 - 8.0 [pH] [facility] DISPLAY MANA[facility] Urine Protein 1+(A) NEG mg/dL [facility] DISPLAY MANAGER [facility] Urine Urobilinogen 0.2 0.2 - 1.0 mg/dL [facility] DISPLAY MANA[facility] Urine Nitrite NEG NEG [facility] DISPLAY MANAGER [facility] Urine Leukocytes NEG NEG [facility] DISPLAY MANA[facility] Urine Epithelial Cells Moderate(A ) None,Rare ,Few /LPF [facility] DISPLAY [facility] Urine Mucus None None /LPF [facility] Urine Cast None None /LPF [facility] CE N[facility] Urine Bacteria Few(A) None /HPF CANCE R DISPLAY MANAGER [facility] Urine Crystal None None /LPF [facility] DISPLAY MANA[facility] Urine White Blood Cells 0-4 0 - 4 /HPF [facility] DISPLAY MANA[facility] Urine Red Blood Cells 0-2 0 - 2 /HPF [facility] DISPLAY MANA[facility] 09/02/2024 9:49 AM CDT us Not On File Provider LAB SEND OUTS Final Resul t [facility] DISPLAY MANAGER [facility] [place] [address], * (ABNORMAL) RENAL FUNCTION PANEL (RFP) (08/26/2024 2:18 PM INDUSTRIAL SALES REPRESENTATIVE) Glucose 215(H) 70 - 105 mg/dL [facility] Blood Urea Nitrogen 27(H) 7 - 25 mg/dL [facility] Creatinine 1.6(H) 0.6 - 1.2 mg/dL [facility] Sodium 140 136 - 145 mEq/L [facility] Potassium 4.1 3.5 - 5.1 mEq/L [facility] Chloride 107 98 - 107 mEq/L [facility] Bicarbonate 25 21 - 31 mEq/L [facility] DISPLAY MANAGER [facility] Albumin 3.5 3.5 - 5.7 g/dL [facility] DISPLAY MANA[facility] Calcium 7.9(L) 8.6 - 10.3 mg/dL CAN[facility] DISPLAY MANA[facility] Phosphorous 3.5 2.5 - 4.6 mg/dL [facility] DISPLAY MANA[facility] Anion Gap 12.1 7.0 - 15.0 mEq/L [facility] DISPLAY MANA[facility] EGFR 31(L) >60 ml/min/1. 73m2 [facility] DISPLAY MANAGER [facility] Comment: This eGFR is calculated using 2020 CKD-EPI Creatinine equation without race modifier based on the NKF-ASN task force recommendations 08/26/2024 2:18 PM INDUSTRIAL SALES REPRESENTATIVE Not On File Provider CHEMISTRY ORDERABLES Final Result Performing Organization Address [facility]/ZIP Co de Phone Number CANCER DISPLAY MANAGER [facility] [place] [address], * (ABNORMAL) MAGNESIUM (MG) (08/26/2024 2:03 PM INDUSTRIAL SALES REPRESENTATIVE) Magnesium 1.5(L) 1.9 - 2.7 mg/dL [facility] Blood 08/26/2024 2:03 PM INDUSTRIAL SALES REPRESENTATIVE Narrative [facility] - 08/26/2024 3:12 PM INDUSTRIAL SALES REPRESENTATIVE Release to patient->Immediate us Stanley Jennings MD CHEMISTRY ORDERABLES Sharon l Result Performing Organization Address [facility]/ZIP Co de Phone Number [facility] [place] [address], * (ABNORMAL) HEMOGLOBIN A1C [place] 1453 (01/29/2024 1:19 PM CDT) HEMOGLOBIN A1C 6.9(H) 4.8 - 5.6 % [facility] Comment: PREDIABETES: 5.7 - 6.4 DIABETES: >6.4 GLYCEMIC CONTROL FOR ADULTS WITH DIABETES: <7.0 01/29/2024 1:19 PM CDT Narrative [facility] - 01/30/2024 5:08 AM CDT TESTING PERFORMED AT: [CB] [facility], [address] [place] [address], [place], [address], PHONE: [phone], JOCKEY AGENT: VERO FIELDS, PHD Release to patient->Immediate Stanley Jennings MD LAB SEND OUTS Final Res ult CANCER DISPLAY MANAGER [facility] [place] [address], from Last 3 Months or Most Recently Relevant to Health Maintenance Insurance MEDICARE Member Subscriber Plan / Payer (Ef fective 2002-Present) Name:Jhon Valencia Member ID:[id number] Relation to Subscriber:Self Name:Jhon Valencia Subscriber ID:[id number] Payer ID:[id number] Group ID:Not on file Type:Not on file Address: [facility] [address] [employer] [facility] [address] [facility] [employer] [facility] Care Teams Manager Intensive Care Relationship Specialty Start Date End Date Lamin WisdomDO [address] [place] [address] [address] [place] [address] PCP - General Internal Medicine 06/09/22 Stanley Jennings MD [address] [place] [address] [phone] Oncology 07/21/22 Selene Alves, RN [place] Oncology Nurse Navigator Oncology 03/29/24 Sanam Garcia, CLEVE [place] Oncology Nurse Navigator Oncology 05/17/24 Jeff Preciado MD [address] [facility] [address] [place] [address] Consulting Physician Urology 09/23/24
--- OUTSIDE RECORDS SUMMARY | 2024-11-12 10:26 | XMS_ITS | Encounter Summary ---
Author Organization [facility] Address [address] [place] [address] Phone Care Team Providers Care Process Area Supervisor Name Role Phone Lamin Wisdom Primary Care Provider [phone] Stanley Jennings MD Unavailable [phone] Selene Alves RN Unavailable Unavailable Sanam Garcia RN Unavailable Unavailable Jeff Preciado MD Unavailable Reason for Visit * Reason Comments Medication Refill Encounter Details Date Type Department Care Team (Late st Contact Info) Description 07/04/2023 Refill [facility] [address] [address] Stanley Jennings MD [address] [place] [address] Medication Refill Social History Tobacco Use Types Packs/Day Years Used Date Smoking Tobacco: Never Smokeless Tobacco: Never Alcohol Use Standard Drinks/Week Comments Yes 0 (1 standard drink = 0.6 oz pur e alcohol) Comments Unknown Sex and Gender Information Value Date Recorded Sex Assigned at Not on file 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 VAN CDL TRUCK DRIVER documented in this encounter Plan of Treatment Upcoming Encounters Date Type Department Care Team (Late st Contact Info) Description 12/02/2024 10:30 AM CDT Lab [facility] [address] [phone] Lab, [facility] 12/06/2024 10:45 AM CDT Office Visit [facility] [address] [phone] Stanley Jennings MD [address] [address] documented as of this encounter Visit Diagnoses Not on filedocumented in this encounter Additional Health Concerns Infection Onset Date Last Indicated Resolved Time C. 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 documented as of this encounter Care Teams Process Area Supervisor Relationship Specialty Start Date End Date Lamin Wisdom DO [address] [place] [address] [address] [place] [address] PCP - General Internal Medicine 06/09/22 Stanley Jennings MD [address] [place] [phone] Oncology 07/21/22 Selene Alves RN [place] Oncology Nurse Navigator Oncology 03/29/24 Sanam Garcia, RN [place] Oncology Nurse Navigator Oncology 05/17/24 Jeff Preciado MD [address] [facility], [address] [address] Consulting Physician Urology 09/23/24 documented as of this encounter
--- OUTSIDE RECORDS SUMMARY | 2024-11-12 10:26 | XMS_ITS | Encounter Summary ---
Author Organization [facility] Healthcare Address [address] [place] [address] Care Team Providers Care Computer Assistant Name Role Phone Patricia Mckeon MD Unavailable [phone] Randy Murillo MD Unavailable [phone] Arthur Whitfield MD Unavailable [phone] Russ Paiz MD Unavailable [phone] Charlie Norton MD Primary Care Provider [phone] Stanley Jennings MD Unavailable [phone] Encounter Details Date Type Department Care Team (Late st Contact Info) Description 11/11/2024 Orders Only [facility] Medical Group Diabetes and Endocrinology [facility] [place] [address] [place] [address] [place] [address] Acquired hypothyroidism (Primary Dx) Social History Tobacco Use Types Packs/Day Years [...] often do you attend chur ch or sikhism services? 1 to 4 times per year 01/31/2022 Do you belong to any clubs o r organizations such as quaker groups, unions, fraternal or athletic groups, or [...] place to sleep or slept in a custodial (including now)? 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 Gender Identity Not on file Sexual Orientation Not on file documented as of this encounter Ordered Prescriptions Prescription Sig Dispense Quantity Refills Last Filled Start Date End Date [place] Thyroid 15 mg tabletIndications:Ac quired hypothyroidism Take 1 tablet (15 mg total) by mouth daily 90 tablet 3 11/11/2024 [place] Thyroid 120 mg tabletIndications:Ac quired hypothyroidism Take 1 tablet (120 mg total) by mouth daily 90 tablet 3 11/11/2024 documented in this encounter Plan of Treatment Scheduled Orders Name Type Priority Associated Diagnoses Orde r Schedule TSH Lab Routine Acquired hypothyroidism Expected: 02/11/2025, Expires: 11/11/2025 T4, free Lab Routine Acquired hypothyroidism Expected: 02/11/2025, Expires: 11/11/2025 T3, free Lab Routine Acquired hypothyroidism Expected: 02/11/2025, Expires: 11/11/2025 documented as of this encounter Visit Diagnoses Diagnosis Acquired hypothyroidism- Primary Unspecified hypothyroidism documented in this encounter Discontinued Medications Medication Sig Discontinue Reason Start Date End Da te thyroid ([place] Thyroid) 120 mg tablet Take 1 tablet (120 mg total) by mouth daily 11/11/2024 documented as of this encounter Care Teams Computer Assistant Relationship Specialty Start Date End Date Charlie Norton MD [address] [facility] [address] [address] PCP - General Family Medicine 01/31/22 Patricia Mckeon MD Referring Physician Cardiology 06/20/19 Randy Murillo MD Referring Physician Nephrology 06/20/19 Arthur Whitfield MD Referring Physician Rheumatology 06/20/19 Russ Paiz MD [address] [facility] [address] [place] [address] Consulting Physician Pulmonary Disease 06/20/19 Stanley Jennings MD [address] [facility] [address] [place] [id number] Referring Physician Hematology and Oncology 05/06/24 documented as of this encounter
--- OUTSIDE RECORDS SUMMARY | 2024-11-12 10:26 | XMS_ITS | Encounter Summary ---
Author Organization [facility] Address [address] [place] [address] Care Team Providers Care Calibration Engineer Name Role Phone Bala Norman MD Primary Care Provider [phone] Patricia Mckeon MD Unavailable [phone] Agustin Alston MD Primary Care Provider [phone] Tamar Novoa MD Unavailable Stephen Thapa MD Primary Care Provider Unav ailable Gracie Vargas DO Primary Care Provider [phone] Lamin Wisdom DO Primary Care Provider [phone] Charlie Norton MD Unavailable [phone] Isael Harmon MD Unavailable [phone] Aakash Rayo MD Primary Care Provi carline Stanley Jennings MD Unavailable [phone] Encounter Details Date Type Department Care Team (Late st Contact Info) Description 01/27/2016 Abstract [facility] AT [address] [address] Diane Mariscal MA Social History Tobacco Use Types Packs/Day Years Used Date Smoking Tobacco: Never Smokeless Tobacco: Never Alcohol Use Standard Drinks/Week Comments Yes 0 (1 standard drink = 0.6 oz pur e alcohol) Occasionally Comments No Sex and Gender Information Value Date Recorded Sex Assigned at Female 08/01/2024 12:47 PM ACTUARIAL DIRECTOR Legal Sex Female 10:09 PM CDT Gender Identity Not on file Sexual Orientation Not on file 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 [place] [address] Jeff Preciado MD [address] [facility] [address] [place] [address] 11/26/2024 11:15 AM CDT Hospital Encounter [facility] [place] [address] Jeff Preciado MD 3 [facility] [address] [place] [address] 11/26/2024 11:15 AM CDT Anesthesia [place] [address] Uma Antonio, PLATEMAN [address] [place] [address] 11/26/2024 11:15 AM CDT - 11/26/2024 12:09 PM CDT Surgery [place] [address] Jeff Preciado MD 3 [facility] [address] [place] [address] CYSTOSCOPY WITH BLADDER BIOPSY AND FULGURATION 01/03/2025 9:40 AM CDT Office Visit [facility] Medical Group Multispecialty Care - [facility] [address] [facility] [address] [place] [address] Kaleb Bean MD [address] [facility] [address] [place] [address] 02/05/2025 2:00 PM CDT Office Visit [facility] on [facility], [address] [place] [address] Saadia Walker APRN Three [facility]. [address] [place] [address] Scheduled Procedures Name Priority Associated Diagnoses Date/Ti [...] ALBUMIN S/P/B 3.6 3.5 - 5.0 12/30/2015 us Doc [facility] Abstract LABORATORY Edited Resul t - Final * CBC (OUTSIDE LAB) (12/30/2015) WBC 9.0 HGB 11.1 HCT 34.1 PLT 180 12/30/2015 us Doc [facility] Abstract LAB-OUTSIDE/ABSTRACTED Final Result documented in this encounter Visit Diagnoses Not on filedocumented in this encounter Additional Health Concerns Infection Onset Date Last Indicated Resolved Time C. difficile 02/01/2017 02/01/2017 05/03/2022 11:5 1 AM ACTUARIAL DIRECTOR MRSA Comment:05/02/22 +MRSA Nasal 05/19/24 +MRSA Left arm 05/03/2022 05/19/2024 COVID-19 Rule Out 02/19/2024 02/19/2024 02/19/2024 9:56 PM CDT documented as of this encounter Care Teams Calibration Engineer Relationship Specialty Start Date End Date Bala Norman MD [address] [place] [address] PCP - General INTERNAL MEDICINE 12/30/15 11/23/17 Agustin Alston MD [place] [address] [place] [address] PCP - General INTERNAL MEDICINE 12/06/17 04/25/19 Stephen Thapa MD [facility]. [facility] [address] [place] [address] PCP - General NEPHROLOGY 04/26/19 08/28/19 Gracie Vargas DO [address] [place] [address] PCP - General INTERNAL MEDICINE 08/29/19 03/25/22 Lamin Wisdom DO [address] [place] [address] PCP - General INTERNAL MEDICINE 03/26/22 07/31/24 Aakash Rayo MD [address] [facility] [place] [address] PCP - General HOSPITALIST 08/01/24 09/20/24 Patricia Mckoen MD [facility]. [facility] [address] [place] [address] [place] Senior Production Planner CARDIOVASCULAR DISEASE 11/25/15 Tamar Novoa MD [facility]. [facility] [address] [place], [place] [address] EP Senior Production Planner CLINICAL CARDIAC ELECTROPHYSIOLOGY 12/18/17 Charlie Norton MD [address] [place], [place] [id number] FAMILY PRACTICE 05/02/22 Isael Harmon MD [address] [address] Referring Physician OBGYN 05/02/22 Stanley Jennings MD [address] [place] [address] HEMATOLOGY/ONCOLOGY 10/29/24 documented as of this encounter
--- OUTSIDE RECORDS SUMMARY | 2024-11-12 10:26 | XMS_ITS | Clinical Summary ---
Author Organization [facility] Address [address] [place] [address] Care Team Providers Care Manager Leadership Development Name Role Phone Patricia Mckeon MD Unavailable Tamar Novoa MD Unavailable Charlie Norton MD Unavailable [phone] Austin Harmon MD Unavailable [phone] Stanley Jennings MD Unavailable [phone] Allergies Active Allergy Reactions Criticality Noted Date Comments Chlorhexidine Itching 05/02/2022 Per patient and per pulmonology notes 02/16/22 in care everywhere [place] Tar Extract Unknown 02/17/2022 Dapagliflozin Shortness of [...] spray 1 spray by Nasal route nightly. 7 Active Probiotic Product ([employer]) Cap Take 1 tablet by mouth nightly. 7 Active albuterol sulfate HFA 108 (90 Base) MCG/ACT inhaler Inhale 2 puffs into the lungs every 6 (six) hours as needed for Wheezing. 8 Active diclofenac sodium (VOLTAREN) 1 % gel Apply topically as needed. 9 Active oxyCODONE-acet aminophen 5-325 MG tablet Take 1 tablet by mouth every 6 (six) hours as needed. 9 Active allopurinol (ZYLOPRIM) 100 MG tablet Take 1 tablet (100 mg total) by mouth daily. 1 Active pantoprazole EC (PROTONIX) 40 MG tablet Take 1 tablet (40 mg total) by mouth nightly. 2 Active zolpidem CR (AMBIEN CR) 6.25 MG tablet Take 1 tablet (6.25 mg total) by mouth nightly at bedtime. 3 Active nystatin (MYCOSTATIN) ointment 3 Active folic acid (FOLVITE) 1 MG tablet Take 1 tablet (1 mg total) by mouth daily. 3 Active cyanocobalamin (B-12) 1000 MCG/ML injection INJECT 1 ML EVERY 28 DAYS 3 Active potassium chloride CR (MICRO-K) 10 MEQ CR capsule Take 1 capsule (10 mEq total) by mouth daily. Active lidocaine (LIDODERM) 5 % Apply 1 patch topically daily. 2 Active loperamide (IMODIUM) 2 MG capsule Take 1 capsule (2 mg total) by mouth as needed. Active atorvastatin (LIPITOR) 20 MG tablet Take 1 tablet (20 mg total) by mouth nightly at bedtime. 4 Active amiodarone (PACERONE) 200 MG tablet Take 0.5 tablets (100 mg total) by mouth daily. 45 tablet 1 4 Active calcitriol (ROCALTROL) 0.25 MCG capsule Take 1 capsule (0.25 mcg total) by mouth 3 (three) times a week. 4 Active Additional Information Patient taking differently:0.25 mcg Oral Three times weekly,Monday, Monday, Monday, Reported on 10/29/2024 vitamin D3 (CHOLECALCIFER OL) 1.25 mg capsule Take 1 capsule (1.25 mg total) by mouth once a week. Takes on Wednesdays 4 Active HUMULIN R 100 UNIT/ML injection 3 (three) times daily before meals. Per sliding scale, Patient unaware of sliding scale 4 Active metoprolol succinate ER (TOPROL-XL) 25 MG 24 hr tablet Take 1 tablet (25 mg total) by mouth daily. 90 tablet 1 4 Active magnesium oxide (MAG-OX) 400 MG tablet Take 1 tablet (400 mg total) by mouth 2 (two) times daily. NEW DOSE 04/25/2024 OV 180 tablet 1 4 Active thyroid (ARMOUR THYROID) 90 MG OR TABS tablet Take 1 tablet (90 mg total) by mouth daily. ARMOUR THYROID NEW DOSE 04/25/2024 90 tablet 4 Active furosemide (LASIX) 40 MG tablet TAKE 1 TABLET BY MOUTH TWICE DAILY. UNTIL SWELLING GOES DOWN, THEN DECREASE TO 1 TABLET ONCE DAILY 90 tablet 4 Active JANUVIA 25 MG Tab Take 1 tablet (25 mg total) by mouth daily. 4 Active fexofenadine (MYRIAM ALLERGY) 180 MG tablet Take 1 tablet (180 mg total) by mouth. 4 Active prochlorperazi ne (COMPAZINE) 10 MG tablet Take 1 tablet (10 mg total) by mouth every 6 (six) hours as needed. 5 Active mirabegron ER (MYRBETRIQ) 50 MG 24 hr tablet Take 1 tablet (50 mg total) by mouth. 5 Active Fluticasone-Um eclidin-Vilant (TRELEGY ELLIPTA) 200-62.5-25 MCG/ACT AEROSOL POWDER, BREATH ACTIVATEDIndic ations:Dyspnea on exertion Inhale 1 puff into the lungs daily. Rinse and spit after use 90 each 3 5 Active apixaban (ELIQUIS) 2.5 MG tablet Take 1 tablet (2.5 mg total) by mouth 2 (two) times daily. 180 tablet 1 5 Active insulin glargine (LANTUS) 100 UNIT/ML injection (VIAL) Inject 8 Units into the skin nightly at bedtime. If BS >180, takes 8-10 units Active Kfzkjm-Iaiyd-D yal Ac-Ca Fructo (MOVE FREE [facility]) Tab Take 1 tablet by mouth nightly. 8 025 Discontinu ed(Error) glucagon 1 MG injection 2 025 Discontinu ed(Error) insulin glargine (LANTUS) 100 UNIT/ML injection (VIAL) Inject 5 Units into the skin every morning. 4 025 Discontinu ed(Error) teriparatide (FORTEO) 600 MCG/2.4ML injection Inject 0.08 mLs (20 mcg total) into the skin nightly. 4 025 Active Problems Problem Noted Date Diagnosed Date Syncope 07/22/2024 Skin infection 05/18/2024 Atrial fibrillation and flutter ([facility] ) 03/13/2024 Hypercalcemia 03/06/2024 Bladder mass 02/20/2024 CHF (congestive heart failure) ([facility]) 02/19/2024 Pulmonary HTN ([facility]) 08/16/2023 Overview (09/19/2023): Last Assessment & Plan: I have ordered an echocardiogram due to the pulmonary hypertension noted on her PET scan. 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 ([facility]) 07/28/2022 Hyperlipidemia 07/28/2022 Insomnia 07/28/2022 Lymphedema 07/28/2022 Osteoporosis 07/28/2022 Iron deficiency anemia 07/19/2022 Vitamin B 12 deficiency 07/19/2022 Anemia in other chronic diseases classified else where 06/08/2022 Severe mitral valve regurgitation 05/04/2022 Hyperuricemia 11/24/2020 Dilated cardiomyopathy ([facility]) 021 Bradycardia 12/31/2018 Post-nasal drip 09/26/2018 Overview (11/22/2022): Last Assessment & Plan: Patient will continue with Myriam and Flonase daily. KT (obstructive sleep apnea) 09/26/2018 Overview (09/19/2023): Last Assessment & Plan: Will continue with trilogy at night while sleeping. Patient was encouraged to resume Trilogy. [employer]. Patient will continue Ambien 6.25 mg nightly. Centrilobular emphysema ([facility]) 2018 Overview (09/19/2023): Last Assessment & Plan: The patient will continue with Trelegy. The patient has an albuterol inhaler that she may use on a p.r.n. basis and up to 4 times a day as needed for symptom control. Right-sided heart failure ([facility]) 12/2018 Non-rheumatic mitral regurgitation 08/30/2018 Assessment & Plan (09/21/2022 6:34 PM CDT): She has severe mitral regurgitation. Attempted transcatheter repair was unsuccessful. I discussed future transcatheter options such as Isidro Maryellen, which we do not have or potentially enrolling in a clinical trial at [facility] or [facility]. I also discussed medical therapy. She would [...] ROJO (dyspnea on exertion) 08/01/2018 Endometrial cancer ([facility]) 07/23/2018 Allergic rhinitis 01/15/2018 Hypotension due to drugs 03/15/2017 Uterine cancer ([facility]) 06/26/2005 Overview (01/18/2016): h/o Essential hypertension Stage 3 chronic kidney disease Assessment & Plan (04/25/2022 3:12 PM CDT): She has a history of chronic kidney disease and follows with nephrology. We will try to use as little dye as possible. Pure hypercholesterolemia Paroxysmal atrial fibrillation Assessment & Plan (04/25/2022 3:13 PM CDT): Recommend holding anticoagulation prior to cardiac catheterization. Chronic diastolic heart failure ([facility] ) Assessment & Plan (09/21/2022 6:33 PM CDT): Continue diuretics. Hypothyroidism Arthritis Cellulitis Anxiety Depression Breast cancer ([facility]) Overview (01/18/2016): h/o Neuropathy Vitamin D deficiency Overview (01/18/2016): Hypo Vitamin D deficiency Diabetes mellitus ([facility]) Resolved Problems Problem Noted Date Diagnosed Date Resolved Date PAF (paroxysmal atrial fibri llation) ([facility]) 12/30/2015 07/21/2016 Encounters Date Type Department Care Team Description 10/30/2024 Telephone [facility], [address] [address] Patricia Mckeon MD Surgical Clearance ([facility] Surgical Home requesting cardiac clearance) 10/03/2024 Telephone [facility], [address] [address] Saadia Walker APRN Refill Request ([facility]) 09/21/2024 [employer] Message Enc [facility] [address] [address] Patricia Mckeon MD Monitor 09/19/2024 Telephone [facility] [address] [address] Claribel Lares RN Results 09/11/2024 1:00 PM CDT - 09/11/2024 11:59 PM CDT Hospital Encounter [facility] [place] [address] Patricia Mckeon MD Discharge Disposition: Home or Self Care (Routine Discharge) 09/11/2024 Travel 09/10/2024 Telephone [facility] [address] [address] 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 Lares 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 loan 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 officer 08/28/2024 11:20 AM SALAD BAR CLERK Telemedicine [facility] [address] [place] [id number] Kaleb Bean MD Shortness Of Breath 08/28/2024 Scan pushd INFO SRVCS Scanned, Doc [facility] 08/28/2024 [facility] - [address], [address] [place] [address] Kaleb Bean MD Record Request 08/28/2024 Telephone [facility] - [address] [place] [address] Kaleb Bean MD Appointment Request from Last 3 Months Immunizations Immunization Administration Dates Next Due Arexvy Respiratory Syncytial Virus (RSV, adjuvanted) 0.5 mL, PF 06/05/2023 Hepatitis A (Havrix [address]) 11/22/2011,2004 Influenza (Generic) 10/03/2022, 8,04/12/2017,03/28,03/26/2015,02/24/2015,03/26/2014 ,04/12/2011,03/19/2010,04/20/2009,05/26,05/04/2007,05/16/2005, 4,05/26/2003,05/07/2002,05/08/2001 Influenza Adult (Generic) 03/26/2020,04/08/2016 PFIZER COVID-19 (ORIGINAL FO RMULATION, PURPLE CAP) mRNA, LNP-S, PF, 30 MCG/0.3 ML DOSE 08/13/2020,07/23/2020 Pneumococcal (Pneumovax 23) 11/02/1999 Pneumococcal (Prevnar 13) 02/24/2015,07/24/2014 Pneumococcal (Prevnar 20) 10/03/2022 Td (TDVAX) 05/07/2002 Tdap (Generic) 11/22/2011 Typhoid Vi Polysaccharide Va cc 25 Mcg/0.5Ml Im Soln 12/07/2004 Zoster (Zostavax) 19869 Unt/0.65Ml 01/20/2009 Family History Medical History Relation Comments Cancer [...] Never Smokeless Tobacco: Never Tobacco Cessation:Counseling Given: Yes Alcohol Use Standard Drinks/Week Comments Yes 0 (1 standard drink = 0.6 oz pur e alcohol) Occasionally [facility] [employer] Answer Date Recorded In the past 12 months has e electric, gas, oil, or water [employer] threatened to shut off services in your [...] any time in the past 12 m onths, were you homeless or living in a assisted (including now)? 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 Not on file Not on file Not on file Last Filed Vital Signs Vital Sign Reading Time Taken Comments Blood Pressure 102/50 08/01/2024 1:23 PM SALAD BAR CLERK Pulse 76 08/01/2024 12:53 PM SALAD BAR CLERK Temperature 36.5 C (97.7 F) 05/26/2024 7:57 AM SALAD BAR CLERK Respiratory Rate 18 05/26/2024 7:57 AM SALAD BAR CLERK Oxygen Saturation 96% 08/01/2024 12:53 PM SALAD BAR CLERK Inhaled Oxygen Concentration - - Weight 59 kg (130 lb) 10/29/2024 3:29 PM CDT Height 152.4 cm (5') 10/29/2024 3:29 PM CDT Body Mass Index 25.39 10/29/2024 3:29 PM CDT Plan of Treatment Upcoming Encounters Date Type Department Care Team (Latest Contact Info) Description 11/26/2024 Prep for Procedure [facility] [place] [address] Jeff Preciado MD [address] [facility] [address] [place] [address] 11/26/2024 11:15 AM CDT Hospital Encounter [facility] [place] [address] Jeff Preciado MD [address] [facility] [address] [place] [address] 11/26/2024 11:15 AM CDT Anesthesia Event [facility] [place] [address] Uma Antonio, [employer] [place] [address] [place] [address] 11/26/2024 11:15 AM CDT - 11/26/2024 12:09 PM CDT Surgery [facility] [place] [address] Jeff Preciado MD [address] [facility] [address] [place] [address] CYSTOSCOPY WITH BLADDER BIOPSY AND FULGURATION 01/03/2025 9:40 AM CDT Office Visit [facility] Medical [facility] Multispecialty Care - [facility] [address] [facility] [address] [place] [address] Kaleb Bean MD [address] [facility] [address] [place] [address] 02/05/2025 2:00 PM CDT Office Visit [facility] [address], [address] [place] [address] Saadia Walker APRN [address] [facility]. [address] [place] [address] Scheduled Procedures Name Priority Associated Diagnoses Date/Ti me CYSTOSCOPY BIOPSY BLADDER BLADDER WALL THICKENING N32.89 11/26/2024 11:15 AM CDT Health Maintenance Due Date Last Done Comments Diabetes: Retinopathy Eye Exam 10/19/1953 Annual Medicare Wellness Visit 2002 Zoster Vaccines (1 of 2) 03/17/2009 01/20/2009 DTaP, Tdap and Td Vaccines (2 - Td or Tdap) 11/21/2021 11/22/2011, 05/07/2002 Lipid Panel 03/28/2023 03/28/2022, 07/28, 08/23/2021, Additional history exists COVID-19 Vaccine ( season) 2024 10/13/2022, 04/07/2022, 10/27/2021, Additional history exists PHQ-2 (Physician [place]) 06/26/2024 Hemoglobin A1C 08/18/2024 05/18/2024, 08/0 10/2023, 07/28/2023, Additional history exists Pneumococcal Vaccine: 50+ Years Completed 10/03/2022, 02/24/2015, 07/24/2014, Additional history [...] upon discharge from hospital Lifestyle No Andria Major LCSW Monitor - able to maintain pain control Lifestyle No Orlando Hernandez, RN Autogenerated Goal Care Plan Autogenerated Problem No Valerie Guillory RN Medical Devices Implanted Type Area Playroom Attendant Device Identifier Shelf Expiration Date Model / Serial / Lot Catheter Power Port Mri Implanted 8fr - [id number] Implanted:Qty : 1 on 03/25/2024 by Judah Jose IV, MD at [facility] [place]: Chest [employer] [id number] 08/23/2025 [id number] / / [id number] Procedures Procedure Name Priority Date/Time Associated Diagnosis Comments MOBILE CONTINUOUS TELEMETRY Routine 09/17/2024 2:12 PM CDT Severe mitral valve regurgitation USE ECHOCARDIOGRAM W CON Routine 09/11/2024 2:23 PM CDT Severe mitral valve regurgitation HEMOGLOBIN, GLYCOSYLATED Routine 05/18/2024 3:00 PM SALAD BAR CLERK LIPID PANEL Routine 08/23/2021 from Last 3 Months or Most Recently Relevant to Health Maintenance Results * CLINIC - [address] MCT - Today (09/17/2024 2:12 PM CDT) [facility] - 09/17/2024 2:12 PM CDT [image] [place], [place] [address] SHOE [facility]INER REPORT PATIENT NAME: Jhon Esparza : 1935 DATE OF TESTIN08/18/2024 until 09/16/2024 TYPE OF MONITOR: 30 day Mobile Cardiac Telemetry PCP: Aakash Rayo MD INTERPRETING SLEEVE SEPARATOR: PATRICIA MCKEON M.D. INDICATION: Atrial fibrillation, syncope FINDINGS: Jhon Esparza underwent monitoring for a total of 30 days, of which 26 days, 0 hours and 45 minutes or 89% was considered diagnostic. Baseline rhythm: The baseline rhythm was atrial fibrillation with heart rates ranging between 61 and 177 beats per minute, with average rate of 81 beats per minute. 0% of the time was spent in bradycardia. For % of the time was spent in tachycardia. Sinus node function: No evidence of severe bradycardia or pauses longer than 3 seconds. A-V conduction: A-V conduction was normal with no evidence of significant A-V block. Atrial arrhythmias: Atrial fibrillation was observed 100% of the time. Atrial flutter was not observed. Ventricular arrhythmias: There were rare PVCs, a total of 13,394 PVCs over 30 days which accounted for less than 1% of total heart beats. 4 episodes of ventricular tachycardia was observed. The longest episode lasted 2.6 seconds or 5 beats at a rate of 145 bpm. Symptoms: The patient reported no symptoms. 1 manually triggered event showed atrial fibrillation at 97 bpm SUMMARY: Atrial fibrillation at an average of 81 bpm was noted. Rare PVCs with a <1 % burden noted. 4 episodes of ventricular tachycardia lasting up to 5 beats was seen. No symptoms were recorded but 1 manually triggered event showed atrial fibrillation at 97 bpm. us Patricia Mckeon MD CV VASCULAR ORDERABLES Final [facility] * USE ECHOCARDIOGRAM W CON (09/11/2024 2:23 PM CDT) Anatomical Region Laterality Modality NA Echocardiogram 09/11/2024 1:13 PM CDT Narrative 09/12/2024 5:09 PM CDT Echocardiography Report Pat.Name: JHON ESPARZA Kamlesh Pat.ID: [id number] .Date: 09/11/2024 Refer.: [id number] REGINA Exam Time: 1:13:00 PM Study Type:ECHO WITH CARDIAC DOPPLER COMP Height: 60 in Weight: 127 lb BSA: 1.54 m2 Age: 4 1935,88Y Sex: F BP: 107/63 HR: 88 bpm Sonogrphr: Kaitlin Gonzalez [facility] Pat. Stat.:Outpatient Reason for Study:Severe mitral valve regurgitation History / Clinical:Elevated d-dimer. Diabetes, Hypertension, Renal Insufficiency, Hypothyroidism, Atrial fibrillation, COPD Procedures: 2D, M-mode, Doppler, Color Flow, Definity was used to enhance endocardial definition. The study quality is technically difficult. Race: W ++++++++++++++++++++++++++++++++++++ SUMMARY: ++++++++++++++++++++++++++++++++++++ The left ventricular systolic function is mildly depressed. Estimated left ventricular ejection fraction is 45-50%. Mild concentric left ventricular hypertrophy. Left ventricular diastolic function is not accessible due to atrial fibrillation. The left atrial size is severely enlarged. Moderate to severe mitral regurgitation. Mild pulmonic regurgitation. Moderate tricuspid regurgitation. Right ventricular systolic pressure is 40-45mmHg suggestive of moderate pulmonary hypertension. Compared to the previous study the ejection fraction has remained stable. ++++++++++++++++++++++++++++++++++++ FINDINGS: ++++++++++++++++++++++++++++++++++++ LV: The left ventricular size is normal. The left ventricular systolic function is mildly depressed. Estimated left ventricular ejection fraction is 45-50%. Mild concentric left ventricular hypertrophy. Left ventricular diastolic function is not accessible due to atrial fibrillation. WM: Mild global hypokinesis is noted. RV: The right ventricular size is moderately enlarged. Right ventricular systolic function is normal. IVS: No evidence of ventricular septal defect. LA: The left atrial size is severely enlarged. The left atrial volume is severely increased (>48 ml/M2). RA: Right atrial size is normal. IAS: Report on DELVIS done on 04/19/22 indicates that there is Right to left shunt consistent with small patent foramen [place]. NURY: No evidence of pericardial effusion. AO: Normal aortic root. PA: Estimated right atrial pressure of 3 mmHg. SVn: Inferior vena cava is normal. Inferior vena cava shows >50% collapse with respiration consistent with normal right atrial pressure. Other: Compared to the previous study the ejection fraction has remained stable. AV: The aortic valve is trileaflet. No evidence of aortic valve stenosis. No evidence of aortic regurgitation. Mild calcification of aortic valve leaflets. MV: Moderate to severe mitral regurgitation. No evidence of mitral valve stenosis. Calcified anterior and posterior mitral annulus. PV: No evidence of pulmonic valve stenosis. Mild pulmonic regurgitation. TV: Moderate tricuspid regurgitation. Right ventricular systolic pressure is 40-45mmHg suggestive of moderate pulmonary hypertension. No evidence of tricuspid valve stenosis. ++++++++++++++++++++++++++++++++++++ MEASUREMENTS: ++++++++++++++++++++++++++++++++++++ DOPPLER LVOT LVOTpkPG 2 mmHg LVOTmnPG 1 mmHg LVOTpkVel 66 cm/s (70-110)+* LVOT SV 39 ml LVOT TVI 12.4 cm AV Forward Flow AV TVI 30 cm AV pkPG 10 mmHg AV pkVel 156 cm/s (100-170)+ Area (TVI) 1.3 cm2 (3-5)* AV mnPG 6 mmHg Area (Abdi) 1.33 cm2 (3-5)* MV Forward Flow MV DeTm 384 msec MV pkE 144 cm/s (60-130)* MV Regurg Flow MV FlwInt 60.1 ml/s MV mnVel 381 cm/s MV TVI 168 cm MV pkPG 97 mmHg MV mnPG 65 mmHg MV pkVel 492 cm/s (60-130)* MV PISA MV ERO 0.12 cm2 MV Flw 1.57 cc/s MV RgVol 20 ml MV AliasVel 38.3 cm/s PV Forward Flow PV pkVel 105 cm/s (60-90)+* PV AC 88 msec PV pkPG 4 mmHg PV Regurg Flow PV pkVel 145 cm/s TV Regurg Flow TV pkPG 39 mmHg TV pkVel 311 cm/s (30-70)* TV Forward Flow TV pkE 55.4 cm/s Aortic Valve Aortic Valve Ar 0.84 Aortic Valve Ve 0.42 PV Antegrade Flow Acceleration Sl 865 cm/s2 PV Regurgitant Flow Peak Gradient ( 8 mmHg Right Atrium Fontenot's Disk 20 Right Ventricle Right Ventricle 11.5 cm/s 2D Left Ventricle LVIDd 4.6 cm (3.6-5.2)+ LV ESV 37.9 ml LVIDs 3.5 cm (2.3-3.9)+ LV ESV 34.7 ml LngAxd 6.97 cm LVESV BP 36.3 ml LngAxd 6.62 cm LV EF 41.7 % LV EDV 65 ml LV EF 45.7 % LV EDV 63.9 ml LV EF BP 45.1 % LVEDV BP 66.1 ml LV SV 27.1 ml LngAxs 6.2 cm LV SV 29.2 ml LngAxs 6.14 cm LV SV BP 29.8 ml LVPW LVPWd 0.8 cm Right Ventricle RVIDd 3.9 cm (2.6-4.3) Right Ventricle 35 mm Right Ventricle 36 mm Right and Left 0.848 Major [place] 72 mm Ventricular Septum IVSd 1 cm Left Atrium LA VOLBP 90.1 ml Aorta Ao Rtd 3.1 cm LVOT LVOT 2 cm LVOTArea 3.14 cm2 Ratios IVS LA Biplane LAVol I BP 58.5 ml/m2 RA Single Plane Right Atrium MO 7.34 mm Right Atrium Sy 29.7 ml Right Atrium Sy 54 mm Right Atrium Sy 19.3 ml/m2 Right Atrium Sy 13.6 cm2 MMODE Ratios LA/Ao 1.12 (0.87-1.1)* Aorta Ao Rt 3.3 cm (zsc 2.1)* Left Atrium LAIDs 3.7 cm TA Tricuspid Annul 18.3 mm <Electronic Signature> 09/12/2024 05:09 PM Patricia Mckeon M.D. Procedure Note Patricia Mckeon MD - 09/12/2024 Echocardiography Report Pat.Name: JHON ESPARZA Kamlesh Pat.ID: [id number] .Date: 09/11/2024 Refer.: [id number], PATRICIA MCKEON Exam Time: 1:13:00 PM Study Type:ECHO WITH CARDIAC DOPPLER COMP Height: 60 in Weight: 127 lb BSA: 1.54 m2 Age: 4 1935,88Y Sex: F BP: 107/63 HR: 88 bpm Sonogrphr: Kaitlin Gonzalez RDCS Pat. Stat.:Outpatient Reason for Study:Severe mitral valve regurgitation History / Clinical:Elevated d-dimer. Diabetes, Hypertension, Renal Insufficiency, Hypothyroidism, Atrial fibrillation, COPD Procedures: 2D, M-mode, Doppler, Color Flow, Definity was used to enhance endocardial definition. The study quality is technically difficult. Race: W ++++++++++++++++++++++++++++++++++++ SUMMARY: ++++++++++++++++++++++++++++++++++++ The left ventricular systolic function is mildly depressed. Estimated left ventricular ejection fraction is 45-50%. Mild concentric left ventricular hypertrophy. Left ventricular diastolic function is not accessible due to atrial fibrillation. The left atrial size is severely enlarged. Moderate to severe mitral regurgitation. Mild pulmonic regurgitation. Moderate tricuspid regurgitation. Right ventricular systolic pressure is 40-45mmHg suggestive of moderate pulmonary hypertension. Compared to the previous study the ejection fraction has remained stable. ++++++++++++++++++++++++++++++++++++ FINDINGS: ++++++++++++++++++++++++++++++++++++ LV: The left ventricular size is normal. The left ventricular systolic function is mildly depressed. Estimated left ventricular ejection fraction is 45-50%. Mild concentric left ventricular hypertrophy. Left ventricular diastolic function is not accessible due to atrial fibrillation. WM: Mild global hypokinesis is noted. RV: The right ventricular size is moderately enlarged. Right ventricular systolic function is normal. IVS: No evidence of ventricular septal defect. LA: The left atrial size is severely enlarged. The left atrial volume is severely increased (>48 ml/M2). RA: Right atrial size is normal. IAS: Report on DELVIS done on 04/19/22 indicates that there is Right to left shunt consistent with small patent foramen [place]. NURY: No evidence of pericardial effusion. AO: Normal aortic root. PA: Estimated right atrial pressure of 3 mmHg. SVn: Inferior vena cava is normal. Inferior vena cava shows >50% collapse with respiration consistent with normal right atrial pressure. Other: Compared to the previous study the ejection fraction has remained stable. AV: The aortic valve is trileaflet. No evidence of aortic valve stenosis. No evidence of aortic regurgitation. Mild calcification of aortic valve leaflets. MV: Moderate to severe mitral regurgitation. No evidence of mitral valve stenosis. Calcified anterior and posterior mitral annulus. PV: No evidence of pulmonic valve stenosis. Mild pulmonic regurgitation. TV: Moderate tricuspid regurgitation. Right ventricular systolic pressure is 40-45mmHg suggestive of moderate pulmonary hypertension. No evidence of tricuspid valve stenosis. ++++++++++++++++++++++++++++++++++++ MEASUREMENTS: ++++++++++++++++++++++++++++++++++++ DOPPLER LVOT LVOTpkPG 2 mmHg LVOTmnPG 1 mmHg LVOTpkVel 66 cm/s (70-110)+* LVOT SV 39 ml LVOT TVI 12.4 cm AV Forward Flow AV TVI 30 cm AV pkPG 10 mmHg AV pkVel 156 cm/s (100-170)+ Area (TVI) 1.3 cm2 (3-5)* AV mnPG 6 mmHg Area (Abdi) 1.33 cm2 (3-5)* MV Forward Flow MV DeTm 384 msec MV pkE 144 cm/s (60-130)* MV Regurg Flow MV FlwInt 60.1 ml/s MV mnVel 381 cm/s MV TVI 168 cm MV pkPG 97 mmHg MV mnPG 65 mmHg MV pkVel 492 cm/s (60-130)* MV PISA MV ERO 0.12 cm2 MV Flw 1.57 cc/s MV RgVol 20 ml MV AliasVel 38.3 cm/s PV Forward Flow PV pkVel 105 cm/s (60-90)+* PV AC 88 msec PV pkPG 4 mmHg PV Regurg Flow PV pkVel 145 cm/s TV Regurg Flow TV pkPG 39 mmHg TV pkVel 311 cm/s (30-70)* TV Forward Flow TV pkE 55.4 cm/s Aortic Valve Aortic Valve Ar 0.84 Aortic Valve Ve 0.42 PV Antegrade Flow Acceleration Sl 865 cm/s2 PV Regurgitant Flow Peak Gradient ( 8 mmHg Right Atrium Fontenot's Disk 20 Right Ventricle Right Ventricle 11.5 cm/s 2D Left Ventricle LVIDd 4.6 cm (3.6-5.2)+ LV ESV 37.9 ml LVIDs 3.5 cm (2.3-3.9)+ LV ESV 34.7 ml LngAxd 6.97 cm LVESV BP 36.3 ml LngAxd 6.62 cm LV EF 41.7 % LV EDV 65 ml LV EF 45.7 % LV EDV 63.9 ml LV EF BP 45.1 % LVEDV BP 66.1 ml LV SV 27.1 ml LngAxs 6.2 cm LV SV 29.2 ml LngAxs 6.14 cm LV SV BP 29.8 ml LVPW LVPWd 0.8 cm Right Ventricle RVIDd 3.9 cm (2.6-4.3) Right Ventricle 35 mm Right Ventricle 36 mm Right and Left 0.848 [place] 72 mm Ventricular Septum IVSd 1 cm Left Atrium LA VOLBP 90.1 ml Aorta Ao Rtd 3.1 cm LVOT LVOT 2 cm LVOTArea 3.14 cm2 Ratios IVS LA Biplane LAVol I BP 58.5 ml/m2 RA Single Plane Right Atrium MO 7.34 mm Right Atrium Sy 29.7 ml Right Atrium Sy 54 mm Right Atrium Sy 19.3 ml/m2 Right Atrium Sy 13.6 cm2 MMODE Ratios LA/Ao 1.12 (0.87-1.1)* Aorta Ao Rt 3.3 cm (zsc 2.1)* Left Atrium LAIDs 3.7 cm TA Tricuspid Annul 18.3 mm <Electronic Signature> 09/12/2024 05:09 PM Patricia Mckeon M.D. Patricia Mckeon MD ECHO Final Result * (ABNORMAL) HEMOGLOBIN, GLYCOSYLATED (05/18/2024 3:00 PM SALAD BAR CLERK) HGB A1C 9.3(H) <5.7 % 05/19/2024 1:29 AM [facility] Comment: ADA GUIDELINES 2010 5.7 TO 6.4% INCREASED RISK OF DIABETES > OR = 6.5% CONSISTENT WITH DIABETES ESTIMATED AVG GLUCOSE 220 mg/dL 05/19/2024 1:29 AM [facility] 05/18/2024 3:00 PM SALAD BAR CLERK Eduardo Stevens DO LABORATORY Final Result 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 [place] [id number] [place] [address] [place] Counter Server CARDIOVASCULAR DISEASE 11/25/15 Tamar Novoa MD [address] [facility] [address] [place] [id number] EP Counter Server CLINICAL CARDIAC ELECTROPHYSIOLOGY 12/18/17 Charlie Norton MD [id number] [place] [address] FAMILY PRACTICE 05/02/22 Austin Harmon MD [address] [address] Referring Physician OBGYN 05/02/22 Stanley Jennings MD [address] [place] [address] HEMATOLOGY/ONCOLOGY 10/29/24
--- OUTSIDE RECORDS SUMMARY | 2024-11-12 10:26 | XMS_ITS | Encounter Summary ---
Author Organization [facility] [place] Address [address] [place] [address] Phone Care Team Providers Care Agitator Operator Name Role Phone Lamin Wisdom Primary Care Provider [phone] Stanley Jennings MD Unavailable Selene Alves RN Unavailable Unavailable Sanam Garcia RN Unavailable Unavailable Jeff Preciado MD Unavailable Reason for Visit * Reason Comments Medication Refill Encounter Details Date Type Department Care Team (Late st Contact Info) Description 04/22/2023 Refill [facility] [address] [phone] Stanley Jennings MD [address] [place] [address] Medication Refill Social History Tobacco Use Types Packs/Day Years Used Date Smoking Tobacco: Never Smokeless Tobacco: Never Alcohol Use Standard Drinks/Week Comments Yes 0 (1 standard drink = 0.6 oz pur e alcohol) Comments Unknown Sex and Gender Information Value Date Recorded Sex Assigned at Not on file Legal Sex Female 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 difficile Rule-Out 05/31/2024 05/31/20242023 12:16 AM SENIOR C WEB DEVELOPER documented as of this encounter Care Teams Agitator Operator Relationship Specialty Start Date End Date Lamin Wisdom DO [address] [place] [address] [address] [place] [address] PCP - General Internal Medicine 06/09/22 Stanley Jennings MD [address] [place] [phone] Oncology 07/21/22 Selene Alves RN [place] Oncology Nurse Navigator Oncology 03/29/24 Sanam Garcia, RN [place] Oncology Nurse Navigator Oncology 05/17/24 Jeff Preciado MD [address] [facility], [address] [address] Consulting Physician Urology 09/23/24 documented as of this encounter
--- OUTSIDE RECORDS SUMMARY | 2024-11-12 10:26 | XMS_ITS | Clinical Summary ---
Author Organization [facility] Address [address] [place] [address] Care Team Providers Care Inpatient Auditor Name Role Phone Patricia Mckeon MD Unavailable [phone] Randy Murillo MD Unavailable [phone] Arthur Whitfield MD Unavailable [phone] Russ Paiz MD Unavailable [phone] Charlie Norton MD Primary Care Provider [phone] Stanley Jennings MD Unavailable [phone] Allergies Active Allergy Reactions Criticality Noted Date Comments Chlorhexidine Unknown 01/30/2019 Randolph Tar Unknown 02/03/2022 Randolph Tar-Soap Other (See comments) Low 06/30/2021 Dapagliflozin Shortness of breath High 03/20/2024 Interacts with other meds she takes - high calcium level, SOB Lidocaine Hcl Unknown Lisinopril Cough Low 08/08/2018 Metoclopramide Anxiety Low 12/06/2017 Facial tics, Procaine Metoclopramide Hcl Unknown 08/08/2018 Rosiglitazone Unknown 01/30/2019 Lidocaine Anaphylaxis High 08/08/2018 Medications furosemide (LASIX) 40 mg tablet Take 1 tablet (40 mg total) by mouth every other day Active loperamide (IMODIUM) 2 mg capsule Take 1 capsule (2 mg total) by mouth 4 (four) times a day as needed 01/15/2 019 Active amiodarone (PACERONE) 200 mg tablet Take 0.5 tablets (100 mg total) by mouth daily Active oxyCODONE-acetami nophen (PERCOCET) 5-325 mg per tablet Take 1 tablet by mouth every 8 (eight) hours as needed 0 Active Forteo 20 mcg/dose - 600 mcg/2.4 mL injection Inject 0.08 mL (20 mcg total) under the skin daily Active pantoprazole DR (PROTONIX) 40 mg EC tablet Take 1 tablet (40 mg total) by mouth daily Active freestyle 28 gauge lancets Active calcitRIOL (ROCALTROL) 0.25 mcg capsule TAKE 1 CAPSULE BY MOUTH 3 TIMES PER WEEK Active allopurinoL (ZYLOPRIM) 100 mg tablet Take 1 tablet (100 mg total) by mouth daily Active albuterol HFA (PROVENTIL HFA,VENTOLIN HFA,PROAIR HFA) 90 mcg/actuation inhalerIndication s:Centrilobular emphysema (HCC) Inhale 2 puffs every 4 (four) hours as needed for wheezing 1 each 3 Active Myrbetriq 50 mg tablet extended release 24 hr Take 1 tablet (50 mg total) by mouth daily Active cholecalciferol (VITAMIN D-3) 5,000 unit tablet Take 1 tablet (5,000 Units total) by mouth daily Active ergocalciferol (VITAMIN D) 50,000 unit capsule Active FreeStyle Maddy 2 [place] misc Active FreeStyle Maddy 2 Sensor kit Active hydrALAZINE (APRESOLINE) 10 mg tablet Take 1 tablet (10 mg total) by mouth 2 (two) times a day Active LANTUS 100 unit/mL (3 mL) pen for injection Active lidocaine (LIDODERM) 5 % Active metoprolol XL (TOPROL-XL) 25 mg extended release tablet Take 1 tablet (25 mg total) by mouth daily Active Januvia 25 mg tablet Take 1 tablet (25 mg total) by mouth daily 022 Active folic acid (FOLVITE) 1 mg tablet Take 1 tablet (1 mg total) by mouth daily 023 Active potassium chloride ER 10 mEq CR capsule Take by mouth daily 023 Active Eliquis 2.5 mg tablet Take 1 tablet (2.5 mg total) by mouth 023 Active cyanocobalamin (Vitamin B-12) 1,000 mcg/mL injection INJECT 1 ML UNDER SKIN EVERY MONTH Active fluticasone propionate (FLONASE) 50 mcg/actuation nasal sprayIndications: Allergic Rhinitis Administer 1 spray into each nostril daily 1 each Active fluticasone-umecl idin-vilanter (Trelegy Ellipta) 100-62.5-25 mcg inhalerIndication s:Bronchospasm Prevention with COPD Inhale 1 puff daily 1 each 3 024 Active prochlorperazine (COMPAZINE) 10 mg tablet Take 1 tablet (10 mg total) by mouth 024 Active zolpidem CR (AMBIEN CR) 6.25 mg CR tablet Take 1 tablet (6.25 mg total) by mouth nightly at bedtime. Active Trelegy Ellipta 200-62.5-25 mcg inhaler INHALE 1 PUFF INTO THE LUNGS DAILY. RINSE AND SPIT AFTER USE 025 Active insulin glargine 100 unit/mL vial for injection Inject under the skin nightly Active insulin lispro (HumaLOG, ADMELOG) 100 unit/mL pen for injectionIndicati ons:Type 2 diabetes mellitus with diabetic nephropathy, without long-term current use of insulin (HCC) Inject 1-8 Units under the skin 3 (three) times a day with meals 21.6 mL 025 2025 Active Sure Comfort Pen Needle 31 gauge x 5/16 needleIndications :Type 2 diabetes mellitus with diabetic nephropathy, without long-term current use of insulin (HCC) 4x daily 400 each Active nystatin powderIndications :Tinea pedis of both feet Apply topically 4 (four) times a day 15 g 2 025 2025 Active [place] Thyroid 120 mg tabletIndications :Acquired hypothyroidism Take 1 tablet (120 mg total) by mouth daily 90 tablet 3 Active [place] Thyroid 15 mg tabletIndications :Acquired hypothyroidism Take 1 tablet (15 mg total) by mouth daily 90 tablet 3 Active warfarin (COUMADIN) 2.5 mg tablet 2024 Discontinued diclofenac sodium (VOLTAREN) 1 % gel Apply 1 g topically daily as needed 019 2024 Discontinued Lacto.acidophilus -Bif.animalis 31 billion cell capsule Take 1 capsule by mouth daily 017 2024 Discontinued cyanocobalamin (Vitamin B-12) 500 mcg tablet Take 1 tablet (500 mcg total) by mouth daily 2024 Discontinued Sure Comfort Pen Needle 31 gauge x 5/16 needle 021 2024 Discontinued(R eoethaner) ondansetron (ZOFRAN) 8 mg tablet Take 1 tablet (8 mg total) by mouth every 8 (eight) hours as needed 2024 Discontinued [place] Thyroid 180 mg tablet Take 1 tablet (180 mg total) by mouth daily before breakfast 2024 Discontinued dapagliflozin (FARXIGA) 10 mg tablet Take 1 tablet (10 mg total) by mouth daily 1 tablet 2024 Discontinued dapagliflozin (FARXIGA) 10 mg tabletIndications :type 2 diabetes mellitus and heart failure with reduced ejection fraction Take 1 tablet (10 mg total) by mouth daily 30 tablet 11 2024 Discontinued glucagon 1 mg kit Inject 1 mL (1 mg total) into the muscle as instructed every 30 (thirty) minutes as needed (blood glucose less than 70 mg/dL AND no IV access AND unable to take PO glucose/juice .) 5 kit 2024 Discontinued glimepiride (AMARYL) 2 mg tablet 2024 Discontinued levothyroxine (SYNTHROID) 25 mcg tablet Take 1 tablet (25 mcg total) by mouth every morning 2024 Discontinued ferrous sulfate 325 mg (65 mg of elemental iron) tablet Take 1 tablet (325 mg total) by mouth 2024 Discontinued nystatin powder 023 2024 Discontinued predniSONE (DELTASONE) 20 mg tablet 023 2024 Discontinued insulin regular (HumuLIN R) 100 unit/mL vial for injection Inject under the skin 024 2024 Discontinued thyroid ([place] Thyroid) 120 mg tablet Take 1 tablet (120 mg total) by mouth daily 2024 Discontinued Active Problems Problem Noted Date Diagnosed Date Pulmonary HTN 08/16/2023 Assessment & Plan (05/01/2024 2:32 PM FISH INSPECTOR): She did have an echocardiogram and does have mild estimated pulmonary hypertension secondary to MR. Assessment & Plan (08/16/2023 11:25 AM FISH INSPECTOR): I have ordered an echocardiogram due to the pulmonary hypertension noted on her PET scan. Hypothyroidism 01/31/2022 Overview (01/31/2022): 01/31 Reports taking Armor thyroid 180 after breakfast, coached on importance taking before Hypoglycemia 01/31/2022 Dysarthria 01/31/2022 Type 2 diabetes mellitus with diabetic nephropat hy 05/06/2020 Sleep-related hypoxia 05/06/2020 Centrilobular emphysema (CMS/HCC) 09/26/2018 Assessment & Plan (05/01/2024 2:30 PM FISH INSPECTOR): The patient's breathing has been doing well with Trelegy 1 puff daily. She will follow up with Dr. Flor in 3 months Assessment & Plan (08/16/2023 11:26 AM FISH INSPECTOR): Patient continue to use Trelegy one inhalation [...] heart Assessment & Plan (06/29/2022 2:43 PM FISH INSPECTOR): The patient will continue with Trelegy. The [...] control. Assessment & Plan (06/30/2021 2:37 PM FISH INSPECTOR): The patient will continue with Trelegy 1 [...] future Assessment & Plan (05/06/2020 1:56 PM FISH INSPECTOR): The patient will continue with the medication [...] breath. Assessment & Plan (06/05/2019 10:25 AM FISH INSPECTOR): The patient is considering back surgery. I [...] 09/26/2018 Assessment & Plan (05/01/2024 2:31 PM FISH INSPECTOR): The patient has lost a significant amount of weight and she decided to no longer is use the trilogy unit. Assessment & Plan (08/16/2023 11:26 AM FISH INSPECTOR): Patient was encouraged to use her Trilogy [...] recovery. Assessment & Plan (06/29/2022 2:43 PM FISH INSPECTOR): Will continue with trilogy at night while sleeping. Patient was encouraged to resume Trilogy. Tomorrow. Patient will continue Ambien 6.25 mg nightly. Assessment & Plan (02/16/2022 11:16 AM CDT): Will continue with trilogy at night while sleeping. Patient was encouraged to resume Trilogy. Tomorrow. Patient will continue Ambien 6.25 mg nightly. Assessment & Plan (06/30/2021 2:37 PM FISH INSPECTOR): The patient will continue with trilogy therapy to treat obstructive sleep apnea. The patient is also taking Ambien CR 6.25 mg p.o. at bedtime. The patient denied need for supplies. [employer]. Patient is benefitting from trilogy therapy Assessment & Plan (11/04/2020 11:04 AM CDT): The patient will continue with trilogy therapy to treat obstructive sleep apnea. The patient is also on Ambien CR 12.5 mg at bedtime that is being prescribed by primary care physician. Patient denied need for supplies. The DME company is [employer]. The patient is benefitting from trilogy therapy. Assessment & Plan (05/06/2020 1:57 PM FISH INSPECTOR): The patient will continue to use trilogy therapy to treat obstructive sleep apnea. The patient denied need for supplies at this time. The DME company is [employer]. The patient is benefitting from obstructive sleep apnea therapy with trilogy. Assessment & Plan (01/29/2020 2:05 PM CDT): The patient will continue to use her trilogy vent on a nightly basis. The DME company is [employer]. She denied need for supplies at this time. The patient is benefitting from obstructive sleep apnea therapy. Assessment & Plan (06/05/2019 10:24 AM FISH INSPECTOR): The patient continues to benefit from use [...] 09/26/2018 Assessment & Plan (05/01/2024 2:31 PM FISH INSPECTOR): She uses Flonase for postnasal drainage on a p.r.n. basis Assessment & Plan (08/16/2023 11:26 AM FISH INSPECTOR): I have sent Flonase to the pharmacy [...] Flonase Assessment & Plan (06/29/2022 2:43 PM FISH INSPECTOR): Patient will continue with Myriam and Flonase daily. Assessment & Plan (02/16/2022 11:06 AM CDT): Patient will continue with Myriam and Flonase daily Assessment & Plan (06/30/2021 2:36 PM FISH INSPECTOR): The patient will continue with Myriam and Flonase to treat postnasal drip Assessment & Plan (11/04/2020 11:05 AM CDT): The patient will continue with Myriam daily and Flonase daily to treat postnasal drip. Assessment & Plan (05/06/2020 1:57 PM FISH INSPECTOR): The patient will continue to use Flonase 1 spray in each nostril daily. Due to the Myriam losing its effectiveness, I have changed the patient's allergy medication to the Zyrtec daily. Assessment & Plan (01/29/2020 2:06 PM CDT): The patient will continue to use Flonase and Myriam to the manage her postnasal drip. Assessment & Plan (06/05/2019 10:25 AM FISH INSPECTOR): The patient is getting relief from her postnasal drainage from the Flonase and Myriam. Assessment & Plan (01/30/2019 10:12 AM CDT): The patient is postnasal drainage is controlled with Flonase and Myriam. Fall as cause of accidental injury at home as place of occurrence 09/26/2018 Endometrial cancer 07/23/2018 Chronic kidney disease, stage 4 (severe) 017 Abdominal hernia 07/08/2015 Kidney disorder 07/08/2015 Overview (10/05/2017): Description: stage 3 Malignant neoplasm of breast 09/21/2010 Arthritis 09/21/2010 Encounters Date Type Department Care Team Description 11/11/2024 Results Follow-Up [facility] [address] [place] [address] [phone] Edilberto Leo MD TSH, T4, free, T3, free 11/11/2024 Orders Only [facility] [address] [place] [address] [phone] Edilberto Leo MD Acquired hypothyroidism (Primary Dx) 2024 Telephone [facility] [address] [phone] Edilberto Leo MD 10/17/2024 Telephone [facility] [address] [phone] Edilberto Leo MD 10/14/2024 12:30 PM CDT Office Visit [facility] [address] [place] [phone] Edilberto Leo MD Type 2 diabetes mellitus with diabetic nephropathy, without long-term current use of insulin (HCC) (Primary Dx); Acquired hypothyroidism; Tinea pedis of both feet from Last 3 Months Immunizations Immunization Administration Dates Next Due Influenza, Trivalent, IM (MDV) 8,03/28/2016,03/26/2015,03/26 Influenza, Trivalent, Preser vative Free, Intramuscular 04/12/2017,02/24/2015 Pneumococcal Conjugate PCV 13 02/24/2015 Surgical History Surgery Date Site/Laterality Comments COLONOSCOPY Complete Colonoscopy - (Added by TW Conv) [place] EXC CYST/ABERRANT BREAST TISSUE OPEN 1/> LESION Breast Surgery Lumpectomy - (Added by TW Conv) MASTECTOMY Breast Surgery Mastectomy - (Added by TW Conv) GALLBLADDER SURGERY Gallbladder Surgery - (Added by TW Conv) FOOT SURGERY Foot Surgery - (Added by TW Conv) [place] TOTAL ABDOMINAL HYSTERECT W/WO RMVL TUBE OVARY [...] of hernia surgery Arthritis Heart murmur Cancer (HCC) Peripheral neuropathy Sleep apnea Hiatal hernia [...] often do you attend chur ch or taoism services? 1 to 4 times per year 01/31/2022 Do you belong to any clubs o r organizations such as orthodoxy groups, unions, fraternal or athletic groups, or [...] place to sleep or slept in a halfway (including now)? No 01/31/2022 Comments No Sex and Gender Information Value Date Recorded Sex Assigned at Not on file Legal Sex Female 3:37 AM FISH INSPECTOR Gender Identity Not on file Sexual Orientation Not on file Obstetrics History Para Term AB IAB SAB Ectopic Multiple Livin g Live Births 2 2 2 2 2 Date Outcome GA Total Labor Labor/2nd/3rd Weight Sex Type Anes PTL Lisa A1 A5 Name Clin Term Term Last Filed Vital Signs Vital Sign Reading Time Taken Comments Blood Pressure 118/82 10/14/2024 12:58 PM CDT Pulse 72 10/14/2024 12:58 PM CDT Temperature 35.8 C (96.4 F) 08/07/2024 2:36 PM FISH INSPECTOR Respiratory Rate 17 10/14/2024 12:58 PM CDT Oxygen Saturation 98% 05/01/2024 1:42 PM FISH INSPECTOR Inhaled Oxygen Concentration - - Weight 64 kg (141 lb) 10/14/2024 12:58 PM CDT Height 152.4 cm (5') 10/14/2024 12:58 PM CDT Body Mass Index 27.54 10/14/2024 12:58 PM CDT Plan of Treatment Health Maintenance Due Date Last Done Comments Albumin Creatinine Ratio, Urine 1937 Dilated Eye Exam 1937 Foot Exam 1935 Hepatitis B Screening 10[birth year]19/1953 Well Visit 65+ 2002 Zoster Vaccine (1 of 2) 03/17/2009 01/20/2009 DTaP/Tdap/Td Vaccine (2 - Td or Tdap) 11/21/2021 11/22/2011, 05/07/2002 Depression Screening 01/29/2023 01/29/2022 eGFR 02/01/2023 02/01/2022, 08/0 01/2022, 01/30/2022, Additional history exists Fall Risk Assessment 02/02/2023 02/02/2022 Lipid Panel 03/28/2023 03/28/2022, 08/0 11/2021, 08/23/2021, Additional history exists Covid-19 Vaccine (2023- 5 season) 2024 04/07/2022, 10/27/2021, 08/13/2020, Additional history exists Influenza Vaccine (Season Ended) 2025 10/03/2022, 03/26/2020, 04/30/2018, Additional history exists Hemoglobin A1C 04/15/2025 10/14/2024, 08/0 12/2021, 01/29/2022, Additional history exists Pneumococcal vaccine 65+ Completed 023, 02/24/2015, 07/24/2014, Additional history exists Osteoporosis Screening-Bone Density Scan Discontinued 10/10/2023, 03/14/2019, 06/10/2016 Procedures Procedure Name Priority Date/Time Associated Diagnosis Comments T3, FREE Routine 10/28/2024 Acquired hypothyroidism T4, FREE Routine 10/28/2024 Acquired hypothyroidism TSH Routine 10/28/2024 Acquired hypothyroidism POCT HEMOGLOBIN A1C Routine 10/14/2024 12:47 PM CDT Type 2 diabetes mellitus with diabetic nephropathy, without long-term current use of insulin (HCC) DEXA AXIAL SKELETON BONE DENSITY 1 OR MORE SITES Schedule Routine, Read Routine (OP Routine) 10/10/2023 9:56 AM CDT Other osteoporosis without current pathological fracture EGFR Routine 02/01/2022 9:57 PM CDT LIPID PANEL STAT 01/29/2022 7:41 PM CDT from Last 3 Months or Most Recently Relevant to Health Maintenance Results * T3, free (10/28/2024) Blood 10/28/2024 Impressions EXTERNAL LAB - 10/28/2024 3.7 Range 2.0-4.4 us Edilberto Brothers MD LAB BLOOD ORDERABLE S Final Result Performing Organization Address City/[facility] Co de Phone Number EXTERNAL LAB * (ABNORMAL) TSH (10/28/2024) Scribed TSH 12.74(A) 0.45 - 5.33 mcU/mL EXTERNAL LAB Blood 10/28/2024 us Edilberto Brothers MD LAB BLOOD ORDERABLE S Final Result EXTERNAL LAB * (ABNORMAL) T4, free (10/28/2024) SCRIBED T4, Free 0.58(A) 0.61 - 1.12 mcg/dL EXTERNAL LAB Blood 10/28/2024 Edilberto Brothers MD LAB BLOOD ORDERABLE S Final Result EXTERNAL LAB * POCT hemoglobin A1c (10/14/2024 12:47 PM CDT) Hemoglobin A1C, POC 7.4 % 4.0 - 5.6 % Blood spot 10/14/2024 12:4 7 PM CDT Edilberto Brothers MD POINT OF CARE TEST ORDERABLES Final Result * Dexa Axial Skeleton Bone Density 1 or 2 Site (10/10/2023 9:56 AM CDT) Anatomical Region Laterality Modality Body N/A Mammography 10/10/2023 9:59 AM CDT Narrative 10/10/2023 10:01 AM CDT EXAM DESCRIPTION: DEXA AXIAL SKELETON BONE DENSITY 1 OR MORE SITES REASON FOR STUDY: 87 y/o year old F with given history of: Post menopausal status. History of prior fracture. Patient takes Forteo and vitamin-D. History of carcinoma Procurement Professional/Model: [employer] Horizon A (S/N [id number]) CLINICAL INFORMATION: Current height: 59 inches Maximum height: 62 inches Weight: 126.8 pounds Risk factors: Prior fracture COMPARISON: 03/14/2019 FINDINGS: AP LUMBAR SPINE L1-L4: Total BMD is 1.016 g/cm2 T-score is -0.3 This is a 9.7% increase in comparison to prior exam which is statistically significant. Measured BMD is thought to be spuriously elevated due to facet arthropathy. LEFT HIP: Total BMD is 0.593 g/cm2 T-score is -2.9 This is a 1.1% decrease in comparison to prior exam which this is not statistically significant. Femoral neck BMD is 0.565 g/cm2 T-score is -2.6 FRAX: FRAX not reported due to T-scores of hip, femoral neck and/or spine being at or below -2.5 (Osteoporosis). IMPRESSION: Osteoporosis. REFERENCE: Bone mineral density: T-Score: Normal (T-score above or = -1.0) Low bone mass (T-score between -1.0 and -2.5) replaces the previously used term osteopenia Osteoporosis (T-score = or below -2.5) Z-Score: Within the expected range for age (Z-score above -2.0) Below the expected range for age (Z-score is -2.0 or below) Please see below follow up recommendations. Medical evaluation for secondary causes of low bone mineral density may be appropriate. FRAX is a World Health Organization validated fracture risk assessment tool that calculates a person's 10 year probability of a major osteoporosis related fracture and hip fracture. According to the National Osteoporosis Foundation guidelines, postmenopausal women and men age 50 or older with low bone mass and a 10 year probability of a major osteoporosis related fracture = or greater than 20% or a 10 year probability of a hip fracture = or greater than 3% should be considered for pharmacological treatment for the prevention of osteoporosis. For further information, including treatment recommendations, please refer to the 2019 ISCD Official Positions (http://www.iscd.org) and the NOF's Clinician's Guide to Prevention and Treatment of Osteoporosis (http://www.nof.org/professionals/clinical-guidelines) THIS IS AN ELECTRONICALLY VERIFIED FINAL REPORT 10/10/2023 10:01 AM - Electronically signed by Zenaida Veloz M.D. TW: HORTENCIA Report ID: [id number] Reading Location: [id number] Procedure Note Zenaida Veloz MD - 10/10/2023 EXAM DESCRIPTION: DEXA AXIAL SKELETON BONE DENSITY 1 OR MORE SITES REASON FOR STUDY: 87 y/o year old F with given history of: Post menopausal status. History of prior fracture. Patient takes Forteo and vitamin-D. History of carcinoma Procurement Professional/Model: [employer] Horizon A (S/N [id number]) CLINICAL INFORMATION: Current height: 59 inches Maximum height: 62 inches Weight: 126.8 pounds Risk factors: Prior fracture COMPARISON: 03/14/2019 FINDINGS: AP LUMBAR SPINE L1-L4: Total BMD is 1.016 g/cm2 T-score is -0.3 This is a 9.7% increase in comparison to prior exam which isstatistically significant. Measured BMD is thought to be spuriously elevated due to facetarthropathy. LEFT HIP: Total BMD is 0.593 g/cm2 T-score is -2.9 This is a 1.1% decrease in comparison to prior exam which this is not statistically significant. Femoral neck BMD is 0.565 g/cm2 T-score is -2.6 FRAX: FRAX not reported due to T-scores of hip, femoral neck and/or spine beingat or below -2.5 (Osteoporosis). IMPRESSION: Osteoporosis. REFERENCE: Bone mineral density: T-Score: Normal (T-score above or = -1.0) Low bone mass (T-score between -1.0 and -2.5) replaces thepreviously used term osteopenia Osteoporosis (T-score = or below -2.5) Z-Score: Within the expected range for age (Z-score above -2.0) Below the expected range for age (Z-score is -2.0 or below) Please see below follow up recommendations. Medical evaluation forsecondary causes of low bone mineral density may be appropriate. FRAX is a World Health Organization validated fracture risk assessmenttool that calculates a person's 10 year probability of a major osteoporosisrelated fracture and hip fracture. According to the National OsteoporosisFoundation guidelines, postmenopausal women and men age 50 or older with low bonemass and a 10 year probability of a major osteoporosis related fracture = or greater than 20% or a 10 year probability of a hip fracture = or greaterthan 3% should be considered for pharmacological treatment for the preventionof osteoporosis. For further information, including treatment recommendations, please referto the 2019 ISCD Official Positions (http://www.iscd.org) and the NOF's Clinician's Guide to Prevention and Treatment of Osteoporosis (http://www.nof.org/professionals/clinical-guidelines) THIS IS AN ELECTRONICALLY VERIFIED FINAL REPORT 10/10/2023 10:01 AM - Electronically signed by Zenaida Veloz M.D. TW: TW Report ID: [id number] Reading Location: [place] [address] [place] [facility] IMG DXA PROCEDURES Final Result * (ABNORMAL) eGFR (02/01/2022 9:57 PM CDT) [...] of Race in Diagnosing Kidney Disease, JASN 2020). The CKD-EPI equation should not be used for patients with unstable renal function and has not been validated in children and those over 70. Current interpretive data was last reviewed 2021. Blood 02/01/2022 9:57 PM CDT 02/01/2022 10:17 PM CDT us Rosy Olsen MD LAB BLOOD ORDERABLES Final Re sult [facility] Department [place] [address] * Lipid panel (01/29/2022 7:41 PM CDT) Cholesterol 144 30 - 199 mg/dL [facility] Comment: Interpretive Data Ages < or = [...] revised on 2018. Triglycerides 77 <=149 mg/dL [facility] Comment: Interpretive Data Ages < or [...] revised on 2018. HDL 43 >=40 mg/dL [facility] Comment: Interpretive Data Ages < or [...] on 2018. LDL, calculated 86 <=129 mg/dL [facility] Comment: Interpretive Data Ages < or [...] revised on 2018. Non-HDL Cholesterol 101 mg/dL [facility] Comment: Interpretive Data Ages < or = [...] last revised on 2018. [facility]HDL [facility] 3 [facility] Blood 01/29/2022 7:41 PM CDT 01/29/2022 7:49 PM CDT us Rosy Olsen MD LAB BLOOD ORDERABLES Final Re sult [facility] Department [place] [address] from Last 3 Months or Most Recently Relevant to Health Maintenance Insurance MEDICARE FOR LIFE [facility] MEDICARE FOR LIFE [facility] MEDICARE FOR LIFE [facility] MEDICARE SUPPLEMENT Advance Directives For more information, please contact: [phone] Documents on File Type Date Recorded Patient Pet [employer] Expl anation ADVANCE DIRECTIVE 05/13/2018 12:00 AM DNR ADVANCE DIRECTIVE 08/19/2015 12:00 AM [employer] * Full Code (Latest Code Status on File) Date Activated Date Inactivated Comments 01/30/2022 8:45 AM 02/02/2022 9:53 PM Care Teams Inpatient Auditor Relationship Specialty Start Date End Date Charlie Norton MD [address] [facility] [address] [place] [address] PCP - General Family Medicine 01/31/22 Patricia Mckeon MD Referring Physician Cardiology 06/20/19 Randy Murillo MD Referring Physician Nephrology 06/20/19 Arthur Whitfield MD Referring Physician Rheumatology 06/20/19 Russ Paiz MD [address] [facility] [address] [place] [address] Consulting Physician Pulmonary Disease 06/20/19 Stanley Jennings MD [address] [facility] [address] [place] [address] Referring Physician Hematology and Oncology 05/06/24
--- OUTSIDE RECORDS SUMMARY | 2024-11-12 10:26 | XMS_ITS | Encounter Summary ---
Author Organization [facility] Address [address] [place] [address] Care Team Providers Care Swine Genetics Researcher Name Role Phone Patricia Mckeon MD Unavailable [phone] Agustin Alston MD Primary Care Provider [phone] Tamar Novoa MD Unavailable Stephen Thapa MD Primary Care Provider Unav ailable Gracie Vargas DO Primary Care Provider [phone] Lamin Wisdom DO Primary Care Provider [phone] Charlie Norton MD Unavailable [phone] Isael Harmon MD Unavailable [phone] Aakash Rayo MD Primary Care Provi carline Stanley Jennings MD Unavailable [phone] Encounter Details Date Type Department Care Team (Late st Contact Info) Description 12/25/2017 [facility] [address] [place] [address] Diane Mariscal MA Social History Tobacco Use Types Packs/Day Years Used Date Smoking Tobacco: Never Smokeless Tobacco: Never Alcohol Use Standard Drinks/Week Comments Yes 0 (1 standard drink = 0.6 oz pur e alcohol) Occasionally Comments No Sex and Gender Information Value Date Recorded Sex Assigned at Female 08/01/2024 12:47 PM CATTERY OPERATOR Legal Sex Female 10:09 PM CDT Gender Identity Not on file Sexual Orientation Not on file 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 Not on file Not on file documented as of this encounter Plan of Treatment Upcoming Encounters Date Type Department Care Team (Latest Contact Info) Description 11/26/2024 Prep for Procedure [facility] [place] [address] Jeff Preciado MD 3 [facility] [address] [place] [address] 11/26/2024 11:15 AM CDT Hospital Encounter [facility] [place] [address] Jeff Preciado MD [address] [address] 11/26/2024 11:15 AM CDT Anesthesia [place] [address] Uma Antonio, FISH HATCHERY SPECIALIST 1 [place] [address] 11/26/2024 11:15 AM CDT - 11/26/2024 12:09 PM CDT [place] [address] Jeff Preciado MD 3 [facility] [address] [place] [address] CYSTOSCOPY WITH BLADDER BIOPSY AND FULGURATION 01/03/2025 9:40 AM CDT Office Visit [facility] - [facility] 3 [facility] [address] [place] [address] Kaleb Bean MD 3 [facility] [address] [place] [address] 02/05/2025 2:00 PM CDT Office Visit [facility] THREE [facility], [address] [place] [address] Saadia Walker APRN Three [facility]. [address] [place] [address] Scheduled Procedures Name Priority Associated Diagnoses Date/Ti [...] Results * THYROID STIM HORMONE, TSH (08/14/2019) Pathologist [facility] TSH 4.070 0.27 - 4.20 08/14/2019 us Doc [facility] LABORATORY Final Result * CBC (OUTSIDE LAB) (08/14/2019) Pathologist [facility] WBC 6.6 3.8 - 9.9 HGB 10.5 11.9 - 15.5 HCT 32.9 35.6 - 45.5 PLT 216 150 - 400 08/14/2019 us Doc [facility] Abstract LAB-OUTSIDE/ABSTRACTED Final Result * (ABNORMAL) COMPREHENSIVE METABOLIC PANEL (08/14/2019) Pathologist [facility] SODIUM S/P/B 141 135 - 145 POTASSIUM [...] 8.3 GLOBULIN 3.4 2.3 - 3.5 08/14/2019 Doc [facility] Abstract LABORATORY Final Result * HEMOGLOBIN, GLYCOSYLATED (08/14/2019) HGB A1C 6.7 4.0 - 5.6 08/14/2019 [facility] Final Result * PHOSPHORUS, INORGANIC PHOSPHATE (08/14/2019) PHOSPHORUS 3.5 2.3 - 4.5 08/14/2019 [facility] Final Result * URIC ACID BLOOD (08/14/2019) URIC ACID 6.5 2.5 - 7.0 08/14/2019 [employer] [facility] Abstract LABORATORY Edited Resul t - Final * PHOSPHORUS, INORGANIC PHOSPHATE (12/24/2018) PHOSPHORUS 2.9 12/24/2018 [employer] [facility] Abstract LABORATORY Final Result * (ABNORMAL) BASIC METABOLIC PANEL (12/24/2018) SODIUM S/P/B 141 POTASSIUM S/P/B 4.3 CO2 22 CHLORIDE S/P/B 110 GLUCOSE 174 mg/dL CALCIUM S/P/B 8.3 BUN 21 CREATININE S/P/B 1.5(A) 0.5 - 1.0 EGFR NON-AFR. AMER. 35 <=90 ALBUMIN S/P/B 3.0(A) 3.5 - 5.0 12/24/2018 us Doc [facility] Abstract LABORATORY Final Result * VITAMIN D, 25 OH (08/14/2018) VITAMIN D 25 HYDROXY S/P/B 23 30 - 100 08/14/2018 us Doc [facility] Abstract LABORATORY Final Result * (ABNORMAL) BASIC METABOLIC PANEL (05/01/2018) SODIUM S/P/B 143 POTASSIUM S/P/B 4.3 CO2 24 CHLORIDE S/P/B 105 GLUCOSE 127 mg/dL CALCIUM S/P/B 8.5 BUN 25 CREATININE S/P/B 2.0(A) 0.5 - 1.0 05/01/2018 us Doc [facility] Abstract LABORATORY Final Result * CBC (OUTSIDE LAB) (05/01/2018) WBC 9.3 HGB 9.7 HCT 30.6 PLT 206 05/01/2018 us Doc [facility] Abstract LAB-OUTSIDE/ABSTRACTED Final Result * CBC (OUTSIDE LAB) (02/07/2018) WBC 7.0 HGB 8.7 HCT 28.8 PLT 217 02/07/2018 us Doc [facility] Abstract LAB-OUTSIDE/ABSTRACTED Final Result * (ABNORMAL) BASIC METABOLIC PANEL (02/07/2018) SODIUM S/P/B 139 POTASSIUM S/P/B 3.8 CO2 25 CHLORIDE S/P/B 102 GLUCOSE 96 mg/dL CALCIUM S/P/B 8.2 BUN 15 CREATININE S/P/B 1.70(A) 0.5 - 1.0 EGFR AFR. AMER. 35 <=90 EGFR NON-AFR. AMER. 29 <=90 02/07/2018 us Doc [facility] LABORATORY Final Result * (ABNORMAL) HEPATIC FUNCTION PANEL (01/31/2018) ALBUMIN S/P/B 2.1(A) 3.5 - 5.0 ALKALINE PHOSPHATASE S/P/B 67 ALT <5 AST 11 BILIRUBIN TOTAL S/P/B 0.3 TOTAL PROTEIN S/P/B 5.3 01/31/2018 us Doc [facility] Abstract LABORATORY Final Result * THYROID STIM HORMONE, TSH (12/22/2017) TSH 0.92 12/22/2017 Doc [facility] Abstract LABORATORY Edited Resul t - Final * MAGNESIUM (12/22/2017) MAGNESIUM 1.9 12/22/2017 us Doc [facility] LABORATORY Final Result [...] difficile 02/01/2017 02/01/2017 05/03/2022 11:5 1 AM CATTERY OPERATOR MRSA Comment:05/02/22 +MRSA Nasal 05/19/24 +MRSA Left arm 05/03/2022 05/19/2024 COVID-19 Rule Out 02/19/2024 02/19/2024 02/19/2024 9:56 PM CDT documented as of this encounter Care Teams Swine Genetics Researcher Relationship Specialty Start Date End Date Agustin Alston MD [address] [place] [address] PCP - General INTERNAL MEDICINE 12/06/17 04/25/19 Stephen Thapa MD [address] [facility] [address] [place] [address] PCP - General NEPHROLOGY 04/26/19 08/28/19 Gracie Vargas DO [address] Medical [facility] [place] [address] PCP - General INTERNAL MEDICINE 08/29/19 03/25/22 Lamin Wisdom DO [address] [place] [address] PCP - General INTERNAL MEDICINE 03/26/22 07/31/24 Aakash Rayo MD Chrissy [facility] [place] [address] PCP - General HOSPITALIST 08/01/24 09/20/24 Patricia Mckeon MD [address] [place] [address] [place] [employer]er CARDIOVASCULAR DISEASE 11/25/15 Tamar Novoa MD Three [facility] [address] [place] [address] EP Flame Gouger CLINICAL CARDIAC ELECTROPHYSIOLOGY 12/18/17 Charlie Norton MD [address] [place] [address] FAMILY PRACTICE 05/02/22 Isael Harmon MD [address] [address] Referring Physician OBGYN 05/02/22 Stanley Jennings MD 1 [place] [address] HEMATOLOGY/ONCOLOGY 10/29/24 documented as of this encounter
--- OUTSIDE RECORDS SUMMARY | 2024-11-12 10:26 | XMS_ITS | Encounter Summary ---
Author Organization [facility] Address [address] [place] [address] Care Team Providers Care Children Counselor Name Role Phone Patricia Mckeon MD Unavailable [phone] Tamar Novoa MD Unavailable Charlie Norton MD Unavailable Isael Harmon MD Unavailable [phone] Stanley Jennings MD Unavailable Encounter Details Date Type Department Care Team (Late st Contact Info) Description 09/21/2024 [employer] Message Enc [facility] THREE [facility], [facility] [address] [place] [address] Patricia Mckeon MD Three [facility]. [facility] [address] [place] [address] Monitor Social History Tobacco Use Types Packs/Day Years Used Date Smoking Tobacco: Never Smokeless Tobacco: Never Alcohol Use Standard Drinks/Week Comments Yes 0 (1 standard drink = 0.6 oz pur e alcohol) Occasionally [facility] Utilities Answer Date Recorded In the past 12 months has e [employer] gas, oil, or water [employer]otobab[employer] threatened to shut off services in your [...] any time in the past 12 m [facility], were you homeless or living in a longterm (including now)? 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 Answer Date of Assessment Author Status No 05/18/2024 6:54 PM Jose Rose RN Active * Do you have serious difficulty walking or climbing stairs? Answer Date of Assessment Author Status Yes 05/18/2024 6:54 PM Jose Rose RN Active * Do you have difficulty dressing or bathing? Answer Date of Assessment Author Status Yes 05/18/2024 6:54 PM Jose Rose RN Active * Because of a physical, mental, or emotional condition, do you have difficulty doing errands alone such as visiting a doctor's office or shopping? Answer Date of Assessment Author Status Yes 05/18/2024 6:54 PM Jose Rose RN Active documented as of this encounter Mental Status * Because of a physical, mental, or emotional condition, do you have serious difficulty concentrating, remembering, or making decisions? Answer Entry Date Author Status Yes 05/18/2024 6:54 PM Jose Rose RN Active documented in this encounter Plan of Treatment Upcoming Encounters Date Type Department Care Team (Latest Contact Info) Description 11/26/2024 Prep for Procedure [facility] [place] [address] Jeff Preciado MD 3 [facility] [address] [place] [address] 11/26/2024 11:15 AM CDT Hospital Encounter [facility] [place] [address] Jeff Preciado MD 3 [facility] [address] [place] [address] 11/26/2024 11:15 AM CDT Anesthesia Event [facility] [place] [address] Uma Antonio CNP [address] [place] [address] 11/26/2024 11:15 AM CDT - 11/26/2024 12:09 PM CDT Surgery [facility] [place] [address] Jeff Preciado MD 3 [facility] [address] [place] [address] CYSTOSCOPY WITH BLADDER BIOPSY AND FULGURATION 01/03/2025 9:40 AM CDT Office Visit [facility] Medical Group Multispecialty Care - [facility] 3 [facility], [address] [place] [address] Kaleb Bean MD 3 [facility] [address] [place] [address] 02/05/2025 2:00 PM CDT Office Visit [facility] THREE [facility], [address] [place] [address] Saadia Walker APRN Three [facility]. [address] [place] [address] Scheduled Procedures Name Priority Associated Diagnoses Date/Ti [...] discharge from hospital Lifestyle No Andria Major, APPLICATION DEVELOPMENT TEAM LEAD Monitor - able to maintain pain control Lifestyle No Orlando Hernandez, RN documented as of this encounter Visit Diagnoses Not on filedocumented in this encounter Additional Health Concerns Infection Onset Date Last Indicated Resolved Time MRSA Comment:05/02/22 +MRSA Nasal 05/19/24 +MRSA Left arm 05/03/2022 05/19/2024 Assessment Noted Time PHQ-9 Depression Total Score: 2 12/11/19 21 4:41 PM CDT documented as of this encounter Care Teams Children Counselor Relationship Specialty Start Date End Date Patricia Mckeon MD Three [facility]. [address] [place] [address] [employer] Furnace Operator And Tender CARDIOVASCULAR DISEASE 11/25/15 Tamar Novoa MD [facility]. [address] [place] [address] EP Furnace Operator And Tender CLINICAL CARDIAC ELECTROPHYSIOLOGY 12/18/17 Charlie Norton MD [address] [place] [address] FAMILY PRACTICE 05/02/22 Isael Harmon MD [address] [address] Referring Physician OBGYN 05/02/22 Stanley Jennings MD 1 [place] [address] HEMATOLOGY/ONCOLOGY 10/29/24 documented as of this encounter
--- OUTSIDE RECORDS SUMMARY | 2024-11-12 10:26 | XMS_ITS | Encounter Summary ---
Author Organization [facility] Address [address] [place] [address] Phone Care Team Providers Care Duco Polisher Name Role Phone Lamin Wisdom Primary Care Provider [phone] Stanley Jennings MD Unavailable [phone] Selene Alevs RN Unavailable Unavailable Sanam Garcia RN Unavailable Unavailable Jeff Preciado MD Unavailable [phone] Encounter Details Date Type Department Care Team (Late st Contact Info) Description 04/19/2024 Telephone [facility] [address] [address] Stanley Jennings MD [address] [address] Social History Tobacco Use Types Packs/Day Years Used Date Smoking Tobacco: Never Smokeless Tobacco: Never Alcohol Use Standard Drinks/Week Comments Yes 0 (1 standard drink = 0.6 oz pur e alcohol) Comments Unknown Sex and Gender Information Value Date Recorded Sex Assigned at Not on file Legal Sex Female 12:23 PM REFINERY OPERATOR HELPER CRUDE UNIT Gender Identity Not on file Sexual Orientation [...] (11:33 AM) GM Was this Endo at [facility]? Can we check with Endo at [place]? Otherwise, we can reach out to PCP to see who they suggest. * Telephone Encounter - Stanley Jennings MD - 04/19/2024 11:32 AM CDT Was this Endo at [facility]? Can we check with Endo at [place]? Otherwise, we can reach out to PCP [...] AM CDT Lab [facility] [address] [phone] Lab, [facility] 12/06/2024 10:45 AM CDT Office Visit [facility] [place] [address] [place] [phone] Stanley Jennings MD [address] [facility] [address] [place] [address] documented as of this encounter Visit Diagnoses Not on filedocumented in this encounter Additional Health Concerns Infection Onset Date Last Indicated Resolved Time C. difficile Rule-Out 05/31/2024 05/31/20242023 12:16 AM REFINERY OPERATOR HELPER CRUDE UNIT documented as of this encounter Care Teams Duco Polisher Relationship Specialty Start Date End Date Lamin Wisdom DO [address] [place] [address] [address] [place] [address] PCP - General Internal Medicine 06/09/22 Stanley Jennings MD [address] [phone] Oncology 07/21/22 Selene Alves, RN [place] Oncology Nurse Navigator Oncology 03/29/24 Sanam Garcia, [place] Oncology Nurse Navigator Oncology 05/17/24 Jeff Preciado MD [address] [facility] [address] [place] [address] Consulting Physician Urology 09/23/24 documented as of this encounter
--- OUTSIDE RECORDS SUMMARY | 2024-11-12 10:26 | XMS_ITS | Clinical Summary ---
Author Organization [facility] Address [address] [place] [address] Phone Care Team Providers Care Electrical Engineering Teacher Name Role Phone Unavailable Primary Care Provider [...] VACCINES (1 - Tdap) 1954 PNEUMOCOCCAL VACCINE 50+ YEARS (1 of 1 - PCV) 10/18/18 88 ZOSTER VACCINE (1 of 2) 10/19/1987 OSTEOPOROSIS SCREENING 2002 RSV VACCINE (60+ or ) (1 - 1-dose 75+ series) 2012 INFLUENZA VACCINE (#1) 2024 Insurance MEDICARE PART A AND B [place]
--- OUTSIDE RECORDS SUMMARY | 2024-11-12 10:26 | XMS_ITS ---
Author Organization [facility] Address [address] [place] [address] Care Team Providers Care Cranberry Farm Supervisor Name Role Phone Patricia Mckeon MD Unavailable [phone] Randy [place] MD Unavailable [phone] Arthur [place] MD Unavailable [phone] Russ Paiz MD Unavailable [phone] Charlie Norton MD Primary Care Provider Stanley Jennings MD Unavailable [phone] Active Problems Problem Noted Date Diagnosed Date Pulmonary HTN 08/16/2023 Assessment & Plan (05/01/2024 2:32 PM DIETARY COOK): She did have an echocardiogram and does have mild estimated pulmonary hypertension secondary to MR. Assessment & Plan (08/16/2023 11:25 AM DIETARY COOK): I have ordered an echocardiogram due to the pulmonary hypertension noted on her PET scan. 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 She will follow up with Dr. Flor in 3 months Assessment & Plan (08/16/2023 11:26 AM DIETARY COOK): Patient continue to use Trelegy one inhalation [...] heart Assessment & Plan (06/29/2022 2:43 PM DIETARY COOK): The patient will continue with Trelegy. The [...] control. Assessment & Plan (06/30/2021 2:37 PM DIETARY COOK): The patient will continue with Trelegy 1 [...] future Assessment & Plan (05/06/2020 1:56 PM DIETARY COOK): The patient will continue with the medication [...] breath. Assessment & Plan (06/05/2019 10:25 AM DIETARY COOK): The patient is considering back surgery. I [...] 09/26/2018 Assessment & Plan (05/01/2024 2:31 PM DIETARY COOK): The patient has lost a significant amount of weight and she decided to no longer is use the trilogy unit. Assessment & Plan (08/16/2023 11:26 AM DIETARY COOK): Patient was encouraged to use her Trilogy [...] recovery. Assessment & Plan (06/29/2022 2:43 PM DIETARY COOK): Will continue with trilogy at night while sleeping. Patient was encouraged to resume Trilogy. [facility] daquan Pierce. Patient will continue Ambien 6.25 mg nightly. Assessment & Plan (02/16/2022 11:16 AM CDT): Will continue with trilogy at night while sleeping. Patient was encouraged to resume Trilogy. DME company [employer]. Patient will continue Ambien 6.25 mg nightly. Assessment & Plan (06/30/2021 2:37 PM DIETARY COOK): The patient will continue with trilogy therapy [...] therapy. Assessment & Plan (05/06/2020 1:57 PM DIETARY COOK): The patient will continue to use trilogy [...] therapy. Assessment & Plan (06/05/2019 10:24 AM DIETARY COOK): The patient continues to benefit from use [...] ventilator as much at night. She uses [employer] for her supplies. She continues to benefit from its use. Post-nasal drip 09/26/2018 Assessment & Plan (05/01/2024 2:31 PM DIETARY COOK): She uses Flonase for postnasal drainage on a p.r.n. basis Assessment & Plan (08/16/2023 11:26 AM DIETARY COOK): I have sent Flonase to the pharmacy [...] Flonase Assessment & Plan (06/29/2022 2:43 PM DIETARY COOK): Patient will continue with Myriam and Flonase daily. Assessment & Plan (02/16/2022 11:06 AM CDT): Patient will continue with Myriam and Flonase daily Assessment & Plan (06/30/2021 2:36 PM DIETARY COOK): The patient will continue with Myriam and Flonase to treat postnasal drip Assessment & Plan (11/04/2020 11:05 AM CDT): The patient will continue with Myriam daily and Flonase daily to treat postnasal drip. Assessment & Plan (05/06/2020 1:57 PM DIETARY COOK): The patient will continue to use Flonase 1 spray in each nostril daily. Due to the Myriam losing its effectiveness, I have changed the patient's allergy medication to the Zyrtec daily. Assessment & Plan (01/29/2020 2:06 PM CDT): The patient will continue to use Flonase and Myriam to the manage her postnasal drip. Assessment & Plan (06/05/2019 10:25 AM DIETARY COOK): The patient is getting relief from her [...] neoplasm of breast 09/21/2010 Arthritis 09/21/2010 Current Treatment and Therapy Plans No current plan information found. Past Treatment and Therapy Plans No past plan information found. Lifetime Dose Tracking * Chemical Lifetime Dose Automatic Entry Manual Entr y DLP 4,884 mGycm 4,884 mGycm 0 mGycm
--- OUTSIDE RECORDS SUMMARY | 2024-11-12 10:26 | XMS_ITS | Encounter Summary ---
Author Organization [facility] Address [address] [place] [address] Care Team Providers Care Stock Plan Administrator Name Role Phone Patricia Mckeon MD Unavailable [phone] Randy Murillo MD Unavailable [phone] Arthur Whitfield MD Unavailable [phone] Russ Paiz MD Unavailable [phone] Charlie Norton MD Primary Care Provider [phone] Stanley Jennings MD Unavailable [phone] Encounter Details Date Type Department Care Team (Late st Contact Info) Description 11/11/2024 Results Follow-Up [facility] Diabetes and Endocrinology [address] [place] [phone] [place] [address] [facility] [address] [place] [address] TSH, T4, free, T3, free Social History Tobacco Use Types Packs/Day Years [...] often do you attend chur ch or islam services? 1 to 4 times per year 01/31/2022 Do you belong to any clubs o r organizations such as jain groups, unions, fraternal or athletic groups, or [...] place to sleep or slept in a longterm (including now)? No 01/31/2022 Comments No Sex and Gender Information Value Date Recorded Sex Assigned at Not on file Legal Sex Female 3:37 AM CANVAS MARKER Gender Identity Not on file Sexual Orientation Not on file documented as of this encounter Miscellaneous Notes * Result Encounter Note - Nona Gilliam LPN - 11/11/2024 2:17 PM CDT LVM requesting a callback regarding msg below. * Telephone Encounter - Edilberto Leo MD - 11/11/2024 12:38 PM CDT Pls Call patient and notify that her recent thyroid labs on improving but still abnormal Advised patient to continue to take Stratham thyroid 120 mg 1 tablet oral daily and add additional 15mg tablet 1 tablet daily ( total of 135 mg oral daily ) I have sent the scripts to pt pharmacy ( patient now will have to prescriptions for Stratham thyroid one for 120 mg and another for 15 mg ) Advise pt to repeat thyroid labs in 3 months Pls mail the external lab orders documented in this encounter Plan of Treatment Not on file documented as of this encounter Visit Diagnoses Not on filedocumented in this encounter Care Teams Stock Plan Administrator Relationship Specialty Start Date End Date Charlie Norton MD [address] [facility] [address] [place] [address] PCP - General Family Medicine 01/31/22 Patricia Mckeon MD Referring Physician Cardiology 06/20/19 Randy Murillo MD Referring Physician Nephrology 06/20/19 Arthur Whitfield MD Referring Physician Rheumatology 06/20/19 Russ Paiz MD [address] [facility] [address] [place] [address] Consulting Physician Pulmonary Disease 06/20/19 Stanley Jennings MD [address] [facility] [address] [place] [id number] Referring Physician Hematology and Oncology 05/06/24 documented as of this encounter
--- OUTSIDE RECORDS SUMMARY | 2024-11-12 10:26 | XMS_ITS | Referral Summary ---
Author Organization [facility] Address [address] [place] [address] Care Team Providers Care Lumber Sticker Name Role Phone Patricia Mckeon MD Unavailable [phone] Randy Murillo MD Unavailable [phone] Arthur Whitfield MD Unavailable [phone] Russ Paiz MD Unavailable [phone] Charlie Norton MD Primary Care Provider Stanley Jennings MD Unavailable [phone] Encounters Date Type Department Care Team Description 11/11/2024 Results Follow-Up [facility] Diabetes and Endocrinology [address] [place] [phone] Edilberto Leo MD TSH, T4, free, T3, free 11/11/2024 Orders Only [facility] Diabetes and Endocrinology [address] [place] [phone] Edilberto Leo MD Acquired hypothyroidism (Primary Dx) 2024 Telephone [facility] [address] [address] Edilberto Leo MD 10/17/2024 Telephone [facility] [address] [address] Edilberto Leo MD 10/14/2024 12:30 PM CDT Office Visit [facility] Diabetes and Endocrinology [address] [place] [phone] Edilberto Leo MD Type 2 diabetes mellitus with diabetic nephropathy, without long-term current use of insulin (HCC) (Primary Dx); Acquired hypothyroidism; Tinea pedis of both feet from Last 3 Months Allergies Active Allergy Reactions Criticality Noted Date Comments Chlorhexidine Unknown 01/30/2019 Harrison Tar Unknown 02/03/2022 Harrison Tar-Soap Other (See comments) Low 06/30/2021 Dapagliflozin [...] 4 (four) times a day as needed Active amiodarone (PACERONE) 200 mg tablet Take [...] tablet (100 mg total) by mouth daily 021 Active albuterol HFA (PROVENTIL HFA,VENTOLIN HFA,PROAIR HFA) 90 mcg/actuation inhalerIndication s:Centrilobular emphysema (HCC) Inhale 2 puffs every 4 (four) hours as needed for wheezing 1 each 3 Active Myrbetriq 50 mg tablet extended release 24 hr Take 1 tablet (50 mg total) by mouth daily 022 Active cholecalciferol (VITAMIN D-3) 5,000 unit tablet Take 1 tablet (5,000 Units total) by mouth daily Active ergocalciferol (VITAMIN D) 50,000 unit capsule Active FreeStyle Maddy 2 [place] misc Active FreeStyle Maddy 2 Sensor kit Active hydrALAZINE (APRESOLINE) 10 mg tablet Take 1 tablet (10 mg total) by mouth 2 (two) times a day 022 Active LANTUS 100 unit/mL (3 mL) pen for injection 023 Active lidocaine (LIDODERM) 5 % Active metoprolol XL (TOPROL-XL) 25 mg extended release tablet Take 1 tablet (25 mg total) by mouth daily 022 Active Januvia 25 mg tablet Take 1 [...] INJECT 1 ML UNDER SKIN EVERY MONTH 023 Active fluticasone propionate (FLONASE) 50 mcg/actuation nasal sprayIndications: Allergic Rhinitis Administer 1 spray into each nostril daily 1 each 024 Active fluticasone-umecl idin-vilanter (Trelegy Ellipta) 100-62.5-25 mcg inhalerIndication s:Bronchospasm Prevention with COPD Inhale 1 puff daily 1 each 3 Active prochlorperazine (COMPAZINE) 10 mg tablet Take 1 tablet (10 mg total) by mouth Active zolpidem CR (AMBIEN CR) 6.25 mg CR tablet Take 1 tablet (6.25 mg total) by mouth nightly at bedtime. Active Trelegy Ellipta 200-62.5-25 mcg inhaler INHALE 1 PUFF INTO THE LUNGS DAILY. RINSE AND SPIT AFTER USE Active insulin glargine 100 unit/mL vial for injection Inject under the skin nightly Active insulin lispro (HumaLOG, ADMELOG) 100 unit/mL pen for injectionIndicati ons:Type 2 diabetes mellitus with diabetic nephropathy, without long-term current use of insulin (HCC) Inject 1-8 Units under the skin 3 (three) times a day with meals 21.6 mL 3 2025 Active Sure Comfort Pen Needle 31 gauge x 5/16 needleIndications :Type 2 diabetes mellitus with diabetic nephropathy, without long-term current use of insulin (HCC) 4x daily 400 each 3 Active nystatin powderIndications :Tinea pedis of both feet Apply topically 4 (four) times a day 15 g 2 025 2025 Active [place] Thyroid 120 mg tabletIndications :Acquired hypothyroidism Take 1 tablet (120 mg total) by mouth daily 90 tablet 3 Active [place] Thyroid 15 mg tabletIndications :Acquired hypothyroidism Take [...] gauge x 5/16 needle 021 2024 Discontinued(R eorder) ondansetron (ZOFRAN) 8 mg tablet Take 1 tablet (8 mg total) by mouth every 8 (eight) hours as needed 2024 Discontinued [place] Thyroid 180 mg tablet Take 1 tablet [...] to take PO glucose/juice .) 5 kit 022 2024 Discontinued glimepiride (AMARYL) 2 mg tablet [...] under the skin 024 2024 Discontinued thyroid ([place] Thyroid) 120 mg tablet Take 1 tablet (120 mg total) by mouth daily 2024 Discontinued Active Problems Problem Noted Date Diagnosed Date Pulmonary HTN 08/16/2023 Assessment & Plan (05/01/2024 2:32 PM WAREHOUSE DISTRIBUTION ASSOCIATE): She did have an echocardiogram and does have mild estimated pulmonary hypertension secondary to MR. Assessment & Plan (08/16/2023 11:25 AM WAREHOUSE DISTRIBUTION ASSOCIATE): I have ordered an echocardiogram due to the pulmonary hypertension noted on her PET scan. Hypothyroidism 01/31/2022 Overview (01/31/2022): 01/31 Reports taking Armor thyroid 180 after breakfast, coached on importance taking before Hypoglycemia 01/31/2022 Dysarthria 01/31/2022 Type 2 diabetes mellitus with diabetic nephropat hy 05/06/2020 Sleep-related hypoxia 05/06/2020 Centrilobular emphysema (CMS/HCC) 09/26/2018 Assessment & Plan (05/01/2024 2:30 PM WAREHOUSE DISTRIBUTION ASSOCIATE): The patient's breathing has been doing well with Trelegy 1 puff daily. She will follow up with Dr. Flor in 3 months Assessment & Plan (08/16/2023 11:26 AM WAREHOUSE DISTRIBUTION ASSOCIATE): Patient continue to use Trelegy one inhalation [...] heart Assessment & Plan (06/29/2022 2:43 PM WAREHOUSE DISTRIBUTION ASSOCIATE): The patient will continue with Trelegy. The [...] control. Assessment & Plan (06/30/2021 2:37 PM WAREHOUSE DISTRIBUTION ASSOCIATE): The patient will continue with Trelegy 1 [...] future Assessment & Plan (05/06/2020 1:56 PM WAREHOUSE DISTRIBUTION ASSOCIATE): The patient will continue with the medication [...] breath. Assessment & Plan (06/05/2019 10:25 AM WAREHOUSE DISTRIBUTION ASSOCIATE): The patient is considering back surgery. I [...] 09/26/2018 Assessment & Plan (05/01/2024 2:31 PM WAREHOUSE DISTRIBUTION ASSOCIATE): The patient has lost a significant amount of weight and she decided to no longer is use the trilogy unit. Assessment & Plan (08/16/2023 11:26 AM WAREHOUSE DISTRIBUTION ASSOCIATE): Patient was encouraged to use her Trilogy [...] recovery. Assessment & Plan (06/29/2022 2:43 PM WAREHOUSE DISTRIBUTION ASSOCIATE): Will continue with trilogy at night while sleeping. Patient was encouraged to resume Trilogy. DME company [employer]. Patient will continue Ambien 6.25 mg nightly. Assessment & Plan (02/16/2022 11:16 AM CDT): Will continue with trilogy at night while sleeping. Patient was encouraged to resume Trilogy. DME company [employer]. Patient will continue Ambien 6.25 mg nightly. Assessment & Plan (06/30/2021 2:37 PM WAREHOUSE DISTRIBUTION ASSOCIATE): The patient will continue with trilogy therapy [...] therapy. Assessment & Plan (05/06/2020 1:57 PM WAREHOUSE DISTRIBUTION ASSOCIATE): The patient will continue to use trilogy therapy to treat obstructive sleep apnea. The patient denied need for supplies at this time. The DME company is [employer]. The patient is benefitting from obstructive sleep apnea therapy with trilogy. Assessment & Plan (01/29/2020 2:05 PM CDT): The patient will continue to use her trilogy vent on a nightly basis. The DME company is [employer]. She denied need for supplies at this time. The patient is benefitting from obstructive sleep apnea therapy. Assessment & Plan (06/05/2019 10:24 AM WAREHOUSE DISTRIBUTION ASSOCIATE): The patient continues to benefit from use [...] 09/26/2018 Assessment & Plan (05/01/2024 2:31 PM WAREHOUSE DISTRIBUTION ASSOCIATE): She uses Flonase for postnasal drainage on a p.r.n. basis Assessment & Plan (08/16/2023 11:26 AM WAREHOUSE DISTRIBUTION ASSOCIATE): I have sent Flonase to the pharmacy [...] Flonase Assessment & Plan (06/29/2022 2:43 PM WAREHOUSE DISTRIBUTION ASSOCIATE): Patient will continue with Myriam and Flonase daily. Assessment & Plan (02/16/2022 11:06 AM CDT): Patient will continue with Myriam and Flonase daily Assessment & Plan (06/30/2021 2:36 PM WAREHOUSE DISTRIBUTION ASSOCIATE): The patient will continue with Myriam and Flonase to treat postnasal drip Assessment & Plan (11/04/2020 11:05 AM CDT): The patient will continue with Myriam daily and Flonase daily to treat postnasal drip. Assessment & Plan (05/06/2020 1:57 PM WAREHOUSE DISTRIBUTION ASSOCIATE): The patient will continue to use Flonase 1 spray in each nostril daily. Due to the Myriam losing its effectiveness, I have changed the patient's allergy medication to the Zyrtec daily. Assessment & Plan (01/29/2020 2:06 PM CDT): The patient will continue to use Flonase and Myriam to the manage her postnasal drip. Assessment & Plan (06/05/2019 10:25 AM WAREHOUSE DISTRIBUTION ASSOCIATE): The patient is getting relief from her [...] neoplasm of breast 09/21/2010 Arthritis 09/21/2010 Immunizations Immunization Administration Dates Next Due Influenza, [...] often do you attend chur ch or spiritism services? 1 to 4 times per year 01/31/2022 Do you belong to any clubs o r organizations such as adventist groups, unions, fraternal or athletic groups, or [...] place to sleep or slept in a correction (including now)? No 01/31/2022 Comments No Sex and Gender Information Value Date Recorded Sex Assigned at Not on file Legal Sex Female 3:37 AM WAREHOUSE DISTRIBUTION ASSOCIATE Gender Identity Not on file Sexual Orientation Not on file Last Filed Vital Signs Vital Sign Reading Time Taken Comments Blood Pressure 118/82 10/14/2024 12:58 PM CDT Pulse 72 10/14/2024 12:58 PM CDT Temperature 35.8 C (96.4 F) 08/07/2024 2:36 PM WAREHOUSE DISTRIBUTION ASSOCIATE Respiratory Rate 17 10/14/2024 12:58 PM CDT Oxygen Saturation 98% 05/01/2024 1:42 PM WAREHOUSE DISTRIBUTION ASSOCIATE Inhaled Oxygen Concentration - - Weight 64 kg (141 lb) 10/14/2024 12:58 PM CDT Height 152.4 cm (5') 10/14/2024 12:58 PM CDT Body Mass Index 27.54 10/14/2024 12:58 PM CDT Plan of Treatment Not on file Procedures [...] EXTERNAL LAB - 10/28/2024 3.7 Range 2.0-4.4 Edilberto Brothers MD LAB BLOOD ORDERABLE S Final Result Performing Organization Address [facility] Co de Phone Number EXTERNAL LAB * (ABNORMAL) TSH (10/28/2024) Scribed TSH 12.74(A) 0.45 - 5.33 mcU/mL EXTERNAL LAB Blood 10/28/2024 Edilberto Brothers MD LAB BLOOD ORDERABLE S Final Result Performing Organization Address [facility] Co de Phone Number EXTERNAL LAB * (ABNORMAL) T4, free (10/28/2024) SCRIBED T4, Free 0.58(A) 0.61 - 1.12 mcg/dL EXTERNAL LAB Blood 10/28/2024 Edilberto Brothers MD LAB BLOOD ORDERABLE S Final Result Performing Organization Address [facility] Co de Phone Number EXTERNAL LAB * POCT hemoglobin A1c (10/14/2024 [...] takes Forteo and vitamin-D. History of carcinoma Fast Food Server/Model: lensgen A (S/N [id number]) CLINICAL INFORMATION: Current height: 59 inches Maximum [...] Zenaida Veloz M.D. TW: HORTENCIA Report ID: [id number] Reading Location: [id number] Procedure Note Zenaida Veloz MD - 10/10/2023 EXAM DESCRIPTION: DEXA AXIAL SKELETON BONE DENSITY 1 OR MORE SITES REASON FOR STUDY: 87 y/o year old F with given history of: Post menopausal status. History of prior fracture. Patient takes Forteo and vitamin-D. History of carcinoma Fast Food Server/Model: lensgen A (S/N [id number]) CLINICAL INFORMATION: Current height: 59 inches Maximum [...] Zenaida Veloz M.D. TW: HORTENCIA Report ID: [id number] Reading Location: [place] [address] Lamin Wisdom DO IM DXA PROCEDURES Final Result * (ABNORMAL) eGFR (02/01/2022 9:57 PM CDT) [facility] eGFR 30(L) 90 - 130 mL/min/1. 73 m2 [facility] Comment: Interpretive Data Reference Interval Normal >/= [...] MD LAB BLOOD ORDERABLES Final Re sult [facility] Department [place] [address] * Lipid panel (01/29/2022 7:41 PM CDT) [...] revised on 2018. Triglycerides 77 <=149 mg/dL [facility] Comment: Interpretive Data Ages [...] revised on 2018. HDL 43 >=40 mg/dL [facility] Comment: Interpretive Data Ages < or [...] on 2018. LDL, calculated 86 <=129 mg/dL [facility] Comment: Interpretive Data Ages < or [...] revised on 2018. Non-HDL Cholesterol 101 mg/dL [facility] Comment: Interpretive Data Ages < or [...] last revised on 2018. Chol/HDL ratio 3 [facility] Blood 01/29/2022 7:41 PM CDT 01/29/2022 7:49 PM CDT Rosy Olsen MD LAB BLOOD ORDERABLES Final Re sult [facility] Department [place] [address] from Last 3 Months or Most Recently Relevant to Health Maintenance Insurance MEDICARE [facility] [facility] MEDICARE [facility] MEDICARE FOR LIFE BLUE CROSS MEDICARE SUPPLEMENT Advance Directives For more information, please contact: [phone] Documents on File Type Date Recorded Patient Engineering Test Mechanic Expl anation ADVANCE DIRECTIVE 05/13/2018 12:00 AM DNR ADVANCE DIRECTIVE 08/19/2015 12:00 AM [employer] * Full Code (Latest Code Status on File) Date Activated Date Inactivated Comments 01/30/2022 8:45 AM 02/02/2022 9:53 PM Care Teams Lumber Sticker Relationship Specialty Start Date End Date Charlie Norton MD [address] [place] [address] PCP - General Family Medicine 01/31/22 Patricia Mckeon MD Referring Physician Cardiology 06/20/19 Randy Murillo MD Referring Physician Nephrology 06/20/19 Arthur Whitfield MD Referring Physician Rheumatology 06/20/19 Russ Paiz MD [address] [facility] [address] [facility] [facility] [address] [place] [address] Consulting Physician Pulmonary Disease 06/20/19 Stanley Jennings MD [address] [facility] [address] [place], [place] [address] Referring Physician Hematology and Oncology 05/06/24
--- OUTSIDE RECORDS SUMMARY | 2024-11-12 10:26 | XMS_ITS | Clinical Summary ---
Author Organization [facility] Address [address] [place] [phone] Phone Care Team Providers Care Clean Out Driller Name Role Phone Charlie Norton MD Primary Care Provider Allergies Active Allergy Reactions Criticality Noted Date Comments Rosiglitazone Fosinopril Procaine Medications fluticasone (FLONASE ALLERGY RELIEF) 50 MCG/ACT nasal spray one spray each nostril daily 0 08/02/19 17 Active zolpidem CR (AMBIEN CR) 6.25 MG CR tablet one tab daily at bedtime 0 08/03/19 17 Active TRELEGY ELLIPTA 100-62.5-25 MCG/INH aerosol powder INL 1 PUFF PO QD 6 01/18/20 19 Active albuterol HFA (PROVENTIL HFA;VENTOLIN HFA) 108 [...] before breakfast Active calcitriol (ROCALTROL) 0.25 MCG capsuleIndications:Seco ndary hyperparathyroidism (CMS-HCC) TAKE 1 CAPSULE BY MOUTH 3 TIMES A WEEK 45 capsule 10/10/19 24 Active allopurinol (ZYLOPRIM) 100 MG tablet Take [...] mouth 1 (one) time each day Active insulin regular (HumuLIN R) 100 UNIT/ML injection Inject under the skin 3 (three) times a day before meals Active Active Problems Problem Noted Date Diagnosed [...] Encounters Date Type Department Care Team Description 09/04/2024 12:00 PM CDT Office Visit [facility] [address] [place] [address] [address] [place] [address] Randy Murillo MD Chronic kidney disease, stage 4 (severe) (CMS-HCC) (Primary Dx); Hyperuricemia; Secondary hyperparathyroidism (CMS-HCC); Diabetes mellitus with renal manifestations, type II or unspecified type, uncontrolled (CMS-HCC) from Last 3 Months Immunizations Immunization Administration Dates Next Due Influenza TIV (IM) [...] on file Legal Sex Female 7:27 AM [facility] Gender Identity Not on file Sexual Orientation Not on file Last Filed Vital Signs Vital Sign Reading Time Taken Comments Blood Pressure 95/57 09/04/2024 12:08 PM CDT Pulse 94 09/04/2024 12:08 PM CDT Temperature 36.6 C (97.9 F) 06/01/2021 12:09 PM BIT SANDER Respiratory Rate - - Oxygen Saturation - - Inhaled Oxygen Concentration - - Weight 60.8 kg (134 lb) 09/04/2024 12:08 PM CDT Height 152.4 cm (5') 09/04/2024 12:08 PM CDT Body Mass Index 26.17 09/04/2024 12:08 PM CDT Plan of Treatment Upcoming Encounters Date Type Department Care Team (Late st Contact Info) Description 03/12/2025 12:40 PM CDT Office Visit [facility] [address] [facility] [address] [place] [address] Randy Murillo MD [address] [facility] [address] [place] [address] Health Maintenance Due Date Last Done Comments Diabetic Foot Exam 10/19/1945 Ophthalmology Exam 10/19/1945 Pneumococcal PPSV23/PCV13 65 + Years / High and Highest Risk (2 of 4 - PPSV23) 04/21/2015 02/24/2015, 07/24/2014 COVID-19 Vaccine (5 - 2023-2 5 season) 2024 04/07/2022, 10/27/2021, 08/13/2020, Additional history exists Influenza Vaccine (Season Ended) 2025 10/03/2022, 03/26/2020, 04/30/2018, Additional history exists Insurance MEDICARE [facility] INTERFACED INSURANCE Care Teams Clean Out Driller Relationship Specialty Start Date End Date Charlie Norton MD [address] [place] [phone] PCP - General Internal Medicine 05/30/24
--- OUTSIDE RECORDS SUMMARY | 2024-11-12 10:26 | XMS_ITS | Encounter Summary ---
Author Organization [employer] [facility] Address [address] [place] [address] Care Team Providers Care General Maintenance Engineer Name Role Phone Unavailable Primary Care Provider Unavailabl e Encounter Details Date Type Department Care Team (Late st Contact Info) Description 02/05/2018 Lab Requisition [facility] Laboratory Services [facility] [address] [facility] [facility] [place] [address] Charlie Norton MD [address] [place] [address] Bacterial infection Social History Tobacco [...]
--- OUTSIDE RECORDS SUMMARY | 2024-11-12 10:26 | XMS_ITS | Encounter Summary ---
Author Organization [employer] [facility] Address [address] [address] Care Team Providers Care Rate Marker Name Role Phone Unavailable Primary Care Provider Unavailabl e Encounter Details Date Type Department Care Team (Late st Contact Info) Description 02/19/2018 Lab Requisition [facility] Laboratory Services [address] [facility] [address] [place] [facility] [place] [address] Charlie Norton MD [address] [place] [address] Heart failure (CMS/[facility]) Social History Tobacco Use Types Packs/Day Years [...] this encounter Visit Diagnoses Diagnosis Heart failure (CMS/[facility]) Heart failure, unspecified documented in this encounter Additional Health Concerns Infection Onset Date Last Indicated Resolved Time C Diff 02/04/2018 02/04/2018 11/09/2022 1:00 AM CDT documented as of this encounter
--- OUTSIDE RECORDS SUMMARY | 2024-11-12 10:26 | XMS_ITS | Encounter Summary ---
Author Organization [facility] Address [address] [place] [address] Phone Care Team Providers Care Color Paste Mixer Name Role Phone Lamin Wisdom Primary Care Provider [phone] Stanley Jennings MD Unavailable [phone] Selene Alves RN Unavailable Unavailable Sanam Garcia RN Unavailable Unavailable Jeff Preciado MD Unavailable Reason for Visit * Reason Comments Medication Refill Encounter Details Date Type Department Care Team (Late st Contact Info) Description 09/16/2022 Refill [facility] [address] [address] Stanley Jennings MD [address] [facility] 2 [place] [address] Medication Refill Social History Tobacco Use Types Packs/Day Years Used Date Smoking Tobacco: Never Smokeless Tobacco: Never Alcohol Use Standard Drinks/Week Comments Yes 0 (1 standard drink = 0.6 oz pur e alcohol) Comments Unknown Sex and Gender Information Value Date Recorded Sex Assigned at Not on file Legal Sex Female 12:23 PM DIVE SUPERVISOR Gender Identity Not on file Sexual Orientation Not on file COVID-19 Exposure Response Date Recorded In the last 10 days, have yo u been in contact with someone who was confirmed or suspected to have Coronavirus/COVID-19? No / Unsure 09/02/2022 10:11 AM DIVE SUPERVISOR documented as of this encounter Miscellaneous Notes * Telephone Encounter - Stanley Jennings MD - 09/18/2022 6:49 PM CDT Refilled. * Telephone Encounter - Analia West - 09/16/2022 11:17 AM CDT Please refill if appropriate. documented in this encounter Plan of Treatment Upcoming Encounters Date Type Department Care Team (Late st Contact Info) Description 12/02/2024 10:30 AM CDT Lab [facility] [address] [phone] Lab, [facility] 12/06/2024 10:45 AM CDT Office Visit [facility] [address] [phone] Stanley Jennings MD [address] [id number] documented as of this encounter Visit Diagnoses Not on filedocumented in this encounter Additional Health Concerns Infection Onset Date Last Indicated Resolved Time C. difficile Rule-Out 05/31/2024 05/31/20242023 12:16 AM DIVE SUPERVISOR documented as of this encounter Care Teams Color Paste Mixer Relationship Specialty Start Date End Date Lamin Wisdom DO [address] [place] [address] [address] [place] [address] PCP - General Internal Medicine 06/09/22 Stanley Jennings MD [address] [place] [phone] Oncology 07/21/22 Selene Alves, RN [place] Oncology Nurse Navigator Oncology 03/29/24 Sanam Garcia, CLEVE [place] Oncology Nurse Navigator Oncology 05/17/24 Jeff Preciado MD #[address] [address] Consulting Physician Urology 09/23/24 documented as of this encounter
--- OUTSIDE RECORDS SUMMARY | 2024-11-12 10:26 | XMS_ITS ---
Author Organization [facility] Address [address], [facility] 1 [place] [address] Phone Care Team Providers Care Head Of Marketing Name Role Phone Lamin Wisdom DO Primary Care Provider [phone] Stanley Jennings MD Unavailable [phone] Selene Alves RN Unavailable Unavailable Sanam Garcia RN Unavailable Unavailable Jeff Preciado MD Unavailable Active Problems Patient Care Coordination No te Formatting of this note migh t be different from the original. PCM CONSENT DATE: 03/29/2024 CONSENT PRESENT AND CURRENT IN CHART OF: 03/29/2024 CARE PLAN LAST UPDATED: 10/04/2024 CARE PLAN LAST DELIVERED: 11/01/2024 For additional billing time breakdown, see [facility] auditing report. 11/01/2024 TX POC DELIVERY-8 MINUTES PCM DROPS: TOTAL PCM TIME: 19 MINUTES PCM DROP: [...] to cardiac catheterization. Hypothyroidism 01/31/2022 Overview (07/28/2022): / Reports taking Armor thyroid 180 after breakfast, [...] sleeping. Patient was encouraged to resume Trilogy. Clarity. Patient will continue Ambien 6.25 mg nightly. [...] medications scheduled. Other Current Plans CCSCI: Support Aranesp Every 3 Weeks* Plan Start Date:09/13/2024 Plan Provider:Stanley Jennings MD Linked Problems Anemia, chronic renal failur e, stage 4 (severe) (HCC) Treatment Medications Current Day (Day 1 , Cycle 2 - Planned for 10/05/2024) Next Day (Day 1, Cycle 3 - Planned for 10/26/2024) No medications scheduled. No medications schedul ed. No medications scheduled. CCSCI: Support Injectafer* Plan Start Date:07/25/2022 Plan Provider:Stanley Jennings MD Linked Problems Iron deficiency anemia, unsp ecified iron deficiency anemia type Treatment Medications No medications scheduled. Past Treatment and Therapy Plans Lifetime Dose Tracking * Chemical Lifetime Dose Automatic Entry Manual Entr y Cyclophosphamide 2,430.51 mg/m2 (3,840 mg) 2,430.51 mg /m2 (3,840 mg) 0 mg/m2 (0 mg)
--- OUTSIDE RECORDS SUMMARY | 2024-11-12 10:27 | XMS_ITS | Encounter Summary ---
Author Organization [facility] Address [address] [place] [address] Care Team Providers Care Energy Infrastructure Engineer Name Role Phone Unavailable Primary Care Provider Unavailabl e Encounter Details Date Type Department Care Team (Late st Contact Info) Description 02/07/[address] [facility] Laboratory Services S [facility] [address] [facility] [address] [place] [address] Charlie Norton MD [address] [place] [address] Magnesium deficiency; Encounter for general [...] 1.6 - 2.4 mg/dL 02/07/2018 9:33 AM [facility] [employer] [facility] Blood Venipuncture / Unknown 02/07/2018 3:56 AM CDT 02/07/2018 8:32 AM CDT Charlie Norton MD CHEMISTRY ORDERABLES Final R esult [facility] [employer] [facility] CLIA# [id number] [address] [address] * (ABNORMAL) BASIC METABOLIC PANEL (02/07/2018 3:56 AM CDT) Pathologist [facility] SODIUM 139 136 - 145 mmol/L 02/07/2018 9:33 AM [facility] [employer] [facility] POTASSIUM 3.8 3.5 - 5.0 mmol/L 02/07/2018 9:33 AM [facility] [employer] [facility] CHLORIDE 102 98 - 107 mmol/L 02/07/2018 9:33 AM [facility] [employer] [facility] CO2 25 22 - 29 mmol/L 02/07/2018 9:33 AM [facility] [employer] [facility] CALCIUM 8.2(L) 8.6 - 10.2 mg/dL 02/07/2018 9:33 AM [facility] [employer] [facility]. [facility] BUN 15 8 - 23 mg/dL 02/07/2018 9:33 AM [facility] CREATININE 1.70(H) 0.51 - 0.95 mg/dL 02/07/2018 9:33 AM [facility] Comment: The GFR result is not clinically significant on patients <18 or >70 years of age. GLUCOSE 96 74 - 99 mg/dL 02/07/2018 9:33 AM [facility] [employer] [facility] GFR 29 mL/min/1.7 3 sq meter 02/07/2018 9:33 AM [facility] [employer] [facility] Comment: eGFR has not been validated for [...] 3 sq meter 02/07/2018 9:33 AM CDT [facility] ANION GAP 12 8 - 16 mmol/L 02/07/2018 9:33 AM CDT [facility] Blood Venipuncture / Unknown 02/07/2018 3:56 AM CDT 02/07/2018 8:32 AM CDT Charlie Norton MD CHEMISTRY ORDERABLES Final R esult [facility] [employer] SERVICES [facility]# [id number] [address] [facility] [place] [address] * (ABNORMAL) CBC WITH DIFFERENTIAL (02/07/2018 3:56 AM CDT) WBC 7.0 4.0 - 9.8 K/uL 02/07/2018 9:08 AM T [facility] RBC 3.08(L) 3.90 - 4.90 M/uL 02/07/2018 9:08 AM T [facility] HEMOGLOBIN 8.7(L) 11.8 - 14.8 g/dL 02/07/2018 9:08 AM T [employer] [facility] HEMATOCRIT 28.8(L) 35.5 - 44.0 % 02/07/2018 9:08 AM T [employer] [facility] MCV 93.5 82.0 - 99.0 fL 02/07/2018 9:08 AM T [facility] MCH 28.2 27.2 - 32.6 pg 02/07/2018 9:08 AM T [facility] - [facility] MCHC 30.2(L) 31.5 - 35.5 g/dL 02/07/2018 9:08 AM [facility] RDW 15.5(H) 11.5 - 14.5 % 02/07/2018 9:08 AM [facility] - . [facility] RDW-STDEV 50.6(H) 37.1 - 48.7 fL 02/07/2018 9:08 AM [facility] - [facility] PLATELETS 217 140 - 350 K/uL 02/07/2018 9:08 AM [facility] - . [facility] MPV 9.4 9.3 - 12.4 fL 02/07/2018 9:08 AM [facility] NEUTROPHILS 57 % 02/07/2018 9:08 AM [facility] - . [facility] LYMPHOCYTES 31 % 02/07/2018 9:08 AM [facility] - [facility] MONOCYTES 6 % 02/07/2018 9:08 AM [facility] - [facility] EOSINOPHILS 4 % 02/07/2018 9:08 AM [facility] - . [facility] BASOPHILS 1 % 02/07/2018 9:08 AM [facility] - . [facility] IMMATURE GRANULOCYTES 1 % 02/07/2018 9:08 AM [facility] - . [facility] Comment:IG (Immature Granulo cyte) count includes Metamyelocytes, Myelocytes, and Promyelocytes NEUTROPHIL ABSOLUTE 4.01 1.90 - 7.00 K/uL 02/07/2018 9:08 AM [facility] - [facility] LYMPHOCYTE ABSOLUTE 2.19 0.70 - 4.50 K/uL 02/07/2018 9:08 AM [facility] MONOCYTE ABSOLUTE 0.43 0.10 - 1.30 K/uL 02/07/2018 9:08 AM [facility] EOSINOPHIL ABSOLUTE 0.30 0.00 - 0.70 K/uL 02/07/2018 9:08 AM [facility] BASOPHILS ABSOLUTE 0.04 0.00 - 0.20 K/uL 02/07/2018 9:08 AM [facility] - . [facility] IMMATURE GRANULOCYTES ABSOLUTE 0.04(H) 0.00 - 0.03 K/uL 02/07/2018 9:08 AM CDT [facility]ATORY [facility] Blood Venipuncture / Unknown 02/07/2018 3:56 AM CDT 02/07/2018 8:25 AM CDT us Charlie Norton MD HEMATOLOGY ORDERABLES Final Result Performing Organization Address City/State/[facility] Co de Phone Number [facility] LABORATORY [facility] CLIA# [id number] [facility] [place] [address] documented in this encounter Visit Diagnoses Diagnosis [...]
--- OUTSIDE RECORDS SUMMARY | 2024-11-12 10:27 | XMS_ITS | Encounter Summary ---
Author Organization [facility] Address [address] [place] [address] Care Team Providers Care Field Project Manager Name Role Phone Unavailable Primary Care Provider Unavailabl e Encounter Details Date Type Department Care Team (Late st Contact Info) Description 01/24/2018 Lab Requisition [facility] Laboratory Services S [facility] [address] [place] [address] Charlie Norton MD [address] [place] [address] Encounter for general adult medical [...]
--- OUTSIDE RECORDS SUMMARY | 2024-11-12 10:27 | XMS_ITS | Encounter Summary ---
Author Organization [facility] Address [address] [place] [address] Care Team Providers Care Sawmill Moulder Operator Name Role Phone Unavailable Primary Care Provider Unavailabl e Encounter Details Date Type Department Care Team (Late st Contact Info) Description 02/14/2018 Lab Requisition [facility] Laboratory Services S [facility] [address] [place] [address] Charlie Norton MD [address] [place] [address] assisted current use of 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; Encounter for general [...] as of this encounter Visit Diagnoses Diagnosis assisted current use of 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 Encounter for long-term [...]
--- OUTSIDE RECORDS SUMMARY | 2024-11-12 10:27 | XMS_ITS | Encounter Summary ---
Author Organization [facility] Address [address] [place] [address] Care Team Providers Care Medical Microbiologist Name Role Phone Patricia Mckeon MD Unavailable [phone] Tamar Novoa MD Unavailable Gracie Vargas DO Primary Care Provider Lamin Wisdom DO Primary Care Provider Charlie Norton MD Unavailable [phone] Isael Harmon MD Unavailable [phone] aAkash Rayo MD Primary Care Provi carline Stanley Jennings MD Unavailable [phone] Encounter Details Date Type Department Care Team (Late st Contact Info) Description 09/22/2020 [facility] [address] [address] Diane Mariscal MA Social History Tobacco Use [...] Sex Assigned at Female 08/01/2024 12:47 PM OIL FIELD TECHNICIAN Legal Sex Female 10:09 PM CDT Gender Identity Not on file Sexual Orientation Not on file 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 [place] [address] Jeff Preciado MD [address] [address] 11/26/2024 11:15 AM CDT Hospital Encounter [facility] [place] [address] Jeff Preciado MD [address] [address] 11/26/2024 11:15 AM CDT An[address] [place] [address] Uma Antonio, COMPLIANCE ADVISOR [address] [place] [address] 11/26/2024 11:15 AM CDT - 11/26/2024 12:09 PM CDT Surgery [facility] OR [facility] [place] [address] Jeff Preciado MD 3 [facility] [address] [place] [address] CYSTOSCOPY WITH BLADDER BIOPSY AND FULGURATION 01/03/2025 9:40 AM CDT Office Visit [facility] - [facility] [address] [place] [id number] Kaleb Bean MD [address] [place] [address] 02/05/2025 2:00 PM CDT [facility], [address] [place] [address] Saadia Walker, VALERIA Three [facility] [place] [address] Scheduled Procedures Name Priority Associated Diagnoses Date/Ti [...] Results * TRIIODOTHYRONINE TOTAL , TT-3 (08/23/2021) T3 TOTAL 61 76 - 181 08/23/2021 us Doc [facility] Final Result * HEMOGLOBIN, GLYCOSYLATED (08/23/2021) Pathologist [facility] HGB A1C 8.6 % 08/23/2021 us Doc [facility] Final Result * (ABNORMAL) COMPREHENSIVE METABOLIC PANEL (08/23/2021) Pathologist [facility] SODIUM S/P/B 139 POTASSIUM S/P/B 4.5 CO2 [...] Final Result * LIPID PANEL (08/23/2021) Pathologist [facility] CHOLESTEROL 178 HDL 39 TRIGLYCERIDES 201 NON HDL CHOLESTEROL 139 LDL (CALCULATED) 107 08/23/2021 us Doc [facility] Edited Resul t - Final * THYROXINE, FREE (FT4) (08/23/2021) Pathologist [facility] FREE T4 0.7 08/23/2021 us Doc [facility] Edited Resul t - Final * THYROID STIM HORMONE, TSH (08/23/2021) TSH 17.08 08/23/2021 us Doc [facility] Final Result * VITAMIN D, 25 OH (08/23/2021) VITAMIN D 25 HYDROXY S/P/B 39 08/23/2021 us Doc [facility] Final Result * TRIIODOTHYRONINE TOTAL , TT-3 (08/23/2021) T3 TOTAL 61 76 - 181 08/23/2021 us Doc [facility] Final Result * HEMOGLOBIN, GLYCOSYLATED (08/23/2021) HGB A1C 8.6 % 08/23/2021 us Doc [facility] Final Result * (ABNORMAL) COMPREHENSIVE METABOLIC PANEL (08/23/2021) SODIUM S/P/B 139 POTASSIUM S/P/B 4.5 CO2 [...] Final Result * LIPID PANEL (08/23/2021) Pathologist [facility] CHOLESTEROL 178 HDL 39 TRIGLYCERIDES 201 NON HDL CHOLESTEROL 139 LDL (CALCULATED) 107 08/23/2021 us Doc [facility] Final Result * THYROXINE, FREE (FT4) (08/23/2021) Pathologist [facility] FREE T4 0.7 08/23/2021 us Doc [facility] Final Result * THYROID STIM HORMONE, TSH (08/23/2021) Pathologist [facility] TSH 17.08 0.4 - 4.5 08/23/2021 us Doc [facility] Final Result * (ABNORMAL) BASIC METABOLIC PANEL (03/18/2021) Pathologist [facility] SODIUM S/P/B 137 POTASSIUM S/P/B 4.2 CO2 19 CHLORIDE S/P/B 112 GLUCOSE 137 mg/dL CALCIUM S/P/B 8.2 BUN 24 CREATININE S/P/B 1.70(A) 0.5 - 1.0 EGFR NON-AFR. AMER. 29 <=90 03/18/2021 us Doc [facility] Final Result * CBC (OUTSIDE LAB) (03/17/2021) Pathologist [facility] WBC 6.4 HGB 8.5 HCT 26.5 PLT 184 03/17/2021 us Doc [facility]-OUTSIDE/ABSTRACTED Final Result * (ABNORMAL) HEPATIC FUNCTION PANEL (03/16/2021) Pathologist [facility] ALBUMIN S/P/B 2.6(A) 3.5 - 5.0 ALKALINE PHOSPHATASE S/P/B 119 ALT 39 AST 29 BILIRUBIN DIRECT S/P/B 0.4 BILIRUBIN TOTAL S/P/B 0.4 TOTAL PROTEIN S/P/B 6.0 03/16/2021 us Doc [facility] Final Result * MAGNESIUM (03/15/2021) MAGNESIUM 1.8 03/15/2021 us Doc [facility] Edited Resul t - Final * C-REACTIVE PROTEIN (03/14/2021) CRP 1.7 03/14/2021 us Doc [facility] Final Result * HEMOGLOBIN, GLYCOSYLATED (03/14/2021) HGB A1C 7.5 % 03/14/2021 us Doc [facility] Final Result * THYROID STIM HORMONE, TSH (03/14/2021) TSH 1.570 03/14/2021 us Doc [facility] [...] LABORATORY Final Result * VITAMIN B-12 (09/08/2020) Pathologist [facility] VITAMIN B12 S/P/B >2,000 09/08/2020 us Doc [facility] Final Result * LIPID PANEL (09/08/2020) Pathologist [facility] CHOLESTEROL 184 HDL 36 TRIGLYCERIDES 294 NON [...] difficile 02/01/2017 02/01/2017 05/03/2022 11:5 1 AM OIL FIELD TECHNICIAN MRSA Comment:05/02/22 +MRSA Nasal 05/19/24 +MRSA Left arm 05/03/2022 05/19/2024 COVID-19 Rule Out 02/19/2024 02/19/2024 02/19/2024 9:56 PM CDT documented as of this encounter Care Teams Medical Microbiologist Relationship Specialty Start Date End Date Gracie Vargas DO [address] Medical [facility], [place] [address] PCP - General INTERNAL MEDICINE 08/29/19 03/25/22 Lamin Wisdom DO [address] [facility], [place] [address] PCP - General INTERNAL MEDICINE 03/26/22 07/31/24 Aakash Rayo MD [address] [facility] [place] [id number] PCP - General HOSPITALIST 08/01/24 09/20/24 Patricia Mckeon MD [address] [place], [place] [address] [place] Pbx Repairer CARDIOVASCULAR DISEASE 11/25/15 Tamar Novoa MD [address] [place], [place] [id number] EP Pbx Repairer CLINICAL CARDIAC ELECTROPHYSIOLOGY 12/18/17 Charlie Norton MD [address] [place] [address] FAMILY PRACTICE 05/02/22 Isael Harmon MD [address] [address] Referring Physician OBGYN 05/02/22 Stanley Jennings MD [address] [place] [address] HEMATOLOGY/ONCOLOGY 10/29/24 documented as of this encounter
--- OUTSIDE RECORDS SUMMARY | 2024-11-12 10:27 | XMS_ITS | Encounter Summary ---
Author Organization [facility] Address [address] [place] [address] Care Team Providers Care Systems Project Manager Name Role Phone Bala Norman MD Primary Care Provider [phone] Patricia Mckeon MD Unavailable [phone] Bala Norman MD Primary Care Provider [phone] Agustin Alston MD Primary Care Provider [phone] Tamar Novoa MD Unavailable Stephen Thapa MD Primary Care Provider Unav ailable Gracie Vargas DO Primary Care Provider [phone] Lamin Wisdom DO Primary Care Provider [phone] Charlie Norton MD Unavailable [phone] Isael Harmon MD Unavailable [phone] Aakash Rayo MD Primary Care Provi carline Stanley Jennings MD Unavailable [phone] Encounter Details Date Type Department Care Team (Late st Contact Info) Description 07/13/2015 Abstract [facility] AT [address] [address] Patricia Mckeon MD Three [facility]. 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 [address] Jeff Preciado MD 3 [facility] [address] [place] [address] 11/26/2024 11:15 AM CDT Hospital Encounter [place] [address] Jeff Preciado MD 3 [facility] [address] [place] [address] 11/26/2024 11:15 AM CDT Anesthesia [place] [address] Uma Antonio, MOTION PICTURE PROJECTIONIST 1 [place] [address] 11/26/2024 11:15 AM CDT - 11/26/2024 12:09 PM CDT Surgery [place] OR [facility] [place] [address] Jeff Preciado MD 3 [facility] [address] [place] [address] CYSTOSCOPY WITH BLADDER BIOPSY AND FULGURATION 01/03/2025 9:40 AM CDT Office Visit [facility] Medical Group Multispecialty Care - [facility] 3 [facility] [address] [place] [phone] Kaleb Bean MD 3 [facility] [address] [place] [address] 02/05/2025 2:00 PM CDT Office Visit [facility] THREE [facility] [address] [place] [address] Saadia Walker APRN Three [facility]. [address] [place] [address] Scheduled Procedures Name Priority Associated Diagnoses Date/Ti dc CYSTOSCOPY BIOPSY BLADDER BLADDER WALL THICKENING N32.89 11/26/2024 11:15 AM CDT documented as of this encounter Visit Diagnoses Not on filedocumented in this encounter Additional Health Concerns Infection Onset Date Last Indicated Resolved Time C. difficile 02/01/2017 02/01/2017 05/03/2022 11:5 1 AM GREASE MAKER HEAD MRSA Comment:05/02/22 +MRSA Nasal 05/19/24 +MRSA Left arm 05/03/2022 05/19/2024 COVID-19 Rule Out 02/19/2024 02/19/2024 02/19/2024 9:56 PM CDT documented as of this encounter Care Teams Systems Project Manager Relationship Specialty Start Date End Date Bala Norman MD [address] [facility] [place], [place] [address] PCP - General INTERNAL MEDICINE 12/30/15 11/23/17 Bala Norman MD [address] [place], [place] [address] PCP - General 06/17/14 12/29/15 Agustin Alston MD Three [facility]. [address] [place] [address] PCP - General INTERNAL MEDICINE 12/06/17 04/25/19 Stephen Thapa MD Three [facility]. [facility] [address] [place] [address] PCP - General NEPHROLOGY 04/26/19 08/28/19 Gracie Vargas DO [address], [place] [id number] PCP - General INTERNAL MEDICINE 08/29/19 03/25/22 Lamin Wisdom DO [address] [facility], [place] [address] PCP - General INTERNAL MEDICINE 03/26/22 07/31/24 Aakash Rayo MD [address] [facility], [place] [id number] PCP - General HOSPITALIST 08/01/24 09/20/24 Patricia Mckeon MD [facility]. [address] [place], [place] [address] [employer] Store Coordinator CARDIOVASCULAR DISEASE 11/25/15 Tamar Novoa MD Three [facility] [address] [place] [address] EP Store Coordinator CLINICAL CARDIAC ELECTROPHYSIOLOGY 12/18/17 Charlie Norton MD [address] [place] [address] FAMILY PRACTICE 05/02/22 Isael Harmon MD [address] [address] Referring Physician OBGYN 05/02/22 Stanley Jennings MD 1 [place] [address] HEMATOLOGY/ONCOLOGY 10/29/24 documented as of this encounter
--- OUTSIDE RECORDS SUMMARY | 2024-11-12 10:27 | XMS_ITS | Encounter Summary ---
Author Organization [facility] Address 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 Consistent w Count 01/19/2018 10:10 AM CDT [facility] ANISOCYTOSIS 1+ /hpf 01/19/2018 10:10 AM CDT [facility] HYPOCHROMIA 1+ /hpf 01/19/2018 10:10 AM T [facility] SERVICES [facility] CLUMPED PLATELETS Present 01/19/2018 10:10 AM [facility] SERVICES - [facility] Comment:Platelet clumps are present on smear review. Platelet count may be higher than indicated. Blood Venipuncture / Unknown 01/19/2018 6:00 AM CDT 01/19/2018 8:30 AM CDT Charlie Norton MD HEMATOLOGY ORDERABLES COM Fi nal Result [facility] CLIA# [id number] [address] [place] [address] * (ABNORMAL) CBC WITH DIFFERENTIAL (01/19/2018 6:00 AM CDT) WBC 7.8 4.0 - 9.8 K/uL 01/19/2018 9:27 AM [facility] SERVICES [facility] RBC 2.46(L) 3.90 - 4.90 M/uL 01/19/2018 9:27 AM [facility] HEMOGLOBIN 7.1(L) 11.8 - 14.8 g/dL 01/19/2018 9:27 AM [facility] HEMATOCRIT 23.4(L) 35.5 - 44.0 % 01/19/2018 9:27 AM [facility] MCV 95.1 82.0 - 99.0 fL 01/19/2018 9:27 AM [facility] MCH 28.9 27.2 - 32.6 pg 01/19/2018 9:27 AM [facility] MCHC 30.3(L) 31.5 - 35.5 g/dL 01/19/2018 9:27 AM [facility] RDW 14.8(H) 11.5 - 14.5 % 01/19/2018 9:27 AM [facility] RDW-STDEV 50.6(H) 37.1 - 48.7 fL 01/19/2018 9:27 AM [facility] [employer] LABORATORY SERVICES - [facility] PLATELETS 316 140 - 350 K/uL 01/19/2018 9:27 AM [facility] [employer] LABORATORY SERVICES - [facility] MPV 9.7 9.3 - 12.4 fL 01/19/2018 9:27 AM [facility] [employer] LABORATORY SERVICES - [facility] NEUTROPHILS 61 % 01/19/2018 9:27 AM [facility] [employer] LABORATORY SERVICES - [facility] LYMPHOCYTES 28 % 01/19/2018 9:27 AM [facility] [employer] LABORATORY SERVICES - [facility] MONOCYTES 8 % 01/19/2018 9:27 AM [facility] [employer] LABORATORY SERVICES - [facility] EOSINOPHILS 2 % 01/19/2018 9:27 AM [facility] [employer] LABORATORY SERVICES - [facility] BASOPHILS 1 % 01/19/2018 9:27 AM [facility] [employer] LABORATORY SERVICES - [facility] IMMATURE GRANULOCYTES 1 % 01/19/2018 9:27 AM [facility] [employer] LABORATORY SERVICES - [facility] Comment:IG (Immature Granulo cyte) count includes Metamyelocytes, Myelocytes, and Promyelocytes NEUTROPHIL ABSOLUTE 4.74 1.90 - 7.00 K/uL 01/19/2018 9:27 AM [facility] [employer] LABORATORY SERVICES - [facility] LYMPHOCYTE ABSOLUTE 2.20 0.70 - 4.50 K/uL 01/19/2018 9:27 AM [facility] LABORATORY SERVICES - [facility] MONOCYTE ABSOLUTE 0.60 0.10 - 1.30 K/uL 01/19/2018 9:27 AM [facility] [employer] LABORATORY SERVICES - [facility] EOSINOPHIL ABSOLUTE 0.16 0.00 - 0.70 K/uL 01/19/2018 9:27 AM [facility] [employer] LABORATORY SERVICES - [facility] BASOPHILS ABSOLUTE 0.05 0.00 - 0.20 K/uL 01/19/2018 9:27 AM [facility] [employer] LABORATORY SERVICES - [facility] IMMATURE GRANULOCYTES ABSOLUTE 0.04(H) 0.00 - 0.03 K/uL 01/19/2018 9:27 AM [facility] [employer] SERVICES - 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
--- OUTSIDE RECORDS SUMMARY | 2024-11-12 10:27 | XMS_ITS | Encounter Summary ---
Author Organization [facility] Address [address] [place] [address] Care Team Providers Care School Boat Driver Name Role Phone Patricia Mckeon MD Unavailable [phone] Tamar Novoa MD Unavailable Stephen Thapa MD Primary Care Provider Unav Gracie Hampton DO Primary Care Provider Lamin Wisdom DO Primary Care Provider [phone] Charlie Norton MD Unavailable [phone] Isael Harmon MD Unavailable [phone] Aakash Rayo MD Primary Care Provi carline Stanley Jennings MD Unavailable [phone] Encounter Details Date Type Department Care Team (Late st Contact Info) Description 06/24/2019 MyChart Message Enc MYCHART DEPARTMENT [facility] [place] [address] Awa, [facility] Provider surgical clearance Social History Tobacco Use [...] Sex Assigned at Female 08/01/2024 12:47 PM STRUCTURAL MANAGER Legal Sex Female 10:09 PM CDT Gender Identity Not on file Sexual Orientation Not on file 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 [address] Jeff Preciado MD 3 [facility] [address] [place] [address] 11/26/2024 11:15 AM CDT Hospital Encounter [place] [address] Jeff Preciado MD [address] [address] 11/26/2024 11:15 AM CDT Anesthesia [place] [address] Uma Antonio, BRAKE LININGS COATER 1 [place] [address] 11/26/2024 11:15 AM CDT - 11/26/2024 12:09 PM [place] [address] Jeff Preciado MD 3 [facility] [address] [place] [address] CYSTOSCOPY WITH BLADDER BIOPSY AND FULGURATION 01/03/2025 9:40 AM CDT Office Visit [facility] Medical Group Multispecialty Care - [facility] [address] [facility] [address] [place] [address] Kaleb Bean MD 3 [facility] [address] [place] [address] 02/05/2025 2:00 PM CDT Office Visit [facility] THREE [facility], [address] [place] [address] Saadia Walker APRN Three [facility]. [address] [place] [address] Scheduled Procedures Name Priority Associated Diagnoses Date/Ti me CYSTOSCOPY BIOPSY BLADDER BLADDER WALL THICKENING N32.89 11/26/2024 11:15 AM CDT documented as of this encounter Visit Diagnoses Not on filedocumented in this encounter Additional Health Concerns Infection Onset Date Last Indicated Resolved Time C. difficile 02/01/2017 02/01/2017 05/03/2022 11:5 1 AM STRUCTURAL MANAGER MRSA Comment:05/02/22 +MRSA Nasal 05/19/24 +MRSA Left arm 05/03/2022 05/19/2024 COVID-19 Rule Out 02/19/2024 02/19/2024 02/19/2024 9:56 PM CDT documented as of this encounter Care Teams School Boat Driver Relationship Specialty Start Date End Date Stephen Thapa MD Three [facility]. [address] [place] [address] PCP - General NEPHROLOGY 04/26/19 08/28/19 Gracie Vargas DO [address] [id number] PCP - General INTERNAL MEDICINE 08/29/19 03/25/22 Mars Wisdomon DO Jules [address] [place], [place] [address] PCP - General INTERNAL MEDICINE 03/26/22 07/31/24 Aakash Rayo MD [address] [place], [place] [address] PCP - General HOSPITALIST 08/01/24 09/20/24 Patricia Mckeon MD Three [facility]. [address] [address] [place] [employer] CARDIOVASCULAR DISEASE 11/25/15 Tamar Novoa MD Three [facility]. [address] [address] EP Cell Maker CLINICAL CARDIAC ELECTROPHYSIOLOGY 12/18/17 Charlie Norton MD [address] [place] [address] [facility] PRACTICE 05/02/22 Isael Harmon MD [address] [address] Referring Physician OBGYN 05/02/22 Stanley Jennings MD 1 [place], [place] [address] HEMATOLOGY/ONCOLOGY 10/29/24 documented as of this encounter
--- OUTSIDE RECORDS SUMMARY | 2024-11-12 10:27 | XMS_ITS | Encounter Summary ---
Author Organization [employer] [facility] Address 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 Magnesium deficiency BRAIN NATRIURETIC PEPTIDE, BNP OR PROBNP Routine 01/31/2018 4:17 AM CDT 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 Magnesium deficiency MAGNESIUM LEVEL Routine 01/31/2018 4:17 AM CDT Heart failure nursing home current use of 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 Magnesium deficiency COMPREHENSIVE METABOLIC PANEL Routine 01/31/2018 4:17 AM CDT Heart failure nursing home current use of 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 Magnesium deficiency documented in this encounter Results * MAGNESIUM LEVEL (01/31/2018 4:17 AM CDT) MAGNESIUM 1.7 1.6 - 2.4 mg/dL 01/31/2018 9:14 AM CDT [facility] [employer] User [place] [facility] Blood Venipuncture / Unknown 01/31/2018 4:17 AM CDT 01/31/2018 8:17 AM CDT Charlie Norton MD CHEMISTRY ORDERABLES Final R esult [facility] [employer] User [place] [facility] CLIA# [id number] [address] [place] [address] * (ABNORMAL) BRAIN NATRIURETIC PEPTIDE, BNP OR PROBNP (01/31/2018 4:17 AM CDT) PROBNP, N TERMINAL 8,787(H) <449 pg/mL 01/31/2018 9:14 AM CDT [facility] [employer] Level User [place] [facility] Comment: Reference values for screening purposes based on golf club repairer's recommendation: Patients less than 75 years: <125 [...] Norton MD CHEMISTRY ORDERABLES Final R esult [facility] [employer] User [place] [facility] CLIA# [id number] [address] [address] * (ABNORMAL) COMPREHENSIVE METABOLIC PANEL (01/31/2018 4:17 AM CDT) [facility] SODIUM 139 136 - 145 mmol/L 01/31/2018 9:26 AM T [facility] [facility] POTASSIUM 3.8 3.5 - 5.0 mmol/L 01/31/2018 9:26 AM T [employer] LABORATORY SERVICES - [facility] CHLORIDE 101 98 - 107 mmol/L 01/31/2018 9:26 AM T [employer] [facility] - [facility] CO2 27 22 - 29 mmol/L 01/31/2018 9:26 AM T [employer] LABORATORY SERVICES - . [facility] CALCIUM 7.5(L) 8.6 - 10.2 mg/dL 01/31/2018 9:26 AM T [employer] LABORATORY SERVICES - . [facility] BUN 15 8 - 23 mg/dL 01/31/2018 9:26 AM [employer] LABORATORY SERVICES - . [facility] CREATININE 1.48(H) 0.51 - 0.95 mg/dL 01/31/2018 9:26 AM T [employer] [facility] Comment: The GFR result is not clinically significant on patients <18 or >70 years of age. GLUCOSE 130(H) 74 - 99 mg/dL 01/31/2018 9:26 AM T [employer] LABORATORY SERVICES [facility] TOTAL PROTEIN 5.3(L) 6.7 - 8.6 g/dL 01/31/2018 9:26 AM [employer] LABORATORY SERVICES - . [facility] ALBUMIN 2.1(L) 3.5 - 5.2 g/dL 01/31/2018 9:26 AM [employer] [facility] BILIRUBIN TOTAL 0.3 0.2 - 1.1 mg/dL 01/31/2018 9:26 AM T [employer] LABORATORY SERVICES - . [facility] ALKALINE PHOSPHATASE 67 35 - 104 U/L 01/31/2018 9:26 AM [employer] LABORATORY SERVICES - . [facility] AST 11 <33 U/L 01/31/2018 9:26 AM [employer] LABORATORY SERVICES - . [facility] ALT <5 <34 U/L 01/31/2018 9:26 AM [employer] LABORATORY SERVICES - . [facility] GFR 34 mL/min/1.7 3 sq meter 01/31/2018 9:26 AM T [facility] [employer] User [place] [facility] Comment: eGFR has not been validated [...] 3 sq meter 01/31/2018 9:26 AM T [facility] [employer] User [place] [facility] ANION GAP 11 8 - 16 mmol/L 01/31/2018 9:26 AM [facility] [employer] Level User [place] [facility] Blood Venipuncture / Unknown 01/31/2018 4:17 AM CDT 01/31/2018 8:17 AM CDT Narrative [facility] [employer] User [place] [facility] - 01/31/2018 9:26 AM CDT Samples containing indocyanine green cause interferences on Total and/or Direct Bilirubin and must not be measured. Charlie Norton MD CHEMISTRY ORDERABLES Final R esult [facility] [employer] User [place] [facility]# [id number] [address] [facility] [place] [address] * (ABNORMAL) CBC WITH DIFFERENTIAL (01/31/2018 4:17 AM CDT) [facility] WBC 8.6 4.0 - 9.8 K/uL 01/31/2018 8:55 AM T [facility] [employer] User [place] [facility] RBC 2.96(L) 3.90 - 4.90 M/uL 01/31/2018 8:55 AM T [facility] [employer] User [place] [facility] HEMOGLOBIN 8.6(L) 11.8 - 14.8 g/dL 01/31/2018 8:55 AM T [facility] HEMATOCRIT 27.6(L) 35.5 - 44.0 % 01/31/2018 8:55 AM CDT [facility] LABORATORY SERVICES - [facility] MCV 93.2 82.0 - 99.0 fL 01/31/2018 8:55 AM CDT [facility] [facility] SERVICES - [facility] MCH 29.1 27.2 - 32.6 pg 01/31/2018 8:55 AM CDT [employer] LABORATORY SERVICES - [facility] MCHC 31.2(L) 31.5 - 35.5 g/dL 01/31/2018 8:55 AM CDT [facility] [facility]AT[facility] SERVICES - [facility] RDW 15.2(H) 11.5 - 14.5 % 01/31/2018 8:55 AM CDT [employer] LABORATORY SERVICES - . [facility] RDW-STDEV 50.0(H) 37.1 - 48.7 fL 01/31/2018 8:55 AM CDT [employer] LABORATORY SERVICES - . [facility] PLATELETS 193 140 - 350 K/uL 01/31/2018 8:55 AM CDT [employer] LABORATORY SERVICES - . [facility] MPV 9.9 9.3 - 12.4 fL 01/31/2018 8:55 AM CDT [facility] [facility] - [facility] NEUTROPHILS 73 % 01/31/2018 8:55 AM CDT [facility] [facility] LYMPHOCYTES 16 % 01/31/2018 8:55 AM CDT [employer] [facility] MONOCYTES 8 % 01/31/2018 8:55 AM CDT [facility] [facility] EOSINOPHILS 3 % 01/31/2018 8:55 AM CDT [facility] [facility] BASOPHILS 0 % 01/31/2018 8:55 AM CDT [facility] [facility] - [facility] IMMATURE GRANULOCYTES 2 % 01/31/2018 8:55 AM CDT [facility] [facility] Comment:IG (Immature Granulo cyte) count includes Metamyelocytes, Myelocytes, and Promyelocytes NEUTROPHIL ABSOLUTE 6.23 1.90 - 7.00 K/uL 01/31/2018 8:55 AM CDT [facility] - [facility] LYMPHOCYTE ABSOLUTE 1.34 0.70 - 4.50 K/uL 01/31/2018 8:55 AM CDT [employer] [facility] - [facility] MONOCYTE ABSOLUTE 0.65 0.10 - 1.30 K/uL 01/31/2018 8:55 AM CDT [facility] LABORATORY SERVICES - . [facility] EOSINOPHIL ABSOLUTE 0.22 0.00 - 0.70 K/uL 01/31/2018 8:55 AM CDT [facility] LABORATORY SERVICES - [facility] BASOPHILS ABSOLUTE 0.01 0.00 - 0.20 K/uL 01/31/2018 8:55 AM CDT [facility] LABORATORY SERVICES - . [facility] IMMATURE GRANULOCYTES ABSOLUTE 0.14(H) 0.00 - 0.03 K/uL 01/31/2018 8:55 AM CDT [facility] LABORATORY SERVICES - . [facility] Blood Venipuncture / Unknown 01/31/2018 4:17 AM CDT 01/31/2018 8:11 AM CDT Charlie Norton MD HEMATOLOGY ORDERABLES Final Result [facility] LABORATORY SERVICES - [facility]# [id number] [address] [place] [address] documented in this encounter Visit Diagnoses Diagnosis Magnesium deficiency Disorders of magnesium metabolism Heart failure (CMS/[facility]) Heart failure, unspecified nursing home current use of 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 Encounter for long-term (current) use of 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s documented in this encounter Additional Health Concerns Infection Onset Date Last Indicated Resolved Time C Diff 02/04/2018 02/04/2018 11/09/2022 1:00 AM CDT documented as of this encounter
--- OUTSIDE RECORDS SUMMARY | 2024-11-12 10:27 | XMS_ITS | Encounter Summary ---
Author Organization [employer] Address [address] [place] [address] Care Team Providers Care Strap Maker Name Role Phone Unavailable Primary Care Provider Unavailabl e Encounter Details Date Type Department Care Team (Late st Contact Info) Description 01/30/2018 Lab Requisition [facility] Laboratory Services S [facility] [address] [place] [address] Charlie Norton MD [address] [place] [address] Anemia Social History Tobacco Use [...] - 9.8 K/uL 01/30/2018 8:19 AM CDT [facility] LABORATORY SERVICES [facility] RBC 3.06(L) 3.90 - 4.90 M/uL 01/30/2018 8:19 AM CDT [facility] LAB[facility] HEMOGLOBIN 8.7(L) 11.8 - 14.8 g/dL 01/30/2018 8:19 AM CDT [facility]ATORY SERVICES - [facility] [place] HEMATOCRIT 28.4(L) 35.5 - 44.0 % 01/30/2018 8:19 AM CDT [facility] MCV 92.8 82.0 - 99.0 fL 01/30/2018 8:19 AM CDT [facility] MCH 28.4 27.2 - 32.6 pg 01/30/2018 8:19 AM CDT [facility] MCHC 30.6(L) 31.5 - 35.5 g/dL 01/30/2018 8:19 AM CDT [facility] [place] RDW 14.9(H) 11.5 - 14.5 % 01/30/2018 8:19 AM CDT [facility] [place] RDW-STDEV 50.2(H) 37.1 - 48.7 fL 01/30/2018 8:19 AM [facility] LABORATORY SERVICES - [facility] [place] PLATELETS 190 140 - 350 K/uL 01/30/2018 8:19 AM [facility] - [facility] [place] MPV 9.8 9.3 - 12.4 fL 01/30/2018 8:19 AM [facility] NEUTROPHILS 65 % 01/30/2018 8:19 AM CDT [facility] LYMPHOCYTES 21 % 01/30/2018 8:19 AM [facility] MONOCYTES 10 % 01/30/2018 8:19 AM [facility] [place] EOSINOPHILS 2 % 01/30/2018 8:19 AM CDT [facility] [place] BASOPHILS 0 % 01/30/2018 8:19 AM CDT [facility] IMMATURE GRANULOCYTES 2 % 01/30/2018 8:19 AM [facility] Comment:IG (Immature Granulo cyte) count includes Metamyelocytes, Myelocytes, and Promyelocytes NEUTROPHIL ABSOLUTE 5.35 1.90 - 7.00 K/uL 01/30/2018 8:19 AM CDT [facility] LYMPHOCYTE ABSOLUTE 1.68 0.70 - 4.50 K/uL 01/30/2018 8:19 AM CDT [facility] MONOCYTE ABSOLUTE 0.79 0.10 - 1.30 K/uL 01/30/2018 8:19 AM CDT [facility] EOSINOPHIL ABSOLUTE 0.19 0.00 - 0.70 K/uL 01/30/2018 8:19 AM CDT [facility] BASOPHILS ABSOLUTE 0.01 0.00 - 0.20 K/uL 01/30/2018 8:19 AM CDT [facility] SERVICES [facility] IMMATURE GRANULOCYTES ABSOLUTE 0.18(H) 0.00 - 0.03 K/uL 01/30/2018 8:19 AM CDT [facility] - [facility] [place] Blood Venipuncture / Unknown 01/30/2018 4:21 AM CDT 01/30/2018 7:29 AM CDT us Charlie Norton MD HEMATOLOGY ORDERABLES Final Result [facility] LABOR[facility]ORY SERVICES - [facility]# [id number] [address] [place] [address] documented in this encounter Visit Diagnoses Diagnosis Anemia Anemia, unspecified documented in this encounter Additional Health Concerns Infection Onset Date Last Indicated Resolved Time C Diff 02/04/2018 02/04/2018 11/09/2022 1:00 AM CDT documented as of this encounter
--- OUTSIDE RECORDS SUMMARY | 2024-11-12 10:27 | XMS_ITS | Encounter Summary ---
Author Organization [employer] Address 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 documented in this encounter Results * (ABNORMAL) PROTIME-INR (01/31/2018 4:17 AM CDT) PROTIME 17.9(H) 12.7 - 15.1 Seconds 01/31/2018 9:02 AM CDT [facility] LABORATORY [facility] INR 1.5(H) 0.9 - 1.1 01/31/2018 9:02 AM T [facility] LABOR[facility]ORY [facility] Blood Venipuncture / Unknown 01/31/2018 4:17 AM CDT 01/31/2018 8:11 AM CDT Narrative [facility] LABORATORY [facility] - 01/31/2018 9:02 AM CDT INR Therapeutic Range: Adult: 2.0 - 3.0 for pulmonary embolism or prophylaxis against venous thrombosis or systemic embolization. 2.0 - 3.0 for patients with tissue heart valves. 2.5 - 3.5 for patients with mechanical heart valves or post [place]. Pediatric (12 years and under): 1.5 - 3.0 Although the target range in children is not well established, INR values of 1.5 - 3.0 are recommended for most patients. Higher values have been used in children with prosthetic cardiac valves and hereditary clotting disorders. [place] (<3 days) therapeutic ranges have not been established. us Charlie Norton MD HEMATOLOGY ORDERABLES Final Result [facility] LABOR[facility]ORY [facility]# [id number] [address] [place] [address] documented in this encounter Visit Diagnoses Diagnosis group home current use of 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 Encounter for long-term (current) use of 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s documented in this encounter Additional Health Concerns Infection Onset Date Last Indicated Resolved Time C Diff 02/04/2018 02/04/2018 11/09/2022 1:00 AM CDT documented as of this encounter
--- OUTSIDE RECORDS SUMMARY | 2024-11-12 10:27 | XMS_ITS | Encounter Summary ---
Author Organization [employer] Address [address] [place] [address] Care Team Providers Care Ballistics Teacher Name Role Phone Unavailable Primary Care Provider Unavailabl e Encounter Details Date Type Department Care Team (Late st Contact Info) Description 01/17/[address] 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 VITAMIN D 25 HYDROXY Routine 01/17/2018 6:43 AM CDT Heart failure custodial current use of 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 Vitamin D deficiency PROTIME-INR Routine 01/17/2018 6:43 AM CDT Heart failure custodial current use of 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 URIC ACID Routine 01/17/2018 6:43 AM CDT Heart failure custodial current use of 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 T3 FREE Routine 01/17/2018 6:43 AM CDT 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 TSH Routine 01/17/2018 6:43 AM CDT Heart failure custodial current use of 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 T4 FREE Routine 01/17/2018 6:43 AM CDT Heart failure custodial current use of 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 BRAIN NATRIURETIC PEPTIDE, BNP OR PROBNP Routine 01/17/2018 6:43 AM CDT 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 MAGNESIUM LEVEL Routine 01/17/2018 6:43 AM CDT 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 LIPID PANEL Routine 01/17/2018 6:43 AM CDT Heart failure custodial current use of 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 COMPREHENSIVE METABOLIC PANEL Routine 01/17/2018 6:43 AM CDT Heart failure custodial current use of 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 documented in this encounter Results * TSH (01/17/2018 6:43 AM CDT) TSH 3.21 0.27 - 4.20 uIU/mL 01/17/2018 10:41 AM CDT [facility] LABORATORY [facility] Blood Venipuncture / Unknown 01/17/2018 6:43 AM CDT 01/17/2018 9:15 AM CDT us Charlie Norton MD CHEMISTRY ORDERABLES Final R esult [facility] [employer] [facility] CLIA# [id number] [address] [place] [address] * T3 FREE (01/17/2018 6:43 AM CDT) T3 FREE 2.6 2.0 - 4.4 pg/mL 01/17/2018 10:41 AM CDT [facility] LABORATORY [facility] Blood Venipuncture / Unknown 01/17/2018 6:43 AM CDT 01/17/2018 9:15 AM CDT Charlie Norton MD CHEMISTRY ORDERABLES Final R esult [facility] CLIA# [id number] [address] [place] [address] * T4 FREE (01/17/2018 6:43 AM CDT) T4 FREE 0.95 0.90 - 1.70 ng/dL 01/17/2018 10:41 AM CDT [facility] [employer] [facility] Blood Venipuncture / Unknown 01/17/2018 6:43 AM CDT 01/17/2018 9:15 AM CDT Charlie Norton MD CHEMISTRY ORDERABLES Final R esult Performing Organization Address City/[facility] Co de Phone Number [facility] [employer] [facility]# [id number] [address] [place] [address] * (ABNORMAL) PROTIME-INR (01/17/2018 6:43 AM CDT) PROTIME 23.1(H) 12.7 - 15.1 Seconds 01/17/2018 10:27 AM CDT [facility] LABORATORY [facility] INR 2.1(H) 0.9 - 1.1 01/17/2018 10:27 AM CDT [facility] Blood Venipuncture / Unknown 01/17/2018 6:43 AM CDT 01/17/2018 9:15 AM CDT Narrative [facility] LABORATORY [facility] - 01/17/2018 10:27 AM CDT INR Therapeutic Range: Adult: 2.0 - 3.0 for pulmonary embolism or prophylaxis against venous thrombosis or systemic embolization. 2.0 - 3.0 for patients with tissue heart valves. 2.5 - 3.5 for patients with mechanical heart valves or post [place]. Pediatric (12 years and under): 1.5 - 3.0 Although the target range in children is not well established, INR values of 1.5 - 3.0 are recommended for most patients. Higher values have been used in children with prosthetic cardiac valves and hereditary clotting disorders. [place] (<3 days) therapeutic ranges have not been established. Charlie Norton MD HEMATOLOGY ORDERABLES Final Result Performing Organization Address [facility] Co de Phone Number [facility] CLIA# [id number] [address] [place] [address] * MAGNESIUM LEVEL (01/17/2018 6:43 AM CDT) [facility] MAGNESIUM 2.2 1.6 - 2.4 mg/dL 01/17/2018 10:39 AM CDT [facility] LABOR[facility] SERVICES [facility] Blood Venipuncture / Unknown 01/17/2018 6:43 AM CDT 01/17/2018 9:15 AM CDT Charlie Norton MD CHEMISTRY ORDERABLES Final R esult Performing Organization Address [facility] de Phone Number [facility] [employer] [facility]# [id number] [address] [place] [address] [place] [address] * (ABNORMAL) CBC WITH DIFFERENTIAL (01/17/2018 6:43 AM CDT) [facility] WBC 7.9 4.0 - 9.8 K/uL 01/17/2018 10:27 AM CDT [employer] LABORATORY SERVICES [facility] RBC 2.72(L) 3.90 - 4.90 M/uL 01/17/2018 10:27 AM CDT [facility] LABORATORY SERVICES [facility] HEMOGLOBIN 7.9(L) 11.8 - 14.8 g/dL 01/17/2018 10:27 AM CDT [facility] LABORATORY SERVICES [facility] HEMATOCRIT 26.0(L) 35.5 - 44.0 % 01/17/2018 10:27 AM CDT [employer] LABORATORY SERVICES [facility] MCV 95.6 82.0 - 99.0 fL 01/17/2018 10:27 AM [employer] LABORATORY SERVICES - [facility] MCH 29.0 27.2 - 32.6 pg 01/17/2018 10:27 AM [employer] LABORATORY SERVICES - [facility] MCHC 30.4(L) 31.5 - 35.5 g/dL 01/17/2018 10:27 AM [employer] LABORATORY SERVICES - [facility] [place] RDW 14.8(H) 11.5 - 14.5 % 01/17/2018 10:27 AM [employer] LABORATORY SERVICES - . [facility] RDW-STDEV 51.2(H) 37.1 - 48.7 fL 01/17/2018 10:27 AM [employer] LABORATORY SERVICES - [facility] [place] PLATELETS 326 140 - 350 K/uL 01/17/2018 10:27 AM [employer] LABORATORY SERVICES - [facility] [place] MPV 9.8 9.3 - 12.4 fL 01/17/2018 10:27 AM [employer] LABORATORY SERVICES - [facility] [place] NEUTROPHILS 62 % 01/17/2018 10:27 AM [employer] LABORATORY SERVICES - [facility] [place] LYMPHOCYTES 26 % 01/17/2018 10:27 AM [employer] [facility]ATORY SERVICES [facility] [place] MONOCYTES 7 % 01/17/2018 10:27 AM [employer] LABORATORY SERVICES [facility] [place] EOSINOPHILS 3 % 01/17/2018 10:27 AM [employer] LABORATORY SERVICES [facility] [place] BASOPHILS 1 % 01/17/2018 10:27 AM [employer] LABORATORY SERVICES - [facility] [place] IMMATURE GRANULOCYTES 1 % 01/17/2018 10:27 AM [employer] [facility]ATORY [facility] Comment:IG (Immature Granulo cyte) count includes Metamyelocytes, Myelocytes, and Promyelocytes NEUTROPHIL ABSOLUTE 4.89 1.90 - 7.00 K/uL 01/17/2018 10:27 AM [employer] LABORATORY SERVICES [facility] [place] LYMPHOCYTE ABSOLUTE 2.04 0.70 - 4.50 K/uL 01/17/2018 10:27 AM [employer] LABORATORY SERVICES [facility] [place] MONOCYTE ABSOLUTE 0.56 0.10 - 1.30 K/uL 01/17/2018 10:27 AM [employer] LABORATORY SERVICES [facility] [place] EOSINOPHIL ABSOLUTE 0.27 0.00 - 0.70 K/uL 01/17/2018 10:27 AM CDT [facility] LABORATORY [facility] - [facility] BASOPHILS ABSOLUTE 0.06 0.00 - 0.20 K/uL 01/17/2018 10:27 AM CDT [employer] LABORATORY SERVICES - [facility] IMMATURE GRANULOCYTES ABSOLUTE 0.04(H) 0.00 - 0.03 K/uL 01/17/2018 10:27 AM CDT [facility] LABORATORY [facility] Blood Venipuncture / Unknown 01/17/2018 6:43 AM CDT 01/17/2018 9:15 AM CDT us Charlie Norton MD HEMATOLOGY ORDERABLES Final Result Performing Organization Address City/[facility]/ZIP Co de Phone Number [facility] [facility] [id number] [address] [place] [address] * (ABNORMAL) BRAIN NATRIURETIC PEPTIDE, BNP OR PROBNP (01/17/2018 6:43 AM CDT) PROBNP, N TERMINAL 18,474(H) <449 pg/mL 01/17/2018 10:41 AM CDT [facility] [employer] [facility] Comment: Reference values for screening purposes based on marble cutter's recommendation: Patients less than 75 years: <125 [...] Norton MD CHEMISTRY ORDERABLES Final R esult [facility] [employer] [facility] CLIA# [id number] [address] [place] [address] * (ABNORMAL) LIPID PANEL (01/17/2018 6:43 AM CDT) Pathologist [facility] CHOLESTEROL 75 <200 mg/dL 01/17/2018 10:39 AM T [facility] [employer] [facility] TRIGLYCERIDE 72 <150 mg/dL 01/17/2018 10:39 AM T [facility] [employer] [facility] HDL 35(L) 40 - 59 mg/dL 01/17/2018 10:39 AM T [facility] [employer] [facility] LDL CALCULATED 26 <100 mg/dL 01/17/2018 10:39 AM [facility] [employer] [facility] NON-HDL CHOLESTEROL 40 <130 mg/dL 01/17/2018 10:39 AM [facility] [employer] [facility] Blood Venipuncture / Unknown 01/17/2018 6:43 AM CDT 01/17/2018 9:15 AM CDT [facility] [employer] [facility] - 01/17/2018 10:39 AM [...] Norton MD CHEMISTRY ORDERABLES Final R esult [facility] [employer] [facility]# [id number] [address] [place] [address] * VITAMIN D 25 HYDROXY (01/17/2018 6:43 AM CDT) VITAMIN D TOTAL (25OH) 31 30 - 100 ng/mL 01/17/2018 10:45 AM CDT [facility] [employer] [facility] Blood Venipuncture / Unknown 01/17/2018 6:43 AM CDT 01/17/2018 9:15 AM CDT Narrative [facility] LABORATORY [facility] - 01/17/2018 10:45 AM CDT Interpretive Data Chart: Deficient: 0 - 20 ng/mL Insufficient: 21 - 29 ng/mL Sufficient: 30 - 100 ng/mL Increased Risk of Hypercalciuria: >100 ng/mL Toxic: >150 ng/mL Charlie Norton MD CHEMISTRY ORDERABLES Final R esult [facility] CLIA# [id number] [address] [place] [address] * URIC ACID (01/17/2018 6:43 AM CDT) URIC ACID 3.1 2.4 - 5.7 mg/dL 01/17/2018 10:39 AM T [facility] [employer] [facility] Blood Venipuncture / Unknown 01/17/2018 6:43 AM CDT 01/17/2018 9:15 AM CDT Charlie Norton MD CHEMISTRY ORDERABLES Final R esult Performing Organization Address City/[facility]/ZIP Co de Phone Number [facility] CLIA# [id number] [address] [place] [address] * (ABNORMAL) COMPREHENSIVE METABOLIC PANEL (01/17/2018 6:43 AM CDT) SODIUM 140 136 - 145 mmol/L 01/17/2018 10:51 AM CDT [facility] [employer] [facility] POTASSIUM 4.3 3.5 - 5.0 mmol/L 01/17/2018 10:51 AM CDT [facility] CHLORIDE 104 98 - 107 mmol/L 01/17/2018 10:51 AM T [employer] [facility] CO2 23 22 - 29 mmol/L 01/17/2018 10:51 AM [facility] [employer] [facility] CALCIUM 8.1(L) 8.6 - 10.2 mg/dL 01/17/2018 10:51 AM [facility] [employer] [facility] BUN 23 8 - 23 mg/dL 01/17/2018 10:51 AM [facility] [employer] [facility] CREATININE 1.60(H) 0.51 - 0.95 mg/dL 01/17/2018 10:51 AM [facility] [employer] [facility] Comment: The GFR result is not clinically significant on patients <18 or >70 years of age. GLUCOSE 65(L) 74 - 99 mg/dL 01/17/2018 10:51 AM [employer] [facility] TOTAL PROTEIN 6.1(L) 6.7 - 8.6 g/dL 01/17/2018 10:51 AM [employer] [facility] ALBUMIN 2.5(L) 3.5 - 5.2 g/dL 01/17/2018 10:51 AM [employer] [facility] BILIRUBIN TOTAL 0.2 0.2 - 1.1 mg/dL 01/17/2018 10:51 AM [employer] [facility] ALKALINE PHOSPHATASE 99 35 - 104 U/L 01/17/2018 10:51 AM [employer] [facility] AST 16 <33 U/L 01/17/2018 10:51 AM [employer] [facility] ALT <5 <34 U/L 01/17/2018 10:51 AM [employer] [facility] GFR 31 mL/min/1.7 3 sq meter 01/17/2018 10:51 AM [employer] [facility] Comment: eGFR has not [...] 3 sq meter 01/17/2018 10:51 AM CDT [facility] LABORATORY [facility] ANION GAP 13 8 - 16 mmol/L 01/17/2018 10:51 AM CDT [facility] LABORATORY [facility] Blood Venipuncture / Unknown 01/17/2018 6:43 AM CDT 01/17/2018 9:15 AM CDT Narrative [facility] LABORATORY [facility] - 01/17/2018 10:51 AM CDT Samples containing indocyanine green cause interferences on Total and/or Direct Bilirubin and must not be measured. 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
--- OUTSIDE RECORDS SUMMARY | 2024-11-12 10:27 | XMS_ITS | Encounter Summary ---
Author Organization [employer] Address [address] [place] [address] Care Team Providers Care Institutional Research Director Name Role Phone Unavailable Primary Care Provider Unavailabl e Encounter Details Date Type Department Care Team (Late st Contact Info) Description 02/01/2018 Lab Requisition [facility] RooT Services S [facility] [address] [place] [address] Charlie Norton MD [address] [place] [address] Diarrhea Social History Tobacco Use [...] A) Not Detected 02/04/2018 3:09 PM CDT [facility] [employer] [facility] Stool STOOL SPECIMEN / Unknown Collection / Unknown 02/04/2018 12:00 PM CDT 02/04/2018 1:58 PM CDT Narrative [facility] [employer] [facility] - 02/04/2018 3:09 PM CDT This assay [...] ORDER SHAWNA Final Result Performing Organization Address City/State/[facility] Co de Phone Number [facility] LABORATORY SERVICES [facility]# [id number] [address] [place] [address] documented in this encounter Visit Diagnoses Diagnosis Diarrhea documented in this encounter Additional Health Concerns Infection Onset Date Last Indicated Resolved Time C Diff 02/04/2018 02/04/2018 11/09/2022 1:00 AM CDT documented as of this encounter
--- OUTSIDE RECORDS SUMMARY | 2024-11-12 10:27 | XMS_ITS | Encounter Summary ---
Author Organization [employer] [facility] Address [address] [place] [address] Care Team Providers Care Dog Control Officer Name Role Phone Unavailable Primary Care Provider Unavailabl e Encounter Details Date Type Department Care Team (Late st Contact Info) Description 01/25/2018 Lab Requisition [facility] Laboratory Services S [facility] [address] [place] [address] Charlie Norton MD [address] [place] [address] Acute pulmonary edema (CMS/HCC) Social [...]
--- OUTSIDE RECORDS SUMMARY | 2024-11-12 10:27 | XMS_ITS | Clinical Summary ---
Author Organization [facility] ([facility]) Address [address] [address] Care Team Providers Care Hat Lacer Name Role Phone Asa Dale MD Unavailable [phone] Charlie Norton MD Primary Care Provider Source Comments [facility],non-owned Affiliates and Associated Physician Practices is amultiple site organization consisting of ambulatory clinics and hospital sitesin [place], [place], [place] and [place]. This disclosure is being madepursuant to the Care Everywhere program and may not contain all information available regarding this patient. Last updated 18.[facility] ([facility]) Allergies Active Allergy Reactions Criticality Noted Date Comments Chlorhexidine Itching,Unknown 01/30/2019 Per patient and per pulmonology notes 02/16/22 in care everywhere Per patient and per pulmonology notes 02/16/22 in care everywhere [place] Tar Extract Unknown 02/17/2022 Fosinopril Unknown 07/15/2022 [...] document. Alwaysverify current medications with the patient. albuterol HFA (Proventil; Ventolin; Proair) 108 (90 Base) MCG/ACT inhaler Inhale 2 (two) puffs by mouth every 4 hours as needed 06/30/19 22 Active allopurinol (Zyloprim) 100 MG tablet Take 1 (one) tablet by mouth as needed 05/21/20 21 Active amiodarone (Cordarone) 200 MG tablet Take 0.5 (one-half) tablet by mouth once daily 05/25/20 22 Active apixaban (Eliquis) 2.5 MG tablet Take 1 (one) tablet by mouth 2 times daily 02/18/20 22 Active calcitriol (Rocaltrol) 0.25 MCG capsule TAKE 1 CAPSULE BY MOUTH 3 TIMES PER WEEK 05/23/20 21 Active cyanocobalamin (Vitamin B-12) injection Inject 1,000 (one thousand) mcg subcutaneously 08/20/19 23 Active Voltaren 1 % gel APPLY 1 GRAM TO THE AFFECTED AREA EVERY DAY 12/08/19 22 Active ergocalciferol (Drisdol) 1.25 MG (49803 UT) capsule Take by mouth every Monday, Monday & Monday02/05/20 22 Active fexofenadine (Myriam) 180 MG tablet Take 1 (one) tablet by mouth once daily 12/10/19 22 Active fluticasone propionate (Flonase) 50 MCG/ACT nasal spray as needed 07/01/19 23 Active Fluticasone-Ume clidin-Vilant (Trelegy Ellipta) 100-62.5-25 MCG/ACT Inhale 1 (one) puff by mouth once daily 11/20/19 22 Active folic acid (Folvite) 1 MG tablet Take 1 (one) tablet by mouth once daily 09/19/19 23 Active furosemide (Lasix) 40 MG tablet Take 1 (one) tablet by mouth once daily 10/07/19 22 Active insulin glargine (Lantus/Semglee ) 100 units/ml injection Inject 20 (twenty) Units subcutaneously at bedtime Active metoprolol succinate XL 24hr (Toprol XL) 25 MG tablet Take 1 (one) tablet by mouth once daily 02/18/20 22 Active Myrbetriq 50 MG tablet Take 1 (one) tablet by mouth once daily 09/09/19 23 Active oxyCODONE-aceta minophen (Percocet) 5-325 MG tablet every 8 hours as needed 08/02/19 22 Active pantoprazole EC (Protonix) 40 MG tablet Take 1 (one) tablet by mouth once daily 05/25/20 22 Active potassium chloride ER (Micro-K) 10 MEQ capsule Take 1 (one) capsule by mouth 2 times daily Active Syringe/Needle, Disp, (SYRINGE 3CC/25GX5/8 ) 25G X 5/8 3 ML MISC Use 12 syringes SEE ADMIN INSTRUCTIONS 07/21/19 23 Active Forteo 600 MCG/2.4ML injection Inject 20 (twenty) mcg subcutaneously at bedtime 09/01/19 23 Active [place] Thyroid 180 MG tablet Take 1 (one) tablet by mouth once daily 06/28/19 23 Active zolpidem CR (Ambien Cr) 6.25 MG tablet Take 1 (one) tablet by mouth at bedtime 08/02/19 23 Active dapagliflozin propanediol (Farxiga) 10 MG tablet Take 1 (one) tablet by mouth every morning 90 tablet 3 10/26/19 24 Active Active Problems Problem Noted Date Diagnosed Date Mitral regurgitation 09/24/2022 A-fib 09/24/2022 CVA (cerebral vascular accident) 09/24/2022 Dyslipidemia 09/24/2022 Diabetes mellitus 09/24/2022 Hypertension 09/24/2022 HFrEF (heart failure with reduced ejection fract ion) 09/24/2022 Nonischemic cardiomyopathy 09/24/2022 Resolved Problems Problem Noted Date Diagnosed Date Resolved Date (HFpEF) heart failure with p reserved ejection fraction 09/24/2022 09/24/2022 Immunizations Immunization Administration Dates Next Due INFLUENZA VACCINE, TRIV. (AF LURIA, FLUZONE TRIVALENT; 6MO+) (IIV3) 04/30/2018,03/28/2016,03/26/2015,2013,04/12/2011 Covid Pfizer primary monoval ent 12+ yr 0.3mL Purple [...] more drinks on one occasion? 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 Gender Identity Not on file Sexual Orientation [...] 2024 04/07/2022, 10/27/2021, 08/13/2020, Additional history exists DEPRESSION SCREENING 06/26/2024 INFLUENZA VACCINE (Season Ended) 2025 03/26/2020, 04/30/2018, 04/12/2017, Additional history exists BONE DENSITY TESTING Completed 10/10/2023, 03/14/2019, 06/10/2016 HEPATITIS B VACCINE Aged Out No longe r eligible based on patient's age to complete this topic HIB VACCINE Aged Out No longer eligi ble based on patient's age to complete this topic HPV VACCINE Aged Out No longer eligi ble based on patient's age to complete this topic MENINGOCOCCAL (Group B) VACCINE SHARED DECISION-MAKING Aged Out No longer eligible based on patient's age to complete this topic MENINGOCOCCAL GROUPS A/C/Y/W VACCINE Aged Out No longer eligible based on patient's age to complete this topic Insurance MEDICARE ANTHEM MEDICARE [facility] MEDICARE ANTHEM Care Teams Hat Lacer Relationship Specialty Start Date End Date Charlie Norton MD [address] [place] [address] PCP - General 09/23/22 Asa Dale MD [facility] [address] [place] [address] Cardiology 09/14/22
== END 2024-11-12 10:14 | disposition home or self-care (01) ==
LOC: ANHAUDIO 10:13
PROVIDERS: PCP Family Medicine
DX: H90.3 Sensorineural hearing loss, bilateral (principal)
CPT/HCPCS: 92557; 92567

== ENCOUNTER 2025-04-16 13:30 | Outpatient (RCR) | payer MEDICARE, OTHER, SELFPAY ==
--- NOTE | 2025-01-20 17:13 | OTOPEVAL1 ---
Assessment and note entered by Selene Matthews OT Evaluation Information Assessment Status Evaluation Diagnosis Bilateral LE lymphedema ICD-10 Condition Codes (OT) Lymphedema I89.0 Onset 1985 Subjective Information Pt. lives independently at [facility]. Pt. reports onset of Lymphedema in 1985 after having L breast mastectomy, R breast Lumpectomy resulting in lymphedema in R UE 1994. Pt. then had uterine cancer in 2004, after surgery, radiation, and chemo pt. developing BLE lymphedema L > R. Pt. has just finished chemotherapy with Lymphoma, which increased LE swelling. Pt. has caregivers who assist her with IADLs, medication management, transportation, and occasional showering. Pt. uses rollator in and out of community, sometimes uses cane in apartment, sometimes no mobility device. Pt. will use wheel chair for longer community distances. Pt. has velcro garments from previous treatment, which she reports are wearing out, and difficulty to manage. Pt. reports on her R LE she has worn a 8-15 mmHg below knee compression stocking, which is not compressive enough, but she is able to manage and recently purchased a below knee juxtalite velco garment, and continues to to wear L below knee Juxtafit velcro garment , which she has used since completing complete decongestive treatment in early 2022. Pt. was only given L LE compression pump unit, which she continues to use. Reported Pain Level Pain Score 4,4: Self Report Assessment OT Clinical Summary Pt. is 89 year old F, referred for bilateral LE lymphedema. Pt. presents with swelling and firm tissue across BLE, with dorsum of foot swelling. Pt. has participated in complete decongestive treatment in the past, for treatment of L LE lymphedema, and will benefit from services including manual lymph drainage with focus on BLE, measurement and recommendations for compression garments, education and use of BLE compression pump, therapeutic exercise instruction, and education and training of buttermaker maintenance of condition with scheduled wear of compression garments, completion of self manual lymph drainage , and use of home compression pump. Plan of Care Interventions Therapeutic Exercise,Manual Therapy,Self-Care/Home Management,Other Other Interventions compression pump OT Services Indicated Yes Treatment Frequency and 3 x/week for 10 visits Duration These treatments will address the objective and functional deficits as defined above. The patient will be advanced safely and appropriately in order for the patient to progress towards his/her prior level of function. Additional exercises will be introduced and as well as a comprehensive home exercise program upon discharge, if needed, ?to ensure carryover of functional gains achieved in the clinic. This treatment plan has been reviewed and agreement upon by the patient.
--- NOTE | 2025-01-20 17:13 | OPREHPOC ---
Outpatient Therapy Plan of Care This is a Multidisciplinary Plan of Care that may contain components documented by all disciplines (PT, OT, and ST.) OT Problem 1 OT Problem #1 Knowledge Deficit OT Goal 1 Goal / Goal Update Pt. will demonstrate independence in HEP Pt. will demonstrate independence in self manual lymph drainage Target Visit 10 OT Problem 2 OT Problem #2 Impaired Lymphatic System OT Goal 1 Goal / Goal Update Pt. will display decrease of 50 cm of volume in BLE Target Visit 20 OT Problem 3 OT Problem #3 Impaired Functional ADLs OT Goal 1 Goal / Goal Update Pt. will demonstrate independence in donning/ doffing BLE compression garments with use of AE, as needed, 5/7 days of the week Target Visit 20
--- NOTE | 2025-02-14 15:40 | OTOPPROG ---
Assessment and note entered by Selene Matthews OT Evaluation Information Assessment Status Evaluation Assessment OT Clinical Summary Pt. is 89 year old F, referred for bilateral LE lymphedema. Pt. presents for reevaluation, display R LE reduction 29 cm and L LE reduction of 8 cm of with continued swelling and firm tissue across BLE, with dorsum of foot swelling. With continued short stretch compression bandaging, pt. demonstrates continued bilateral LE reduction, although upper thighs display continued and increased swelling without compression. Pt. has been measured and pt awaits below knee garment delivery. Pt. will benefit from continued services including manual lymph drainage with focus on BLE, education and use of BLE compression pump, therapeutic exercise instruction, and education and training of retirement maintenance of condition with scheduled wear of compression garments, completion of self manual lymph drainage , and use of home compression pump. Pt. demonstrated difficulty with reach and management of garments independently, and will benefit from compression garment accessories and adaptive equipment to increase capacity for management and changing of garments. Plan of Care Interventions Therapeutic Exercise,Manual Therapy,Self-Care/Home Management,Other Other Interventions compression pump OT Services Indicated Yes Treatment Frequency and 3 x/week for 10 visits Duration These treatments will address the objective and functional deficits as defined above. The patient will be advanced safely and appropriately in order for the patient to progress towards his/her prior level of function. Additional exercises will be introduced and as well as a comprehensive home exercise program upon discharge, if needed, ?to ensure carryover of functional gains achieved in the clinic. This treatment plan has been reviewed and agreement upon by the patient.
--- NOTE | 2025-02-14 15:40 | OPREHPOC ---
Outpatient Therapy Plan of Care This is a Multidisciplinary Plan of Care that may contain components documented by all disciplines (PT, OT, and ST.) OT Problem 1 OT Problem #1 Knowledge Deficit OT Goal 1 Goal / Goal Update Pt. will demonstrate independence in HEP Pt. will demonstrate independence in self manual lymph drainage Progress 02/14/25 partially met, continue Target Visit 20 Progress Partially Met OT Goal 2 Progress Partially Met OT Problem 2 OT Problem #2 Impaired Lymphatic System OT Goal 1 Goal / Goal Update Pt. will display decrease of 50 cm of volume in BLE Progress 02/14/25 partially met, continue Target Visit 20 Progress Partially Met OT Problem 3 OT Problem #3 Impaired Functional ADLs OT Goal 1 Goal / Goal Update Pt. will demonstrate independence in donning/ doffing BLE compression garments with use of AE, as needed, 5/7 days of the week Progress 02/14/25 partially met, continue Target Visit 20 Progress Partially Met
--- NOTE | 2025-03-20 14:36 | OPREHPOC ---
Outpatient Therapy Plan of Care This is a Multidisciplinary Plan of Care that may contain components documented by all disciplines (PT, OT, and ST.) OT Problem 1 OT Problem #1 Knowledge Deficit OT Goal 1 Goal / Goal Update Pt. will demonstrate independence in HEP Pt. will demonstrate independence in self manual lymph drainage Progress 02/14/25 partially met, continue Progress 03/20/25 1) partially met, continue Target Visit 20 Progress Partially Met OT Goal 2 Progress Partially Met OT Problem 2 OT Problem #2 Impaired Lymphatic System OT Goal 1 Goal / Goal Update Pt. will display decrease of 50 cm of volume in BLE Progress 02/14/25 1) partially met, continue Progress 03/20/25 1) partially met, continue 2) Updated goal: Pt. will demonstrate maintenance of bilateral LE volume reduction of < 570 cm in R LE and < 550 cm in L LE Target Visit 20 Progress Partially Met OT Problem 3 OT Problem #3 Impaired Functional ADLs OT Goal 1 Goal / Goal Update Pt. will demonstrate independence in donning/ doffing BLE compression garments with use of AE, as needed, 5/7 days of the week Progress 02/14/25 1) partially met, continue Progress 03/20/25 1)partially met, continue Target Visit 20 Progress Partially Met
--- NOTE | 2025-03-20 14:38 | OTOPPROG ---
Assessment and note entered by Selene Matthews, OT Evaluation Information Assessment Status Progress Diagnosis Bilateral LE lymphedema ICD-10 Condition Codes (OT) Lymphedema I89.0 Onset 1985 Subjective Information Pt. reports she feels she is getting better a managing velcro garments within her capacity, and her plans for having scheduled daily caregiver assistance for garment and condition management seems to be working out. Pt. reports she has called [facility] and they are awaiting her provider's signature to issued components of compression pump needed for R LE Assessment OT Clinical Summary Pt. is 89 year old F, referred for bilateral LE lymphedema. Pt. presents for progress, displays maintained R LE reduction of 27.25 cm and L LE reduction of 13.75 cm of with continued swelling and firm tissue across BLE, with dorsum of foot swelling with transition to velcro garments including bilateral foot, lower, and upper legs Pt. will benefit from continued services including manual lymph drainage with focus on BLE, education and use of BLE compression pump, therapeutic exercise instruction, and education and training of roasterman maintenance of condition with scheduled wear of compression garments, completion of self manual lymph drainage, and use of home compression pump. Pt. demonstrated difficulty with reach and management of garments independently, has acquired increased caregiver support in the last week, without consistency, is awaiting R LE pump, and new custom compression garments which will required additional education for wear. Plan of Care Interventions Therapeutic Exercise,Manual Therapy,Self-Care/Home Management,Other Other Interventions compression pump OT Services Indicated Yes Treatment Frequency and 3 x/week for 10 visits Duration These treatments will address the objective and functional deficits as defined above. The patient will be advanced safely and appropriately in order for the patient to progress towards his/her prior level of function. Additional exercises will be introduced and as well as a comprehensive home exercise program upon discharge, if needed, ?to ensure carryover of functional gains achieved in the clinic. This treatment plan has been reviewed and agreement upon by the patient.
--- NOTE | 2025-04-16 17:18 | OTOPPROG ---
Assessment and note entered by Selene Matthews OT Progress Information Assessment Status Progress Diagnosis Bilateral LE lymphedema ICD-10 Condition Codes (OT) Lymphedema I89.0 Onset 1985 Subjective Information Pt. reports she feels she is getting better a managing velcro garments with assistance from caregivers. Pt. reports she continues to wait for new compression garments and compression pump, but they have not arrived. Pt. states I think it' s looking great. It feels so much better, they aren't even sore. Assessment OT Clinical Summary Pt. is 89 year old F, referred for bilateral LE lymphedema. Pt. presents for progress evaluation, displaying R LE reduction of 97.25 cm and L LE reduction of 77.25 cm since start of treatment, with softened skin, improved color, and negative stemmer sight, without display of injury or infection. Pt. is awaiting new compression garments which will require education and training for donning/doffing, adjusting fit, and coordinating wear schedule with pt. and multiple caregivers. Pt. demonstrates increasing compliance and regularity with caregiver support. Pt. will benefit from continued services including manual lymph drainage with focus on BLE, education and use of BLE compression pump, therapeutic exercise instruction, and education and training of marine oil terminal superintendent maintenance of condition with scheduled wear of compression garments. Reducing pt. frequency of treatment to 1-2 x /week, during transition to maintenance phase and awaiting new compression garments. Plan of Care Interventions Therapeutic Exercise,Manual Therapy,Self-Care/Home Management,Other Other Interventions compression pump OT Services Indicated Yes Treatment Frequency and 1-2 x /week for 6 visits Duration These treatments will address the objective and functional deficits as defined above. The patient will be advanced safely and appropriately in order for the patient to progress towards his/her prior level of function. Additional exercises will be introduced and as well as a comprehensive home exercise program upon discharge, if needed, ?to ensure carryover of functional gains achieved in the clinic. This treatment plan has been reviewed and agreement upon by the patient.
--- NOTE | 2025-04-16 17:18 | OPREHPOC ---
Outpatient Therapy Plan of Care This is a Multidisciplinary Plan of Care that may contain components documented by all disciplines (PT, OT, and ST.) OT Problem 1 OT Problem #1 Knowledge Deficit OT Goal 1 Goal / Goal Update Pt. will demonstrate independence in HEP Pt. will demonstrate independence in self manual lymph drainage Progress 02/14/25 partially met, continue Progress 03/20/25 1) partially met, continue Progress 04/16/25 1) goal met, continue for consistency in transition to maintenance phase Target Visit 20 Progress Met OT Goal 2 Progress Partially Met OT Problem 2 OT Problem #2 Impaired Strength OT Goal 1 Goal / Goal Update Pt. will display decrease of 50 cm of volume in BLE Progress 02/14/25 1) partially met, continue Progress 03/20/25 1) partially met, continue 2) Updated goal: Pt. will demonstrate maintenance of bilateral LE volume reduction of < 570 cm in R LE and < 550 cm in L LE Progress 04/16/25 1) goal met, continue for consistency and compliance 2) goal met, continue for consistency and compliance Target Visit 20 Progress Met OT Problem 3 OT Problem #3 Impaired Functional ADLs OT Goal 1 Goal / Goal Update Pt. will demonstrate independence in donning/ doffing BLE compression garments with use of AE, as needed, 5/7 days of the week Progress 02/14/25 1) partially met, continue Progress 03/20/25 1)partially met, continue Progress 04/16/25 1) goal met with assist from caregivers. continue goal for consistency wit new garments Target Visit 20 Progress Met
== END 2025-04-20 23:59 | disposition home or self-care (01) ==
LOC: ANHOT 13:30
PROVIDERS: PCP Family Medicine
DX: I89.0 Lymphedema, not elsewhere classified (principal); R60.9 Edema, unspecified; Z79.899 Other long term (current) drug therapy
CPT/HCPCS: 29581; 97016; 97140; 97165; 97530; 97535

== ENCOUNTER 2025-05-09 14:30 | Outpatient (RCR) | payer MEDICARE, OTHER, SELFPAY ==
--- NOTE | 2025-05-09 17:40 | OTOPDC ---
Assessment and note entered by Selene Matthews OT Evaluation Information Assessment Status Discharge Diagnosis Bilateral LE lymphedema ICD-10 Condition Codes (OT) Lymphedema I89.0 Onset 1985 Subjective Information Pt. reports she is confident in her plan for management of condition and reports that her additional compression pump components are being sent to her home. Reported Pain Level Pain Score 0: Self Report Assessment OT Clinical Summary Pt. is 89 year old F, referred for bilateral LE lymphedema. Pt. presents for progress evaluation, displaying mild return of BLE swelling, but overall maintain decreased lymphedema symptoms, after not donning compression garments after removing them before bed last night. Pt. has been given significant education and training for management of condition, but is limited by physical limitations. Pt. has demonstrated ability to utilize adaptive equipment for donning/doffing both appropriate day and nighttime compression garments and has coordinated support from family and caregivers for regular, yet occasionally inconsistent assistance in management. Pt. reports understanding of required daily routine and tasks for transition into management phase of treatment , and is agreeable to discharge from skilled therapy services on this date. Plan of Care OT Services Indicated No
== END 2025-05-12 09:36 | disposition home or self-care (01) ==
LOC: ANHOT 14:30
PROVIDERS: PCP Family Medicine
DX: I89.0 Lymphedema, not elsewhere classified (principal); R60.9 Edema, unspecified; Z79.899 Other long term (current) drug therapy
CPT/HCPCS: 97016; 97140; 97530; 97535